=== PATIENT | female | born 1955 | race Caucasian/White ===

== ENCOUNTER → 2018-04-27 15:45 | Outpatient (CLI) | payer MEDICAID, SELFPAY ==
--- NOTE | 2018-04-27 15:47 | MM_ITS ---
MM Dig screening mamm BI w/CAD ORDERING PHYSICIAN : Juany Lewis PATIENT AGE: 62 years GENDER: Female HISTORY. Routine screening mammogram. No hormones. No new complaints. No previous surgery.. Family history:. Maternal grandmother with postmenopausal breast cancer. COMPARISON: [facility] mammogram studies dated 10 05/15 and 07/14/2010 TECHNIQUE: Standard CC and MLO images were obtained. R2 CAD reviewed. FINDINGS: Low-density breast bilaterally. Minimal fibroglandular elements with generalized fatty replacement.. No dominant mass nor suspicious calcifications either breast. There is no significant change since previous studies small few scattered noncalcifications bilaterally again noted . Mild asymmetry is again noted. LEFT BREAST:. Stable appearance with fibroglandular elements at the retroareolar region extending superiorly, similar to previous studies. Also noted to small loosely grouped areas of calcification which and not changed significantly since 2016, but warrant annual follow-up IMPRESSION: No significant change since outside studies from 2016 . No significant new areas of concern. . Follow-up in one year recommended incidental encouraged. Specifically Two small loosely grouped overall stable areas of calcification left breast noted but would benefit from follow-up in one year to further confirm ongoing stability BI-RADS Category: 2 Benign Finding(s) RECOMMENDED FOLLOW-UP: 1YR 1 YEAR FOLLOW-UP (A letter has been sent to the patient regarding results of the study.)
== END ==
PROVIDERS: PCP Pediatrics; Visit Provider Pediatrics
DX: Z12.31 Encounter for screening mammogram for malignant neoplasm of breast (principal)
CPT/HCPCS: 77067

== ENCOUNTER → 2019-02-09 12:58 | Outpatient (CLI) | payer MEDICAID, SELFPAY ==
--- NOTE | 2019-02-09 13:00 | CI_ITS ---
Cerebrovascular Exam Indications: 780.4 Dizziness and giddiness. IMPRESSIONS 1. The bilateral vertebral arteries are patent with normal antegrade flow. 2. Study suggests less than 20% stenosis involving the right internal carotid artery. 3. Study suggests 20-49% stenosis involving the left internal carotid artery. History: Coronary artery disease. Risk factors: Current tobacco use. Hypertension. Diabetes mellitus. Hyperlipidemia. Carotid duplex study. Complete study and Doppler flow study including spectral analysis, color and villarreal scale imaging. Height: Height: 160cm. Height: 63in. Weight: Weight: 81.6kg. Weight: 179.6lb. Body mass index: BMI: 31.9kg/m^2. Body surface area: BSA: 1.94m^2. Location: Vascular laboratory. Patient status: Outpatient. Tables: Arterial flow: + +--------+--------+ Location V sys V ed + +--------+--------+ Right CCA - proximal 76.2cm/s 18.1cm/s + +--------+--------+ Right CCA - distal 81.7cm/s 22.8cm/s + +--------+--------+ Right ECA 203cm/s 32.2cm/s + +--------+--------+ Right ICA - proximal 88cm/s 26.7cm/s + +--------+--------+ Right ICA - mid 88.9cm/s 36.1cm/s + +--------+--------+ Right ICA - distal 62.2cm/s 26.7cm/s + +--------+--------+ Right vertebral 40.8cm/s 11.7cm/s + +--------+--------+ Left CCA - proximal 84cm/s 24.9cm/s + +--------+--------+ Left CCA - distal 82.2cm/s 29.2cm/s + +--------+--------+ Left ECA 90cm/s 10.6cm/s + +--------+--------+ Left ICA - proximal 64.9cm/s 26.9cm/s + +--------+--------+ Left ICA - mid 88.4cm/s 36.9cm/s + +--------+--------+ Left ICA - distal 86.1cm/s 33.3cm/s + +--------+--------+ Left vertebral 40.3cm/s 11.9cm/s + +--------+--------+ Velocity ratios: + + + + + + Right, V sys Right, V ed Left, V sys Left, V ed + + + + + + Max ICA/dist CCA 1.09 1.58 1.08 1.26 + + + + + + (Report amended ) Electronically signed by: Bowen Tristan [id number]
--- NOTE | 2019-02-09 13:00 | CA_ITS ---
PROCEDURE: Technically difficult and limited study INDICATIONS FOR THE TEST: Chest pain COPDX Heart Murmur Tobacco SmokingX Palpitations Fatigue Syncope Edema Hypertension Diabetes Mellitus Rheumatic Fever SOBXDOEXObesity HyperlipidemiaX Family History HD Additional History LIMITED EXAM PLAX/PSAX POOR WINDOWS PATIENT INFORMATION HEIGHT: 62 WEIGHT:180 GENDER: Female B/P:122/88 2-D/M-MODE INTERPRETATION: 2-D MEASUREMENTS OBSERVED VALUES IN CMS Right Ventricular Dimension (RVDd) Interventricular Septum (Thickness)(IVsd) Left Ventricular Internal Dimensions(LVIDd) Left Ventricular Posterior Wall (Thickness)(LVPWd) Aortic Root Aortic Cusp Separation Left Atrial Dimensions (LAD) 2D 1. Left atrium is mildly enlarged, left ventricle is normal size, mild concentric left ventricular hypertrophy, visually estimated ejection fraction 55% with no regional wall motion abnormality. 2. The right atrium and right ventricle are mildly enlarged with normal contractility. 3. The aortic valve is minimally thickened and calcified. 4. The mitral and tricuspid valve leaflets are minimally thickened. 5. The pulmonic valve is poorly visualized. 6. No significant pericardial effusion noted. DOPPLER INTERROGATION: Doppler interrogation of the aortic, mitral and tricuspid valvular presence of mild mitral and tricuspid regurgitation, tricuspid regurgitation jet velocity is inadequate for calculation of the right ventricular systolic pressure, grade 1 diastolic dysfunction seen without tissue Doppler evidence of raised left atrial pressure. CONCLUSION: 1. Mildly enlarged left atrium, normal left ventricular size, mild concentric left ventricular hypertrophy, visually estimated ejection fraction 55% with no regional wall motion abnormality, grade 1 diastolic dysfunction seen without tissue Doppler evidence of raised left atrial pressure. 2. Mildly enlarged right ventricle with normal contractility. 3. Mild mitral and tricuspid regurgitation 4. No significant pericardial effusion noted.
--- NOTE | 2019-02-09 13:43 | XR_ITS ---
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 Coronary artery stent is also noted. There is normal heart size. No evidence of CHF. Lungs are clear bilaterally. Degenerative changes are present in the thoracic spine. IMPRESSION As above, no acute finding with no significant change.
== END ==
PROVIDERS: PCP Pediatrics; Visit Provider Internal Medicine Cardiovascular Disease
DX: R06.02 Shortness of breath (principal); I25.10 Atherosclerotic heart disease of native coronary artery without angina pectoris; E78.5 Hyperlipidemia, unspecified; I11.9 Hypertensive heart disease without heart failure; I73.9 Peripheral vascular disease, unspecified; R00.0 Tachycardia, unspecified
CPT/HCPCS: 71046; 93306; 93880

== ENCOUNTER 2019-08-27 14:30 | Outpatient (RCR) | payer OTHER, SELFPAY | END 2019-08-27 14:35 | disposition home or self-care (01) | LOC: PT 14:30 | PROVIDERS: Visit Provider Pediatrics | DX: M54.9 Dorsalgia, unspecified (principal); M62.838 Other muscle spasm | CPT/HCPCS: 97010; 97014; 97035; 97110; 97140; 97163; G0283 ==

== ENCOUNTER 2020-04-25 16:05 | Emergency (ER) | payer MEDICAID, SELFPAY ==
[2020-04-25 16:54] VITALS: BP 124/81; PULSE 93; RESP 18; TEMP 36.8; O2SAT 98; BMI 30.6
--- NOTE | 2020-04-25 17:11 | HMH.EDUTC ---
[facility] [place] Clinical Impression: Vaginal yeast infection Disposition: Home, Self-Care Condition on Discharge: Good Instructions: DI for Vaginal Yeast Infection, Vaginal Yeast Infection, Fluconazole Additional Instructions: Take medication as prescribed *Avoid soaking in soapy bath water as this can cause vaginal yeast infection and watch soaps that you use to clean area *Follow up with Family doctor if symptoms continued Return if needed Straight to ER if any life threatening symptoms Prescriptions: Fluconazole [Diflucan 150mg tab] 150 mg PO DIRECTED #2 tab Transmission Status: Pending to [facility] #[id number] Referrals: Juany Lewis [Primary Care Provider] - As needed Time of Disposition: 17:19 Medical Decision Making - Donnie Inquiry Pt receiving controlled substance: No Donnie was queried for this patient: No Vital Signs: 04/25/20 16:54 Temperature 98.2 F Temperature Source Oral Pulse Rate [Right Brachial] 93 H Respiratory Rate 18 Blood Pressure [Right Arm] 124/81 Blood Pressure Mean [Right Arm] 95 Blood Pressure Source [Right Arm] Automatic Cuff Blood Pressure Position [Right Arm] Sitting 02 Sat by Pulse Oximetry 98 Oxygen Delivery Method Room Air [facility] [place] - General Stated complaint: yeast infection Time Seen by Provider: 04/25/20 17:11 Mode of Arrival: Ambulatory Source of Information: Patient Limitations: No Limitations Description of Symptoms (Recalled from Triage Doc. by RN): PATIENT C/O POSSIBLE YEAST INFECTION X 1 WEEK HEENT Symptoms (Recalled from RN notes): No Resp Symptoms (Recalled from RN notes): No Skin Symptoms (Recalled from RN notes): No MS Symptoms (Recalled from RN notes): No Functional Status (Recalled from RN notes): WNL - History of Present Illness Provider Complaint: Patient states that she has been having yeast infections on and off for several months and has been being treated by PCP States that she has had to take Diflucan multiple times for it States that today she noticed she was having itching and burning again with thick cottage cheese like discharge like she had before and wanted to come in and get treated before it got too bad - Related Data Home Medications Medication Instructions Recorded Confirmed clopidogrel 75 mg tablet 75 mg PO ONCE 03/24/18 01/29/19 Aspirin [Aspir 81] 81 mg PO DAILY 03/27/18 01/29/19 Atorvastatin Calcium [Atorvastatin 80 mg PO DAILY 03/27/18 01/29/19 80mg Tab] Fenofibrate,Micronized 200 mg PO DAILY 03/27/18 01/29/19 [Fenofibrate] Pregabalin [Lyrica 100mg Cap] 100 mg PO BID 03/27/18 01/29/19 glipiZIDE [Glipizide] 10 mg PO DAILY 03/27/18 01/29/19 insulin glargine 100 unit/mL (3 38 unit SQ PM ml 01/29/19 01/29/19 mL) subcutaneous pen metformin 1,000 mg tablet,extended 1,000 mg PO DAILY tab 01/29/19 01/29/19 release 24hr oxycodone 10 mg tablet 10 mg PO TID tab 01/29/19 01/29/19 ropinirole 5 mg tablet 5 mg PO QHS 01/29/19 01/29/19 Previous Rx's Medication Instructions Recorded cilostazol 100 mg tablet 100 mg PO BID #120 tab 04/17/18 Albuterol Sulfate [Albuterol HFA 1 - 2 puffs IH Q4-6H PRN #1 inh 02/19/19 Inhaler] guaiFENesin [Mucinex] 600 mg PO BIDP PRN #40 tab.er.12h 02/19/19 Ibuprofen [Ibuprofen 800mg 800 mg PO Q8HP PRN #10 tab 06/29/19 Tablet] lisinopril 20 mg tablet 20 mg PO BID #60 tab 07/13/19 bisoprolol fumarate 10 mg tablet 10 mg PO DAILY #90 tab 12/04/19 Fluconazole [Diflucan 150mg tab] 150 mg PO DIRECTED #2 tab 04/25/20 Allergies Allergy/AdvReac Type Severity Reaction Status Date / Time No Known Allergies Allergy Verified 05/28/19 13:37 - Worker's Comp Is this a Worker's Comp case?: No [facility] History - Hepatitis A Screen Drug use history?: No High risk sexual behaviors?: No History of sexually transmitted infection?: No Currently employed?: No Childcare worker?: No Do you have indoor plumbing?: Yes Do you have electricity?: Yes Attestation [facility]
[2020-04-25 17:25] VITALS: BP 124/81; PULSE 93; RESP 18; TEMP 36.8; O2SAT 98
== END 2020-04-25 17:30 | disposition home or self-care (01) ==
PROVIDERS: Emergency Provider Nurse Practitioner; PCP Pediatrics
DX: B37.3 Candidiasis of vulva and vagina (principal); E11.9 Type 2 diabetes mellitus without complications; Z79.899 Other long term (current) drug therapy; F17.210 Nicotine dependence, cigarettes, uncomplicated
CPT/HCPCS: 99201

== ENCOUNTER 2020-09-23 17:52 | Emergency (ER) | payer MEDICARE, MEDICAID, SELFPAY ==
--- NOTE | 2020-09-23 18:04 | CT_ITS ---
PROCEDURE: CT ABDOMEN PELVIS W CON CLINICAL INDICATION: left flank/ abd pain Left pain abdominal with vomiting COMPARISON: CT ABDPELW/O CT ABD PELVIS W/O CONTRAST from 11/06/2015 TECHNIQUE: IV Contrast: 75ML Isovue 370 Oral Contrast None Axial images obtained with sagittal and coronal reformats. All CT scans at the facility use one or more dose reduction, viz: automated exposure control, ma/kV adjustment per patient size (including targeted exams where dose is matched to indication, i.e. head), or iterative reconstruction technique. FINDINGS: LOWER THORAX: There are some dependent changes noted in the lung bases posteriorly. Coronary artery stent is present. ABDOMEN & PELVIS: Prior cholecystectomy. The liver, spleen, adrenal glands, and pancreas have unremarkable. The right kidney has an unremarkable appearance. There are bilateral renal artery calcifications. There is mild left hydronephrosis and hydroureter secondary to a 4 mm stone in the distal 1/3 of the left ureter. No evidence of appendicitis or diverticulitis. There is a mild amount of retained colonic feces. No intestinal obstruction or free air. Artifact is present from left hip prosthesis. There are degenerative changes in the lumbar spine. Atheromatous changes involve the aorta. IMPRESSION: 1. 4 mm left distal ureteral stone with left-sided obstructive uropathy 2. Other nonacute findings as described above. Dictated by: Bowen Tristan MD 09/24/2020 06:59 Bowen Tristan MD in [place] 09/24/2020 06:59
[2020-09-23 18:06] VITALS: BP 158/87; PULSE 64; RESP 16; TEMP 36.8; O2SAT 97; BMI 29.2
[2020-09-23 18:22] LABS: Basophils # 0.1 K/mm3 (0-0.2); Basophils % 0.8 % (0.1-2.0); Eosinophils # 0.3 K/mm3 (0.0-0.4); Hematocrit 50.6 % (37.0-47.0); Hemoglobin 17.1 g/dL (12.2-16.2); Lymphocytes # 2.1 K/mm3 (0.7-4.5); Lymphocytes % 16.4 % (10-50); Mean Corpuscular HGB Conc 33.9 g/dL (31.8-35.4); Mean Corpuscular Hemoglobin 32.1 pg (27.0-31.2); Mean Corpuscular Volume 94.8 fl (81-99); Mean Platelet Volume 9.5 fl (7.4-10.4); Monocytes # 0.6 K/mm3 (0.1-1.0); Monocytes % 4.6 % (1.7-9.3); Neutrophils # 9.8 K/mm3 (1.8-7.8); Neutrophils % 76.2 % (37.0-80.0); Platelet Count 237 K/mm3 (142-424); Red Blood Count 5.33 M/mm3 (4.20-5.40); Red Cell Distribution Width 15.7 % (11.5-17.5); White Blood Count 12.9 K/mm3 (4.8-10.8)
--- NOTE | 2020-09-23 18:26 | HMH.EDABDPAI ---
ED Disposition Clinical Impression: Kidney stone on left side Disposition: Home, Self-Care Condition on Discharge: Fair Instructions: DI for Kidney Stones Additional Instructions: You have been evaluated for flank pain, diagnosed with a kidney stone. Please take ibuprofen 600 on a schedule. Take flomax. Take Zofran for nausea. Take 10 mg oxycodone as needed. Return to the emergency department if you have any new or worsening symptoms, vomiting, fevers, other concerns. Prescriptions: Tamsulosin HCl [Flomax 0.4mg capsule] 0.4 mg PO HS #7 cap Transmission Status: Pending to [facility] # Ondansetron [Zofran 4mg ODT] 4 mg PO TIDP PRN #12 tab PRN Reason: Nausea Transmission Status: Pending to [facility] # Referrals: Juany Lewis [Primary Care Provider] - Time of Disposition: 19:22 - Critical Care Critical Care Time: No Attestation: On 09/23/20, the high probability of a clinically significant, sudden or life threatening deterioration of the following system(s) required my full and direct attention, intervention and personal management. The time I documented below is in addition to time spent performing reported procedures but includes the following listed in this critical care notation. Medical Decision Making - Medical Records Medical records reviewed: Yes: I reviewed the patient's medical records. - Donnie Inquiry Pt receiving controlled substance: No Vital Signs: 09/23/20 18:06 Temperature 98.3 F Temperature Source Oral Pulse Rate [Right Brachial] 64 Respiratory Rate 16 Blood Pressure [Right Arm] 158/87 H Blood Pressure Mean [Right Arm] 110 Blood Pressure Source [Right Arm] Automatic Cuff Blood Pressure Position [Right Arm] Sitting 02 Sat by Pulse Oximetry 97 Oxygen Delivery Method Room Air - Lab Data Lab Results 09/23/20 18:14: WBC 12.9 H, RBC 5.33, Hgb 17.1 H, Hct 50.6 H, MCV 94.8, MCH 32.1 H, MCHC 33.9, RDW 15.7, Plt Count 237, MPV 9.5, Neut % (Auto) 76.2, Lymph % (Auto) 16.4, [place] % (Auto) 4.6, Eos % (Auto) 2.0, Baso % (Auto) 0.8, Neut # (Auto) 9.8 H, Lymph # (Auto) 2.1, [place] # (Auto) 0.6, Eos # (Auto) 0.3, Baso # (Auto) 0.1 09/23/20 18:14: Sodium 138, Potassium 3.6, Chloride 103, Carbon Dioxide 24, Anion Gap 14.6, BUN 24 H, Creatinine 0.80, Estimated Creat Clear 66, Estimated GFR 72, Est GFR ( Amer) 87, Glucose 295 H, Calcium 9.5, Total Bilirubin 1.5 H, AST 24, ALT 22, Alkaline Phosphatase 149 H, Total Protein 8.0, Albumin 4.7, Globulin 3.3 H, Albumin/Globulin Ratio 1.4 09/23/20 18:20: Urine Color Dk yellow, Urine Appearance Sl cloudy, Urine pH 6.0, Ur Specific [place] >= 1.030, Urine Protein 1+, Urine Glucose (UA) 3+, Urine Ketones Negative, Urine Blood 3+, Urine Nitrate Negative, Urine Bilirubin Negative, Urine Urobilinogen 1.0, Ur Leukocyte Esterase Negative, Urine RBC 20-50, Ur Squamous Epith Cells Occasional Result diagrams: 09/23/20 18:14 09/23/20 18:14 Orders (Tests/Meds): ED MEDICATIONS Discontinued Medications Generic Name Dose Route Start Last Admin Trade Name Kaity PRN Reason Stop Dose Admin Iopamidol 75 ml 09/23/20 19:09 09/23/20 19:13 Iopamidol-370 (76%);100ml Bottle IV 09/23/20 19:10 75 ml ONCE ONE Administration Ketorolac Tromethamine 15 mg 09/23/20 18:05 09/23/20 18:24 Ketorolac 30mg/Ml Vial IV 09/23/20 18:06 15 mg ONCE ONE Administration Ondansetron HCl 4 mg 09/23/20 18:06 09/23/20 18:24 Ondansetron 4mg/2ml Vial IV 09/23/20 18:07 4 mg ONCE ONE Administration Sodium Chloride 10 ml 09/23/20 19:09 09/23/20 19:13 Sodium Chloride 0.9% 10ml Syr (Rad Only) IV 09/23/20 19:10 10 ml ONCE ONE Administration ORDERS Category Date Time Status CT abdomen pelvis w con Stat Cat Scan 09/23/20 18:04 Taken - CT Data CT Scan: Abdomen Time Received: 19:[address] Reviewed: Yes: I have reviewed the patient's CT results, I have viewed the radiologist's interpretation Findings Narr
[2020-09-23 18:27] LABS: Chloride 103 mmol/L (98-107); Potassium 3.6 mmoL/L (3.5-5.1); Sodium 138 mmol/L (136-145)
[2020-09-23 18:29] LABS: Blood Urea Nitrogen 24 mg/dl (7-17); Creatinine Clearance Estimated 66 mL/min (50-200); Estimated Glomerular Filt Rate 72 ml/min (>60); GFR (African American) 87 ML/MIN (>60)
[2020-09-23 18:30] LABS: Alanine Aminotransferase 22 U/L (12-78); Albumin Level 4.7 g/dl (3.5-5.0); Albumin/Globulin Ratio 1.4 (1.1-1.8); Alkaline Phosphatase 149 U/L (38-126); Anion Gap 14.6 mEq/L (5-15); Aspartate Amino Transferase 24 U/L (14-36); Bilirubin,Total 1.5 mg/dl (0.2-1.3); Calcium 9.5 mg/dl (8.4-10.2); Carbon Dioxide 24 mmol/L (22.0-30.0); Globulin 3.3 g/dL (1.3-3.2); Glucose 295 mg/dl (74-100)
[2020-09-23 18:32] LABS: Microscopic, Urine URINE MICROSCOPIC (MICROSCOPIC)
[2020-09-23 18:36] LABS: Appearance,Urine SL CLOUDY (Clear); Blood, Urine 3+ (Negative); Color,Urine DK YELLOW (Yellow); Glucose,Urine (UA) 3+ (Negative); Ketones,Urine Negative (Negative); Leukocyte Esterase,Urine Negative (Negative); Nitrate,Urine Negative (Negative); Protein,Urine 1+ (Negative); Specific Gravity, Urine >= 1.030 (1.005-1.030)
--- NOTE | 2020-09-23 18:45 | PC.NURSE ---
Patient gone to radiology
[2020-09-23 19:01] LABS: Bilirubin,Urine Negative (Negative)
[2020-09-23 19:10] LABS: RBC,Urine 20-50 #/hpf (0-3)
[2020-09-23 19:11] LABS: Squamous Epithelial Cell,Urine Occasional #/hpf (0-5)
[2020-09-23 19:31] VITALS: BP 146/81; PULSE 61; RESP 16; TEMP 36.8; O2SAT 98
== END 2020-09-23 19:35 | disposition home or self-care (01) ==
PROVIDERS: Emergency Provider Emergency Medicine; PCP Pediatrics
DX: N20.0 Calculus of kidney (principal); Z87.442 Personal history of urinary calculi; I10 Essential (primary) hypertension; E11.65 Type 2 diabetes mellitus with hyperglycemia; Z96.642 Presence of left artificial hip joint; F17.210 Nicotine dependence, cigarettes, uncomplicated; Z79.899 Other long term (current) drug therapy
CPT/HCPCS: 74177; 80053; 81001; 85025; 96374; 96375; 99283; J2405; Q9967

== ENCOUNTER 2020-11-02 22:20 | Emergency (ER) | payer MEDICARE, SELFPAY ==
[2020-11-02 22:21] VITALS: BP 134/72; PULSE 76; RESP 16; TEMP 36.8; O2SAT 96; BMI 29.9
[2020-11-02 23:21] VITALS: BP 141/74; PULSE 76; RESP 17; O2SAT 96
--- NOTE | 2020-11-02 23:36 | CT_ITS ---
PROCEDURE: CT ABDOMEN PELVIS WO CON CLINICAL INDICATION: flank pain with blood in urine COMPARISON: CT CT ABDOMEN PELVIS W CON from 09/23/2020 TECHNIQUE: Axial images obtained with sagittal and coronal reformats. All CT scans at the facility use one or more dose reduction, viz: automated exposure control, ma/kV adjustment per patient size (including targeted exams where dose is matched to indication, i.e. head), or iterative reconstruction technique. FINDINGS: LOWER THORAX: Prior CABG with coronary artery calcifications ABDOMEN & PELVIS: Prior cholecystectomy. The liver, spleen, adrenal glands, pancreas, has an unremarkable appearance. There is mild bilateral renal arterial calcification in the renal joselyn. A 4 mm stone is present in the distal left ureter in the mid pelvic region with mild left-sided obstructive uropathy. Multiple unopacified bowel loops in the abdomen or pelvis which could obscure or mimic pathology. If symptoms persist, consider repeat exam with IV and oral contrast.. No evidence of appendicitis. Degenerative changes thoracic and lumbar spine. Artifact is present from left hip prosthesis. 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 Atherosclerotic calcification involves the aortoiliac vessels with minimal dilatation of the lower abdominal aorta at 2.3 cm. IMPRESSION: 1. 4 mm stone distal left ureter with mild left-sided obstructive uropathy. 2. Other nonacute findings as described above. Dictated by: Bowen Tristan MD 11/03/2020 07:09 Bowen Tristan MD in [place] 11/03/2020 07:09
--- NOTE | 2020-11-02 23:49 | PC.NURSE ---
pt to CT
[2020-11-02 23:57] LABS: Microscopic, Urine URINE MICROSCOPIC (MICROSCOPIC)
[2020-11-03] LABS: Basophils # 0.1 K/mm3 (0-0.2); Basophils % 0.9 % (0.1-2.0); Eosinophils # 0.3 K/mm3 (0.0-0.4); Eosinophils % 3.4 % (0.1-12.0); Hemoglobin 16.3 g/dL (12.2-16.2); Lymphocytes # 2.8 K/mm3 (0.7-4.5); Lymphocytes % 33.3 % (10-50); Mean Corpuscular HGB Conc 33.3 g/dL (31.8-35.4); Mean Corpuscular Hemoglobin 31.2 pg (27.0-31.2); Mean Corpuscular Volume 93.6 fl (81-99); Mean Platelet Volume 7.7 fl (7.4-10.4); Monocytes # 0.3 K/mm3 (0.1-1.0); Monocytes % 3.9 % (1.7-9.3); Neutrophils % 58.4 % (37.0-80.0); Platelet Count 246 K/mm3 (142-424); Red Blood Count 5.23 M/mm3 (4.20-5.40); Red Cell Distribution Width 14.4 % (11.5-17.5); White Blood Count 8.5 K/mm3 (4.8-10.8)
--- NOTE | 2020-11-03 | PC.NURSE ---
pt back from RAD
[2020-11-03 00:06] LABS: Appearance,Urine TURBID (Clear); Blood, Urine 3+ (Negative); Color,Urine BROWN (Yellow); Glucose,Urine (UA) 3+ (Negative); Ketones,Urine TRACE (Negative); Leukocyte Esterase,Urine Negative (Negative); Nitrate,Urine Negative (Negative); Protein,Urine 1+ (Negative); Specific Gravity, Urine >= 1.030 (1.005-1.030)
[2020-11-03 00:16] LABS: Chloride 104 mmol/L (98-107); Sodium 139 mmol/L (136-145)
[2020-11-03 00:18] LABS: Blood Urea Nitrogen 18 mg/dl (7-17); Creatinine Clearance Estimated 67 mL/min (50-200); Estimated Glomerular Filt Rate 72 ml/min (>60); GFR (African American) 87 ML/MIN (>60)
[2020-11-03 00:19] LABS: Alanine Aminotransferase 23 U/L (12-78); Albumin Level 4.5 g/dl (3.5-5.0); Albumin/Globulin Ratio 1.4 (1.1-1.8); Alkaline Phosphatase 122 U/L (38-126); Aspartate Amino Transferase 29 U/L (14-36); Bilirubin,Total 0.7 mg/dl (0.2-1.3); Calcium 9.8 mg/dl (8.4-10.2); Carbon Dioxide 25 mmol/L (22.0-30.0); Globulin 3.2 g/dL (1.3-3.2); Glucose 215 mg/dl (74-100); Total Protein,Serum 7.7 g/dl (6.3-8.2)
[2020-11-03 00:21] VITALS: BP 147/68; PULSE 79; RESP 16; O2SAT 98
[2020-11-03 00:25] LABS: Bilirubin,Urine Negative (Negative)
[2020-11-03 00:25] LABS: C-Reactive Protein 2.1 mg/L (0-4)
[2020-11-03 00:26] LABS: RBC,Urine TNTC #/hpf (0-3)
[2020-11-03 00:27] LABS: Calcium Oxalate Crystals,Urine 4+ /lpf; Mucus,Urine 4+ /lpf
--- NOTE | 2020-11-03 00:38 | HMH.EDGENADL ---
ED Disposition Clinical Impression: Renal colic on left side Disposition: Home, Self-Care Condition on Discharge: Good Instructions: DI for Kidney Stones Additional Instructions: fluids and call pcp and urology in am Prescriptions: Tamsulosin HCl [Flomax 0.4mg capsule] 0.4 mg PO HS #10 cap Transmission Status: Pending to [facility] #[id number] Referrals: Juany Lewis [Primary Care Provider] - - Critical Care Critical Care Time: No Attestation: On 11/02/20, the high probability of a clinically significant, sudden or life threatening deterioration of the following system(s) required my full and direct attention, intervention and personal management. The time I documented below is in addition to time spent performing reported procedures but includes the following listed in this critical care notation. Medical Decision Making - Medical Records Medical records reviewed: Yes: I reviewed the patient's medical records. - Donnie Inquiry Pt receiving controlled substance: No Vital Signs: 11/02/20 22:21 Temperature 98.3 F Temperature Source Oral Pulse Rate [Left Radial] 76 Respiratory Rate 16 Blood Pressure [Right Arm] 134/72 Blood Pressure Mean [Right Arm] 92 Blood Pressure Source [Right Arm] Automatic Cuff Blood Pressure Position [Right Arm] Sitting 02 Sat by Pulse Oximetry 96 Oxygen Delivery Method Room Air - Lab Data Lab results reviewed: Yes: I reviewed the patient's lab results. Lab Results 11/02/20 23:00: Urine Color Brown, Urine Appearance Turbid, Urine pH 6.0, Ur Specific [place] >= 1.030, Urine Protein 1+, Urine Glucose (UA) 3+, Urine Ketones Trace, Urine Blood 3+, Urine Nitrate Negative, Urine Bilirubin Negative, Urine Urobilinogen 2.0, Ur Leukocyte Esterase Negative, Urine RBC Tntc, Ur Squamous Epith Cells 10-20, Calcium Oxalate Crystal 4+, Urine Mucus 4+ 11/02/20 23:40: WBC 8.5, RBC 5.23, Hgb 16.3 H, Hct 49.0 H, MCV 93.6, MCH 31.2, MCHC 33.3, RDW 14.4, Plt Count 246, MPV 7.7, Neut % (Auto) 58.4, Lymph % (Auto) 33.3, [place] % (Auto) 3.9, Eos % (Auto) 3.4, Baso % (Auto) 0.9, Neut # (Auto) 5.0, Lymph # (Auto) 2.8, [place] # (Auto) 0.3, Eos # (Auto) 0.3, Baso # (Auto) 0.1 11/02/20 23:40: Sodium 139, Potassium 4.0, Chloride 104, Carbon Dioxide 25, Anion Gap 14.0, BUN 18 H, Creatinine 0.80, Estimated Creat Clear 67, Estimated GFR 72, Est GFR ( Amer) 87, Glucose 215 H, Calcium 9.8, Total Bilirubin 0.7, AST 29, ALT 23, Alkaline Phosphatase 122, C-Reactive Protein 2.1, Total Protein 7.7, Albumin 4.5, Globulin 3.2, Albumin/Globulin Ratio 1.4 Result diagrams: 11/02/20 23:40 11/02/20 23:40 Orders (Tests/Meds): ED MEDICATIONS Generic Name Dose Route Start Last Admin Trade Name Freq PRN Reason Stop Dose Admin Sodium Chloride 1,000 mls @ 999 mls/hr 11/02/20 23:45 11/03/20 00:04 Sod Chlor 0.9% 1000ml Bag IV 11/03/20 00:45 999 mls/hr .Q1H1M HUNTER Administration Discontinued Medications Generic Name Dose Route Start Last Admin Trade Name Freq PRN Reason Stop Dose Admin Ketorolac Tromethamine 30 mg 11/02/20 23:38 11/03/20 00:04 Ketorolac 30mg/Ml Vial IV 11/02/20 23:39 30 mg ONCE ONE Administration Ondansetron HCl 4 mg 11/02/20 23:38 11/03/20 00:04 Ondansetron 4mg/2ml Vial IV 11/02/20 23:39 4 mg ONCE ONE Administration ORDERS Category Date Time Status CT abdomen pelvis wo con Stat Cat Scan 11/02/20 23:36 Taken - CT Data CT Scan: Abdomen, Pelvis Time Received: 00:[address] Reviewed: Yes: I have viewed the radiologist's interpretation Preliminary Findings: Abnormal (4 mm stone ) Medical Decision Narrative: will give copy of xray and add flomax and ask pt to call urology and pcp in am General Adult HPI - General Chief complaint: PAIN Stated complaint: Bleeding when urinating, back pain Time Seen by Provider: 11/03/20 00:00 Mode of Arrival: Ambulatory Source of Information: Patient, Medical Record Limitations: No Limitations Cj
[2020-11-03 01:01] VITALS: BP 158/63; PULSE 81; RESP 16; TEMP 36.6; O2SAT 97
== END 2020-11-03 01:03 | disposition home or self-care (01) ==
PROVIDERS: Emergency Provider Emergency Medicine; PCP Pediatrics
DX: N23 Unspecified renal colic (principal); Z87.442 Personal history of urinary calculi; F17.210 Nicotine dependence, cigarettes, uncomplicated; Z79.899 Other long term (current) drug therapy
CPT/HCPCS: 74176; 80053; 81001; 85025; 86140; 96365; 96375; 99283; J2405

== ENCOUNTER 2021-02-17 15:41 | Emergency (ER) | payer MEDICARE, SELFPAY ==
[2021-02-17 16:03] VITALS: BP 169/91; PULSE 97; RESP 14; TEMP 36.8; O2SAT 99; BMI 31.1
--- NOTE | 2021-02-17 16:08 | HMH.EDUTC ---
[facility] – [place] Disposition Clinical Impression: Exposure to COVID-19 virus Disposition: Home, Self-Care Condition on Discharge: Good Instructions: Preventing the Spread of Coronavirus Discharge Instructions Additional Instructions: Drink plenty of fluids. Take tylenol for pain or fever. Return if you begin to have difficulty breathing. Follow up with your regular doctor. GO TO THE ER FOR ANY WORSENING SYMPTOMS Referrals: Juany Lewis [Primary Care Provider] - Time of Disposition: 16:09 Medical Decision Making - Medical Records Medical records reviewed: No: I reviewed the patient's medical records. - Donnie Inquiry Pt receiving controlled substance: No Vital Signs: 02/17/21 16:03 02/17/21 16:12 Temperature 98.2 F 99.3 F Temperature Source Tympanic Oral Pulse Rate 98 H Pulse Rate [Right Brachial] 97 H Respiratory Rate 14 14 Blood Pressure 140/83 Blood Pressure [Right Arm] 169/91 H Blood Pressure Mean [Right Arm] 117 Blood Pressure Source Automatic Cuff Blood Pressure Source [Right Arm] Automatic Cuff Blood Pressure Position Sitting Blood Pressure Position [Right Arm] Sitting 02 Sat by Pulse Oximetry 99 Oxygen Delivery Method Room Air Room Air Orders (Tests/Meds): ORDERS Category Date Time Status Covid-19 Nasal PCR ([facility]) Routine Lab 02/17/21 15:50 Received [facility] [place] HPI - General Stated complaint: covid Time Seen by Provider: 02/17/21 16:05 Mode of Arrival: Ambulatory Source of Information: Patient Limitations: No Limitations Description of Symptoms (Recalled from Triage Doc. by RN): covid test HEENT Symptoms (Recalled from RN notes): No Resp Symptoms (Recalled from RN notes): No Skin Symptoms (Recalled from RN notes): No MS Symptoms (Recalled from RN notes): No Functional Status (Recalled from RN notes): wnl - History of Present Illness Provider Complaint: She is here to be checked for covid. She has been exposed approx 3 days ago. She denies any symptoms so far. - Related Data Home Medications Medication Instructions Recorded Confirmed clopidogrel 75 mg tablet 75 mg PO ONCE 03/24/18 01/29/19 Aspirin [Aspir 81] 81 mg PO DAILY 03/27/18 01/29/19 Atorvastatin Calcium [Atorvastatin 80 mg PO DAILY 03/27/18 01/29/19 80mg Tab] Fenofibrate,Micronized 200 mg PO DAILY 03/27/18 01/29/19 [Fenofibrate] Pregabalin [Lyrica 100mg Cap] 100 mg PO BID 03/27/18 01/29/19 glipiZIDE [Glipizide] 10 mg PO DAILY 03/27/18 01/29/19 insulin glargine 100 unit/mL (3 38 unit SQ PM ml 01/29/19 01/29/19 mL) subcutaneous pen metformin 1,000 mg tablet,extended 1,000 mg PO DAILY tab 01/29/19 01/29/19 release 24hr oxycodone 10 mg tablet 10 mg PO TID tab 01/29/19 01/29/19 ropinirole 5 mg tablet 5 mg PO QHS 01/29/19 01/29/19 Previous Rx's Medication Instructions Recorded cilostazol 100 mg tablet 100 mg PO BID #120 tab 04/17/18 Albuterol Sulfate [Albuterol HFA 1 - 2 puffs IH Q4-6H PRN #1 inh 02/19/19 Inhaler] guaiFENesin [Mucinex] 600 mg PO BIDP PRN #40 tab.er.12h 02/19/19 Ibuprofen [Ibuprofen 800mg 800 mg PO Q8HP PRN #10 tab 06/29/19 Tablet] lisinopril 20 mg tablet 20 mg PO BID #60 tab 07/13/19 bisoprolol fumarate 10 mg tablet 10 mg PO DAILY #90 tab 12/04/19 Fluconazole [Diflucan 150mg tab] 150 mg PO DIRECTED #2 tab 04/25/20 Ondansetron [Zofran 4mg ODT] 4 mg PO TIDP PRN #12 tab 09/23/20 Tamsulosin HCl [Flomax 0.4mg 0.4 mg PO HS #7 cap 09/23/20 capsule] Tamsulosin HCl [Flomax 0.4mg 0.4 mg PO HS #10 cap 11/03/20 capsule] Allergies Allergy/AdvReac Type Severity Reaction Status Date / Time No Known Allergies Allergy Verified 11/02/20 23:24 - Worker's Comp Is this a Worker's Comp case?: No [facility] History - Hepatitis A Screen Drug use history?: No High risk sexual behaviors?: No History of sexually transmitted infection?: No Currently employed?: No Childcare worker?: No Do you have indoor plumbing?: Yes Do you have electricity?:
[2021-02-17 16:12] VITALS: BP 140/83; PULSE 98; RESP 14; TEMP 37.4; O2SAT 99
== END 2021-02-17 16:13 | disposition home or self-care (01) ==
PROVIDERS: Emergency Provider Nurse Practitioner Family; PCP Pediatrics
DX: Z20.822 Contact with and (suspected) exposure to COVID-19 (principal); E11.9 Type 2 diabetes mellitus without complications; F17.210 Nicotine dependence, cigarettes, uncomplicated; Z79.899 Other long term (current) drug therapy
CPT/HCPCS: G0463; 99202; U0003

== ENCOUNTER 2021-02-27 18:46 | Emergency (ER) | payer MEDICARE, SELFPAY ==
[2021-02-27 19:17] VITALS: BP 155/89; PULSE 93; RESP 16; TEMP 36.4; O2SAT 98; BMI 31.1
--- NOTE | 2021-02-27 19:29 | HMH.EDUTC ---
[facility] [place]ression: Abscess of groin, right Disposition: Home, Self-Care Condition on Discharge: Good Instructions: Boil Additional Instructions: Apply warm wet compresses to the affected sites three or four times per day for 15 minutes as tolerated. You could also sit in a bath tub of warm salt water. Take the antibiotics as directed. Follow up with your regular doctor. GO TO THE ER FOR ANY WORSENING SYMPTOMS OR CONCERNS Prescriptions: Sulfamethoxazole/Trimethoprim [Bactrim DS tablet] 1 each PO BID 10 Days #20 tab Transmission Status: Received by [facility] #[id number] Mupirocin [Bactroban 2% Ointment 22gm tube] 1 applicatio TP TID 7 Days #1 tube Transmission Status: Received by [facility] #[id number] cephALEXin [cephALEXin 500mg capsule] 500 mg PO Q6H 10 Days #40 cap Transmission Status: Received by [facility] #[id number] Referrals: Juany Lewis [Primary Care Provider] - Time of Disposition: 19:47 Medical Decision Making - Medical Records Medical records reviewed: No: I reviewed the patient's medical records. - Donnie Inquiry Pt receiving controlled substance: No Vital Signs: 02/27/21 19:17 02/27/21 19:54 Temperature 97.6 F 97.6 F Temperature Source Tympanic Tympanic Pulse Rate 90 Pulse Rate [Right] 93 H Respiratory Rate 16 16 Blood Pressure 152/89 H Blood Pressure [Right Arm] 155/89 H Blood Pressure Mean [Right Arm] 111 Blood Pressure Source [Right Arm] Automatic Cuff Blood Pressure Position [Right Arm] Sitting 02 Sat by Pulse Oximetry 98 Orders (Tests/Meds): ORDERS Category Date Time Status Wound Culture and Gram Stain Stat Micro 02/27/21 19:46 [place] [facility] [place] - General Stated complaint: bOIL ON LEG Time Seen by Provider: 02/27/21 19:29 - History of Present Illness Provider Complaint: She states that she has had a boil on her upper right leg. It has been present for the past 4 days. She denies any fever or chills. She state that the place started draining yesterday. It feels some better since it started draining, but she still would like to get it checked. - Related Data Home Medications Medication Instructions Recorded Confirmed clopidogrel 75 mg tablet 75 mg PO ONCE 03/24/18 01/29/19 Aspirin [Aspir 81] 81 mg PO DAILY 03/27/18 01/29/19 Atorvastatin Calcium [Atorvastatin 80 mg PO DAILY 03/27/18 01/29/19 80mg Tab] Fenofibrate,Micronized 200 mg PO DAILY 03/27/18 01/29/19 [Fenofibrate] Pregabalin [Lyrica 100mg Cap] 100 mg PO BID 03/27/18 01/29/19 glipiZIDE [Glipizide] 10 mg PO DAILY 03/27/18 01/29/19 insulin glargine 100 unit/mL (3 38 unit SQ PM ml 01/29/19 01/29/19 mL) subcutaneous pen metformin 1,000 mg tablet,extended 1,000 mg PO DAILY tab 01/29/19 01/29/19 release 24hr oxycodone 10 mg tablet 10 mg PO TID tab 01/29/19 01/29/19 ropinirole 5 mg tablet 5 mg PO QHS 01/29/19 01/29/19 Previous Rx's Medication Instructions Recorded cilostazol 100 mg tablet 100 mg PO BID #120 tab 04/17/18 Albuterol Sulfate [Albuterol HFA 1 - 2 puffs IH Q4-6H PRN #1 inh 02/19/19 Inhaler] guaiFENesin [Mucinex] 600 mg PO BIDP PRN #40 tab.er.12h 02/19/19 Ibuprofen [Ibuprofen 800mg 800 mg PO Q8HP PRN #10 tab 06/29/19 Tablet] lisinopril 20 mg tablet 20 mg PO BID #60 tab 07/13/19 bisoprolol fumarate 10 mg tablet 10 mg PO DAILY #90 tab 12/04/19 Fluconazole [Diflucan 150mg tab] 150 mg PO DIRECTED #2 tab 04/25/20 Ondansetron [Zofran 4mg ODT] 4 mg PO TIDP PRN #12 tab 09/23/20 Tamsulosin HCl [Flomax 0.4mg 0.4 mg PO HS #7 cap 09/23/20 capsule] Tamsulosin HCl [Flomax 0.4mg 0.4 mg PO HS #10 cap 11/03/20 capsule] Mupirocin [Bactroban 2% Ointment 1 applicatio TP TID 7 Days #1 tube 02/27/21 22gm tube] Sulfamethoxazole/Trimethoprim 1 each PO BID 10 Days #20 tab 02/27/21 [Bactrim DS tablet] cephALEXin [cephALEXin 500mg 500 mg PO Q6H 10 Days #40 cap 02/27/21 capsule] Aller
[2021-02-27 19:54] VITALS: BP 152/89; PULSE 90; RESP 16; TEMP 36.4
== END 2021-02-27 20:07 | disposition home or self-care (01) ==
PROVIDERS: Emergency Provider Nurse Practitioner Family; PCP Pediatrics
DX: L02.214 Cutaneous abscess of groin (principal); E11.9 Type 2 diabetes mellitus without complications; F17.210 Nicotine dependence, cigarettes, uncomplicated
CPT/HCPCS: G0463; 87070; 87077; 87186; 87205; 99202

== ENCOUNTER 2021-05-24 20:26 | Emergency (ER) | payer MEDICARE, SELFPAY ==
[2021-05-24 20:27] VITALS: BP 194/94; PULSE 76; RESP 18; TEMP 37.1; O2SAT 97; BMI 31.3
--- NOTE | 2021-05-24 20:51 | HMH.EDGENADL ---
ED Disposition Clinical Impression: Peripheral edema Peripheral neuropathy Qualifiers: Peripheral neuropathy type: polyneuropathy, unspecified Qualified Code(s): G62.9 - Polyneuropathy, unspecified Disposition: Home, Self-Care Condition on Discharge: Good Instructions: DI for Diabetic Neuropathy, DI for Peripheral Edema -- Bilateral Additional Instructions: Call your primary care provider tomorrow morning follow-up. Rest and elevate your feet. Referrals: Juany Lewis [Primary Care Provider] - - Critical Care Critical Care Time: No Attestation: On 05/24/21, the high probability of a clinically significant, sudden or life threatening deterioration of the following system(s) required my full and direct attention, intervention and personal management. The time I documented below is in addition to time spent performing reported procedures but includes the following listed in this critical care notation. Medical Decision Making - Donnie Inquiry Pt receiving controlled substance: No Vital Signs: 05/24/21 20:27 05/24/21 21:00 Temperature 98.7 F Temperature Source Oral Pulse Rate 96 H Pulse Rate [Right] 76 Respiratory Rate 18 Blood Pressure 124/66 Blood Pressure [Right Arm] 194/94 H Blood Pressure Mean [Right Arm] 127 Blood Pressure Source Automatic Cuff 02 Sat by Pulse Oximetry 97 93 L - Lab Data Lab Results 05/24/21 20:58: WBC 9.2, RBC 5.01, Hgb 15.5, Hct 47.0, MCV 93.9, MCH 30.9, MCHC 32.9, RDW 14.8, Plt Count 222, MPV 8.0, Neut % (Auto) 66.4, Lymph % (Auto) 24.8, Castro % (Auto) 3.4, Eos % (Auto) 4.2, Baso % (Auto) 1.3, Neut # (Auto) 6.1, Lymph # (Auto) 2.3, Castro # (Auto) 0.3, Eos # (Auto) 0.4, Baso # (Auto) 0.1 05/24/21 20:58: Sodium 141, Potassium 4.0, Chloride 105, Carbon Dioxide 29, Anion Gap 11.0, BUN 17, Creatinine 0.50 L, Estimated Creat Clear 70, Estimated GFR 123, Est GFR ( Amer) 149, Glucose 259 H, Calcium 9.7, Total Bilirubin 0.8, AST 30, ALT 23, Alkaline Phosphatase 104, NT-Pro-B Natriuret Pep 79.9, Total Protein 7.7, Albumin 4.7, Globulin 3.0, Albumin/Globulin Ratio 1.6 Result diagrams: 05/24/21 20:58 05/24/21 20:58 Orders (Tests/Meds): ORDERS Category Date Time Status Chest XR 2 view (NOT portable) [XR chest 2V] Stat Exams 05/24/21 21:02 Taken - Radiology Data #1 Image(s): Chest Image Reviewed: Yes I reviewed the patient's radiology image Chronic elevation of left diaphragm, prior sternotomy. No acute process. No effusions or signs of congestive heart failure. General Adult HPI - General Stated complaint: swelling in feet and legs, burning in feet Time Seen by Provider: 05/24/21 20:51 - History of Present Illness HPI narrative: Says that she got home from vacation on Tuesday and her feet were purple and her legs have been swelling off and on since then and she has a burning sensation in her feet and legs. Today also feels like her whole body is swelling. Says that every shirts she put on today seem too tight. She has prior history of peripheral vascular disease with balloon angioplasty in her right leg. She also has neuropathy for which she takes Lyrica. - Related Data Home Medications Medication Instructions Recorded Confirmed clopidogrel 75 mg tablet 75 mg PO ONCE 03/24/18 01/29/19 Aspirin [Aspir 81] 81 mg PO DAILY 03/27/18 01/29/19 Atorvastatin Calcium [Atorvastatin 80 mg PO DAILY 03/27/18 01/29/19 80mg Tab] Fenofibrate,Micronized 200 mg PO DAILY 03/27/18 01/29/19 [Fenofibrate] Pregabalin [Lyrica 100mg Cap] 100 mg PO BID 03/27/18 01/29/19 glipiZIDE [Glipizide] 10 mg PO DAILY 03/27/18 01/29/19 insulin glargine 100 unit/mL (3 38 unit SQ PM ml 01/29/19 01/29/19 mL) subcutaneous pen metformin 1,000 mg tablet,extended 1,000 mg PO DAILY tab 01/29/19 01/29/19 release 24hr oxycodone 10 mg tablet 10 mg PO TID tab 01/29/19 01/29/19 ropinirole 5 mg tablet 5 mg PO QHS 01/29/19 01/29/19 Previous Rx's Medication Instructio
[2021-05-24 21:00] VITALS: BP 124/66; PULSE 96; O2SAT 93
--- NOTE | 2021-05-24 21:02 | XR_ITS ---
PROCEDURE INFORMATION: Exam: XR Chest Exam date and time: 05/24/2021 9:02 PM Age: 65 years old Clinical indication: Prior surgery; Surgery date: 6+ months; Surgery type: Open heart; Patient HX: Leg swelling TECHNIQUE: Imaging protocol: XR of the chest. Views: 2 views. COMPARISON: CR XR CHEST AP 06/29/2019 6:43 PM FINDINGS: Lungs: Stable elevation of the left hemidiaphragm. No consolidation. Pleural spaces: Unremarkable. No pleural effusion. No pneumothorax. Heart/Mediastinum: Unremarkable. No cardiomegaly. Bones/joints: Median sternotomy wires. IMPRESSION: No acute findings.
[2021-05-24 21:08] LABS: Basophils # 0.1 K/mm3 (0-0.2); Basophils % 1.3 % (0.1-2.0); Eosinophils # 0.4 K/mm3 (0.0-0.4); Eosinophils % 4.2 % (0.1-12.0); Hemoglobin 15.5 g/dL (12.2-16.2); Lymphocytes # 2.3 K/mm3 (0.7-4.5); Lymphocytes % 24.8 % (10-50); Mean Corpuscular HGB Conc 32.9 g/dL (31.8-35.4); Mean Corpuscular Hemoglobin 30.9 pg (27.0-31.2); Mean Corpuscular Volume 93.9 fl (81-99); Monocytes # 0.3 K/mm3 (0.1-1.0); Monocytes % 3.4 % (1.7-9.3); Neutrophils # 6.1 K/mm3 (1.8-7.8); Neutrophils % 66.4 % (37.0-80.0); Platelet Count 222 K/mm3 (142-424); Red Blood Count 5.01 M/mm3 (4.20-5.40); Red Cell Distribution Width 14.8 % (11.5-17.5); White Blood Count 9.2 K/mm3 (4.8-10.8)
[2021-05-24 21:11] LABS: Chloride 105 mmol/L (98-107); Sodium 141 mmol/L (136-145)
[2021-05-24 21:14] LABS: Alanine Aminotransferase 23 U/L (12-78); Albumin Level 4.7 g/dl (3.5-5.0); Albumin/Globulin Ratio 1.6 (1.1-1.8); Alkaline Phosphatase 104 U/L (38-126); Aspartate Amino Transferase 30 U/L (14-36); Bilirubin,Total 0.8 mg/dl (0.2-1.3); Blood Urea Nitrogen 17 mg/dl (7-17); Carbon Dioxide 29 mmol/L (22.0-30.0); Creatinine Clearance Estimated 70 mL/min (50-200); Estimated Glomerular Filt Rate 123 ml/min (>60); GFR (African American) 149 ML/MIN (>60); Total Protein,Serum 7.7 g/dl (6.3-8.2)
[2021-05-24 21:15] LABS: Calcium 9.7 mg/dl (8.4-10.2); Glucose 259 mg/dl (74-100)
[2021-05-24 21:23] LABS: NT Pro Brain Natriuretic Pep. 79.9 pg/mL (0-125)
[2021-05-24 22:01] VITALS: BP 132/68; PULSE 90; RESP 18; TEMP 37.1; O2SAT 97
== END 2021-05-24 22:05 | disposition home or self-care (01) ==
PROVIDERS: Emergency Provider Emergency Medicine; PCP Pediatrics
DX: G62.9 Polyneuropathy, unspecified (principal); E11.65 Type 2 diabetes mellitus with hyperglycemia; Z96.642 Presence of left artificial hip joint; F17.210 Nicotine dependence, cigarettes, uncomplicated; R06.09 Other forms of dyspnea
CPT/HCPCS: 71046; 80053; 83880; 85025; 99282

== ENCOUNTER → 2021-06-01 15:11 | Outpatient (CLI) | payer MEDICARE, SELFPAY ==
[2021-06-01 16:35] LABS: Erythrocyte Sedimentation Rate 4 mm/hr (0-30)
[2021-06-01 16:43] LABS: C-Reactive Protein 0.7 mg/L (0-4)
[2021-06-01 21:32] LABS: Uric Acid 3.3 mg/dl (2.5-6.2)
== END ==
PROVIDERS: Visit Provider Pediatrics
DX: M10.9 Gout, unspecified (principal); M19.90 Unspecified osteoarthritis, unspecified site
CPT/HCPCS: 36415; 84550; 85651; 86140

== ENCOUNTER → 2021-12-31 15:07 | Outpatient (CLI) | payer MEDICARE, SELFPAY ==
--- NOTE | 2021-12-31 15:14 | CT_ITS ---
FINAL REPORT TECHNIQUE: Axial images were obtained from the lung apex to the mid abdomen by computed tomography. Low-dose protocol was utilized. CLINICAL HISTORY: HISTORY OF TOBACCO USE FINDINGS: CHEST CT LOW DOSE CTDI vol (mGy): 2.90 DLP (mGy-cm): 96.38 There is no axillary adenopathy. There is no hilar or mediastinal adenopathy. The heart is normal in size. There is no pericardial or pleural effusion. There is mild emphysema and scarring. There are several small nodules. There is a 5 mm nodule in the posterior right upper lobe well-seen on image #33. There is a 4 mm nodule in the right middle lobe well-seen on image #40. There is a 5 mm cavitary lesion in the posterior right upper lobe well-seen on image #37. The patient is status post cholecystectomy. IMPRESSION: Multiple nodules as detailed above. Lung RADS category 2. Recommend 12 month follow-up low-dose chest CT. Reviewed, Interpreted and Dictated by Leoncio Noriega III, MD Transcribed by Mery Francis Authenticated by Leoncio Noriega III, MD on 01/01/2022 08:00:04 AM [facility]
== END ==
PROVIDERS: PCP Pediatrics; Visit Provider Pediatrics
DX: Z87.891 Personal history of nicotine dependence (principal); Z12.2 Encounter for screening for malignant neoplasm of respiratory organs
CPT/HCPCS: 71271

== ENCOUNTER 2022-01-19 18:04 | Emergency (ER) | payer MEDICARE, SELFPAY ==
[2022-01-19 19:26] VITALS: BP 155/88; PULSE 92; RESP 16; TEMP 37.6; O2SAT 98; BMI 31.3
--- NOTE | 2022-01-19 19:36 | HMH.EDUTC ---
[facility] [place] Impression: Sinusitis Qualifiers: Sinusitis location: unspecified location Chronicity: unspecified Qualified Code(s): J32.9 - Chronic sinusitis, unspecified Disposition: Home, Self-Care Condition on Discharge: Good Instructions: Sinusitis, DI for Sinusitis Additional Instructions: *Monitor Temp, Over the counter Motrin or Tylenol as directed/as needed Tylenol every 4 hours and Motrin every 6 hours (as long as your family doctor has told you that you can take it) for fever or pain. and straight to ER if unable to lower temp less than 101.0 after medication given *Warm salt water gargles may help to soothe the throat *Throat Lozenges *Warm fluids like tea with honey may help to soothe the throat *Sleep elevated *Humidifier/Vaporizer *Flonase 2 sprays in each nostril daily but be aware that it may take 2-3 days before you notice improvement Take medication as prescribed Return if needed Follow up IMMEDIATELY for new or worsening symptoms or no Noticeable improvement over the next 48-72 hours. 911 for difficulty breathing or swallowing Prescriptions: Benzonatate [Benzonatate 100mg cap] 100 mg PO Q8HP PRN #15 cap PRN Reason: Cough Transmission Status: Pending to [facility] # Amoxicillin/Potassium Clav [Amox-Clav 875-125 mg Tablet] 1 tab PO BID #14 tab Transmission Status: Pending to [facility] # Fluticasone Propionate [Flonase 50mcg nasal spray 16gm] 1 spr NS DAILY #1 each Transmission Status: Pending to [facility] # Referrals: Juany Lewis [Primary Care Provider] - As needed Time of Disposition: 19:50 Medical Decision Making - Donnie Inquiry Pt receiving controlled substance: No Donnie was queried for this patient: No Vital Signs: 01/19/22 19:26 Temperature 99.6 F Temperature Source Oral Pulse Rate [Left] 92 H Respiratory Rate 16 Blood Pressure [Right Arm] 155/88 H Blood Pressure Mean [Right Arm] 110 02 Sat by Pulse Oximetry 98 Orders (Tests/Meds): ED MEDICATIONS Discontinued Medications Generic Name Dose Route Start Last Admin Trade Name Freq PRN Reason Stop Dose Admin Amoxicillin/Clavulanate Potassium 1 each 01/19/22 19:47 Amoxicillin/Pot Clavulan 500mg Tablet PO 01/19/22 19:48 ONCE ONE Medical Decision Narrative: Patient states that she has had augmentin in the past without reaction or complication [facility] [place] - General Stated complaint: cough.congestion Time Seen by Provider: 01/19/22 19:37 Mode of Arrival: Ambulatory Source of Information: Patient Limitations: No Limitations Description of Symptoms (Recalled from Triage Doc. by RN): pt c/o congestion and coughing that is worse at night. x4 days. HEENT Symptoms (Recalled from RN notes): No Resp Symptoms (Recalled from RN notes): Yes Skin Symptoms (Recalled from RN notes): No MS Symptoms (Recalled from RN notes): No Functional Status (Recalled from RN notes): wnl - History of Present Illness Provider Complaint: Patient states that she has been having sinus congestion and pressure behind her eyes States that also she has had a cough that is worse at night when she lays down States that tonight her sinus pressure was still bothering her and she was starting to cough again so she came in to get checked to get something for the cough - Related Data Home Medications Medication Instructions Recorded Confirmed clopidogrel 75 mg tablet 75 mg PO ONCE 03/24/18 01/29/19 Aspirin [Aspir 81] 81 mg PO DAILY 03/27/18 01/29/19 Atorvastatin Calcium [Atorvastatin 80 mg PO DAILY 03/27/18 01/29/19 80mg Tab] Fenofibrate,Micronized 200 mg PO DAILY 03/27/18 01/29/19 [Fenofibrate] Pregabalin [Lyrica 100mg Cap] 100 mg PO BID 03/27/18 01/29/19 glipiZIDE [Glipizide] 10 mg PO DAILY 03/27/18 01/29/19 insulin glargine 100 unit/mL (3 38 unit SQ PM ml 01/29/19 01/29/19 mL) subcutaneous pen metformin 1,000 mg tablet,extended 1,000 mg PO DAILY tab
[2022-01-19 20:00] VITALS: BP 155/88; PULSE 92; RESP 16; TEMP 37.6
== END 2022-01-19 20:10 | disposition home or self-care (01) ==
PROVIDERS: Emergency Provider Nurse Practitioner; PCP Pediatrics
DX: J32.9 Chronic sinusitis, unspecified (principal); E11.9 Type 2 diabetes mellitus without complications; F17.210 Nicotine dependence, cigarettes, uncomplicated; Z96.642 Presence of left artificial hip joint; Z79.899 Other long term (current) drug therapy
CPT/HCPCS: 99212; G0463

== ENCOUNTER 2022-04-06 20:19 | Emergency (ER) | payer MEDICARE, SELFPAY ==
[2022-04-06 20:20] VITALS: BP 139/93; PULSE 94; RESP 16; TEMP 36.8; O2SAT 95; BMI 30.9
[2022-04-06 20:31] VITALS: BP 140/98; PULSE 91; O2SAT 92
--- NOTE | 2022-04-06 20:31 | XR_ITS ---
PROCEDURE INFORMATION: Exam: XR Right Hip Exam date and time: 04/06/2022 8:30 PM Age: 66 years old Clinical indication: Injury or trauma; Fall; Blunt trauma (contusions or hematomas); Right; Prior surgery; Surgery type: Left hip TECHNIQUE: Imaging protocol: XR Right hip. Views: 2 or 3 views hip with pelvis when performed. COMPARISON: CT ABDOMEN PELVIS WO CON 11/02/2020 11:48 PM FINDINGS: Bones/joints: Moderate to advanced degenerative changes of the right hip and lumbosacral spine. Stable left hip arthroplasty and physiologic alignment. No acute fracture or dislocation. Soft tissues: Unremarkable. Vasculature: Vascular calcifications. IMPRESSION: Chronic changes without acute process.
--- NOTE | 2022-04-06 20:31 | PC.NURSE ---
Notified rad of orders
--- NOTE | 2022-04-06 20:45 | PC.NURSE ---
Updated pt on POC. No new needs
--- NOTE | 2022-04-06 22:35 | HMH.EDFALL ---
ED Disposition Clinical Impression: Hip pain, acute Qualifiers: Laterality: right Qualified Code(s): M25.551 - Pain in right hip Disposition: Home, Self-Care Condition on Discharge: Good Instructions: DI for Hip Pain Additional Instructions: use meds and see pcp for follow up Prescriptions: predniSONE [Prednisone 20mg Tab] 20 mg PO BID #10 tab Transmission Status: Pending to [facility] #[id number] Referrals: Juany Lewis [Primary Care Provider] - - Critical Care Critical Care Time: No Attestation: On 04/06/22, the high probability of a clinically significant, sudden or life threatening deterioration of the following system(s) required my full and direct attention, intervention and personal management. The time I documented below is in addition to time spent performing reported procedures but includes the following listed in this critical care notation. Medical Decision Making - Medical Records Medical records reviewed: Yes: I reviewed the patient's medical records. - Donnie Inquiry Pt receiving controlled substance: No Vital Signs: 04/06/22 20:20 04/06/22 20:31 Temperature 98.3 F Temperature Source Oral Pulse Rate 91 H Pulse Rate [Right] 94 H Respiratory Rate 16 Blood Pressure 140/98 H Blood Pressure [Right Arm] 139/93 H Blood Pressure Mean [Right Arm] 108 Blood Pressure Source [Right Arm] Automatic Cuff Blood Pressure Position [Right Arm] Sitting 02 Sat by Pulse Oximetry 95 92 L Oxygen Delivery Method Room Air Room Air - Radiology Data #1 Image(s): Hip Image Reviewed: Yes I have reviewed radiologist's interpretation Preliminary Findings: No Fracture Seen - CT Data CT Scan: Other (rt hip) Time Received: 23:[address] Reviewed: Yes: I have viewed the radiologist's interpretation Preliminary Findings: Abnormal, No Fracture Seen Medical Decision Narrative: fall with acute injury to rt hip but no fx seen Fall HPI - General Chief Complaint: Fall Stated Complaint: AO 04/06@1945athome fell on R Hip Time Seen by Provider: 04/06/22 22:00 Mode of Arrival: Wheelchair Source of Information: Patient, Medical Record Limitations: No Limitations Description of Symptoms (Recalled from ER Triage Doc. by RN): Pt advises she was taking her dogs out approx 30 mins [employer] and had her hands full when she stumbled and fell back landing on the concerete, pt c/o pain in her right hip. Denies pain anywhere else and denies any LOC - History of Present Illness HPI Narrative: fell tonight with rt hip pain - trip type fall-has prev hx of rt hip pain and has diabetes - MD complaint: fall Onset (ago): hour(s) Fall from: standing Fall witnessed: no Place fall occurred: home Loss of consciousness: none Prolonged down time: no Context: tripped/slipped Location of injury - extremities: Right: thigh Severity: moderate Associated symptoms (after fall): denies - Related Data Home Medications Medication Instructions Recorded Confirmed clopidogrel 75 mg tablet 75 mg PO ONCE 03/24/18 01/29/19 Aspirin [Aspir 81] 81 mg PO DAILY 03/27/18 01/29/19 Atorvastatin Calcium [Atorvastatin 80 mg PO DAILY 03/27/18 01/29/19 80mg Tab] Fenofibrate,Micronized 200 mg PO DAILY 03/27/18 01/29/19 [Fenofibrate] Pregabalin [Lyrica 100mg Cap] 100 mg PO BID 03/27/18 01/29/19 glipiZIDE [Glipizide] 10 mg PO DAILY 03/27/18 01/29/19 insulin glargine 100 unit/mL (3 38 unit SQ PM ml 01/29/19 01/29/19 mL) subcutaneous pen metformin 1,000 mg tablet,extended 1,000 mg PO DAILY tab 01/29/19 01/29/19 release 24hr oxycodone 10 mg tablet 10 mg PO TID tab 01/29/19 01/29/19 ropinirole 5 mg tablet 5 mg PO QHS 01/29/19 01/29/19 Previous Rx's Medication Instructions Recorded cilostazol 100 mg tablet 100 mg PO BID #120 tab 04/17/18 Albuterol Sulfate [Albuterol HFA 1 - 2 puffs IH Q4-6H PRN #1 inh 02/19/19 Inhaler] guaiFENesin [Mucinex] 600 mg PO BIDP PRN #40 tab.er.12h 02/19/19 Ibuprofen [Ibuprofen 8
--- NOTE | 2022-04-06 22:43 | CT_ITS ---
PROCEDURE INFORMATION: Exam: CT Right Lower Extremity Without Contrast, Hip Exam date and time: 04/06/2022 10:47 PM Age: 66 years old Clinical indication: Injury or trauma; Fall; Blunt trauma; Hip; Right TECHNIQUE: Imaging protocol: CT of the Right lower extremity without contrast was performed. Exam focused on the hip. Radiation optimization: All CT scans at this facility use at least one of these dose optimization techniques: automated exposure control; mA and/or kV adjustment per patient size (includes targeted exams where dose is matched to clinical indication); or iterative reconstruction. COMPARISON: CR XR HIP RT 2-3V W/PELVIS 04/06/2022 8:30 PM FINDINGS: Bones/joints: Moderate to advanced degenerative changes of the right hip. No acute fracture or dislocation. Soft tissues: Normal. Vasculature: Vascular calcifications. IMPRESSION: Chronic changes without acute process.
[2022-04-06 23:46] VITALS: BP 138/70; PULSE 70; RESP 16; TEMP 36.8; O2SAT 98
== END 2022-04-06 23:47 | disposition home or self-care (01) ==
PROVIDERS: Emergency Provider Emergency Medicine; PCP Pediatrics
DX: M25.551 Pain in right hip (principal); W19.XXXA Unspecified fall, initial encounter; Z87.81 Personal history of (healed) traumatic fracture; Z91.81 History of falling; E11.9 Type 2 diabetes mellitus without complications; Z72.0 Tobacco use; E78.5 Hyperlipidemia, unspecified; I25.10 Atherosclerotic heart disease of native coronary artery without angina pectoris; I73.9 Peripheral vascular disease, unspecified
CPT/HCPCS: 73502; 73700; 99284

== ENCOUNTER 2022-08-20 17:16 | Emergency (ER) | payer MEDICARE, MEDICAID, SELFPAY ==
[2022-08-20 17:54] VITALS: BP 132/70; PULSE 76; RESP 20; TEMP 36.9; O2SAT 94; BMI 31.3
--- NOTE | 2022-08-20 18:12 | EXP.UTC ---
Discharge Plan Disposition Patient Disposition: Home, Self-Care Condition: Good Prescriptions Prescriptions: No Action clopidogrel 75 mg tablet 75 mg PO ONCE Caroline Mclaughlin U-100 Insulin 100 unit/mL (3 mL) insulin pen 38 unit SQ PM metformin 1,000 mg tablet extended release 24hr 1,000 mg PO DAILY ropinirole [Requip] 5 mg tablet 5 mg PO QHS oxycodone 10 mg tablet 10 mg PO TID cilostazol 100 mg tablet 100 mg PO BID Qty: 120 1RF Rx Instructions: Needs follow up appt. with cardiology. Thanks lisinopril 20 mg tablet 20 mg PO BID Qty: 60 4RF bisoprolol fumarate 10 mg tablet 10 mg PO DAILY Qty: 90 3RF atorvastatin 80 MG tablet 80 mg PO DAILY glipizide 10 tablet 10 mg PO DAILY fenofibrate micronized 200 MG capsule 200 mg PO DAILY aspirin 81 MG tablet,delayed release (DR/EC) 81 mg PO DAILY pregabalin 100 MG capsule 100 mg PO BID ibuprofen 800 MG tablet 800 mg PO Q8HP PRN (Reason: Moderate Pain) Qty: 10 0RF tamsulosin 0.4 MG capsule 0.4 mg PO HS Qty: 7 0RF ondansetron 4 MG tablet,disintegrating 4 mg PO TIDP PRN (Reason: Nausea) Qty: 12 0RF benzonatate 100 MG capsule 100 mg PO Q8HP PRN (Reason: Cough) Qty: 15 0RF fluticasone propionate 120 SPR/BOT bottle 1 spr NS DAILY Qty: 1 0RF Rx Instructions: one spray in each nostril daily amoxicillin-pot clavulanate 1 EACH tablet 1 tab PO BID Qty: 14 0RF albuterol sulfate 18 GM HFA aerosol inhaler 1 - 2 puffs IH Q4-6H PRN (Reason: Shortness Of Breath Or Wheezing) Qty: 1 0RF guaifenesin 600 MG tablet extended release 12hr 600 mg PO BIDP PRN (Reason: Congestion) Qty: 40 0RF Rx Instructions: take 1 to 2 tablets po bidp fluconazole 150 MG tablet 150 mg PO DIRECTED Qty: 2 0RF Rx Instructions: Take one tablet before bedtime and may repeat in 1 week if still having symptoms tamsulosin 0.4 MG capsule 0.4 mg PO HS Qty: 10 0RF sulfamethoxazole-trimethoprim 1 EACH tablet 1 each PO BID 10 Days Qty: 20 0RF cephalexin 500 MG capsule 500 mg PO Q6H 10 Days Qty: 40 0RF mupirocin 22 GM ointment 1 applicatio TP TID 7 Days Qty: 1 0RF prednisone 20 MG tablet 20 mg PO BID Qty: 10 0RF Referrals Follow up/Referrals: Juany Lewis [Primary Care Provider] - See instructions Activity Restrictions/Add. Instructions Additional Instructions/Restrictions: Follow up if not improving Clinical Impressions Clinical Impression: Corneal abrasion, left Instructions Patient Instructions: DI for Corneal Abrasion Discharge ED Provider: Yaquelin Burgess [facility] HPI General Stated complaint: left eye pain Mode of Arrival: Ambulatory Source of Information: Patient Limitations: No Limitations Time Seen by Provider: 08/20/22 18:10 Description of Symptoms (Recalled from Triage Doc. by RN): pt to [facility] c/o irritation to the left eye since this morning HEENT Symptoms (Recalled from RN notes): Yes Resp Symptoms (Recalled from RN notes): No Skin Symptoms (Recalled from RN notes): No MS Symptoms (Recalled from RN notes): No Functional Status (Recalled from RN notes): na History of Present Illness Provider Complaint: Left eye pain since last night. Feels like she is getting stabbed in the eye each time she blinks. Eye is watering but no discharge. Onset (ago): day(s) (1) Location: eyes Quality: burning Consistency: constant Relieving factors: none Exacerbating factors: none Associated symptoms: denies other symptoms Treatments prior to arrival: none Related Data Home Medications Medication Instructions Recorded Confirmed clopidogrel 75 mg tablet 75 mg PO ONCE Blood thinner 03/24/18 01/29/19 aspirin 81 mg tablet,delayed 81 mg PO DAILY CAD 03/27/18 01/29/19 release atorvastatin 80 mg tablet 80 mg PO DAILY Cholesterol 03/27/18 01/29/19 fenofibrate micronized 200 mg 200 mg PO DAILY Cholesterol 03/27/18 01/29/19
[2022-08-20 18:51] VITALS: BP 132/70; PULSE 76; RESP 20; TEMP 36.9; O2SAT 94
== END 2022-08-20 18:53 | disposition home or self-care (01) ==
PROVIDERS: Emergency Provider Physician Assistant; PCP Pediatrics
DX: S05.02XA Injury of conjunctiva and corneal abrasion without foreign body, left eye, initial encounter (principal)
CPT/HCPCS: 99212; G0463

== ENCOUNTER 2022-10-30 13:46 | Emergency (ER) | payer MEDICARE, SELFPAY ==
--- NOTE | 2022-10-30 15:23 | EXP.UTC ---
Discharge Plan Disposition Patient Disposition: Home, Self-Care Condition: Good Prescriptions Prescriptions: New benzonatate [benzonatate] 100 mg capsule 100 mg PO TIDP PRN (Reason: Cough) Qty: 30 0RF amoxicillin-pot clavulanate 875-125 mg Tablet 1 tab PO Q12H Qty: 20 0RF methylprednisolone 4 mg Tablets,Dose Pack 4 mg PO DIRECTED Qty: 21 0RF No Action clopidogrel 75 mg tablet 75 mg PO ONCE Basaglar KwikPen U-100 Insulin 100 unit/mL (3 mL) insulin pen 38 unit SQ PM metformin 1,000 mg tablet extended release 24hr 1,000 mg PO DAILY ropinirole [Requip] 5 mg tablet 5 mg PO QHS oxycodone 10 mg tablet 10 mg PO TID cilostazol 100 mg tablet 100 mg PO BID Qty: 120 1RF Rx Instructions: Needs follow up appt. with cardiology. Thanks lisinopril 20 mg tablet 20 mg PO BID Qty: 60 4RF bisoprolol fumarate 10 mg tablet 10 mg PO DAILY Qty: 90 3RF atorvastatin 80 MG tablet 80 mg PO DAILY glipizide 10 tablet 10 mg PO DAILY fenofibrate micronized 200 MG capsule 200 mg PO DAILY aspirin 81 MG tablet,delayed release (DR/EC) 81 mg PO DAILY pregabalin 100 MG capsule 100 mg PO BID ibuprofen 800 MG tablet 800 mg PO Q8HP PRN (Reason: Moderate Pain) Qty: 10 0RF tamsulosin 0.4 MG capsule 0.4 mg PO HS Qty: 7 0RF ondansetron 4 MG tablet,disintegrating 4 mg PO TIDP PRN (Reason: Nausea) Qty: 12 0RF benzonatate 100 MG capsule 100 mg PO Q8HP PRN (Reason: Cough) Qty: 15 0RF fluticasone propionate 120 SPR/BOT bottle 1 spr NS DAILY Qty: 1 0RF Rx Instructions: one spray in each nostril daily amoxicillin-pot clavulanate 1 EACH tablet 1 tab PO BID Qty: 14 0RF albuterol sulfate 18 GM HFA aerosol inhaler 1 - 2 puffs IH Q4-6H PRN (Reason: Shortness Of Breath Or Wheezing) Qty: 1 0RF guaifenesin 600 MG tablet extended release 12hr 600 mg PO BIDP PRN (Reason: Congestion) Qty: 40 0RF Rx Instructions: take 1 to 2 tablets po bidp fluconazole 150 MG tablet 150 mg PO DIRECTED Qty: 2 0RF Rx Instructions: Take one tablet before bedtime and may repeat in 1 week if still having symptoms tamsulosin 0.4 MG capsule 0.4 mg PO HS Qty: 10 0RF sulfamethoxazole-trimethoprim 1 EACH tablet 1 each PO BID 10 Days Qty: 20 0RF cephalexin 500 MG capsule 500 mg PO Q6H 10 Days Qty: 40 0RF mupirocin 22 GM ointment 1 applicatio TP TID 7 Days Qty: 1 0RF prednisone 20 MG tablet 20 mg PO BID Qty: 10 0RF Referrals Follow up/Referrals: Juany Lewis [Primary Care Provider] - See instructions Activity Restrictions/Add. Instructions Additional Instructions/Restrictions: Drink plenty of fluids. Take tylenol or ibuprofen for pain or fever. Take the medications as directed. Follow up with your regular doctor. GO TO THE ER FOR ANY WORSENING SYMPTOMS Clinical Impressions Clinical Impression: Acute bronchitis Instructions Patient Instructions: Acute Bronchitis Discharge ED Provider: Ishaan Cagle [facility] General Stated complaint: Chills,Cough Time Seen by Provider: 10/30/22 15:23 History of Present Illness Provider Complaint: She states that for the past 1 week she has had chest and sinus congestion. Related Data Home Medications Medication Instructions Recorded Confirmed clopidogrel 75 mg tablet 75 mg PO ONCE Blood thinner 03/24/18 01/29/19 aspirin 81 mg tablet,delayed 81 mg PO DAILY CAD 03/27/18 01/29/19 release atorvastatin 80 mg tablet 80 mg PO DAILY Cholesterol 03/27/18 01/29/19 fenofibrate micronized 200 mg 200 mg PO DAILY Cholesterol 03/27/18 01/29/19 capsule glipizide 10 mg tablet 10 mg PO DAILY DM 03/27/18 01/29/19 pregabalin 100 mg capsule 100 mg PO BID FIBROMYALGIA 03/27/18 01/29/19 insulin glargine 100 unit/mL (3 38 unit SQ PM dm 01/29/19 01/29/19 mL) subcutaneous pen (Basaglar KwikPen U-100 Insulin) metformin 1,000 mg tab
--- NOTE | 2022-10-30 15:26 | XR_ITS ---
PROCEDURE INFORMATION: Exam: XR Chest Exam date and time: 10/30/2022 3:23 PM Age: 67 years old Clinical indication: Cough TECHNIQUE: Imaging protocol: Radiologic exam of the chest. Views: 2 views. COMPARISON: CT LUNG SCREENING 12/31/2021 3:18 PM FINDINGS: Lungs: Unremarkable. No consolidation. Pleural spaces: Unremarkable. No pleural effusion. No pneumothorax. Heart/Mediastinum: Post cardiac surgery changes. Sternotomy wires appear intact. Bones/joints: No acute fracture. IMPRESSION: No acute cardiopulmonary abnormality.
[2022-10-30 15:27] VITALS: BP 153/62; PULSE 79; RESP 16; TEMP 36.6; O2SAT 95; BMI 31.8
[2022-10-30 16:26] VITALS: BP 153/62; PULSE 79; RESP 16; TEMP 36.6
[2022-10-30 16:55] LABS: Adenovirus,PCR Not Detected (NotDetected); Bordetella Pertussis Not Detected (NotDetected); Chlamydophila Pneumoniae, PCR Not Detected (NotDetected); Coronavirus 19, PCR Not Detected (NotDetected); Coronavirus 229E Not Detected (NotDetected); Coronavirus NL63 Not Detected (NotDetected); Coronavirus OC43 Not Detected (NotDetected); Coronovirus HKU1,PCR Not Detected (NotDetected); Human Metapneumovirus Not Detected (NotDetected); Influenza A, PCR Not Detected (NotDetected); Influenza AH1, 2009 Not Detected (NotDetected); Influenza AH1, PCR Not Detected (NotDetected); Influenza AH3,PCR Not Detected (NotDetected); Influenza B, PCR Not Detected (NotDetected); Mycoplasma Pneumoniae, PCR Not Detected (NotDetected); Parainfluenza 1, PCR Not Detected (NotDetected); Parainfluenza 2, PCR Not Detected (NotDetected); Parainfluenza 3, PCR Not Detected (NotDetected); Parainfluenza 4, PCR Not Detected (NotDetected); Respiratory Syncytial Virus Not Detected (NotDetected); Rhinovirus/Enterovirus Not Detected (NotDetected)
== END 2022-10-30 16:27 | disposition home or self-care (01) ==
PROVIDERS: Emergency Provider Nurse Practitioner Family; PCP Pediatrics
DX: J20.9 Acute bronchitis, unspecified (principal)
CPT/HCPCS: 71046; 87581; 87632; 87798; 99212; C9803; G0463; U0003; U0005

== ENCOUNTER 2023-02-07 15:52 | Emergency (ER) | payer MEDICARE, MEDICAID, SELFPAY ==
[2023-02-07 16:20] VITALS: BP 134/68; PULSE 82; RESP 19; TEMP 37; O2SAT 96; BMI 31.6
--- NOTE | 2023-02-07 16:39 | EXP.UTC ---
Discharge Plan Disposition Patient Disposition: Home, Self-Care Condition: Good Prescriptions Prescriptions: New amoxicillin-pot clavulanate 875-125 mg Tablet 1 tab PO Q12H Qty: 14 0RF bacitracin 500 unit/gram ointment 1 applic topical TID 10 Days Qty: 30 0RF Rx Instructions: apply around fingernail on right thumb No Action clopidogrel 75 mg tablet 75 mg PO ONCE Basaglar KwikPen U-100 Insulin 100 unit/mL (3 mL) insulin pen 38 unit SQ PM metformin 1,000 mg tablet extended release 24hr 1,000 mg PO DAILY ropinirole [Requip] 5 mg tablet 5 mg PO QHS oxycodone 10 mg tablet 10 mg PO TID cilostazol 100 mg tablet 100 mg PO BID Qty: 120 1RF Rx Instructions: Needs follow up appt. with cardiology. Thanks lisinopril 20 mg tablet 20 mg PO BID Qty: 60 4RF bisoprolol fumarate 10 mg tablet 10 mg PO DAILY Qty: 90 3RF atorvastatin 80 MG tablet 80 mg PO DAILY glipizide 10 tablet 10 mg PO DAILY fenofibrate micronized 200 MG capsule 200 mg PO DAILY aspirin 81 MG tablet,delayed release (DR/EC) 81 mg PO DAILY pregabalin 100 MG capsule 100 mg PO BID ibuprofen 800 MG tablet 800 mg PO Q8HP PRN (Reason: Moderate Pain) Qty: 10 0RF tamsulosin 0.4 MG capsule 0.4 mg PO HS Qty: 7 0RF ondansetron 4 MG tablet,disintegrating 4 mg PO TIDP PRN (Reason: Nausea) Qty: 12 0RF benzonatate 100 MG capsule 100 mg PO Q8HP PRN (Reason: Cough) Qty: 15 0RF fluticasone propionate 120 SPR/BOT bottle 1 spr NS DAILY Qty: 1 0RF Rx Instructions: one spray in each nostril daily amoxicillin-pot clavulanate 1 EACH tablet 1 tab PO BID Qty: 14 0RF benzonatate [benzonatate] 100 mg capsule 100 mg PO TIDP PRN (Reason: Cough) Qty: 30 0RF amoxicillin-pot clavulanate 875-125 mg Tablet 1 tab PO Q12H Qty: 20 0RF methylprednisolone 4 mg Tablets,Dose Pack 4 mg PO DIRECTED Qty: 21 0RF albuterol sulfate 18 GM HFA aerosol inhaler 1 - 2 puffs IH Q4-6H PRN (Reason: Shortness Of Breath Or Wheezing) Qty: 1 0RF guaifenesin 600 MG tablet extended release 12hr 600 mg PO BIDP PRN (Reason: Congestion) Qty: 40 0RF Rx Instructions: take 1 to 2 tablets po bidp fluconazole 150 MG tablet 150 mg PO DIRECTED Qty: 2 0RF Rx Instructions: Take one tablet before bedtime and may repeat in 1 week if still having symptoms tamsulosin 0.4 MG capsule 0.4 mg PO HS Qty: 10 0RF sulfamethoxazole-trimethoprim 1 EACH tablet 1 each PO BID 10 Days Qty: 20 0RF cephalexin 500 MG capsule 500 mg PO Q6H 10 Days Qty: 40 0RF mupirocin 22 GM ointment 1 applicatio TP TID 7 Days Qty: 1 0RF prednisone 20 MG tablet 20 mg PO BID Qty: 10 0RF Referrals Follow up/Referrals: Bridger Funez MD [Primary Care Provider] - See instructions Activity Restrictions/Add. Instructions Additional Instructions/Restrictions: Soak finger in warm water and epson salt 3- times daily Apply topical antibiotic around finger nail concerntrating on dry area on thumb Take oral antibiotic as prescribed Follow up with your Family Doctor if no improvement or any worsening of symptoms Clinical Impressions Clinical Impression: Paronychia Instructions Patient Instructions: DI for Paronychia, Amoxicillin and Clavulanic Acid, Bacitracin Topical Discharge ED Provider: Izabella Mcmillan [facility] General Stated complaint: possible right thumb ingrown nail Mode of Arrival: Ambulatory Source of Information: Patient Limitations: No Limitations Time Seen by Provider: 02/07/23 16:39 Description of Symptoms (Recalled from Triage Doc. by RN): PATIENT C/O POSSIBLE INFECTION TO RIGHT THUMB X 4 DAYS HEENT Symptoms (Recalled from RN notes): No Resp Symptoms (Recalled from RN notes): No Skin Symptoms (Recalled from RN notes): No MS Symptoms (Recalled from RN notes): No Functional Status (Recalled from RN notes): WNL Hist
[2023-02-07 17:07] VITALS: BP 134/68; PULSE 82; RESP 19; TEMP 37; O2SAT 96
== END 2023-02-07 17:10 | disposition home or self-care (01) ==
PROVIDERS: Emergency Provider Nurse Practitioner; PCP Pediatrics
DX: L03.011 Cellulitis of right finger (principal); E11.9 Type 2 diabetes mellitus without complications; F17.210 Nicotine dependence, cigarettes, uncomplicated; I11.9 Hypertensive heart disease without heart failure; E78.5 Hyperlipidemia, unspecified; Z79.4 Long term (current) use of insulin
CPT/HCPCS: 99212; 99214; G0463

== ENCOUNTER 2023-03-12 14:09 | Emergency (ER) | payer MEDICARE, SELFPAY ==
[2023-03-12 14:19] VITALS: BP 142/81; PULSE 92; O2SAT 94
--- NOTE | 2023-03-12 14:19 | PC.NURSE ---
EMELY ESTEBAN at for pt topher[facility]
--- NOTE | 2023-03-12 14:21 | CT_ITS ---
PROCEDURE INFORMATION: Exam: CT Abdomen And Pelvis Without Contrast Exam date and time: 03/12/2023 2:41 PM Age: 67 years old Clinical indication: Other: Flank pain; Additional info: Flank pain. Blood in urine. HX of stones TECHNIQUE: Imaging protocol: Computed tomography of the abdomen and pelvis without contrast. Radiation optimization: All CT scans at this facility use at least one of these dose optimization techniques: automated exposure control; mA and/or kV adjustment per patient size (includes targeted exams where dose is matched to clinical indication); or iterative reconstruction. REPORTING DATA: Count of CT and Cardiac NM exams in prior 12 months: This patient has received [address] and 0 known cardiac nuclear medicine studies in the 12 months prior to the current study. COMPARISON: CT ABDOMEN PELVIS WO CON 11/02/2020 11:48 PM FINDINGS: Limitations: The absence of intravenous contrast limits the assessment of vascular structures, lesions and lymphadenopathy. Lungs: Bibasilar subsegmental atelectasis noted. Liver: No focal hepatic lesions within the limits of noncontrast examination. Gallbladder and bile ducts: There has been a cholecystectomy. No biliary ductal dilation. Pancreas: No peripancreatic fluid stranding. No main pancreatic ductal dilation. Spleen: Normal. No splenomegaly. Adrenal glands: The adrenal glands are normal. Kidneys and ureters: No perinephric stranding. Bilateral punctate caliceal calculi. No hydroureteronephrosis on either side. Stomach and bowel: No bowel wall thickening or distention. Appendix: A normal appendix is identified. Intraperitoneal space: There is no evidence of free intraperitoneal or pelvic fluid. Vasculature: Hyperattenuating material in the coronary tree likely a combination of vascular stents and atherosclerosis. The aorta demonstrates moderate atherosclerotic calcification. Lymph nodes: No evidence of retroperitoneal or mesenteric lymphadenopathy. Urinary bladder: Urinary bladder is unremarkable. Reproductive: Unremarkable as visualized. Bones/joints: Status post left hip arthroplasty. Multilevel degenerative changes of the included spine. No acute osseous abnormality. Soft tissues: Unremarkable. IMPRESSION: Bilateral nonobstructive nephrolithiasis. Otherwise, no acute abnormality in the abdomen or pelvis
[2023-03-12 14:25] LABS: Microscopic, Urine URINE MICROSCOPIC (MICROSCOPIC)
[2023-03-12 14:30] VITALS: BP 124/60; PULSE 66; O2SAT 95
[2023-03-12 14:37] VITALS: BMI 30.9
--- NOTE | 2023-03-12 14:39 | PC.NURSE ---
pt transported to radiology via wheelchair.
[2023-03-12 14:43] LABS: Appearance,Urine CLEAR (Clear); Bilirubin,Urine Negative (Negative); Blood, Urine Negative (Negative); Color,Urine YELLOW (Yellow); Glucose,Urine (UA) TRACE (Negative); Ketones,Urine TRACE (Negative); Leukocyte Esterase,Urine 1+ (Negative); Nitrate,Urine Negative (Negative); Protein,Urine Negative (Negative); Specific Gravity, Urine 1.025 (1.005-1.030)
[2023-03-12 14:44] LABS: Basophils % 0.4 % (0.1-2.0); Eosinophils # 0.2 K/mm3 (0.0-0.4); Eosinophils % 2.4 % (0.1-12.0); Hematocrit 47.1 % (37.0-47.0); Hemoglobin 15.7 g/dL (12.2-16.2); Lymphocytes # 2.3 K/mm3 (0.7-4.5); Lymphocytes % 24.6 % (10-50); Mean Corpuscular HGB Conc 33.4 g/dL (31.8-35.4); Mean Corpuscular Hemoglobin 31.6 pg (27.0-31.2); Mean Corpuscular Volume 94.7 fl (81-99); Mean Platelet Volume 8.8 fl (7.4-10.4); Monocytes # 0.4 K/mm3 (0.1-1.0); Monocytes % 3.9 % (1.7-9.3); Neutrophils # 6.3 K/mm3 (1.8-7.8); Neutrophils % 68.8 % (37.0-80.0); Platelet Count 190 K/mm3 (142-424); Red Blood Count 4.97 M/mm3 (4.20-5.40); Red Cell Distribution Width 15.7 % (11.5-17.5); White Blood Count 9.2 K/mm3 (4.8-10.8)
[2023-03-12 14:45] VITALS: BP 142/81; PULSE 84; RESP 16; TEMP 36.5; O2SAT 95; BMI 30.9
[2023-03-12 14:56] LABS: Chloride 100 mmol/L (98-107); Potassium 3.9 mmoL/L (3.5-5.1); Sodium 141 mmol/L (136-145)
[2023-03-12 14:59] LABS: Bacteria,Urine Trace /lpf; RBC,Urine Occasional #/hpf (0-3)
[2023-03-12 14:59] LABS: Alanine Aminotransferase 44 U/L (12-78); Albumin Level 4.4 g/dl (3.5-5.0); Albumin/Globulin Ratio 1.5 (1.1-1.8); Alkaline Phosphatase 94 U/L (38-126); Anion Gap 15.9 mEq/L (5-15); Aspartate Amino Transferase 44 U/L (14-36); Bilirubin,Total 0.8 mg/dl (0.2-1.3); Blood Urea Nitrogen 28 mg/dl (7-17); Calcium 9.5 mg/dl (8.4-10.2); Carbon Dioxide 29 mmol/L (22.0-30.0); Creatinine Clearance Estimated 67 mL/min (50-200); Estimated Glomerular Filt Rate 99 ml/min (>60); GFR (African American) 120 ML/MIN (>60); Globulin 2.9 g/dL (1.3-3.2); Glucose 158 mg/dl (74-100); Total Protein,Serum 7.3 g/dl (6.3-8.2)
[2023-03-12 15:01] VITALS: BP 149/77; PULSE 60; O2SAT 93
[2023-03-12 15:30] VITALS: BP 146/71; PULSE 72; O2SAT 93
[2023-03-12 15:54] VITALS: BP 146/71; PULSE 65; RESP 16; TEMP 36.6
--- NOTE | 2023-03-12 20:09 | HMH.EDGENADL ---
Discharge Plan Disposition Patient Disposition: Home, Self-Care Condition: Good Prescriptions Prescriptions: New cefdinir 300 mg capsule 300 mg PO BID 10 Days Qty: 20 0RF No Action clopidogrel 75 mg tablet 75 mg PO ONCE Caroline Mclaughlin U-100 Insulin 100 unit/mL (3 mL) insulin pen 38 unit SQ PM metformin 1,000 mg tablet extended release 24hr 1,000 mg PO DAILY ropinirole [Requip] 5 mg tablet 5 mg PO QHS oxycodone 10 mg tablet 10 mg PO TID cilostazol 100 mg tablet 100 mg PO BID Qty: 120 1RF Rx Instructions: Needs follow up appt. with cardiology. Thanks lisinopril 20 mg tablet 20 mg PO BID Qty: 60 4RF bisoprolol fumarate 10 mg tablet 10 mg PO DAILY Qty: 90 3RF atorvastatin 80 MG tablet 80 mg PO DAILY glipizide 10 tablet 10 mg PO DAILY fenofibrate micronized 200 MG capsule 200 mg PO DAILY aspirin 81 MG tablet,delayed release (DR/EC) 81 mg PO DAILY pregabalin 100 MG capsule 100 mg PO BID ibuprofen 800 MG tablet 800 mg PO Q8HP PRN (Reason: Moderate Pain) Qty: 10 0RF tamsulosin 0.4 MG capsule 0.4 mg PO HS Qty: 7 0RF ondansetron 4 MG tablet,disintegrating 4 mg PO TIDP PRN (Reason: Nausea) Qty: 12 0RF benzonatate 100 MG capsule 100 mg PO Q8HP PRN (Reason: Cough) Qty: 15 0RF fluticasone propionate 120 SPR/BOT bottle 1 spr NS DAILY Qty: 1 0RF Rx Instructions: one spray in each nostril daily amoxicillin-pot clavulanate 1 EACH tablet 1 tab PO BID Qty: 14 0RF benzonatate [benzonatate] 100 mg capsule 100 mg PO TIDP PRN (Reason: Cough) Qty: 30 0RF amoxicillin-pot clavulanate 875-125 mg Tablet 1 tab PO Q12H Qty: 20 0RF methylprednisolone 4 mg Tablets,Dose Pack 4 mg PO DIRECTED Qty: 21 0RF albuterol sulfate 18 GM HFA aerosol inhaler 1 - 2 puffs IH Q4-6H PRN (Reason: Shortness Of Breath Or Wheezing) Qty: 1 0RF guaifenesin 600 MG tablet extended release 12hr 600 mg PO BIDP PRN (Reason: Congestion) Qty: 40 0RF Rx Instructions: take 1 to 2 tablets po bidp fluconazole 150 MG tablet 150 mg PO DIRECTED Qty: 2 0RF Rx Instructions: Take one tablet before bedtime and may repeat in 1 week if still having symptoms tamsulosin 0.4 MG capsule 0.4 mg PO HS Qty: 10 0RF sulfamethoxazole-trimethoprim 1 EACH tablet 1 each PO BID 10 Days Qty: 20 0RF cephalexin 500 MG capsule 500 mg PO Q6H 10 Days Qty: 40 0RF mupirocin 22 GM ointment 1 applicatio TP TID 7 Days Qty: 1 0RF prednisone 20 MG tablet 20 mg PO BID Qty: 10 0RF amoxicillin-pot clavulanate 875-125 mg Tablet 1 tab PO Q12H Qty: 14 0RF bacitracin 500 unit/gram ointment 1 applic topical TID 10 Days Qty: 30 0RF Rx Instructions: apply around fingernail on right thumb Referrals Follow up/Referrals: Bridger Funez MD [Primary Care Provider] - See instructions Clinical Impressions Clinical Impression: Acute UTI Instructions Patient Instructions: DI for Low Back Pain, DI for Acute Abdominal Pain Discharge ED Provider: Michael Padgett Adult HPI General Chief complaint: Abdominal Pain Stated complaint: Blood in urine, lower back pain Time Seen by Provider: 03/12/23 14:20 Mode of Arrival: Ambulatory Source of Information: Patient Limitations: No Limitations Description of Symptoms (Recalled from ER Triage Doc. by RN): 67 F presents with blood in urine and lower back pain. symptoms ongoing for 3 days. pt does have hx of kidney stone History of Present Illness HPI narrative: 67-year-old lady complains of discolored urine as well as bilateral low back pain. States has had kidney stones in the past. Denies any vaginal bleeding or discharge. Denies any midline back pain. No trauma. No numbness weakness or paresthesias. No urinary retention, urinary incontinence, stool incontinence, saddle paresthesias. No nausea vomiting fevers or chil
== END 2023-03-12 15:55 | disposition home or self-care (01) ==
PROVIDERS: Emergency Provider Emergency Medicine; PCP Pediatrics
DX: N39.0 Urinary tract infection, site not specified (principal); R31.9 Hematuria, unspecified; F17.210 Nicotine dependence, cigarettes, uncomplicated
CPT/HCPCS: 74176; 80053; 81001; 85025; 87086; 96365; 96374; 96375; 99285; J0696; J2405

== ENCOUNTER 2023-05-11 15:35 | Emergency (ER) | payer MEDICARE, MEDICAID, SELFPAY ==
--- NOTE | 2023-05-11 15:51 | XR_ITS ---
PROCEDURE INFORMATION: Exam: XR Left Tibia and Fibula Exam date and time: 05/11/2023 4:33 PM Age: 67 years old Clinical indication: Patient HX: Left lower leg pain after watering sahu last night. TECHNIQUE: Imaging protocol: Radiologic exam of the left tibia and fibula. Views: 2 views. COMPARISON: CR FTL3 FOOT-LT-3 VIEWS 05/09/2017 11:14 AM FINDINGS: Bones/joints: No fractures, dislocations, or bone lesions. No significant joint space narrowing or widening. Soft tissues: No soft tissue gas, radiopaque foreign bodies, or masses. Atherosclerotic calcifications. IMPRESSION: No radiographic abnormalities in the left tibia and fibula.
[2023-05-11 15:55] VITALS: BP 126/77; PULSE 91; RESP 18; TEMP 36.6; O2SAT 98; BMI 29.7
--- NOTE | 2023-05-11 16:04 | CA_ITS ---
FINAL REPORT TECHNIQUE: Color Doppler, duplex Doppler and compression sonography of the left lower extremity deep venous systems was performed. CLINICAL HISTORY: swelling/pain in calf FINDINGS: There is no evidence of deep venous thrombosis from the level of the groin to the calf. The veins are patent and compressible. IMPRESSION: No evidence of deep venous thrombosis left lower extremity. Reviewed, Interpreted and Dictated by Leoncio Noriega III, MD Transcribed by Mery Francis Authenticated and [facility]
--- NOTE | 2023-05-11 16:12 | EXP.UTC ---
Discharge Plan Disposition Patient Disposition: Home, Self-Care Condition: Good Prescriptions Prescriptions: No Action clopidogrel 75 mg tablet 75 mg PO ONCE Caroline Mclaughlin U-100 Insulin 100 unit/mL (3 mL) insulin pen 38 unit SQ PM metformin 1,000 mg tablet extended release 24hr 1,000 mg PO DAILY ropinirole [Requip] 5 mg tablet 5 mg PO QHS oxycodone 10 mg tablet 10 mg PO TID cilostazol 100 mg tablet 100 mg PO BID Qty: 120 1RF Rx Instructions: Needs follow up appt. with cardiology. Thanks lisinopril 20 mg tablet 20 mg PO BID Qty: 60 4RF bisoprolol fumarate 10 mg tablet 10 mg PO DAILY Qty: 90 3RF atorvastatin 80 MG tablet 80 mg PO DAILY glipizide 10 tablet 10 mg PO DAILY fenofibrate micronized 200 MG capsule 200 mg PO DAILY aspirin 81 MG tablet,delayed release (DR/EC) 81 mg PO DAILY pregabalin 100 MG capsule 100 mg PO BID ibuprofen 800 MG tablet 800 mg PO Q8HP PRN (Reason: Moderate Pain) Qty: 10 0RF tamsulosin 0.4 MG capsule 0.4 mg PO HS Qty: 7 0RF ondansetron 4 MG tablet,disintegrating 4 mg PO TIDP PRN (Reason: Nausea) Qty: 12 0RF benzonatate 100 MG capsule 100 mg PO Q8HP PRN (Reason: Cough) Qty: 15 0RF fluticasone propionate 120 SPR/BOT bottle 1 spr NS DAILY Qty: 1 0RF Rx Instructions: one spray in each nostril daily amoxicillin-pot clavulanate 1 EACH tablet 1 tab PO BID Qty: 14 0RF benzonatate [benzonatate] 100 mg capsule 100 mg PO TIDP PRN (Reason: Cough) Qty: 30 0RF amoxicillin-pot clavulanate 875-125 mg Tablet 1 tab PO Q12H Qty: 20 0RF methylprednisolone 4 mg Tablets,Dose Pack 4 mg PO DIRECTED Qty: 21 0RF cefdinir 300 mg capsule 300 mg PO BID 10 Days Qty: 20 0RF albuterol sulfate 18 GM HFA aerosol inhaler 1 - 2 puffs IH Q4-6H PRN (Reason: Shortness Of Breath Or Wheezing) Qty: 1 0RF guaifenesin 600 MG tablet extended release 12hr 600 mg PO BIDP PRN (Reason: Congestion) Qty: 40 0RF Rx Instructions: take 1 to 2 tablets po bidp fluconazole 150 MG tablet 150 mg PO DIRECTED Qty: 2 0RF Rx Instructions: Take one tablet before bedtime and may repeat in 1 week if still having symptoms tamsulosin 0.4 MG capsule 0.4 mg PO HS Qty: 10 0RF sulfamethoxazole-trimethoprim 1 EACH tablet 1 each PO BID 10 Days Qty: 20 0RF cephalexin 500 MG capsule 500 mg PO Q6H 10 Days Qty: 40 0RF mupirocin 22 GM ointment 1 applicatio TP TID 7 Days Qty: 1 0RF prednisone 20 MG tablet 20 mg PO BID Qty: 10 0RF amoxicillin-pot clavulanate 875-125 mg Tablet 1 tab PO Q12H Qty: 14 0RF bacitracin 500 unit/gram ointment 1 applic topical TID 10 Days Qty: 30 0RF Rx Instructions: apply around fingernail on right thumb Referrals Follow up/Referrals: Bridger Funez MD [Primary Care Provider] - See instructions Activity Restrictions/Add. Instructions Additional Instructions/Restrictions: *weight bearing as tolerated *RICE, Rest the extremity, Ice 15-20 minutes 3-4 times daily, Compress- wear the dwayne wrap as discussed as much as possible to help reduce swelling and pain, Elevate the extremity when at rest *Dwayne wrap is for support and help control swelling, use it except in the shower. Be sure that is not to tight but not to loose either *Elevate when resting? *Ibuprofen as directed on package every 6-8 hours as needed for pain an inflammation. If need something more can take Tylenol in between doses of Ibuprofen to help Immediately follow up with your family doctor for new or worsening of symptoms, or no noticeable improvement over the next 3-5 days Clinical Impressions Clinical Impression: Calf pain Qualifiers: Laterality: left Qualified Code(s): M79.662 - Pain in left lower leg Instructions Patient Instructions: How To Perform RICE (Rest, Ice, Compress, Elevate), How to Apply an Dwayne Wrap
[2023-05-11 17:12] VITALS: BP 126/77; PULSE 91; RESP 18; TEMP 36.6; O2SAT 98
== END 2023-05-11 17:15 | disposition home or self-care (01) ==
PROVIDERS: Emergency Provider Nurse Practitioner; PCP Pediatrics
DX: M79.662 Pain in left lower leg (principal); F17.210 Nicotine dependence, cigarettes, uncomplicated; I25.10 Atherosclerotic heart disease of native coronary artery without angina pectoris; I11.9 Hypertensive heart disease without heart failure; I73.89 Other specified peripheral vascular diseases; E78.5 Hyperlipidemia, unspecified; X50.1XXA Overexertion from prolonged static or awkward postures, initial encounter
CPT/HCPCS: 73590; 93971; 99212; 99214; G0463

== ENCOUNTER 2023-05-16 20:35 | Emergency (ER) | payer MEDICARE, SELFPAY ==
[2023-05-16 20:36] VITALS: BP 143/78; PULSE 168; RESP 16; TEMP 36.7; O2SAT 96; BMI 29.7
--- NOTE | 2023-05-16 20:46 | HMH.EDGENADL ---
Discharge Plan Disposition Patient Disposition: Home, Self-Care Prescriptions Prescriptions: No Action clopidogrel 75 mg tablet 75 mg PO ONCE Caroline Mclaughlin U-100 Insulin 100 unit/mL (3 mL) insulin pen 38 unit SQ PM metformin 1,000 mg tablet extended release 24hr 1,000 mg PO DAILY ropinirole [Requip] 5 mg tablet 5 mg PO QHS oxycodone 10 mg tablet 10 mg PO TID cilostazol 100 mg tablet 100 mg PO BID Qty: 120 1RF Rx Instructions: Needs follow up appt. with cardiology. Thanks lisinopril 20 mg tablet 20 mg PO BID Qty: 60 4RF bisoprolol fumarate 10 mg tablet 10 mg PO DAILY Qty: 90 3RF atorvastatin 80 MG tablet 80 mg PO DAILY glipizide 10 tablet 10 mg PO DAILY fenofibrate micronized 200 MG capsule 200 mg PO DAILY aspirin 81 MG tablet,delayed release (DR/EC) 81 mg PO DAILY pregabalin 100 MG capsule 100 mg PO BID ibuprofen 800 MG tablet 800 mg PO Q8HP PRN (Reason: Moderate Pain) Qty: 10 0RF tamsulosin 0.4 MG capsule 0.4 mg PO HS Qty: 7 0RF ondansetron 4 MG tablet,disintegrating 4 mg PO TIDP PRN (Reason: Nausea) Qty: 12 0RF fluticasone propionate 120 SPR/BOT bottle 1 spr NS DAILY Qty: 1 0RF Rx Instructions: one spray in each nostril daily methylprednisolone 4 mg Tablets,Dose Pack 4 mg PO DIRECTED Qty: 21 0RF albuterol sulfate 18 GM HFA aerosol inhaler 1 - 2 puffs IH Q4-6H PRN (Reason: Shortness Of Breath Or Wheezing) Qty: 1 0RF guaifenesin 600 MG tablet extended release 12hr 600 mg PO BIDP PRN (Reason: Congestion) Qty: 40 0RF Rx Instructions: take 1 to 2 tablets po bidp fluconazole 150 MG tablet 150 mg PO DIRECTED Qty: 2 0RF Rx Instructions: Take one tablet before bedtime and may repeat in 1 week if still having symptoms tamsulosin 0.4 MG capsule 0.4 mg PO HS Qty: 10 0RF prednisone 20 MG tablet 20 mg PO BID Qty: 10 0RF Referrals Follow up/Referrals: Bridger Funez MD [Primary Care Provider] - See instructions Activity Restrictions/Add. Instructions Additional Instructions/Restrictions: Your findings are consistent with a lower leg and ankle sprain with dependent ecchymosis and edema. He recently had a negative DVT ultrasound and x-ray which did not demonstrate a DVT fracture or dislocation. No further evaluation is needed from the emergency standpoint your findings are consistent with a soft tissue sprain. Supportive care discussed. Return with other concerns. Clinical Impressions Clinical Impression: Leg sprain, Traumatic ecchymosis of foot Discharge ED Provider: Mildred Chen General Adult HPI General Chief complaint: Extremity Injury, Lower Stated complaint: LT leg bruising and swollen Time Seen by Provider: 05/16/23 20:46 History of Present Illness HPI narrative: 67-year-old female here with a wound reassessment. She was here a few days ago after she had a slip and fall which subsequently had some pain in her lower leg ankle with some dependent ecchymosis and swelling. She had a negative tib-fib x-ray and DVT ultrasound. She had increasing ecchymosis on the soles of her feet particularly around the region of her heel on both sides. No increasing in pain in fact her symptoms are improving. She states with her history of diabetes and her concern about lower extremity problems she wanted to come in just to make sure that everything was okay. Related Data Home Medications Medication Instructions Recorded Confirmed clopidogrel 75 mg tablet 75 mg PO ONCE Blood thinner 03/24/18 01/29/19 aspirin 81 mg tablet,delayed 81 mg PO DAILY CAD 03/27/18 01/29/19 release atorvastatin 80 mg tablet 80 mg PO DAILY Cholesterol 03/27/18 01/29/19 fenofibrate micronized 200 mg 200 mg PO DAILY Cholesterol 03/27/18 01/29/19 capsule glipizide 10 mg tablet 10 mg PO DAILY DM 03/27/18 01/29/19 pregabalin 100 mg capsule 100 mg PO BID FIBROMYALGIA
[2023-05-16 21:00] VITALS: BP 141/79; PULSE 77; RESP 18; TEMP 36.7; O2SAT 98
== END 2023-05-16 21:22 | disposition home or self-care (01) ==
PROVIDERS: Emergency Provider Student in an Organized Health Care Education/Training Program; PCP Pediatrics
DX: S80.12XA Contusion of left lower leg, initial encounter (principal); W01.0XXA Fall on same level from slipping, tripping and stumbling without subsequent striking against object, initial encounter; I25.10 Atherosclerotic heart disease of native coronary artery without angina pectoris; I11.9 Hypertensive heart disease without heart failure; E78.5 Hyperlipidemia, unspecified; I73.9 Peripheral vascular disease, unspecified; F17.210 Nicotine dependence, cigarettes, uncomplicated
CPT/HCPCS: 99282

== ENCOUNTER 2023-05-27 17:02 | Emergency (ER) | payer MEDICARE, SELFPAY ==
[2023-05-27 17:04] VITALS: BP 150/80; PULSE 92; RESP 18; TEMP 36.7; O2SAT 94; BMI 30.1
--- NOTE | 2023-05-27 17:16 | XR_ITS ---
PROCEDURE INFORMATION: Exam: XR Left Foot Exam date and time: 05/27/2023 5:23 PM Age: 67 years old Clinical indication: Injury or trauma; Fall; Swelling (edema); Foot; Left TECHNIQUE: Imaging protocol: Radiologic exam of the left foot. Views: 3 or more views. COMPARISON: CR FTL3 FOOT-LT-3 VIEWS images (no report) 05/09/2017 11:14 AM FINDINGS: Bones/joints: No acute fracture or dislocation. Degenerative change of the 1st metatarsal phalangeal joint. Soft tissues: Dorsal soft tissue swelling. Calcifications in the plantar fascia region. Vasculature: Vascular calcifications. IMPRESSION: 1. Dorsal soft tissue swelling. 2. No acute fracture or dislocation.
--- NOTE | 2023-05-27 17:42 | EXP.UTC ---
Discharge Plan Disposition Patient Disposition: Home, Self-Care Condition: Good Prescriptions Prescriptions: No Action clopidogrel 75 mg tablet 75 mg PO ONCE Caroline Mclaughlin U-100 Insulin 100 unit/mL (3 mL) insulin pen 38 unit SQ PM metformin 1,000 mg tablet extended release 24hr 1,000 mg PO DAILY ropinirole [Requip] 5 mg tablet 5 mg PO QHS oxycodone 10 mg tablet 10 mg PO TID cilostazol 100 mg tablet 100 mg PO BID Qty: 120 1RF Rx Instructions: Needs follow up appt. with cardiology. Thanks lisinopril 20 mg tablet 20 mg PO BID Qty: 60 4RF bisoprolol fumarate 10 mg tablet 10 mg PO DAILY Qty: 90 3RF atorvastatin 80 MG tablet 80 mg PO DAILY glipizide 10 tablet 10 mg PO DAILY fenofibrate micronized 200 MG capsule 200 mg PO DAILY aspirin 81 MG tablet,delayed release (DR/EC) 81 mg PO DAILY pregabalin 100 MG capsule 100 mg PO BID ibuprofen 800 MG tablet 800 mg PO Q8HP PRN (Reason: Moderate Pain) Qty: 10 0RF tamsulosin 0.4 MG capsule 0.4 mg PO HS Qty: 7 0RF ondansetron 4 MG tablet,disintegrating 4 mg PO TIDP PRN (Reason: Nausea) Qty: 12 0RF fluticasone propionate 120 SPR/BOT bottle 1 spr NS DAILY Qty: 1 0RF Rx Instructions: one spray in each nostril daily methylprednisolone 4 mg Tablets,Dose Pack 4 mg PO DIRECTED Qty: 21 0RF albuterol sulfate 18 GM HFA aerosol inhaler 1 - 2 puffs IH Q4-6H PRN (Reason: Shortness Of Breath Or Wheezing) Qty: 1 0RF guaifenesin 600 MG tablet extended release 12hr 600 mg PO BIDP PRN (Reason: Congestion) Qty: 40 0RF Rx Instructions: take 1 to 2 tablets po bidp fluconazole 150 MG tablet 150 mg PO DIRECTED Qty: 2 0RF Rx Instructions: Take one tablet before bedtime and may repeat in 1 week if still having symptoms tamsulosin 0.4 MG capsule 0.4 mg PO HS Qty: 10 0RF prednisone 20 MG tablet 20 mg PO BID Qty: 10 0RF Referrals Follow up/Referrals: Bridger Funez MD [Primary Care Provider] - See instructions Activity Restrictions/Add. Instructions Additional Instructions/Restrictions: Wear walking boot when ambulating, bearing weight Keep foot elevated when possible Have the CT your other doctor already ordered to rule out ligament injury Clinical Impressions Clinical Impression: Left ankle sprain Qualifiers: Encounter type: initial encounter Involved ligament of ankle: anterior talofibular ligament Qualified Code(s): S93.492A - Sprain of other ligament of left ankle, initial encounter Instructions Patient Instructions: DI for Ankle Sprain Discharge ED Provider: Yaquelin Burgess [facility] HPI General Stated complaint: AO07/14 LT foot inj Mode of Arrival: Ambulatory Source of Information: Patient Limitations: No Limitations Time Seen by Provider: 05/27/23 17:47 Description of Symptoms (Recalled from Triage Doc. by RN): Approx 2 weeks ago the patient injured her left foot. States she had a xray and ultrasound done and both stated it was not broken. Presents today requesting another xray of her left foot. HEENT Symptoms (Recalled from RN notes): No Resp Symptoms (Recalled from RN notes): No Skin Symptoms (Recalled from RN notes): No MS Symptoms (Recalled from RN notes): Yes Functional Status (Recalled from RN notes): wnl History of Present Illness Provider Complaint: Patient was watering sahu on 05/11/23 when she lost her balance. Did not fall but stumbled to the side. Had pain in her left foot and ankle. Had Xray at [facility] that was negative for fracture. Had venous doppler due to pain in calf, but it was negative for DVT. Continued to have pain, was seen in ER. Went to pain clinic today, was supposed to have injection in left knee. States doctor would not do knee injection and told her she needed to be re-evaluated. She is bearing weight, but still having significant pain across the top of her left foot and her
[2023-05-27 18:38] VITALS: BP 150/80; PULSE 92; RESP 18; TEMP 36.7; O2SAT 94
== END 2023-05-27 18:40 | disposition home or self-care (01) ==
PROVIDERS: Emergency Provider Physician Assistant; PCP Pediatrics
DX: F17.210 Nicotine dependence, cigarettes, uncomplicated; I11.9 Hypertensive heart disease without heart failure; I25.10 Atherosclerotic heart disease of native coronary artery without angina pectoris; I73.89 Other specified peripheral vascular diseases; X50.1XXA Overexertion from prolonged static or awkward postures, initial encounter; S93.402A Sprain of unspecified ligament of left ankle, initial encounter
CPT/HCPCS: 73630; 99212; 99214; G0463

== ENCOUNTER → 2023-08-04 15:02 | Outpatient (CLI) | payer MEDICARE, SELFPAY ==
--- NOTE | 2023-08-04 | XR_ITS ---
FINAL REPORT CLINICAL HISTORY: ANKLE AND FOOT PAIN COMPARISON: None FINDINGS: LEFT FOOT: Three views of the left foot were obtained. There is no acute fracture or dislocation. Calcification is present in the posterior plantar aponeurosis, and calcaneal spurs are present as well. There is moderate to severe degenerative change of the first metatarsal phalangeal joint, and mild degenerative changes elsewhere in the foot. IMPRESSION: No acute bony abnormality. Moderate to severe degenerative change of the first MTP joint. Calcification present in the posterior plantar aponeurosis. Reviewed, Interpreted and Dictated by Leoncio Noriega III, MD Transcribed by Una Bianchi Authenticated and . [facility]
--- NOTE | 2023-08-04 | XR_ITS ---
FINAL REPORT CLINICAL HISTORY: LEFT ANKLE PAIN COMPARISON: None FINDINGS: LEFT ANKLE: Three views of the left ankle were obtained. There is no acute fracture or dislocation. The joint spaces and mortise are intact. There is a focal calcification present in the posterior plantar aponeurosis. Mild degenerative changes present. There are calcaneal spurs present. IMPRESSION: No acute bony abnormality. Focal calcification present in the posterior plantar aponeurosis and calcaneal spurs. Reviewed, Interpreted and Dictated by Leoncio Noriega III, MD Transcribed by Una Bianchi Authenticated and [facility]
== END ==
PROVIDERS: PCP Pediatrics; Visit Provider Anesthesiology
DX: M79.672 Pain in left foot (principal)
CPT/HCPCS: 73610; 73630

== ENCOUNTER 2023-11-21 13:02 | Outpatient (CLI) | payer MEDICARE, MEDICAID, SELFPAY ==
--- NOTE | 2023-11-21 13:10 | CA_ITS ---
FINAL REPORT TECHNIQUE: Color Doppler, duplex Doppler and villarreal scale sonography of the bilateral neck vasculature was performed. Velocities were measured in the carotid arteries. Stenosis evaluation based on velocity criteria. CLINICAL HISTORY: Dizziness, ROMULO, previous carotid (01/2019 DAVID < 20% stenosis, LICA 20-49% stenosis), HTN, DM, smoker, CAD, hx of TIA. COMPARISON: None FINDINGS: The peak systolic velocity of the right common carotid artery is 73 cm/sec and internal carotid artery 85 cm/sec. The diastolic velocity in the internal carotid artery is 27 cm/sec. The ICA/CCA ratio is 1.17. Visually, a small to moderate amount of plaque is seen. These findings are consistent with less than 50% stenosis. The external carotid artery is patent. The right vertebral artery is patent with antegrade flow. The peak systolic velocity of the left common carotid artery is 88 cm/sec and internal carotid artery 92 cm/sec. The diastolic velocity in the internal carotid artery is 33 cm/sec. The ICA/CCA ratio is 1.04. Visually, a small to moderate amount of plaque is seen. These findings are consistent with less than 50% stenosis. The external carotid artery is patent. The left vertebral artery is patent with antegrade flow. IMPRESSION: No evidence of significant carotid stenosis. Bilateral patent vertebral arteries. If indicated, CTA or MRA could further evaluate. Reviewed, Interpreted and Dictated by Parker Briones MD Transcribed by Una Bianchi Authenticated and [facility]
== END 2023-11-21 23:59 ==
LOC: RT 13:02
PROVIDERS: PCP Pediatrics; Visit Provider Physician Assistant
DX: R42 Dizziness and giddiness (principal); I65.29 Occlusion and stenosis of unspecified carotid artery; E11.9 Type 2 diabetes mellitus without complications; Z79.4 Long term (current) use of insulin; Z79.84 Long term (current) use of oral hypoglycemic drugs; Z72.0 Tobacco use
CPT/HCPCS: 93880

== ENCOUNTER 2023-11-25 14:22 | Outpatient (CLI) | payer MEDICARE, MEDICAID, SELFPAY ==
--- NOTE | 2023-11-25 14:27 | XR_ITS ---
FINAL REPORT CLINICAL HISTORY: Right foot pain COMPARISON: None FINDINGS: RIGHT FOOT 3 views of the right foot were obtained. There is no acute fracture or dislocation. There are mild hypertrophic changes at the right first MTP. Visualized joint spaces are normally aligned. There is a moderate plantar spur. Soft tissues are unremarkable. IMPRESSION: Mild hypertrophic changes without acute bony abnormality. Moderate plantar spur. Reviewed, Interpreted and Dictated by Parker Briones MD Transcribed by Betzy Mcdonald Authenticated and [facility]
--- NOTE | 2023-11-25 14:27 | XR_ITS ---
FINAL REPORT CLINICAL HISTORY: Foot Pain LT LATERAL FOOT PAIN-5TH MTP JOINT COMPARISON: None FINDINGS: LEFT FOOT Three views of the left foot demonstrate no acute fracture or dislocation. There are advanced hypertrophic changes of osteoarthritis at the left first MTP. The visualized joint spaces are normally aligned. There is a moderate plantar spur. The soft tissues are unremarkable. IMPRESSION: Advanced changes of osteoarthritis without acute bony abnormality. Moderate plantar spur. Reviewed, Interpreted and Dictated by Parker Briones MD Transcribed by Betzy Mcdonald Authenticated and . [facility]
== END 2023-11-25 23:59 ==
LOC: RAD 14:24
PROVIDERS: PCP Pediatrics; Visit Provider Physician Assistant
DX: M79.672 Pain in left foot (principal); M79.671 Pain in right foot
CPT/HCPCS: 73630

== ENCOUNTER 2023-12-14 15:50 | Emergency (ER) | payer MEDICARE, MEDICAID, SELFPAY ==
[2023-12-14 16:30] VITALS: BP 133/73; PULSE 88; RESP 19; TEMP 36.8; O2SAT 98; BMI 28.5
--- NOTE | 2023-12-14 16:30 | ED_ITS ---
Discharge Plan Disposition Patient Disposition: Home, Self-Care Condition: Good Prescriptions Prescriptions: New phenazopyridine [Pyridium] 200 mg tablet 200 mg PO Q8H 2 Days Qty: 6 0RF ciprofloxacin HCl [Cipro] 500 mg tablet 500 mg PO BID 7 Days Qty: 14 0RF ondansetron 4 mg Tablet,Disintegrating 4 mg PO Q8H PRN (Reason: Nausea) Qty: 8 0RF No Action clopidogrel 75 mg tablet 75 mg PO ONCE Basaglar ValikPen U-100 Insulin 100 unit/mL (3 mL) insulin pen 38 unit SQ PM metformin 1,000 mg tablet extended release 24hr 1,000 mg PO DAILY ropinirole [Requip] 5 mg tablet 5 mg PO QHS oxycodone 10 mg tablet 10 mg PO TID cilostazol 100 mg tablet 100 mg PO BID Qty: 120 1RF Rx Instructions: Needs follow up appt. with cardiology. Thanks lisinopril 20 mg tablet 20 mg PO BID Qty: 60 4RF bisoprolol fumarate 10 mg tablet 10 mg PO DAILY Qty: 90 3RF atorvastatin 80 MG tablet 80 mg PO DAILY glipizide 10 tablet 10 mg PO DAILY fenofibrate micronized 200 MG capsule 200 mg PO DAILY aspirin 81 MG tablet,delayed release (DR/EC) 81 mg PO DAILY pregabalin 100 MG capsule 100 mg PO BID ibuprofen 800 MG tablet 800 mg PO Q8HP PRN (Reason: Moderate Pain) Qty: 10 0RF fluticasone propionate 120 SPR/BOT bottle 1 spr intranasal DAILY Qty: 1 0RF Rx Instructions: one spray in each nostril daily albuterol sulfate 18 GM HFA aerosol inhaler 1 - 2 puffs inhalation Q4-6H PRN (Reason: Shortness Of Breath Or Wheezing) Qty: 1 0RF guaifenesin 600 MG tablet extended release 12hr 600 mg PO BIDP PRN (Reason: Congestion) Qty: 40 0RF Rx Instructions: take 1 to 2 tablets po bidp tamsulosin 0.4 MG capsule 0.4 mg PO HS Qty: 10 0RF prednisone 20 MG tablet 20 mg PO BID Qty: 10 0RF Referrals Follow up/Referrals: Bridger Funez MD [Primary Care Provider] - See instructions Activity Restrictions/Add. Instructions Additional Instructions/Restrictions: Drink plenty of fluids. Take tylenol or ibuprofen for pain or fever. Take the medications as directed. Follow up with your regular doctor. GO TO THE ER FOR ANY WORSENING SYMPTOMS The pyridium will make your urine turn orange, this is an expected side effect. It will stain your clothes if it comes into contact with them. We will culture the urine. That will tell what bacteria is causing your infection and which antibiotics will treat it best. Sometimes the first antibiotic we prescribe turns out to not work against different bacteria. So, make sure you follow up within 3 days if you are not getting better. Clinical Impressions Clinical Impression: UTI (urinary tract infection) Instructions Patient Instructions: Urinary Tract Infection, Urine Culture, DI for Urinary Tract Infection (UTI), Phenazopyridine Discharge ED Provider: Ishaan Cagle [facility] General Stated complaint: blood in urine Time Seen by Provider: 12/14/23 16:30 History of Present Illness Provider Complaint: She states that for the past 2 days she has had low back pain, dysuria, urinary frequency, and she has noted blood in her urine at times. She gets uti's occasionally and that is what she thinks is happening now. She denies any fever/chills. Related Data Home Medications Medication Instructions Recorded Confirmed clopidogrel 75 mg tablet 75 mg PO ONCE Blood thinner 03/24/18 12/12/23 aspirin 81 mg tablet,delayed 81 mg PO DAILY CAD 03/27/18 12/12/23 release atorvastatin 80 mg tablet 80 mg PO DAILY Cholesterol 03/27/18 12/12/23 fenofibrate micronized 200 mg 200 mg PO DAILY Cholesterol 03/27/18 12/12/23 capsule glipizide 10 mg tablet 10 mg PO DAILY DM 03/27/18 12/12/23 pregabalin 100 mg capsule 100 mg PO BID FIBROMYALGIA 03/27/18 12/12/23 insulin glargine 100 unit/mL (3 38 unit SQ PM dm 01/29/19 12/12/23 mL) subcutaneous pen (Basaglar KwikPen U-100 Insulin) metformin 1,000 mg tablet,extended 1,000 mg PO DAILY DM 01/29/19 12/12/23 release 24hr (osmotic) oxycodone 10 mg tablet 10 mg PO TID 01/29/19 12/12/23 ropinirole 5 mg tablet (Requip) 5 mg PO QHS 01/29/19 12/12/23 Previous Rx's Medication Instructions Recorded cilostazol 100 mg tablet 100 mg PO BID PAD #120 tabs 04/17/18 albuterol sulfate 90 mcg/actuation 1 - 2 puffs inhalation Q4-6H PRN 02/19/19 aerosol inhaler Shortness Of Breath Or Wheezing #1 inh guaifenesin 600 mg tablet, 600 mg PO BIDP PRN Congestion ##40 02/19/19 extended release 12 hr ibuprofen 800 mg tablet 800 mg PO Q8HP PRN Moderate Pain 06/29/19 #10 tabs lisinopril 20 mg tablet 20 mg PO BID HTN #60 tabs 07/13/19 bisoprolol fumarate 10 mg tablet 10 mg PO DAILY #90 tabs 12/04/19 tamsulosin 0.4 mg capsule 0.4 mg PO HS #10 caps 11/03/20 fluticasone propionate 50 1 spr intranasal DAILY #1 ea 01/19/22 mcg/actuation nasal spray,suspension prednisone 20 mg tablet 20 mg PO BID #10 tabs 04/06/22 ciprofloxacin HCl 500 mg tablet 500 mg PO BID 7 days #14 tabs 12/14/23 (Cipro) ondansetron 4 mg disintegrating 4 mg PO Q8H PRN Nausea #8 tabs 12/14/23 tablet phenazopyridine 200 mg tablet 200 mg PO Q8H 2 days #6 tabs 12/14/23 (Pyridium) Allergies Allergy/AdvReac Type Severity Reaction Status Date / Time No Known Allergies Allergy Verified 12/14/23 16:46 [facility] Disclaimer: The information contained in this section may have been updated after the patient was seen, as this information can be updated by other users. Medical History CAD (coronary artery disease) Diabetes HHD (hypertensive heart disease) HLD (hyperlipidemia) Left foot pain PAD (peripheral artery disease) Smoking SOB (shortness of breath) Tachycardia Social History Smoking Status: Current every day smoker tobacco type: cigarettes packs per day: 1 alcohol intake: never substance use type: marijuana current occupational status: disabled Travel in the last 8 weeks: None household members: children housing: apartment current occupational exposures/hazards: No caffeine: Yes ROS Obtained: Yes All systems reviewed & no additional complaints except as documented Constitutional Constitutional: Reports system reviewed and no additional complaints, except as documented, Denies chills and Denies fever(s) Eyes Eyes: Denies eye discharge ENT Ears, Nose, Mouth, and Throat: Denies dysphagia, Denies sore throat and Denies throat swelling Cardiovascular Cardiovascular: Denies chest pain and Denies dyspnea Respiratory Respiratory: Denies chest congestion, Denies cough and Denies dyspnea Gastrointestinal Gastrointestingal: Denies abdominal pain, constipation, diarrhea, dysphagia, nausea or vomiting Genitourinary Female Genitourinary: Reports as per HPI, Reports dysuria, Reports urinary frequency, Denies urinary incontinence, Reports urinary hesitancy and Reports urinary urgency Musculoskeletal Musculoskeletal: Denies arthralgias and Reports back pain Integumentary/Breasts Skin/Breast: Denies rash Neurologic Neurologic: Denies paresthesias Allergic/Immunologic Allergic/Immunologic: Denies throat swelling Physical Exam General General appearance: alert and in no apparent distress Head Head exam: atraumatic and normocephalic Eye Eye exam: Present normal appearance, PERRL and EOMI ENT ENT exam: Present normal exam, mucous membranes moist, TM's normal bilaterally and normal external ear exam Neck Neck exam: Present normal inspection, full ROM and trachea midline; Absent tenderness, meningismus or lymphadenopathy Chest Chest inspection: Present normal inspection and symmetric chest wall rise; Absent tenderness Respiratory Respiratory exam: Present normal lung sounds bilaterally; Absent respiratory distress, wheezes or stridor Cardiovascular Cardiovascular exam: Present regular rate, normal rhythm and normal heart sounds Abdominal Exam Abdominal exam: Present soft and normal bowel sounds; Absent distention, tenderness, guarding, rebound, rigidity, incision, psoas sign, obturator sign, heel tap sign, Mcarthur's sign, Rovsing's sign or tenderness at McBurney's Point Extremities Exam Extremities exam: Present normal inspection, full ROM and normal capillary refill; Absent tenderness, edema, joint swelling, calf tenderness or cyanosis Back Exam Back exam: Present normal inspection and full ROM; Absent tenderness, CVA tenderness (R) or CVA tenderness (L) Neurological Exam Neurological exam: Present alert, oriented X3 and normal gait Psychiatric Psychiatric exam: Present normal affect and normal mood Skin Skin exam: Present warm, dry, intact and normal color Lymphatic Lymphatic Findings: no adenopathy Medical Decision Making Medical Records Medical records reviewed: No I reviewed the patient's medical records. Donnie Inquiry Pt receiving controlled substance: No Lab Data Lab results reviewed: Yes I reviewed the patient's lab results.
[2023-12-14 16:45] LABS: Apearance,Urine Cloudy (Clear); Bilirubin,Urine Negative (Negative); Blood, Urine 3+ (Negative); Color,Urine Dark Yellow (Yellow); Glucose,Urine (UA) Negative (Negative); Ketones,Urine Negative (Negative); Protein,Urine Negative (Negative); UTC Leukocyte Esterase,Urine Negative (Negative); UTC Nitrate,Urine Negative (Negative); Urobilinogen,Urine 0.2 EU/dl (0.2)
[2023-12-14 17:12] VITALS: BP 133/73; PULSE 88; RESP 19; TEMP 36.8; O2SAT 98
== END 2023-12-14 17:12 | disposition home or self-care (01) ==
PROVIDERS: Emergency Provider Nurse Practitioner Family; PCP Pediatrics
DX: N39.0 Urinary tract infection, site not specified (principal); B95.2 Enterococcus as the cause of diseases classified elsewhere; M54.59 Other low back pain; F17.210 Nicotine dependence, cigarettes, uncomplicated; I11.9 Hypertensive heart disease without heart failure; E11.9 Type 2 diabetes mellitus without complications; I25.10 Atherosclerotic heart disease of native coronary artery without angina pectoris; E78.5 Hyperlipidemia, unspecified; I73.9 Peripheral vascular disease, unspecified
CPT/HCPCS: 81003; 87086; 99212; 99214; G0463

== ENCOUNTER 2024-01-16 14:20 | Emergency (ER) | payer MEDICARE, MEDICAID, SELFPAY ==
[2024-01-16 14:40] VITALS: BP 182/90; PULSE 88; RESP 19; TEMP 36.4; O2SAT 95; BMI 29.4
--- NOTE | 2024-01-16 14:46 | ED_ITS ---
Discharge Plan Disposition Patient Disposition: Home, Self-Care Condition: Good Prescriptions Prescriptions: New fluconazole 100 mg tablet 100 mg PO DAILY 3 Days Qty: 3 0RF methylprednisolone 4 mg Tablets,Dose Pack 4 mg PO DIRECTED 6 Days Qty: 21 0RF Rx Instructions: Take 1 pack as directed for 6 days No Action clopidogrel 75 mg tablet 75 mg PO ONCE Basaglar KwikPen U-100 Insulin 100 unit/mL (3 mL) insulin pen 38 unit SQ PM metformin 1,000 mg tablet extended release 24hr 1,000 mg PO DAILY ropinirole [Requip] 5 mg tablet 5 mg PO QHS oxycodone 10 mg tablet 10 mg PO TID cilostazol 100 mg tablet 100 mg PO BID Qty: 120 1RF Rx Instructions: Needs follow up appt. with cardiology. Thanks lisinopril 20 mg tablet 20 mg PO BID Qty: 60 4RF bisoprolol fumarate 10 mg tablet 10 mg PO DAILY Qty: 90 3RF atorvastatin 80 MG tablet 80 mg PO DAILY glipizide 10 tablet 10 mg PO DAILY fenofibrate micronized 200 MG capsule 200 mg PO DAILY aspirin 81 MG tablet,delayed release (DR/EC) 81 mg PO DAILY pregabalin 100 MG capsule 100 mg PO BID ibuprofen 800 MG tablet 800 mg PO Q8HP PRN (Reason: Moderate Pain) Qty: 10 0RF fluticasone propionate 120 SPR/BOT bottle 1 spr intranasal DAILY Qty: 1 0RF Rx Instructions: one spray in each nostril daily albuterol sulfate 18 GM HFA aerosol inhaler 1 - 2 puffs inhalation Q4-6H PRN (Reason: Shortness Of Breath Or Wheezing) Qty: 1 0RF tamsulosin 0.4 MG capsule 0.4 mg PO HS Qty: 10 0RF Referrals Follow up/Referrals: Bridger Funez MD [Primary Care Provider] - See instructions Activity Restrictions/Add. Instructions Additional Instructions/Restrictions: Try to identify and avoid contact with the offending substance (poison uri). Take the fluconozole (diflucan) as directed. Follow up with your regular doctor. GO TO THE ER FOR ANY WORSENING SYMPTOMS OR CONCERNS Clinical Impressions Clinical Impression: Allergic reaction, Skin yeast infection Instructions Patient Instructions: Methylprednisolone, Fluconazole, DI for Yeast Infection- Skin Discharge ED Provider: Ishaan Cagle [facility] HPI General Stated complaint: rash on chest and abd Time Seen by Provider: 01/16/24 14:46 History of Present Illness Provider Complaint: She states that for the past 3 days she has had an itchy rash on her chest. For the past few weeks she has had issues with yeast beneath her right breast. She has been using nystatin cream and powder for this. She states that it does not seem to be getting it completely better. Related Data Home Medications Medication Instructions Recorded Confirmed clopidogrel 75 mg tablet 75 mg PO ONCE Blood thinner 03/24/18 01/16/24 aspirin 81 mg tablet,delayed 81 mg PO DAILY CAD 03/27/18 01/16/24 release atorvastatin 80 mg tablet 80 mg PO DAILY Cholesterol 03/27/18 01/16/24 fenofibrate micronized 200 mg 200 mg PO DAILY Cholesterol 03/27/18 01/16/24 capsule glipizide 10 mg tablet 10 mg PO DAILY DM 03/27/18 01/16/24 pregabalin 100 mg capsule 100 mg PO BID FIBROMYALGIA 03/27/18 01/16/24 insulin glargine 100 unit/mL (3 38 unit SQ PM dm 01/29/19 01/16/24 mL) subcutaneous pen (Basaglar KwikPen U-100 Insulin) metformin 1,000 mg tablet,extended 1,000 mg PO DAILY DM 01/29/19 01/16/24 release 24hr (osmotic) oxycodone 10 mg tablet 10 mg PO TID 01/29/19 01/16/24 ropinirole 5 mg tablet (Requip) 5 mg PO QHS 01/29/19 01/16/24 Previous Rx's Medication Instructions Recorded cilostazol 100 mg tablet 100 mg PO BID PAD #120 tabs 04/17/18 albuterol sulfate 90 mcg/actuation 1 - 2 puffs inhalation Q4-6H PRN 02/19/19 aerosol inhaler Shortness Of Breath Or Wheezing #1 inh ibuprofen 800 mg tablet 800 mg PO Q8HP PRN Moderate Pain 06/29/19 #10 tabs lisinopril 20 mg tablet 20 mg PO BID HTN #60 tabs 07/13/19 bisoprolol fumarate 10 mg tablet 10 mg PO DAILY #90 tabs 12/04/19 tamsulosin 0.4 mg capsule 0.4 mg PO HS #10 caps 11/03/20 fluticasone propionate 50 1 spr intranasal DAILY #1 ea 01/19/22 mcg/actuation nasal spray,suspension fluconazole 100 mg tablet 100 mg PO DAILY 3 days #3 tabs 01/16/24 methylprednisolone 4 mg tablets in 4 mg PO DIRECTED 6 days #21 tabs 01/16/24 a dose pack Allergies Allergy/AdvReac Type Severity Reaction Status Date / Time No Known Allergies Allergy Verified 01/16/24 14:50 [facility] Disclaimer: The information contained in this section may have been updated after the patient was seen, as this information can be updated by other users. Medical History CAD (coronary artery disease) Diabetes HHD (hypertensive heart disease) HLD (hyperlipidemia) Left foot pain PAD (peripheral artery disease) Smoking SOB (shortness of breath) Tachycardia Social History Smoking Status: Current every day smoker tobacco type: cigarettes packs per day: 1 alcohol intake: never substance use type: marijuana current occupational status: disabled Travel in the last 8 weeks: None household members: children housing: apartment current occupational exposures/hazards: No caffeine: Yes ROS Obtained: Yes All systems reviewed & no additional complaints except as documented Constitutional Constitutional: Denies chills and Denies fever(s) Eyes Eyes: Denies eye discharge ENT Ears, Nose, Mouth, and Throat: Denies dizziness, Denies otalgia and Denies sore throat Cardiovascular Cardiovascular: Denies chest pain Respiratory Respiratory: Denies shortness of breath, Denies chest congestion, Denies cough, Denies stridor and Denies wheezing Gastrointestinal Gastrointestingal: Denies nausea or vomiting Musculoskeletal Musculoskeletal: Reports system reviewed and no additional complaints, except as documented and Denies arthralgias Integumentary/Breasts Skin/Breast: Reports as per HPI and Reports rash Neurologic Neurologic: Denies dizziness and Denies paresthesias Allergic/Immunologic Allergic/Immunologic: Denies wheezing Physical Exam General General appearance: alert and in no apparent distress Head Head exam: atraumatic, normocephalic and normal inspection Eye Eye exam: Present normal appearance, PERRL and EOMI ENT ENT exam: Present normal exam, normal oropharynx, mucous membranes moist, TM's normal bilaterally and normal external ear exam Neck Neck exam: Present normal inspection, full ROM and trachea midline; Absent meningismus or lymphadenopathy Chest Chest inspection: Present normal inspection and symmetric chest wall rise; Absent tenderness Respiratory Respiratory exam: Present normal lung sounds bilaterally; Absent respiratory distress Cardiovascular Cardiovascular exam: Present regular rate and normal rhythm; Absent JVD Abdominal Exam Abdominal exam: Present soft and normal bowel sounds; Absent distention, tenderness or guarding Extremities Exam Extremities exam: Present normal inspection, full ROM and normal capillary refill; Absent calf tenderness Back Exam Back exam: Present normal inspection; Absent tenderness Neurological Exam Neurological exam: Present alert and oriented X3 Psychiatric Psychiatric exam: Present normal affect and normal mood Skin Skin exam: Present other (there are maculopapular lesions on her anterior check near her neck. Beneath her right breast there is erythema with satellite lesions.) Lymphatic Lymphatic Findings: no adenopathy Medical Decision Making Medical Records Medical records reviewed: No I reviewed the patient's medical records. Donnie Inquiry Pt receiving controlled substance: No
[2024-01-16 15:55] VITALS: BP 182/90; PULSE 88; RESP 18; TEMP 36.4; O2SAT 95
== END 2024-01-16 15:55 | disposition home or self-care (01) ==
PROVIDERS: Emergency Provider Nurse Practitioner Family; PCP Pediatrics
DX: B37.2 Candidiasis of skin and nail (principal); I25.10 Atherosclerotic heart disease of native coronary artery without angina pectoris; E11.51 Type 2 diabetes mellitus with diabetic peripheral angiopathy without gangrene; I11.9 Hypertensive heart disease without heart failure; E78.5 Hyperlipidemia, unspecified; F17.210 Nicotine dependence, cigarettes, uncomplicated
CPT/HCPCS: 99212; 99214; G0463

== ENCOUNTER 2024-07-15 13:18 | Emergency (ER) | payer MEDICARE, MEDICAID, SELFPAY ==
[2024-07-15 14:10] VITALS: BP 112/74; PULSE 100; RESP 20; TEMP 36.9; O2SAT 95; BMI 27.3
[2024-07-15 14:25] LABS: Apearance,Urine Clear (Clear); Bilirubin,Urine Negative (Negative); Blood, Urine Negative (Negative); Color,Urine Yellow (Yellow); Glucose,Urine (UA) >=1000 (Negative); Ketones,Urine Negative (Negative); Protein,Urine Negative (Negative); Specific Gravity, Urine 1.015 (1.005-1.030); UTC Leukocyte Esterase,Urine Negative (Negative); UTC Nitrate,Urine Negative (Negative); Urobilinogen,Urine 0.2 EU/dl (0.2)
--- NOTE | 2024-07-15 14:27 | EXP.UTC ---
Discharge Plan Disposition Patient Disposition: Home, Self-Care Condition: Good Prescriptions Prescriptions: New miconazole nitrate [Monistat 3] 4 % (200 mg)- 2 % (9 gram) comb pack,prefill appl, cream See Rx Instructions .ROUTE .COMPLEX Qty: 24 0RF Rx Instructions: put 1 application in vagina at bedtime x 3 nites;use cream on area outside vagina 2X/day for up to 7days No Action clopidogrel 75 mg tablet 75 mg PO ONCE Basaglar KwikPen U-100 Insulin 100 unit/mL (3 mL) insulin pen 38 unit SQ PM metformin 1,000 mg tablet extended release 24hr 1,000 mg PO DAILY ropinirole [Requip] 5 mg tablet 5 mg PO QHS oxycodone 10 mg tablet 10 mg PO TID cilostazol 100 mg tablet 100 mg PO BID Qty: 120 1RF Rx Instructions: Needs follow up appt. with cardiology. Thanks lisinopril 20 mg tablet 20 mg PO BID Qty: 60 4RF bisoprolol fumarate 10 mg tablet 10 mg PO DAILY Qty: 90 3RF atorvastatin 80 MG tablet 80 mg PO DAILY glipizide 10 tablet 10 mg PO DAILY fenofibrate micronized 200 MG capsule 200 mg PO DAILY aspirin 81 MG tablet,delayed release (DR/EC) 81 mg PO DAILY pregabalin 100 MG capsule 100 mg PO BID ibuprofen 800 MG tablet 800 mg PO Q8HP PRN (Reason: Moderate Pain) Qty: 10 0RF fluticasone propionate 120 SPR/BOT bottle 1 spr intranasal DAILY Qty: 1 0RF Rx Instructions: one spray in each nostril daily albuterol sulfate 18 GM HFA aerosol inhaler 1 - 2 puffs inhalation Q4-6H PRN (Reason: Shortness Of Breath Or Wheezing) Qty: 1 0RF tamsulosin 0.4 MG capsule 0.4 mg PO HS Qty: 10 0RF fluconazole 100 mg tablet 100 mg PO DAILY 3 Days Qty: 3 0RF methylprednisolone 4 mg Tablets,Dose Pack 4 mg PO DIRECTED 6 Days Qty: 21 0RF Rx Instructions: Take 1 pack as directed for 6 days Referrals Follow up/Referrals: Bridger White [Primary Care Provider] - See instructions Activity Restrictions/Add. Instructions Additional Instructions/Restrictions: Use Monistat as prescribed collect diarrhea sample and bring back to lab Follow up with your Family Doctor or OBGYN if vaginal itching/burning continues Straight to ER if any life threatening symptoms Clinical Impressions Clinical Impression: Vaginal yeast infection Instructions Patient Instructions: Diarrhea, DI for Vaginal Yeast Infection Print Language Print Language: [place] Citizen Discharge ED Provider: Izabella Mcmillan [facility] General Stated complaint: vaginal irritation, diarrhea Mode of Arrival: Ambulatory Source of Information: Patient Limitations: No Limitations Time Seen by Provider: 07/15/24 14:27 Description of Symptoms (Recalled from Triage Doc. by RN): PATIENT C/O ITCHING AND IRRITATION TO GENITAL AREA AND DIARRHEA X 2 DAYS HEENT Symptoms (Recalled from RN notes): No Resp Symptoms (Recalled from RN notes): No Skin Symptoms (Recalled from RN notes): No MS Symptoms (Recalled from RN notes): No Functional Status (Recalled from RN notes): WNL History of Present Illness Provider Complaint: Patient states that she has been having diarrhea for the last couple of days and feeling itchy and burning in her vagina area not sure if she may have a UTI or yeast infection so she came in to get it checked Related Data Home Medications ?Medication ?Instructions ?Recorded ?Confirmed clopidogrel 75 mg tablet 75 mg PO ONCE Blood thinner 03/24/18 04/02/24 aspirin 81 mg tablet,delayed 81 mg PO DAILY CAD 03/27/18 04/02/24 release atorvastatin 80 mg tablet 80 mg PO DAILY Cholesterol 03/27/18 04/02/24 fenofibrate micronized 200 mg 200 mg PO DAILY Cholesterol 03/27/18 04/02/24 capsule glipizide 10 mg tablet 10 mg PO DAILY DM 03/27/18 04/02/24 pregabalin 100 mg capsule 100 mg PO BID FIBROMYALGIA 03/27/18 04/02/24 insulin glargine 100 unit/mL (3 38 unit SQ PM dm 01/29/19 04/02/24 mL) subcutaneous pen (Basaglar KwikPen U-100 Insulin) metformin 1,000 mg tablet,extended 1,000 mg PO DAILY DM 01/29/19 04/02/24 release 24hr (osmotic) oxycodone 10 mg tablet 10 mg PO TID 01/29/19 04/02/24 ropinirole 5 mg tablet (Requip) 5 mg PO QHS 01/29/19 04/02/24 Previous Rx's ?Medication ?Instructions ?Recorded cilostazol 100 mg tablet 100 mg PO BID PAD #120 tabs 04/17/18 albuterol sulfate 90 mcg/actuation 1 - 2 puffs inhalation Q4-6H PRN 02/19/19 aerosol inhaler Shortness Of Breath Or Wheezing #1 inh ibuprofen 800 mg tablet 800 mg PO Q8HP PRN Moderate Pain 06/29/19 #10 tabs lisinopril 20 mg tablet 20 mg PO BID HTN #60 tabs 07/13/19 bisoprolol fumarate 10 mg tablet 10 mg PO DAILY #90 tabs 12/04/19 tamsulosin 0.4 mg capsule 0.4 mg PO HS #10 caps 11/03/20 fluticasone propionate 50 1 spr intranasal DAILY #1 ea 01/19/22 mcg/actuation nasal spray,suspension fluconazole 100 mg tablet 100 mg PO DAILY 3 days #3 tabs 01/16/24 methylprednisolone 4 mg tablets in 4 mg PO DIRECTED 6 days #21 tabs 01/16/24 a dose pack miconazole nitrate 4 % (200 mg)-2 See Rx Instructions vaginal 07/15/24 % (9 gram)vaginal,prefill .COMPLEX #24 grams appl,cream (Monistat 3) Allergies Allergy/AdvReac Type Severity Reaction Status Date / Time No Known Allergies Allergy Verified 04/02/24 10:07 Worker's Comp Is this a Worker's Comp case?: No [facility] Disclaimer: The information contained in this section may have been updated after the patient was seen, as this information can be updated by other users. Medical History Diabetes Left foot pain Tachycardia Smoking SOB (shortness of breath) PAD (peripheral artery disease) HLD (hyperlipidemia) HHD (hypertensive heart disease) CAD (coronary artery disease) Social History Smoking Status: Current every day smoker tobacco type: cigarettes packs per day: 1 alcohol intake: never substance use type: marijuana current occupational status: disabled Travel in the last 8 weeks: None household members: children housing: apartment current occupational exposures/hazards: No caffeine: Yes ROS Obtained: Yes All systems reviewed & no additional complaints except as documented and Yes Systems reviewed as appropriate & no additional complaints except as documented Constitutional Constitutional: Reports system reviewed and no additional complaints, except as documented, Reports as per HPI, Denies body ache, Denies chills and Denies fever(s) Cardiovascular Cardiovascular: Reports system reviewed and no additional complaints, except as documented and Reports as per HPI Respiratory Respiratory: Reports system reviewed and no additional complaints, except as documented and Reports as per HPI Gastrointestinal Gastrointestingal: Reports system reviewed and no additional complaints, except as documented, as per HPI and diarrhea; Denies abdominal pain, cramping, nausea or vomiting Genitourinary Female Genitourinary: Reports system reviewed and no additional complaints, except as documented, Reports as per HPI and Reports vaginal pruritus (burning) Physical Exam General General appearance: alert and in no apparent distress ENT ENT exam: Present mucous membranes moist Respiratory Respiratory exam: Present normal lung sounds bilaterally; Absent respiratory distress or wheezes Cardiovascular Cardiovascular exam: Present regular rate, normal rhythm and normal heart sounds Abdominal Exam Abdominal exam: Present soft and normal bowel sounds; Absent distention or tenderness External exam: Present other (patient declined, reports burning and itching to vaginal area) Neurological Exam Neurological exam: Present alert, oriented X3 and normal gait Medical Decision Making Donnie Inquiry Pt receiving controlled substance: No Donnie was queried for this patient: No Vital Signs: 07/15/24 14:10 Temperature 98.4 F Temperature Source Oral Pulse Rate [Left Brachial] 100 H Respiratory Rate 20 Blood Pressure [Left Arm] 112/74 Blood Pressure Mean [Left Arm] 86 Blood Pressure Source [Left Arm] Automatic Cuff Blood Pressure Position [Left Arm] Sitting 02 Sat by Pulse Oximetry 95 Oxygen Delivery Method Room Air Lab Data Lab results reviewed: Yes I reviewed the patient's lab results. Lab Results 07/15/24 14:24: Urine Color Yellow, Urine Appearance Clear, Urine pH 5.0, Ur Specific [place] 1.015, Urine Protein Negative, Urine Glucose (UA) >=1000, Urine Ketones Negative, Urine Blood Negative, Urine Nitrate Negative, Urine Bilirubin Negative, Urine Urobilinogen 0.2, Ur Leukocyte Esterase Negative
[2024-07-15 14:38] VITALS: BP 112/74; PULSE 100; RESP 20; TEMP 36.9; O2SAT 95
== END 2024-07-15 14:47 | disposition home or self-care (01) ==
PROVIDERS: Emergency Provider Nurse Practitioner; PCP Pediatrics
DX: B37.31 Acute candidiasis of vulva and vagina (principal); R19.7 Diarrhea, unspecified
CPT/HCPCS: 81003; 99212; 99214; G0463

== ENCOUNTER 2024-07-16 13:06 | Outpatient (CLI) | payer MEDICARE, MEDICAID, SELFPAY ==
[2024-07-16 13:15] LABS: Adenovirus F 40/41, stool Not Detected (NotDetected); Astrovirus Not Detected (NotDetected); Campylobacter Not Detected (NotDetected); Clostridium Difficile A/B, PCR Not Detected (NotDetected); Cryptosporidium Not Detected (NotDetected); Cyclospora Cayetanesis Not Detected (NotDetected); Entamoeba histolytica Not Detected (NotDetected); Enteroaggregative E coli Not Detected (NotDetected); Enteropathogenic E coli Not Detected (NotDetected); Enterotoxigenic E coli Not Detected (NotDetected); Giardia lamblia Not Detected (NotDetected); Norovirus Not Detected (NotDetected); Plesimonas Shigalloides, PCR Not Detected (NotDetected); Rotavirus A Not Detected (NotDetected); Salmonella, PCR Not Detected (NotDetected); Sapovirus Not Detected (NotDetected); Shiga-like toxin E coli Not Detected (NotDetected); Shigella Enterovasive E coli Not Detected (NotDetected); Vibrio Cholerae Not Detected (NotDetected); Vibrio, PCR Not Detected (NotDetected); Yersinia Entercolitica, PCR Not Detected (NotDetected)
== END 2024-07-16 23:59 | disposition home or self-care (01) ==
LOC: LAB 13:08
PROVIDERS: PCP Nurse Practitioner; Visit Provider Nurse Practitioner
DX: R19.7 Diarrhea, unspecified (principal)
CPT/HCPCS: 87506

== ENCOUNTER 2024-08-04 13:25 | Observation (INO) | payer MEDICARE, MEDICAID, SELFPAY ==
[2024-08-04] VITALS (7 sets, daily range): BP systolic 131–157; BP diastolic 67–81; PULSE 73–87; RESP 18–20; TEMP 36.6–37.1; O2SAT 93–97; BMI 28.1; BMI 30.9; BMI 27.8
--- NOTE | 2024-08-04 15:12 | EXP.UTC ---
Discharge Plan Prescriptions Prescriptions: No Action clopidogrel 75 mg tablet 75 mg PO ONCE Jose Angelaglar Lissette U-100 Insulin 100 unit/mL (3 mL) insulin pen 38 unit SQ PM metformin 1,000 mg tablet extended release 24hr 1,000 mg PO DAILY ropinirole [Requip] 5 mg tablet 5 mg PO QHS oxycodone 10 mg tablet 10 mg PO TID cilostazol 100 mg tablet 100 mg PO BID Qty: 120 1RF Rx Instructions: Needs follow up appt. with cardiology. Thanks lisinopril 20 mg tablet 20 mg PO BID Qty: 60 4RF bisoprolol fumarate 10 mg tablet 10 mg PO DAILY Qty: 90 3RF atorvastatin 80 MG tablet 80 mg PO DAILY glipizide 10 tablet 10 mg PO DAILY fenofibrate micronized 200 MG capsule 200 mg PO DAILY aspirin 81 MG tablet,delayed release (DR/EC) 81 mg PO DAILY pregabalin 100 MG capsule 100 mg PO BID ibuprofen 800 MG tablet 800 mg PO Q8HP PRN (Reason: Moderate Pain) Qty: 10 0RF fluticasone propionate 120 SPR/BOT bottle 1 spr intranasal DAILY Qty: 1 0RF Rx Instructions: one spray in each nostril daily miconazole nitrate [Monistat 3] 4 % (200 mg)- 2 % (9 gram) comb pack,prefill appl, cream See Rx Instructions .ROUTE .COMPLEX Qty: 24 0RF Rx Instructions: put 1 application in vagina at bedtime x 3 nites;use cream on area outside vagina 2X/day for up to 7days albuterol sulfate 18 GM HFA aerosol inhaler 1 - 2 puffs inhalation Q4-6H PRN (Reason: Shortness Of Breath Or Wheezing) Qty: 1 0RF tamsulosin 0.4 MG capsule 0.4 mg PO HS Qty: 10 0RF fluconazole 100 mg tablet 100 mg PO DAILY 3 Days Qty: 3 0RF methylprednisolone 4 mg Tablets,Dose Pack 4 mg PO DIRECTED 6 Days Qty: 21 0RF Rx Instructions: Take 1 pack as directed for 6 days Referrals Follow up/Referrals: Bridger Funez MD [Primary Care Provider] - See instructions Print Language Print Language: [place] Discharge ED Provider: Mildred Chen [facility] [place] General Stated complaint: boil Mode of Arrival: Ambulatory Source of Information: Patient Time Seen by Provider: 08/04/24 15:07 Description of Symptoms (Recalled from Triage Doc. by RN): BOIL FOR 2 WEEKS UNDER BUTT HEENT Symptoms (Recalled from RN notes): No Resp Symptoms (Recalled from RN notes): No Skin Symptoms (Recalled from RN notes): Yes MS Symptoms (Recalled from RN notes): No Functional Status (Recalled from RN notes): WNL History of Present Illness Provider Complaint: Pt reports that she has had an abscess at the base of her right buttock. She states that at times she has had a fever and felt poorly. She states that the site is oozing and she has tried to keep covered with a bandaid but it is often on her clothes. Site was cleaned with Hibeclens and culture obtained. Large amount of pus from site. Concern for tunneling. Discussed with Dr. Chen and pt to be transferred to the ER. Related Data Home Medications ?Medication ?Instructions ?Recorded ?Confirmed clopidogrel 75 mg tablet 75 mg PO ONCE Blood thinner 03/24/18 08/04/24 aspirin 81 mg tablet,delayed 81 mg PO DAILY CAD 03/27/18 08/04/24 release atorvastatin 80 mg tablet 80 mg PO DAILY Cholesterol 03/27/18 08/04/24 fenofibrate micronized 200 mg 200 mg PO DAILY Cholesterol 03/27/18 04/02/24 capsule glipizide 10 mg tablet 10 mg PO DAILY DM 03/27/18 08/04/24 pregabalin 100 mg capsule 100 mg PO BID FIBROMYALGIA 03/27/18 08/04/24 insulin glargine 100 unit/mL (3 38 unit SQ PM dm 01/29/19 04/02/24 mL) subcutaneous pen (Basaglar KwikPen U-100 Insulin) metformin 1,000 mg tablet,extended 1,000 mg PO DAILY DM 01/29/19 04/02/24 release 24hr (osmotic) oxycodone 10 mg tablet 10 mg PO TID 01/29/19 08/04/24 ropinirole 5 mg tablet (Requip) 5 mg PO QHS 01/29/19 04/02/24 Previous Rx's ?Medication ?Instructions ?Recorded cilostazol 100 mg tablet 100 mg PO BID PAD #120 tabs 04/17/18 albuterol sulfate 90 mcg/actuation 1 - 2 puffs inhalation Q4-6H PRN 02/19/19 aerosol inhaler Shortness Of Breath Or Wheezing #1 inh ibuprofen 800 mg tablet 800 mg PO Q8HP PRN Moderate Pain 06/29/19 #10 tabs lisinopril 20 mg tablet 20 mg PO BID HTN #60 tabs 07/13/19 bisoprolol fumarate 10 mg tablet 10 mg PO DAILY #90 tabs 12/04/19 tamsulosin 0.4 mg capsule 0.4 mg PO HS #10 caps 11/03/20 fluticasone propionate 50 1 spr intranasal DAILY #1 ea 01/19/22 mcg/actuation nasal spray,suspension fluconazole 100 mg tablet 100 mg PO DAILY 3 days #3 tabs 01/16/24 methylprednisolone 4 mg tablets in 4 mg PO DIRECTED 6 days #21 tabs 01/16/24 a dose pack miconazole nitrate 4 % (200 mg)-2 See Rx Instructions vaginal 07/15/24 % (9 gram)vaginal,prefill .COMPLEX #24 grams appl,cream (Monistat 3) Allergies Allergy/AdvReac Type Severity Reaction Status Date / Time No Known Allergies Allergy Verified 04/02/24 10:07 Worker's Comp Is this a Worker's Comp case?: No [facility] Disclaimer: The information contained in this section may have been updated after the patient was seen, as this information can be updated by other users. Medical History Diabetes Left foot pain Tachycardia Smoking SOB (shortness of breath) PAD (peripheral artery disease) HLD (hyperlipidemia) HHD (hypertensive heart disease) CAD (coronary artery disease) Social History Smoking Status: Current every day smoker tobacco type: cigarettes packs per day: 1 alcohol intake: never substance use type: marijuana current occupational status: disabled Travel in the last 8 weeks: None household members: children housing: apartment current occupational exposures/hazards: No caffeine: Yes Medical Decision Making Medical Records Screening: Per USPSTF and CDC recommendations, given the prevalence of disease in our region, it is our hospital?s policy to screen for HIV and viral Hepatitis for all patients aged 18 and over and those with ongoing risk factors. Vital Signs: 08/04/24 14:27 Temperature 97.9 F Temperature Source Oral Pulse Rate [Left Radial] 87 Respiratory Rate 20 Blood Pressure [Left Arm] 154/74 H Blood Pressure Mean [Left Arm] 100 02 Sat by Pulse Oximetry 93 L
--- NOTE | 2024-08-04 16:44 | PC.NURSE ---
Dr. Chen at bedside with POCUS
--- NOTE | 2024-08-04 16:45 | CT_ITS ---
PROCEDURE INFORMATION: Exam: CT Abdomen And Pelvis With Contrast Exam date and time: 08/04/2024 5:51 PM Age: 68 years old Clinical indication: Pain; Other: Right edgar-rectal abscess; Additional info: Right edgar-rectal abscess and cellulitis TECHNIQUE: Imaging protocol: Computed tomography of the abdomen and pelvis with contrast. Radiation optimization: All CT scans at this facility use at least one of these dose optimization techniques: automated exposure control; mA and/or kV adjustment per patient size (includes targeted exams where dose is matched to clinical indication); or iterative reconstruction. Contrast material: ISOVUE; Contrast volume: 75 ml; Contrast route: IV; COMPARISON: 1. CT ABDOMEN PELVIS WO CON 03/12/2023 2:[address] ABDOMEN PELVIS WO CON 11/02/2020 11:[address] ABDOMEN PELVIS W CON 09/23/2020 6:47 PM FINDINGS: Lungs: Scattered areas of bronchial wall thickening which are likely chronic inflammatory. A few areas of subpleural reticulation are noted, nonspecific. Coronary arteries: There is moderate coronary atherosclerotic disease/calcification although evaluation is limited secondary to the non gated nature of the study. Liver: Normal. Gallbladder and biliary ducts: The patient is status post cholecystectomy. Pancreas: Normal. Spleen: Normal. Adrenal glands: The adrenal glands are thickened, a nonspecific finding. Kidneys and ureters: There are no soft tissue renal masses or hydronephrosis. Stomach and bowel: The stomach, small bowel, and colon are well-distended and show no evidence of wall thickening, masses, or obstruction. Appendix: No evidence of appendicitis. Intraperitoneal space: Unremarkable. Vasculature: There is atherosclerotic disease of the visualized aorta and its major branch vessels. Lymph nodes: No lymphadenopathy. Urinary bladder: Unremarkable as visualized. Reproductive: No acute process. Bones/joints: There is a left hip arthroplasty with associated streak artifact mildly limits evaluation of the pelvis. There is diffuse degenerative disease of the visualized osseous structures. Soft tissues: There is a small umbilical hernia containing fluid. Moderate inflammatory change in the right medial gluteal fold with subcutaneous gas but no fluid collection. IMPRESSION: Moderate inflammatory change in the right medial gluteal fold with subcutaneous gas but no fluid collection.
--- NOTE | 2024-08-04 16:54 | HMH.EDGENADL ---
Discharge Plan Disposition Patient Disposition: Home, Self-Care Clinical Impressions Clinical Impression: Corrine-rectal abscess, Diabetes, Perirectal cellulitis Discharge ED Provider: Mildred Chen General Adult HPI General Chief complaint: Skin/Abscess/Foreign Body Stated complaint: boil Time Seen by Provider: 08/04/24 15:07 Mode of Arrival: Ambulatory Source of Information: Patient Limitations: No Limitations Description of Symptoms (Recalled from ER Triage Doc. by RN): abcess to r buttock. draining,fever History of Present Illness HPI narrative: Patient is a 68-year-old female with a history of poorly controlled diabetes presenting today with an abscess and cellulitis of her right buttock. She was seen in the [facility] prior to being sent to the emergency department. She states this is been ongoing for the last 2 weeks Reason she came to the hospital today is because a family member flew in from out of town and prompted her to come today. She does state she has been having a fever at home and not feeling well and she is unsure as to what her blood sugar has been running. Related Data Home Medications ?Medication ?Instructions ?Recorded ?Confirmed clopidogrel 75 mg tablet 75 mg PO ONCE Blood thinner 03/24/18 08/04/24 aspirin 81 mg tablet,delayed 81 mg PO DAILY CAD 03/27/18 08/04/24 release atorvastatin 80 mg tablet 80 mg PO DAILY Cholesterol 03/27/18 08/04/24 fenofibrate micronized 200 mg 200 mg PO DAILY Cholesterol 03/27/18 04/02/24 capsule glipizide 10 mg tablet 10 mg PO DAILY DM 03/27/18 08/04/24 pregabalin 100 mg capsule 100 mg PO BID FIBROMYALGIA 03/27/18 08/04/24 insulin glargine 100 unit/mL (3 38 unit SQ PM dm 01/29/19 04/02/24 mL) subcutaneous pen (Basaglar KwikPen U-100 Insulin) metformin 1,000 mg tablet,extended 1,000 mg PO DAILY DM 01/29/19 04/02/24 release 24hr (osmotic) oxycodone 10 mg tablet 10 mg PO TID 01/29/19 08/04/24 ropinirole 5 mg tablet (Requip) 5 mg PO QHS 01/29/19 04/02/24 Previous Rx's ?Medication ?Instructions ?Recorded cilostazol 100 mg tablet 100 mg PO BID PAD #120 tabs 04/17/18 albuterol sulfate 90 mcg/actuation 1 - 2 puffs inhalation Q4-6H PRN 02/19/19 aerosol inhaler Shortness Of Breath Or Wheezing #1 inh ibuprofen 800 mg tablet 800 mg PO Q8HP PRN Moderate Pain 06/29/19 #10 tabs lisinopril 20 mg tablet 20 mg PO BID HTN #60 tabs 07/13/19 bisoprolol fumarate 10 mg tablet 10 mg PO DAILY #90 tabs 12/04/19 tamsulosin 0.4 mg capsule 0.4 mg PO HS #10 caps 11/03/20 fluticasone propionate 50 1 spr intranasal DAILY #1 ea 01/19/22 mcg/actuation nasal spray,suspension fluconazole 100 mg tablet 100 mg PO DAILY 3 days #3 tabs 01/16/24 methylprednisolone 4 mg tablets in 4 mg PO DIRECTED 6 days #21 tabs 01/16/24 a dose pack miconazole nitrate 4 % (200 mg)-2 See Rx Instructions vaginal 07/15/24 % (9 gram)vaginal,prefill .COMPLEX #24 grams appl,cream (Monistat 3) Allergies Allergy/AdvReac Type Severity Reaction Status Date / Time No Known Allergies Allergy Verified 04/02/24 10:07 [facility] Disclaimer: The information contained in this section may have been updated after the patient was seen, as this information can be updated by other users. Medical History Diabetes Left foot pain Tachycardia Smoking SOB (shortness of breath) PAD (peripheral artery disease) HLD (hyperlipidemia) HHD (hypertensive heart disease) CAD (coronary artery disease) Social History Smoking Status: Current every day smoker tobacco type: cigarettes packs per day: 1 alcohol intake: never substance use type: marijuana current occupational status: disabled Travel in the last 8 weeks: None household members: children housing: apartment current occupational exposures/hazards: No caffeine: Yes Other Medical History Have you received the Flu Vaccine for this season: Yes Have you received the Pneumonia Vaccine: No ROS Obtained: Yes All systems reviewed & no additional complaints except as documented Physical Exam General General appearance: alert and in no apparent distress Respiratory Respiratory exam: Present normal lung sounds bilaterally Cardiovascular Cardiovascular exam: Present regular rate Back Exam Back 1 view image: 1. On the medial aspect of the right buttock near the rectum there is a 5 x 5 cm area of induration with foul-smelling discharge and significant surrounding cellulitis extending very near to the rectum and laterally approximately an additional 5 cm there is no significant skin breakdown outside of the actively draining abscess. Neurological Exam Neurological exam: Present alert and oriented X3 Medical Decision Making Medical Records Screening: Per USPSTF and CDC recommendations, given the prevalence of disease in our region, it is our hospital?s policy to screen for HIV and viral Hepatitis for all patients aged 18 and over and those with ongoing risk factors. Donnie Inquiry Pt receiving controlled substance: No Vital Signs: 08/04/24 14:27 08/04/24 16:44 08/04/24 17:30 Temperature 97.9 F 98.8 F Temperature Source Oral Oral Pulse Rate 87 Pulse Rate [Left Radial] 87 85 Respiratory Rate 20 18 Blood Pressure 131/67 Blood Pressure [Left Arm] 154/74 H 153/78 H Blood Pressure Mean 88 Blood Pressure Mean [Left Arm] 100 103 02 Sat by Pulse Oximetry 93 L 97 93 L Oxygen Delivery Method Room Air Room Air 08/04/24 18:01 08/04/24 18:31 Temperature 98.0 F Temperature Source Pulse Rate 76 76 Pulse Rate [Left Radial] Respiratory Rate 18 20 Blood Pressure 157/67 H 139/75 Blood Pressure [Left Arm] Blood Pressure Mean 95 Blood Pressure Mean [Left Arm] 02 Sat by Pulse Oximetry 95 Oxygen Delivery Method Room Air Lab Data Lab results reviewed: Yes I reviewed the patient's lab results. Lab Results 08/04/24 17:05: WBC 10.4, RBC 4.88, Hgb 15.7, Hct 45.7, MCV 93.6, MCH 32.1 H, MCHC 34.3, RDW 14.4, Plt Count 234, MPV 8.4, Neut % (Auto) 79.1, Lymph % (Auto) 11.8, [place] % (Auto) 4.9, Eos % (Auto) 3.5, Baso % (Auto) 0.7, Neut # (Auto) 8.3 H, Lymph # (Auto) 1.2, [place] # (Auto) 0.5, Eos # (Auto) 0.4, Baso # (Auto) 0.1, Sodium 138, Potassium 3.0 L, Chloride 99, Carbon Dioxide 31 H, Anion Gap 11.0, BUN 15, Creatinine 0.40 L, Estimated Creat Clear 68, Estimated GFR 158, Est GFR ( Amer) 191, Glucose 297 H, Calcium 9.5, Total Bilirubin 0.9, AST 25, ALT 24, Alkaline Phosphatase 141 H, C-Reactive Protein 80.0 H, Total Protein 7.3, Albumin 4.1, Globulin 3.2, Albumin/Globulin Ratio 1.3, HIV 1&2 Antibody Rapid Nonreactive 08/04/24 18:07: Lactate 1.6 08/04/24 17:05 08/04/24 17:05 Orders (Tests/Meds): ED MEDICATIONS Generic Name Dose Route Start Last Admin Trade Name Freq PRN Reason Stop Dose Admin Acetaminophen 650 mg 08/04/24 18:13 Acetaminophen 325mg Tab PO 09/03/24 18:12 Q4HP PRN Fever or Mild Pain (1-3) Enoxaparin Sodium 40 mg 08/05/24 09:00 Enoxaparin 40mg/0.4ml Syringe SQ 09/04/24 08:59 DAILY [facility] Vancomycin HCl 2,000 mg/ 250 mls @ 125 mls/hr 08/04/24 17:00 08/04/24 17:55 Sodium Chloride IV 08/04/24 18:59 125 mls/hr ONCE ONE Administration Potassium Chloride/Water 100 mls @ 100 mls/hr 08/04/24 18:08 Potassium Chloride 10meq/100ml Ivpb IV 08/04/24 20:07 Q1H [facility] Lactated Ringer's 1,000 mls @ 75 mls/hr 08/04/24 18:15 Lactated Ringer's 1000 Ml Bag IV 09/03/24 18:14 .[id number] [facility] Piperacillin Sod/Tazobactam 50 mls @ 100 mls/hr 08/04/24 18:15 Sod 3.375 gm/ Sodium Chloride IV 08/14/24 18:14 Q8H [facility] Insulin Human Lispro 0 unit 08/04/24 21:00 Humalog 100 Units/Ml 10ml Vial (Ssi) SQ 09/03/24 20:59 ACHS [facility] Protocol Miscellaneous 1 each 08/04/24 17:00 08/04/24 17:32 Vancomycin Consult Request NOTAPPLIC 09/03/24 16:59 1 each CONSULT PHARMACY [facility] Administration Miscellaneous 1 each 08/04/24 18:15 Vancomycin Consult Request NOTAPPLIC 09/03/24 18:14 CONSULT PHARMACY [facility] Ondansetron HCl 4 mg 08/04/24 18:13 Ondansetron 4mg/2ml Vial IV 09/03/24 18:12 Q8HP PRN Nausea Discontinued Medications Generic Name Dose Route Start Last Admin Trade Name Freq PRN Reason Stop Dose Admin Lactated Ringer's 1,000 mls @ 999 mls/hr 08/04/24 16:45 08/04/24 17:32 Lactated Ringer's 1000 Ml Bag IV 08/04/24 17:45 999 mls/hr .Q1H1M [facility] Administration Piperacillin Sod/Tazobactam 50 mls @ 100 mls/hr 08/04/24 16:50 08/04/24 17:32 Sod 3.375 gm/ Sodium Chloride IV 08/04/24 17:19 100 mls/hr ONCE ONE Administration Iopamidol 75 ml 08/04/24 17:49 08/04/24 17:50 Iopamidol-370 (76%);100ml Bottle IV 08/04/24 17:50 75 ml ONCE ONE Administration Potassium Chloride 40 meq 08/04/24 18:08 Potassium Chloride 20meq Tab PO 08/04/24 18:09 ONCE ONE Sodium Chloride 10 ml 08/04/24 17:49 08/04/24 17:50 Sodium Chloride 0.9% 10ml Syr (Rad Only) IV 08/04/24 17:50 10 ml ONCE ONE Administration ORDERS Category Date Time Status CT abdomen pelvis w con Stat Cat Scan 08/04/24 16:45 Taken POCUS Point of Care (ER Only) Stat Exams 08/04/24 16:38 Completed Basic Metabolic Panel [facility] Lab 08/05/24 06:00 Ordered Basic Metabolic Panel [facility] Lab 08/06/24 06:00 Ordered Basic Metabolic Panel [facility] Lab 08/07/24 06:00 Ordered Basic Metabolic Panel [facility] Lab 08/08/24 06:00 Ordered Basic Metabolic Panel [facility] Lab 08/09/24 06:00 Ordered CBC w/Auto Diff [Complete Blood Count Auto Diff] Stat Lab 08/04/24 17:05 Completed CMP [Comprehensive Metabolic Panel] Stat Lab 08/04/24 17:05 Completed CRP [C-Reactive Protein] Stat Lab 08/04/24 17:05 Completed Complete Blood Count Auto Diff [facility] Lab 08/05/24 06:00 Ordered Complete Blood Count Auto Diff [facility] Lab 08/06/24 06:00 Ordered Complete Blood Count Auto Diff [facility] Lab 08/07/24 06:00 Ordered Complete Blood Count Auto Diff [facility] Lab 08/08/24 06:00 Ordered Complete Blood Count Auto Diff [facility] Lab 08/09/24 06:00 Ordered HIV (1&2) Antibody Rapid Stat Lab 08/04/24 17:05 Received Hep C Ab with Reflex to RNA Stat Lab 08/04/24 17:05 Received Lactic Acid Stat Lab 08/04/24 18:07 Completed Blood Culture Stat Micro 08/04/24 17:25 Received Medical Decision Narrative: 68-year-old female with above history and physical. She has poorly controlled diabetic states she has been feeling poor and having a fever at home present today with a perirectal abscess and cellulitis that is near her rectum itself. Differential includes necrotizing soft tissue infection, rectal abscess and cellulitis, poorly controlled diabetes and DKA etc. Will check basic blood work and get a CT scan with contrast to evaluate the depth and the significance of the soft tissue infection itself and make sure there is not any evidence of subcutaneous gas etc. At the moment IV vancomycin and Zosyn have been initiated. Bedside ultrasound could not demonstrate the depth of the fluid collection prompting a CT scan. She appears hemodynamically stable at this point. I do believe with 2 weeks of symptoms that a necrotizing infection is unlikely however with her poorly controlled diabetes and certainly on the differential we will treat this aggressively. Wound Cultures have been apparently sent from the [facility] we did call to confirm this. Reassessment 6:[address] scan performed to person interpreted which shows cellulitis and no large rim-enhancing fluid collection on the right buttock area near the rectum. This is actively draining and on my ultrasound there was fluid tracking and some fluid collection but at this point because it is actively draining I do not believe she needs to go to the operating room at the moment that IV antibiotics will suffice as she is not septic no evidence of any subcutaneous gas or endorgan damage etc. I discussed the case with Dr. Mcarthur will admit the patient to hospital medicine for IV antibiotics she will be n.p.o. after midnight and Dr. Mcarthur will see the patient tomorrow and she may potentially need to go to the operating room at that point. Procedures Miscellaneous Procedure Procedure Performed: Limited soft tissue ultrasound Indication: Swelling and redness around the right buttock Identified structures: Location: Right medial buttock Findings: Extensive fluid tracking in the soft tissues with localized fluid collection, I cannot see the depths of where the fluid is tracking beyond the location near the rectum Impression: Right perirectal abscess with surrounding cellulitis extending to the rectum Images were saved to permanent archive The study was technically adequate Soft Tissue CPT Codes: CPT Neck: 90325-84 CPT Upper extremity: 09200-68 CPT Axilla: 15937-89 CPT Chest wall: 75102-49 CPT Breast: 90709-37-WL/LT (complete), 02042-78-UU/LT (limited), CPT Upper Back: 39987-82 CPT Lower Back: 79327-98 CPT Abdominal Wall: 14013-93 CPT Pelvic Wall: 05230-25 CPT Lower Extremity: 13895-94 CPT Other Soft Tissue: 85418-58 This study was performed by me, and I personally interpreted all images/videos. Based on my clinical judgement, these images were adequate and did not necessitate further imaging. Critical Care Critical Care Time Critical Care Time: Yes Attestation: On 08/04/24, the high probability of a clinically significant, sudden or life threatening deterioration of the following system(s) required my full and direct attention, intervention and personal management. The time I documented below is in addition to time spent performing reported procedures but includes the following listed in this critical care notation. Total Time Total Critical Care Time: 35
[2024-08-04 17:23] LABS: Albumin Level 4.1 g/dl (3.5-5.0); Chloride 99 mmol/L (98-107); Sodium 138 mmol/L (136-145)
[2024-08-04 17:25] LABS: Blood Urea Nitrogen 15 mg/dl (7-17); Creatinine Clearance Estimated 68 mL/min (50-200); Estimated Glomerular Filt Rate 158 ml/min (>60); GFR (African American) 191 ML/MIN (>60)
[2024-08-04 17:26] LABS: Alanine Aminotransferase 24 U/L (12-78); Albumin/Globulin Ratio 1.3 (1.1-1.8); Alkaline Phosphatase 141 U/L (38-126); Aspartate Amino Transferase 25 U/L (14-36); Bilirubin,Total 0.9 mg/dl (0.2-1.3); Calcium 9.5 mg/dl (8.4-10.2); Carbon Dioxide 31 mmol/L (22.0-30.0); Globulin 3.2 g/dL (1.3-3.2); Glucose 297 mg/dl (74-100); Total Protein,Serum 7.3 g/dl (6.3-8.2)
[2024-08-04 17:28] LABS: Basophils # 0.1 K/mm3 (0-0.2); Basophils % 0.7 % (0.1-2.0); Eosinophils # 0.4 K/mm3 (0.0-0.4); Eosinophils % 3.5 % (0.1-12.0); Hematocrit 45.7 % (37.0-47.0); Hemoglobin 15.7 g/dL (12.2-16.2); Lymphocytes # 1.2 K/mm3 (0.7-4.5); Lymphocytes % 11.8 % (10-50); Mean Corpuscular HGB Conc 34.3 g/dL (31.8-35.4); Mean Corpuscular Hemoglobin 32.1 pg (27.0-31.2); Mean Corpuscular Volume 93.6 fl (81-99); Mean Platelet Volume 8.4 fl (7.4-10.4); Monocytes # 0.5 K/mm3 (0.1-1.0); Monocytes % 4.9 % (1.7-9.3); Neutrophils # 8.3 K/mm3 (1.8-7.8); Neutrophils % 79.1 % (37.0-80.0); Platelet Count 234 K/mm3 (142-424); Red Blood Count 4.88 M/mm3 (4.20-5.40); Red Cell Distribution Width 14.4 % (11.5-17.5); White Blood Count 10.4 K/mm3 (4.8-10.8)
[2024-08-04] MEDS: VANCOMYCIN CONSULT REQUEST 1 EACH NOTAPPLIC ×2 (17:32→18:37)
[2024-08-04] MEDS: LACTATED RINGERS 1000ML 1,000 ML 999 ML IV (17:32)
[2024-08-04] MEDS: PIPERCILLIN/TAZO 3.375 GM in 0.9 % SODIUM CHLORIDE 50 ML IV (17:32)
[2024-08-04] MEDS: IOPAMIDOL-370 (76%);100ML BOTTLE 75 ML IV (17:50)
[2024-08-04] MEDS: SODIUM CHLORIDE 0.9% 10ML SYR (RAD ONLY) 10 ML IV (17:50)
[2024-08-04] MEDS: VANCOMYCIN HCL 2,000 MG in 0.9 % SODIUM CHLORIDE 250 ML 125 MG IV (17:55)
[2024-08-04 18:12] LABS: HIV (1&2) Antibody Rapid NONREACTIVE (NONREACTIVE)
[2024-08-04 18:24] LABS: Lactic Acid 1.6 mmol/L (0.7-2.1)
--- NOTE | 2024-08-04 18:30 | PC.NURSE ---
called report to chacha goodrich on and answered all questions
--- NOTE | 2024-08-04 19:09 | PC.NURSE ---
Patient still waiting in ER for transport. Notified 2nd again
--- NOTE | 2024-08-04 19:37 | PC.NURSE ---
pt arrived to floor at this time
--- NOTE | 2024-08-04 19:43 | P.HP_ITS ---
History of Present Illness *Admission Date: 08/04/24 *Reason for visit:: Right buttock pain, drainage *History of present illness: Marisol Strange is a 68-year-old female with a medical history significant for recurrent skin infections, uncontrolled insulin-dependent diabetes who presented with 2-week onset of worsening right buttock soreness. She states it initially started as a boil and thought it would go away, but has grown in size. She was prompted by her friend today to come to the ED for further evaluation. On my evaluation, patient had significant erythema and induration in the right gluteal fold with an opening draining purulent discharge. No significant tenderness to palpation or crepitus. Workup in the ED significant for WBC 10.4, glucose 297, CRP 80. LRINEC score was calculated to be 5, and given the 2 weeks of symptoms and no significant tenderness or crepitus Case was discussed with ED attending and decision was made to admit patient for right buttock cellulitis with abscess. General surgery was consulted by the ED provider who agreed to take her to the OR tomorrow for I&D and debridement. [facility] Disclaimer: The information contained in this section may have been updated after the patient was seen, as this information can be updated by other users. Medical History Diabetes Left foot pain Tachycardia Smoking SOB (shortness of breath) PAD (peripheral artery disease) HLD (hyperlipidemia) HHD (hypertensive heart disease) CAD (coronary artery disease) Social History Smoking Status: Current every day smoker tobacco type: cigarettes packs per day: 1 alcohol intake: never substance use type: marijuana current occupational status: disabled Travel in the last 8 weeks: None household members: children housing: apartment current occupational exposures/hazards: No caffeine: Yes Other Medical History Have you received the Flu Vaccine for this season: Yes Have you received the Pneumonia Vaccine: No Meds Home Medications and Allergies Home Medications ?Medication ?Instructions ?Recorded ?Confirmed ?Type clopidogrel 75 mg tablet 75 mg PO ONCE Blood thinner 03/24/18 08/04/24 History aspirin 81 mg tablet,delayed 81 mg PO DAILY CAD 03/27/18 08/04/24 History release atorvastatin 80 mg tablet 80 mg PO DAILY Cholesterol 03/27/18 08/04/24 History fenofibrate micronized 200 mg 200 mg PO DAILY Cholesterol 03/27/18 04/02/24 History capsule glipizide 10 mg tablet 10 mg PO DAILY DM 03/27/18 08/04/24 History pregabalin 100 mg capsule 100 mg PO BID FIBROMYALGIA 03/27/18 08/04/24 History cilostazol 100 mg tablet 100 mg PO BID PAD #120 tabs 04/17/18 08/04/24 Rx insulin glargine 100 unit/mL (3 38 unit SQ PM dm 01/29/19 04/02/24 History mL) subcutaneous pen (Basaglar KwikPen U-100 Insulin) metformin 1,000 mg tablet,extended 1,000 mg PO DAILY DM 01/29/19 04/02/24 History release 24hr (osmotic) oxycodone 10 mg tablet 10 mg PO TID 01/29/19 08/04/24 History ropinirole 5 mg tablet (Requip) 5 mg PO QHS 01/29/19 04/02/24 History albuterol sulfate 90 mcg/actuation 1 - 2 puffs inhalation Q4-6H PRN 02/19/19 04/02/24 Rx aerosol inhaler Shortness Of Breath Or Wheezing #1 inh ibuprofen 800 mg tablet 800 mg PO Q8HP PRN Moderate Pain 06/29/19 04/02/24 Rx #10 tabs lisinopril 20 mg tablet 20 mg PO BID HTN #60 tabs 07/13/19 04/02/24 Rx bisoprolol fumarate 10 mg tablet 10 mg PO DAILY #90 tabs 12/04/19 04/02/24 Rx tamsulosin 0.4 mg capsule 0.4 mg PO HS #10 caps 11/03/20 04/02/24 Rx fluticasone propionate 50 1 spr intranasal DAILY #1 ea 01/19/22 04/02/24 Rx mcg/actuation nasal spray,suspension fluconazole 100 mg tablet 100 mg PO DAILY 3 days #3 tabs 01/16/24 08/04/24 Rx methylprednisolone 4 mg tablets in 4 mg PO DIRECTED 6 days #21 tabs 01/16/24 04/02/24 Rx a dose pack miconazole nitrate 4 % (200 mg)-2 See Rx Instructions vaginal 07/15/24 Rx % (9 gram)vaginal,prefill .COMPLEX #24 grams appl,cream (Monistat 3) New Prescriptions to Start Prescriptions: Allergies Allergy/AdvReac Type Severity Reaction Status Date / Time No Known Allergies Allergy Verified 04/02/24 10:07 Exam Data for Last 24 hours Vital signs and Labs for Last 24 Hours: Temp Pulse Resp BP Pulse Ox O2 Del Method 98.0 F 76 20 139/75 94 L Room Air 08/04/24 18:31 08/04/24 18:31 08/04/24 18:31 08/04/24 18:31 08/04/24 18:30 08/04/24 18:31 Laboratory Results - last 24 hr 08/04/24 17:05: WBC 10.4, RBC 4.88, Hgb 15.7, Hct 45.7, MCV 93.6, MCH 32.1 H, MCHC 34.3, RDW 14.4, Plt Count 234, MPV 8.4, Neut % (Auto) 79.1, Lymph % (Auto) 11.8, [place] % (Auto) 4.9, Eos % (Auto) 3.5, Baso % (Auto) 0.7, Neut # (Auto) 8.3 H, Lymph # (Auto) 1.2, [place] # (Auto) 0.5, Eos # (Auto) 0.4, Baso # (Auto) 0.1, Sodium 138, Potassium 3.0 L, Chloride 99, Carbon Dioxide 31 H, Anion Gap 11.0, BUN 15, Creatinine 0.40 L, Estimated Creat Clear 68, Estimated GFR 158, Est GFR ( Amer) 191, Glucose 297 H, Calcium 9.5, Total Bilirubin 0.9, AST 25, ALT 24, Alkaline Phosphatase 141 H, C-Reactive Protein 80.0 H, Total Protein 7.3, Albumin 4.1, Globulin 3.2, Albumin/Globulin Ratio 1.3, HIV 1&2 Antibody Rapid Nonreactive 08/04/24 18:07: Lactate 1.6 I & O for Last 24 hours: Intake & Output 08/01/24 08/02/24 08/03/24 08/04/24 23:59 23:59 23:59 23:59 Weight 81.647 kg Constitutional Constitutional: no acute distress *Routine HEENT Exam Head: Present normocephalic Eye: Present EOMI and PERRL ENT: Present mucous membranes moist *Routine Neck Exam Neck: Present supple; Absent lymphadenopathy *Routine Respiratory Exam Respiratory: Present CTA bilaterally *Routine Cardiovascular Exam Cardiovascular: Present RRR *Routine Abdominal Exam Abdominal: Present soft and normoactive bowel sounds; Absent tenderness *Routine Rectal Exam Rectal:: deferred *Routine Genitalia Exam Genitalia:: deferred *Routine Extremities Exam Extremities: Absent cyanosis, clubbing or edema *Routine Skin Exam Skin: Present erythema and warm; Absent rash Comments: Right gluteal fold erythema without significant tenderness, with opening draining purulent discharge. No appreciable crepitus.. *Routine Neurological Exam Neurological: Present alert and oriented X3 Assessment and Plan *Assessment and plan (1) Perirectal cellulitis: Status: Acute Category: Medical Code(s): K61.1 - Rectal abscess (2) Diabetes: Status: Acute Category: Medical Code(s): E11.9 - Type 2 diabetes mellitus without complications Plan Marisol Strange is a 68-year-old female with a medical history significant for recurrent skin infections, uncontrolled insulin-dependent diabetes who presented with 2-week onset of worsening right buttock soreness. She states it initially started as a boil and thought it would go away, but has grown in size. She was prompted by her friend today to come to the ED for further evaluation. On my evaluation, patient had significant erythema and induration in the right gluteal fold with an opening draining purulent discharge. No significant tenderness to palpation or crepitus. Workup in the ED significant for WBC 10.4, glucose 297, CRP 80. CT abdomen/pelvis revealed moderate inflammatory change in the right medial fold with subcutaneous gas but no fluid collection. However, LRINEC score was calculated to be 5, and given the 2 weeks of symptoms and no significant tenderness or crepitus there is currently low concern for necrotizing fasciitis. Case was discussed with ED attending and decision was made to admit patient for right buttock cellulitis. General surgery was consulted by the ED provider who agreed to evaluate patient. #Right gluteal fold cellulitis #Gluteal abscess - CT abdomen/pelvis revealed moderate inflammatory change in the right medial fold with subcutaneous gas but no fluid collection. ? Given LRINEC score 5, and given the 2 weeks of symptoms and no significant tenderness or crepitus there is currently low concern for necrotizing fasciitis at this time. ? Patient only complains of mild soreness but otherwise is quite comfortable. ? No leukocytosis, tachycardia, fevers at this time. CRP however elevated to 80. ? Continue IV vancomycin, Zosyn. ? Follow blood, wound cultures. ? General surgery consulted, pending recommendations. #Insulin-dependent diabetes ? Patient states her blood sugars have been running high recently as her Dexcom has not been working. ? She states she has been using her insulin, however she is hyperglycemic to 297 today though she has an infection. ? LDSSI, ACHS glucose checks. ? Lantus 10 units nightly. Uptitrate based on SSI needs. ? Resumed home pregabalin. ? Of note, reviewing patient's notes looks like she is on both insulin and sulfonylurea. It would be saha to discontinue the latter upon discharge #CAD ? Aspirin 81 mg, atorvastatin 80 mg. Lovenox 40 mg Full code
[2024-08-04] MEDS: POTASSIUM CHLORIDE 20MEQ TAB 40 MEQ PO (19:51)
[2024-08-04] MEDS: LACTATED RINGERS 1000ML 1,000 ML 75 ML IV (19:54)
[2024-08-04] MEDS: humaLOG 100 UNITS/ML 10ML VIAL (SSI) SQ (20:43)
[2024-08-04] MEDS: KCl 10mEq/100ml 100 ML 100 MEQ IV ×2 (20:44→22:14)
[2024-08-04 21:50] LABS: Procalcitonin 0.062 ng/mL (0.0-2.0)
[2024-08-04 22:17] LABS: POC Glucose,Bedside 310 (70-110)
[2024-08-04] MEDS: PREGABALIN 100MG CAPSULE 100 MG PO (22:20)
[2024-08-04] MEDS: INSULIN GLARGINE 100 UNITS/ML 10ML VIAL 30 UNIT SQ (22:22)
[2024-08-05] VITALS (22 sets, daily range): BP systolic 113–156; BP diastolic 58–88; PULSE 62–89; RESP 16–24; TEMP 36.4–37.4; O2SAT 91–97; BMI 27.8
[2024-08-05] MEDS: PIPERCILLIN/TAZO 3.375 GM in 0.9 % SODIUM CHLORIDE 50 ML IV ×3 (00:48→21:28)
[2024-08-05 06:45] LABS: POC Glucose,Bedside 212 (70-110)
[2024-08-05] MEDS: humaLOG 100 UNITS/ML 10ML VIAL (SSI) SQ ×3 (06:48→21:29)
[2024-08-05 07:16] LABS: Chloride 107 mmol/L (98-107); Sodium 137 mmol/L (136-145)
[2024-08-05 07:17] LABS: Potassium 3.7 mmoL/L (3.5-5.1)
[2024-08-05 07:19] LABS: Blood Urea Nitrogen 16 mg/dl (7-17); Creatinine Clearance Estimated 62 mL/min (50-200); Estimated Glomerular Filt Rate 158 ml/min (>60); GFR (African American) 191 ML/MIN (>60)
[2024-08-05 07:20] LABS: Anion Gap 8.7 mEq/L (5-15); Calcium 8.5 mg/dl (8.4-10.2); Carbon Dioxide 25 mmol/L (22.0-30.0); Glucose 221 mg/dl (74-100)
--- NOTE | 2024-08-05 07:28 | PC.NURSE ---
Pt is A&Ox4. Pt wound had pink/brown colored drainage and is dressed with gauze and large band-aid. Pt denies pain and declines medication.
[2024-08-05 07:30] LABS: Basophils % 0.4 % (0.1-2.0); Eosinophils # 0.3 K/mm3 (0.0-0.4); Eosinophils % 3.4 % (0.1-12.0); Hematocrit 41.3 % (37.0-47.0); Lymphocytes # 1.3 K/mm3 (0.7-4.5); Lymphocytes % 13.5 % (10-50); Mean Corpuscular HGB Conc 32.9 g/dL (31.8-35.4); Mean Corpuscular Hemoglobin 31.1 pg (27.0-31.2); Mean Corpuscular Volume 94.6 fl (81-99); Monocytes # 0.5 K/mm3 (0.1-1.0); Monocytes % 5.1 % (1.7-9.3); Neutrophils # 7.2 K/mm3 (1.8-7.8); Neutrophils % 77.5 % (37.0-80.0); Platelet Count 201 K/mm3 (142-424); Red Blood Count 4.36 M/mm3 (4.20-5.40); Red Cell Distribution Width 14.4 % (11.5-17.5); White Blood Count 9.3 K/mm3 (4.8-10.8)
[2024-08-05 07:37] LABS: Hemoglobin 13.7 g/dL (12.2-16.2)
[2024-08-05 07:49] LABS: Erythrocyte Sedimentation Rate 55 mm/hr (0-30)
--- NOTE | 2024-08-05 07:52 | EXP.SURG.CON ---
History of Present Illness *Admission Date: 08/04/24 *Reason for visit:: Right buttock abscess *History of present illness: This is a 68-year-old female seen in consultation from the primary service for evaluation regarding right buttock abscess. Please see HPI forwarded from admission H&P below. Forwarded from admission H&P: Marisol Strange is a 68-year-old female with a medical history significant for recurrent skin infections, uncontrolled insulin-dependent diabetes who presented with 2-week onset of worsening right buttock soreness. She states it initially started as a boil and thought it would go away, but has grown in size. She was prompted by her friend today to come to the ED for further evaluation. On my evaluation, patient had significant erythema and induration in the right gluteal fold with an opening draining purulent discharge. No significant tenderness to palpation or crepitus. Workup in the ED significant for WBC 10.4, glucose 297, CRP 80. LRINEC score was calculated to be 5, and given the 2 weeks of symptoms and no significant tenderness or crepitus Case was discussed with ED attending and decision was made to admit patient for right buttock cellulitis with abscess. General surgery was consulted by the ED provider who agreed to take her to the OR tomorrow for I&D and debridement. [facility] Disclaimer: The information contained in this section may have been updated after the patient was seen, as this information can be updated by other users. Medical History Diabetes Left foot pain Tachycardia Smoking SOB (shortness of breath) PAD (peripheral artery disease) HLD (hyperlipidemia) HHD (hypertensive heart disease) CAD (coronary artery disease) Social History Smoking Status: Current every day smoker tobacco type: cigarettes packs per day: 1 alcohol intake: never substance use type: marijuana current occupational status: disabled Travel in the last 8 weeks: None household members: children housing: apartment current occupational exposures/hazards: No caffeine: Yes Meds Home Medications and Allergies Home Medications ?Medication ?Instructions ?Recorded ?Confirmed ?Type clopidogrel 75 mg tablet 75 mg PO ONCE Blood thinner 03/24/18 08/04/24 History aspirin 81 mg tablet,delayed 81 mg PO DAILY CAD 03/27/18 08/04/24 History release atorvastatin 80 mg tablet 80 mg PO DAILY Cholesterol 03/27/18 08/04/24 History glipizide 10 mg tablet 10 mg PO DAILY DM 03/27/18 08/04/24 History pregabalin 100 mg capsule 100 mg PO BID FIBROMYALGIA 03/27/18 08/04/24 History cilostazol 100 mg tablet 100 mg PO BID PAD #120 tabs 04/17/18 08/04/24 Rx oxycodone 10 mg tablet 10 mg PO TID 01/29/19 08/04/24 History albuterol sulfate 90 mcg/actuation 1 - 2 puffs inhalation Q4-6H PRN 02/19/19 08/04/24 Rx aerosol inhaler Shortness Of Breath Or Wheezing #1 inh ibuprofen 800 mg tablet 800 mg PO Q8HP PRN Moderate Pain 06/29/19 08/04/24 Rx #10 tabs fluticasone propionate 50 1 spr intranasal DAILY #1 ea 01/19/22 08/04/24 Rx mcg/actuation nasal spray,suspension aspirin 81 mg capsule 81 mg PO DAILY 08/04/24 08/04/24 History insulin glargine 100 unit/mL (3 65 unit SQ HS 08/04/24 08/04/24 History mL) subcutaneous pen (Basaglar KwikPen U-100 Insulin) simvastatin 80 mg tablet 80 mg PO DAILY 08/04/24 08/04/24 History New Prescriptions to Start Prescriptions: Allergies Allergy/AdvReac Type Severity Reaction Status Date / Time No Known Allergies Allergy Verified 04/02/24 10:07 Exam (Inpt) Vital signs and Labs for Last 24 Hours: Temp Pulse Resp BP Pulse Ox O2 Del Method 99.4 F 80 16 142/69 H 94 L Room Air 08/05/24 04:00 08/05/24 04:00 08/05/24 04:00 08/05/24 04:00 08/05/24 04:00 08/05/24 07:00 Laboratory Results - last 24 hr 08/04/24 17:05: WBC 10.4, RBC 4.88, Hgb 15.7, Hct 45.7, MCV 93.6, MCH 32.1 H, MCHC 34.3, RDW 14.4, Plt Count 234, MPV 8.4, Neut % (Auto) 79.1, Lymph % (Auto) 11.8, [place] % (Auto) 4.9, Eos % (Auto) 3.5, Baso % (Auto) 0.7, Neut # (Auto) 8.3 H, Lymph # (Auto) 1.2, [place] # (Auto) 0.5, Eos # (Auto) 0.4, Baso # (Auto) 0.1, Sodium 138, Potassium 3.0 L, Chloride 99, Carbon Dioxide 31 H, Anion Gap 11.0, BUN 15, Creatinine 0.40 L, Estimated Creat Clear 68, Estimated GFR 158, Est GFR ( Amer) 191, Glucose 297 H, Calcium 9.5, Total Bilirubin 0.9, AST 25, ALT 24, Alkaline Phosphatase 141 H, C-Reactive Protein 80.0 H, Total Protein 7.3, Albumin 4.1, Globulin 3.2, Albumin/Globulin Ratio 1.3, Procalcitonin 0.062, HIV 1&2 Antibody Rapid Nonreactive 08/04/24 18:07: Lactate 1.6 08/04/24 20:39: POC Glucose 310 H* 08/05/24 06:13: WBC 9.3, RBC 4.36, Hgb 13.7 D, Hct 41.3, MCV 94.6, MCH 31.1, MCHC 32.9, RDW 14.4, Plt Count 201, MPV 8.0, Neut % (Auto) 77.5, Lymph % (Auto) 13.5, [place] % (Auto) 5.1, Eos % (Auto) 3.4, Baso % (Auto) 0.4, Neut # (Auto) 7.2, Lymph # (Auto) 1.3, [place] # (Auto) 0.5, Eos # (Auto) 0.3, Baso # (Auto) 0.0, ESR 55 H, Sodium 137, Potassium 3.7 D, Chloride 107, Carbon Dioxide 25, Anion Gap 8.7, BUN 16, Creatinine 0.40 L, Estimated Creat Clear 62, Estimated GFR 158, Est GFR ( Amer) 191, Glucose 221 H D, Calcium 8.5, C-Reactive Protein 61.0 H 08/05/24 06:21: POC Glucose 212 H I & O for Labs for Last 24 Hours: Intake & Output 10/03/24 08/03/24 08/04/24 08/05/24 11:59 11:59 11:59 11:59 Intake Total 645 / 645 Output Total 0 / 0 Balance 645 / 645 Weight 163 lb 1.603 oz Constitutional: no acute distress Respiratory: Absent respiratory distress Cardiac: Absent Tachycardia Comment:: Complex right medial buttock abscess with induration and overlying erythema. Focal drainage points noted. Results Labs 08/05/24 06:13 08/05/24 06:13 Labs: Laboratory Results - last 24 hr 08/04/24 17:05: WBC 10.4, RBC 4.88, Hgb 15.7, Hct 45.7, MCV 93.6, MCH 32.1 H, MCHC 34.3, RDW 14.4, Plt Count 234, MPV 8.4, Neut % (Auto) 79.1, Lymph % (Auto) 11.8, [place] % (Auto) 4.9, Eos % (Auto) 3.5, Baso % (Auto) 0.7, Neut # (Auto) 8.3 H, Lymph # (Auto) 1.2, [place] # (Auto) 0.5, Eos # (Auto) 0.4, Baso # (Auto) 0.1, Sodium 138, Potassium 3.0 L, Chloride 99, Carbon Dioxide 31 H, Anion Gap 11.0, BUN 15, Creatinine 0.40 L, Estimated Creat Clear 68, Estimated GFR 158, Est GFR ( Amer) 191, Glucose 297 H, Calcium 9.5, Total Bilirubin 0.9, AST 25, ALT 24, Alkaline Phosphatase 141 H, C-Reactive Protein 80.0 H, Total Protein 7.3, Albumin 4.1, Globulin 3.2, Albumin/Globulin Ratio 1.3, Procalcitonin 0.062, HIV 1&2 Antibody Rapid Nonreactive 08/04/24 18:07: Lactate 1.6 08/04/24 20:39: POC Glucose 310 H* 08/05/24 06:13: WBC 9.3, RBC 4.36, Hgb 13.7 D, Hct 41.3, MCV 94.6, MCH 31.1, MCHC 32.9, RDW 14.4, Plt Count 201, MPV 8.0, Neut % (Auto) 77.5, Lymph % (Auto) 13.5, [place] % (Auto) 5.1, Eos % (Auto) 3.4, Baso % (Auto) 0.4, Neut # (Auto) 7.2, Lymph # (Auto) 1.3, [place] # (Auto) 0.5, Eos # (Auto) 0.3, Baso # (Auto) 0.0, ESR 55 H, Sodium 137, Potassium 3.7 D, Chloride 107, Carbon Dioxide 25, Anion Gap 8.7, BUN 16, Creatinine 0.40 L, Estimated Creat Clear 62, Estimated GFR 158, Est GFR ( Amer) 191, Glucose 221 H D, Calcium 8.5, C-Reactive Protein 61.0 H 08/05/24 06:21: POC Glucose 212 H Assessment and Plan *Assessment and plan (1) Abscess of right buttock: Problem Comment: Medial buttock/perianal abscess Status: Acute Category: Medical Code(s): L02.31 - Cutaneous abscess of buttock Plan: Incision and drainage of right medial buttock/perianal abscess I have discussed the risks and benefits including, but not limited to: Bleeding Infection Damage to surrounding tissue Inherent risks of sedation The patient agrees to proceed.
--- NOTE | 2024-08-05 07:57 | EXP.PHA.CONS ---
Pharmacy Consult Date: 08/05/24 Time: 07:57 Referring provider: DR. GOULD Reason for Consult:: VANCOMYCIN DOSING Allergies Allergy/AdvReac Type Severity Reaction Status Date / Time No Known Allergies Allergy Verified 04/02/24 10:07 Home Medications ?Medication ?Instructions ?Recorded ?Confirmed ?Type clopidogrel 75 mg tablet 75 mg PO ONCE Blood thinner 03/24/18 08/04/24 History aspirin 81 mg tablet,delayed 81 mg PO DAILY CAD 03/27/18 08/04/24 History release atorvastatin 80 mg tablet 80 mg PO DAILY Cholesterol 03/27/18 08/04/24 History glipizide 10 mg tablet 10 mg PO DAILY DM 03/27/18 08/04/24 History pregabalin 100 mg capsule 100 mg PO BID FIBROMYALGIA 03/27/18 08/04/24 History cilostazol 100 mg tablet 100 mg PO BID PAD #120 tabs 04/17/18 08/04/24 Rx oxycodone 10 mg tablet 10 mg PO TID 01/29/19 08/04/24 History albuterol sulfate 90 mcg/actuation 1 - 2 puffs inhalation Q4-6H PRN 02/19/19 08/04/24 Rx aerosol inhaler Shortness Of Breath Or Wheezing #1 inh ibuprofen 800 mg tablet 800 mg PO Q8HP PRN Moderate Pain 06/29/19 08/04/24 Rx #10 tabs fluticasone propionate 50 1 spr intranasal DAILY #1 ea 01/19/22 08/04/24 Rx mcg/actuation nasal spray,suspension aspirin 81 mg capsule 81 mg PO DAILY 08/04/24 08/04/24 History insulin glargine 100 unit/mL (3 65 unit SQ HS 08/04/24 08/04/24 History mL) subcutaneous pen (Basaglar KwikPen U-100 Insulin) simvastatin 80 mg tablet 80 mg PO DAILY 08/04/24 08/04/24 History New Prescriptions to Start Prescriptions: Height: 1.63 m Weight: 73.981 kg Laboratory Results:: Laboratory Results - last 24 hr 08/04/24 17:05: WBC 10.4, RBC 4.88, Hgb 15.7, Hct 45.7, MCV 93.6, MCH 32.1 H, MCHC 34.3, RDW 14.4, Plt Count 234, MPV 8.4, Neut % (Auto) 79.1, Lymph % (Auto) 11.8, [place] % (Auto) 4.9, Eos % (Auto) 3.5, Baso % (Auto) 0.7, Neut # (Auto) 8.3 H, Lymph # (Auto) 1.2, [place] # (Auto) 0.5, Eos # (Auto) 0.4, Baso # (Auto) 0.1, Sodium 138, Potassium 3.0 L, Chloride 99, Carbon Dioxide 31 H, Anion Gap 11.0, BUN 15, Creatinine 0.40 L, Estimated Creat Clear 68, Estimated GFR 158, Est GFR ( Amer) 191, Glucose 297 H, Calcium 9.5, Total Bilirubin 0.9, AST 25, ALT 24, Alkaline Phosphatase 141 H, C-Reactive Protein 80.0 H, Total Protein 7.3, Albumin 4.1, Globulin 3.2, Albumin/Globulin Ratio 1.3, Procalcitonin 0.062, HIV 1&2 Antibody Rapid Nonreactive 08/04/24 18:07: Lactate 1.6 08/04/24 20:39: POC Glucose 310 H* 08/05/24 06:13: WBC 9.3, RBC 4.36, Hgb 13.7 D, Hct 41.3, MCV 94.6, MCH 31.1, MCHC 32.9, RDW 14.4, Plt Count 201, MPV 8.0, Neut % (Auto) 77.5, Lymph % (Auto) 13.5, [place] % (Auto) 5.1, Eos % (Auto) 3.4, Baso % (Auto) 0.4, Neut # (Auto) 7.2, Lymph # (Auto) 1.3, [place] # (Auto) 0.5, Eos # (Auto) 0.3, Baso # (Auto) 0.0, ESR 55 H, Sodium 137, Potassium 3.7 D, Chloride 107, Carbon Dioxide 25, Anion Gap 8.7, BUN 16, Creatinine 0.40 L, Estimated Creat Clear 62, Estimated GFR 158, Est GFR ( Amer) 191, Glucose 221 H D, Calcium 8.5, C-Reactive Protein 61.0 H 08/05/24 06:21: POC Glucose 212 H Medical History: Medical History (Updated 10/06/24 @ 07:55 by Quinn Mendez MD) Uses marijuana Diabetes Left foot pain Tachycardia Smoking SOB (shortness of breath) PAD (peripheral artery disease) HLD (hyperlipidemia) HHD (hypertensive heart disease) CAD (coronary artery disease) Assessment and Plan Assessment and plan all Dx Assessment and Plan for all problems:: Pharmacokinetic dosing service Objective: Patient: Floor: Age: 68 yo Serum creatinine: 1 mg/dL Height: 64.2 Inches Weight (kg): 74 Assessment: IBW (kg): 55.16 Dosing wt(kg): 74 Estimated Creatinine clearance (ml/min): 46.2 CRCL method: Cockcroft and Gault using ibw(default). Drug selected: Vancomycin Loading dose (mg): 0 Vd (liters): 59.2 (factor used: 0.8 L/kg) Buddy (hr-1): 0.043 Half life (hrs): 16.12 Recommended dose: 1500 mg Interval: 24 hrs Infusion time (hrs): 2.0 Predicted peak (mcg/mL): 37.7 Predicted trough (mcg/mL): 14.64 Total body weight is being used for vancomycin dosing. Recommendations: Give Vancomycin 1500 mg q 24 hrs with an expected Cpeak of 37.7 mcg/ml and an expected Ctrough of 14.64 mcg/ml ----Vanco only - ignore for aminoglycosides----- CLvanco= 2.55 L/hr AUC 0-24 /STAR Data: STAR 0.5 mcg/mL: AUC/STAR: 1176.5 STAR 1.0 mcg/mL: AUC/STAR: 588.2 --------- STAR 1.5 mcg/mL: AUC/STAR: 392.2 STAR 2.0 mcg/mL: AUC/STAR: 294.1
[2024-08-05 08:40] LABS: Hemoglobin A1C 11.5 % (4.0-6.0)
[2024-08-05] MEDS: CEFAZOLIN SODIUM 1 GM in 0.9 % SODIUM CHLORIDE 50 ML IV (08:56)
[2024-08-05] MEDS: LIDOCAINE 1% 20ML MDV 20 ML (09:07)
[2024-08-05] MEDS: METRONIDAZ/SOD CHL 500 MG/100 ML PIGGYBACK 100 MG IV (09:07)
--- NOTE | 2024-08-05 09:15 | EXP.ANES.CKL ---
[facility] Disclaimer: The information contained in this section may have been updated after the patient was seen, as this information can be updated by other users. Medical History Diabetes Left foot pain Tachycardia Smoking SOB (shortness of breath) PAD (peripheral artery disease) HLD (hyperlipidemia) HHD (hypertensive heart disease) CAD (coronary artery disease) Social History Smoking Status: Current every day smoker tobacco type: cigarettes packs per day: 1 alcohol intake: never substance use type: marijuana current occupational status: disabled Travel in the last 8 weeks: None household members: children housing: apartment current occupational exposures/hazards: No caffeine: Yes [facility] Anesthesia Checklist Patient Identification Patient Identification: Verbal (Name & ) Structural Data Admitted From: Inpatient Planned Operative Procedure/s: i/d r buttock NPO Status Verified Time NPO: 00:00 Airway Assessment Mallampati Score:: Class II TMJ Mobility Assessed: Yes Dentition: Poor Dentition Neurological Assessment Level of Consciousness: Awake, Alert and Appropriate Anesthesia Plan Anesthesia Risk discussed: Yes Anesthesia Plan: Verified ASA Class: II Anesthesia Type: General
--- NOTE | 2024-08-05 09:32 | P.OP_ITS ---
Date of procedure: 08/05/24 Pre-op Diagnosis:: Right medial buttock abscess Post-op Diagnosis:: Same Procedure performed:: Incision or drainage/debridement of right medial buttock abscess Surgeon:: Quinn Mendez MD KILN OPERATOR HELPER:: José Antonio Avitia Anesthesia: local and LMA Estimated blood loss (mL): 15 Operative findings:: Necrotic debris/slough Multiple small pockets of purulence Operative note:: After informed consent was obtained the patient was taken to the operating room and placed in the right lateral decubitus position. General anesthesia with laryngeal mask airway was achieved. Her buttock region was prepped and draped in a sterile fashion. An elliptical incision was made over the central portion of the medial buttock abscess (to include the region of partial spontaneous drainage). Necrotic debris/slough was excised. Multiple small pockets of purulence were noted. A combination of blunt dissection and electrocautery was utilized to dissect through the deeper subcutaneous tissue and break up the smaller pockets. Electrocautery was utilized to achieve hemostasis. The wound was packed with moistened Kerlix. The entire region was then infiltrated with 1% lidocaine. Dressings were applied and the patient was transferred to recovery in stable condition. Condition: stable Disposition: PACU Specimens:: None Complications:: No immediate
--- NOTE | 2024-08-05 09:36 | EXP.ANES.I ---
[facility] Anesthesia Record Part I Anesthesia Record I Intake, IV Amount: 500 Hydration: Adequate Estimated blood loss (mL): 15 Urine output (mL): 0 Blood Pressure: 156/83 SaO2: 94 Pulse Rate: 85 Airway Patency: Patent Respiratory Rate: 16 Temperature: 97.5 F Patient is:: Awake and Stable Stable to PACU at:: 09:30
[2024-08-05] MEDS: MEPERIDINE 25MG/ML 1ML SYRINGE 25 MG IV (09:55)
[2024-08-05] MEDS: ENOXAPARIN 40MG/0.4ML SYRINGE 40 MG SQ (10:38)
[2024-08-05] MEDS: ASPIRIN EC 81MG TABLET 81 MG PO (10:38)
[2024-08-05] MEDS: PREGABALIN 100MG CAPSULE 100 MG PO ×2 (12:53→21:28)
[2024-08-05] MEDS: LACTATED RINGERS 1000ML 1,000 ML 75 ML IV (12:54)
--- NOTE | 2024-08-05 14:05 | HMH.PHAINT1 ---
Pharmacy Intervention Comments: MED LIST COMPARED TO PHARMACY FILL HISTORY.
--- NOTE | 2024-08-05 15:26 | P.PN_ITS ---
Subjective *Date: 08/05/24 *Time: 15:26 Interval history: Patient was sitting in bed with only mild discomfort in her right buttock after I&D with surgery today. No chest pain, shortness of breath, abdominal pain. Making urine, started MiraLAX for bowel regimen. Exam Data for Last 24 hours Vital signs and Labs for Last 24 Hours: Temp Pulse Resp BP Pulse Ox O2 Del Method 98.2 F 80 18 143/78 H 94 L Room Air 08/05/24 10:00 08/05/24 12:00 08/05/24 10:00 08/05/24 10:00 08/05/24 10:00 08/05/24 10:00 Laboratory Results - last 24 hr 08/04/24 17:05: WBC 10.4, RBC 4.88, Hgb 15.7, Hct 45.7, MCV 93.6, MCH 32.1 H, MCHC 34.3, RDW 14.4, Plt Count 234, MPV 8.4, Neut % (Auto) 79.1, Lymph % (Auto) 11.8, [place] % (Auto) 4.9, Eos % (Auto) 3.5, Baso % (Auto) 0.7, Neut # (Auto) 8.3 H, Lymph # (Auto) 1.2, [place] # (Auto) 0.5, Eos # (Auto) 0.4, Baso # (Auto) 0.1, Sodium 138, Potassium 3.0 L, Chloride 99, Carbon Dioxide 31 H, Anion Gap 11.0, BUN 15, Creatinine 0.40 L, Estimated Creat Clear 68, Estimated GFR 158, Est GFR ( Amer) 191, Glucose 297 H, Calcium 9.5, Total Bilirubin 0.9, AST 25, ALT 24, Alkaline Phosphatase 141 H, C-Reactive Protein 80.0 H, Total Protein 7.3, Albumin 4.1, Globulin 3.2, Albumin/Globulin Ratio 1.3, Procalcitonin 0.062, HIV 1&2 Antibody Rapid Nonreactive 08/04/24 18:07: Lactate 1.6 08/04/24 20:39: POC Glucose 310 H* 08/05/24 06:13: WBC 9.3, RBC 4.36, Hgb 13.7 D, Hct 41.3, MCV 94.6, MCH 31.1, MCHC 32.9, RDW 14.4, Plt Count 201, MPV 8.0, Neut % (Auto) 77.5, Lymph % (Auto) 13.5, [place] % (Auto) 5.1, Eos % (Auto) 3.4, Baso % (Auto) 0.4, Neut # (Auto) 7.2, Lymph # (Auto) 1.3, [place] # (Auto) 0.5, Eos # (Auto) 0.3, Baso # (Auto) 0.0, ESR 55 H, Sodium 137, Potassium 3.7 D, Chloride 107, Carbon Dioxide 25, Anion Gap 8.7, BUN 16, Creatinine 0.40 L, Estimated Creat Clear 62, Estimated GFR 158, Est GFR ( Amer) 191, Glucose 221 H D, Hemoglobin A1c 11.5 H, Calcium 8.5, C- Reactive Protein 61.0 H 08/05/24 06:21: POC Glucose 212 H I & O for Last 24 hours: Intake & Output 08/02/24 08/03/24 08/04/24 08/05/24 23:59 23:59 23:59 23:59 Intake Total 1145 / 1145 Output Total 0 / 0 Balance 1145 / 1145 Weight 73.981 kg 73.981 kg Microbiology Reports for the Last 24 Hours: Microbiology 08/04/24 15:32 Buttock Gram Stain - Final Constitutional Constitutional: no acute distress *Routine HEENT Exam Head: Present normocephalic Eye: Present EOMI and PERRL ENT: Present mucous membranes moist *Routine Neck Exam Neck: Present supple; Absent lymphadenopathy *Routine Respiratory Exam Respiratory: Present CTA bilaterally *Routine Cardiovascular Exam Cardiovascular: Present RRR *Routine Abdominal Exam Abdominal: Present soft and normoactive bowel sounds; Absent tenderness *Routine Rectal Exam Comments: Right gluteal erythema and induration, s/p I&D with packing. No obvious drainage at this time. *Routine Extremities Exam Extremities: Absent cyanosis, clubbing or edema *Routine Skin Exam Skin: Present warm; Absent rash *Routine Neurological Exam Neurological: Present alert and oriented X3 Assessment and Plan *Assessment and plan (1) Perirectal cellulitis: Status: Deleted Category: Medical Code(s): K61.1 - Rectal abscess (2) Diabetes: Status: Acute Category: Medical Code(s): E11.9 - Type 2 diabetes mellitus without complications Plan Marisol Strange is a 68-year-old female with a medical history significant for recurrent skin infections, uncontrolled insulin-dependent diabetes who presented with 2-week onset of worsening right buttock soreness. She states it initially started as a boil and thought it would go away, but has grown in size. She was prompted by her friend today to come to the ED for further evaluation. On my evaluation, patient had significant erythema and induration in the right gluteal fold with an opening draining purulent discharge. No significant tenderness to palpation or crepitus. Workup in the ED significant for WBC 10.4, glucose 297, CRP 80. CT abdomen/pelvis revealed moderate inflammatory change in the right medial fold with subcutaneous gas but no fluid collection. However, LRINEC score was calculated to be 5, and given the 2 weeks of symptoms and no significant tenderness or crepitus there is currently low concern for necrotizing fasciitis. Case was discussed with ED attending and decision was made to admit patient for right buttock cellulitis. General surgery was c onsulted by the ED provider who agreed to evaluate patient. #Right gluteal fold cellulitis #Gluteal abscess - CT abdomen/pelvis revealed moderate inflammatory change in the right medial fold with subcutaneous gas but no fluid collection. ? Given LRINEC score 5, and given the 2 weeks of symptoms and no significant tenderness or crepitus there is currently low concern for necrotizing fasciitis at this time. ? S/p incision and drainage, packing on 08/05/2024. ? Patient was sitting in bed with only mild soreness this afternoon after procedure, and otherwise no other concerns ? No leukocytosis, tachycardia, fevers at this time. CRP 80-61 today. ? Continue IV vancomycin, Zosyn pending wound culture. ? Follow blood, wound cultures. Preliminary wound culture shows positive cocci in chains. Awaiting surgical wound cultures. ? Wound care consulted, pending recommendations ? General surgery consulted, appreciate recommendations and efforts. ? Started MiraLAX for bowel regimen. #Insulin-dependent diabetes ? Patient states her blood sugars have been running high recently as her Dexcom has not been working. ? She states she has been using her insulin, however she is hyperglycemic to 297 today though she has an infection. ? LDSSI, ACHS glucose checks. ? Lantus increased to 35 units today. Uptitrate based on SSI needs. ? Resumed home Farxiga 10 mg, pregabalin. ? Of note, reviewing patient's notes looks like she is on both insulin and sulfonylurea. It would be saha to discontinue the latter upon discharge given high risk of hypoglycemia with both agents. #CAD ? Aspirin 81 mg, atorvastatin 80 mg. Lovenox 40 mg Full code
[2024-08-05] MEDS: ATORVASTATIN 40MG TABLET 80 MG PO (21:28)
[2024-08-05] MEDS: LOPERAMIDE 2MG CAPSULE 4 MG PO (21:28)
[2024-08-05] MEDS: CILOSTAZOL 100MG TABLET 100 MG PO (21:28)
[2024-08-05] MEDS: INSULIN GLARGINE 100 UNITS/ML 3ML FLEXPEN 35 UNIT SQ (21:30)
[2024-08-05 22:31] LABS: POC Glucose,Bedside 231 (70-110)
[2024-08-05 22:56] LABS: POC Glucose,Bedside 157 (70-110)
[2024-08-05 22:56] LABS: POC Glucose,Bedside 142 (70-110)
[2024-08-05] MEDS: VANCOMYCIN HCL 1,500 MG in 0.9 % SODIUM CHLORIDE 250 ML 125 MG IV (23:47)
[2024-08-05] MEDS: ACETAMINOPHEN 325MG TAB 650 MG PO (23:48)
[2024-08-06] VITALS (7 sets, daily range): BP systolic 112–165; BP diastolic 52–93; PULSE 52–90; RESP 18–19; TEMP 36.7–37.2; O2SAT 93–99; BMI 28.0
[2024-08-06] MEDS: LACTATED RINGERS 1000ML 1,000 ML 75 ML IV (04:55)
[2024-08-06] MEDS: PIPERCILLIN/TAZO 3.375 GM in 0.9 % SODIUM CHLORIDE 50 ML IV ×3 (05:14→20:35)
--- NOTE | 2024-08-06 06:23 | PC.NURSE ---
Pt is A&O x4. this nurse did repack wound this shift due to being soiled with stool. Pt was given imodium for diarrhea. Pt has not c/o pain and received tylenol once prior to dressing change. Pt denies needs and pain at this time.
[2024-08-06 06:57] LABS: Basophils # 0.1 K/mm3 (0-0.2); Basophils % 0.8 % (0.1-2.0); Eosinophils # 0.4 K/mm3 (0.0-0.4); Eosinophils % 5.1 % (0.1-12.0); Hematocrit 38.8 % (37.0-47.0); Hemoglobin 13.4 g/dL (12.2-16.2); Lymphocytes # 1.3 K/mm3 (0.7-4.5); Lymphocytes % 16.7 % (10-50); Mean Corpuscular HGB Conc 34.6 g/dL (31.8-35.4); Mean Corpuscular Hemoglobin 31.4 pg (27.0-31.2); Mean Platelet Volume 7.7 fl (7.4-10.4); Monocytes # 0.5 K/mm3 (0.1-1.0); Monocytes % 6.2 % (1.7-9.3); Neutrophils # 5.4 K/mm3 (1.8-7.8); Neutrophils % 71.2 % (37.0-80.0); Platelet Count 214 K/mm3 (142-424); Red Blood Count 4.27 M/mm3 (4.20-5.40); Red Cell Distribution Width 14.6 % (11.5-17.5); White Blood Count 7.6 K/mm3 (4.8-10.8)
[2024-08-06 07:00] LABS: POC Glucose,Bedside 145 (70-110)
[2024-08-06 07:30] LABS: Chloride 106 mmol/L (98-107); Potassium 3.2 mmoL/L (3.5-5.1); Sodium 136 mmol/L (136-145)
[2024-08-06 07:33] LABS: Anion Gap 8.2 mEq/L (5-15); Blood Urea Nitrogen 13 mg/dl (7-17); Carbon Dioxide 25 mmol/L (22.0-30.0); Creatinine Clearance Estimated 63 mL/min (50-200); Estimated Glomerular Filt Rate 158 ml/min (>60); GFR (African American) 191 ML/MIN (>60)
[2024-08-06 07:34] LABS: Calcium 8.2 mg/dl (8.4-10.2); Glucose 150 mg/dl (74-100)
--- NOTE | 2024-08-06 07:41 | EXP.SURG.PN ---
Subjective Patient reports: no new complaints Exam Data for Last 24 hours Vital signs and Labs for Last 24 Hours: Temp Pulse Resp BP Pulse Ox O2 Del Method 98.4 F 68 18 112/57 L 93 L Room Air 08/06/24 04:00 08/06/24 04:00 08/06/24 04:00 08/06/24 04:00 08/06/24 04:00 08/06/24 06:34 Laboratory Results - last 24 hr 08/05/24 06:13: ESR 55 H, Hemoglobin A1c 11.5 H 08/05/24 12:15: POC Glucose 157 H 08/05/24 17:23: POC Glucose 142 H 08/05/24 21:27: POC Glucose 231 H 08/06/24 05:53: POC Glucose 145 H 08/06/24 06:31: WBC 7.6, RBC 4.27, Hgb 13.4, Hct 38.8, MCV 91.0, MCH 31.4 H, MCHC 34.6, RDW 14.6, Plt Count 214, MPV 7.7, Neut % (Auto) 71.2, Lymph % (Auto) 16.7, [place] % (Auto) 6.2, Eos % (Auto) 5.1, Baso % (Auto) 0.8, Neut # (Auto) 5.4, Lymph # (Auto) 1.3, [place] # (Auto) 0.5, Eos # (Auto) 0.4, Baso # (Auto) 0.1, Sodium 136, Potassium 3.2 L, Chloride 106, Carbon Dioxide 25, Anion Gap 8.2, BUN 13, Creatinine 0.40 L, Estimated Creat Clear 63, Estimated GFR 158, Est GFR ( Amer) 191, Glucose 150 H, Calcium 8.2 L I & O for Last 24 hours: Intake & Output 08/03/24 08/04/24 08/05/24 08/06/24 11:59 11:59 11:59 11:59 Intake Total 1145 / 1145 1615 / 1615 Output Total 0 / 0 0 / 0 Balance 1145 / 1145 1615 / 1615 Weight 163 lb 1.603 oz 164 lb 11.2 oz Microbiology Reports for the Last 24 Hours: Microbiology 08/04/24 17:25 Blood Blood Culture - Preliminary 08/04/24 17:05 Blood Blood Culture - Preliminary NO GROWTH AFTER 24 HOURS 08/04/24 15:32 Buttock Gram Stain - Final Constitutional Constitutional: no acute distress *Routine Respiratory Exam Respiratory: Absent respiratory distress *Routine Cardiovascular Exam Cardiovascular: Absent tachycardia *Routine Skin Exam Comments: Dressing in place. No spreading cellulitis. Progress Note: A&P Assessment and plan (1) Abscess of right buttock: Problem details: Medial buttock/perianal abscess Status: Acute Assessment and plan: Overall, doing well status post incision and drainage/debridement Continue overall management as per primary service Dressing changes at least daily (2) Perirectal cellulitis: Status: Deleted
--- NOTE | 2024-08-06 07:55 | P.PNANES_ITS ---
[facility] Anesthesia Record Part II Anesthesia Record Part II Discharge Time: 10:00 Destination: Medical Surgical Department PACU nurse assessment reviewed?: Yes Patient Condition:: Good Anesthesia Complications:: None Swallowing reflex intact?: Yes Airway Patency: Patent Cyanosis?: No Blood Pressure: 143/78 SaO2: 94 Respiratory Rate: 18 Pulse Rate: 75 Temperature: 98.2 F Mental Status: Alert & Oriented Pain level:: 0 Nausea and/or vomitting:: None Intake, IV Amount: 0 Hydration: Adequate
[2024-08-06] MEDS: CILOSTAZOL 100MG TABLET 100 MG PO ×2 (08:16→20:36)
[2024-08-06] MEDS: DAPAGLIFLOZIN PROPANEDIOL 10 MG TABLET PO (08:16)
[2024-08-06] MEDS: PREGABALIN 100MG CAPSULE 100 MG PO ×2 (08:16→20:36)
[2024-08-06] MEDS: CLOPIDOGREL 75MG TAB 75 MG PO (08:16)
[2024-08-06] MEDS: ENOXAPARIN 40MG/0.4ML SYRINGE 40 MG SQ (08:16)
[2024-08-06] MEDS: ASPIRIN EC 81MG TABLET 81 MG PO (08:16)
[2024-08-06 12:16] LABS: POC Glucose,Bedside 152 (70-110)
[2024-08-06] MEDS: humaLOG 100 UNITS/ML 10ML VIAL (SSI) SQ ×3 (12:17→20:37)
[2024-08-06] MEDS: ACETAMINOPHEN 325MG TAB 650 MG PO (14:45)
--- NOTE | 2024-08-06 18:34 | PC.NURSE ---
pt has done well this shift. has ambulated multiple times in the room. dressing was changed with 4x4 packed and tape over wound. pt's sister was educated on how to change pt's dressing.
[2024-08-06 18:54] LABS: POC Glucose,Bedside 197 (70-110)
[2024-08-06] MEDS: ATORVASTATIN 40MG TABLET 80 MG PO (20:36)
[2024-08-06] MEDS: INSULIN GLARGINE 100 UNITS/ML 3ML FLEXPEN 35 UNIT SQ (20:36)
[2024-08-06 22:13] LABS: POC Glucose,Bedside 241 (70-110)
[2024-08-06] MEDS: VANCOMYCIN HCL 1,500 MG in 0.9 % SODIUM CHLORIDE 250 ML 125 MG IV (22:35)
--- NOTE | 2024-08-06 23:37 | P.PN_ITS ---
Subjective *Date: 08/06/24 *Time: 23:53 Interval history: Patient sitting in bed comfortably without acute distress.Eagerly waiting cultures so she can go home. Exam Data for Last 24 hours Vital signs and Labs for Last 24 Hours: Temp Pulse Resp BP Pulse Ox O2 Del Method 98.1 F 52 L 18 133/52 L 93 L Room Air 08/06/24 20:00 08/06/24 20:00 08/06/24 20:00 08/06/24 20:00 08/06/24 20:00 08/06/24 20:00 Laboratory Results - last 24 hr 08/06/24 05:53: POC Glucose 145 H 08/06/24 06:31: WBC 7.6, RBC 4.27, Hgb 13.4, Hct 38.8, MCV 91.0, MCH 31.4 H, MCHC 34.6, RDW 14.6, Plt Count 214, MPV 7.7, Neut % (Auto) 71.2, Lymph % (Auto) 16.7, [place] % (Auto) 6.2, Eos % (Auto) 5.1, Baso % (Auto) 0.8, Neut # (Auto) 5.4, Lymph # (Auto) 1.3, [place] # (Auto) 0.5, Eos # (Auto) 0.4, Baso # (Auto) 0.1, Sodium 136, Potassium 3.2 L, Chloride 106, Carbon Dioxide 25, Anion Gap 8.2, BUN 13, Creatinine 0.40 L, Estimated Creat Clear 63, Estimated GFR 158, Est GFR ( Amer) 191, Glucose 150 H, Calcium 8.2 L 08/06/24 12:08: POC Glucose 152 H 08/06/24 17:56: POC Glucose 197 H 08/06/24 20:34: POC Glucose 241 H I & O for Last 24 hours: Intake & Output 08/03/24 08/04/24 08/05/24 08/06/24 23:59 23:59 23:59 23:59 Intake Total 2134 / 0 1794 / 179 Output Total 0 / 0 0 / 0 Balance 2134 / 27595 / 179 Weight 73.981 kg 73.981 kg 74.7 kg Microbiology Reports for the Last 24 Hours: Microbiology 08/04/24 17:05 Blood Blood Culture - Preliminary NO GROWTH AFTER 48 HOURS 08/04/24 15:32 Buttock Gram Stain - Final 08/04/24 15:32 Buttock Wound Culture - Preliminary 08/04/24 17:25 Blood Blood Culture - Preliminary Constitutional Constitutional: no acute distress *Routine HEENT Exam Head: Present normocephalic Eye: Present EOMI and PERRL ENT: Present mucous membranes moist *Routine Neck Exam Neck: Present supple; Absent lymphadenopathy *Routine Respiratory Exam Respiratory: Present CTA bilaterally *Routine Cardiovascular Exam Cardiovascular: Present RRR *Routine Abdominal Exam Abdominal: Present soft and normoactive bowel sounds; Absent tenderness *Routine Rectal Exam Comments: Right gluteal erythema and induration, s/p I&D with packing. No obvious drainage at this time. *Routine Extremities Exam Extremities: Absent cyanosis, clubbing or edema *Routine Skin Exam Skin: Present warm; Absent rash *Routine Neurological Exam Neurological: Present alert and oriented X3 Assessment and Plan *Assessment and plan (1) Perirectal cellulitis: Status: Deleted Category: Medical Code(s): K61.1 - Rectal abscess (2) Diabetes: Status: Acute Category: Medical Code(s): E11.9 - Type 2 diabetes mellitus without complications Plan Marisol Strange is a 68-year-old female with a medical history significant for recurrent skin infections, uncontrolled insulin-dependent diabetes who presented with 2-week onset of worsening right buttock soreness. She states it initially started as a boil and thought it would go away, but has grown in size. She was prompted by her friend today to come to the ED for further evaluation. On my evaluation, patient had significant erythema and induration in the right gluteal fold with an opening draining purulent discharge. No significant tenderness to palpation or crepitus. Workup in the ED significant for WBC 10.4, glucose 297, CRP 80. CT abdomen/pelvis revealed moderate inflammatory change in the right medial fold with subcutaneous gas but no fluid collection. However, LRINEC score was calculated to be 5, and given the 2 weeks of symptoms and no significant tenderness or crepitus there is currently low concern for necrotizing fasciitis. Case was discussed with ED attending and decision was made to admit patient for right buttock cellulitis. General surgery was consul veronica by the ED provider who agreed to evaluate patient. #Right gluteal fold cellulitis #Gluteal abscess - CT abdomen/pelvis revealed moderate inflammatory change in the right medial fold with subcutaneous gas but no fluid collection. ? Given LRINEC score 5, and given the 2 weeks of symptoms and no significant tenderness or crepitus there is currently low concern for necrotizing fasciitis at this time. ? S/p incision and drainage, packing on 08/05/2024. ? Patient was sitting in bed without concerns ? No leukocytosis, tachycardia, fevers at this time. CRP 80-61 today. ? Continue IV vancomycin, Zosyn pending wound culture. ? Follow blood, wound cultures. Preliminary wound culture shows positive cocci in chains. Awaiting surgical wound cultures. ? Wound care consulted, pending recommendations - BC / bottle growing staph cocci in clusters. Possible contimination, follow- up repeat BC. ? General surgery consulted, appreciate recommendations and efforts. ? Started MiraLAX for bowel regimen. #Insulin-dependent diabetes ? Patient states her blood sugars have been running high recently as her Dexcom has not been working. ? She states she has been using her insulin, however she is hyperglycemic to 297 today though she has an infection. - Hemoglobin a1c 11.5 on admission. ? LDSSI, ACHS glucose checks. ? Lantus increased to 35 units. Uptitrate based on SSI needs. ? Resumed home Farxiga 10 mg, pregabalin. ? Of note, reviewing patient's notes looks like she is on both insulin and sulfonylurea. It would be saha to discontinue the latter upon discharge given high risk of hypoglycemia with both agents. #CAD ? Aspirin 81 mg, atorvastatin 80 mg. Lovenox 40 mg Full code
[2024-08-07] VITALS: BP 116/55; PULSE 70; RESP 16; TEMP 37.2; O2SAT 93
[2024-08-07] MEDS: LACTATED RINGERS 1000ML 1,000 ML 75 ML IV (03:51)
[2024-08-07 04:00] VITALS: BP 125/51; PULSE 58; PULSE 70; RESP 18; TEMP 36.9; O2SAT 95; BMI 28.2
[2024-08-07] MEDS: PIPERCILLIN/TAZO 3.375 GM in 0.9 % SODIUM CHLORIDE 50 ML IV ×2 (04:44→12:11)
[2024-08-07 05:15] LABS: HCV Ab Non Reactive (Non Reactive)
[2024-08-07] MEDS: humaLOG 100 UNITS/ML 10ML VIAL (SSI) SQ ×2 (05:19→11:51)
[2024-08-07 06:14] LABS: POC Glucose,Bedside 170 (70-110)
[2024-08-07 06:53] LABS: Basophils # 0.1 K/mm3 (0-0.2); Basophils % 0.9 % (0.1-2.0); Eosinophils # 0.4 K/mm3 (0.0-0.4); Hematocrit 38.2 % (37.0-47.0); Lymphocytes # 1.3 K/mm3 (0.7-4.5); Lymphocytes % 20.9 % (10-50); Mean Corpuscular HGB Conc 33.9 g/dL (31.8-35.4); Mean Corpuscular Hemoglobin 31.2 pg (27.0-31.2); Mean Corpuscular Volume 91.9 fl (81-99); Mean Platelet Volume 7.7 fl (7.4-10.4); Monocytes # 0.3 K/mm3 (0.1-1.0); Monocytes % 4.8 % (1.7-9.3); Neutrophils % 66.3 % (37.0-80.0); Platelet Count 234 K/mm3 (142-424); Red Blood Count 4.16 M/mm3 (4.20-5.40); Red Cell Distribution Width 14.6 % (11.5-17.5)
--- NOTE | 2024-08-07 06:57 | P.PN_ITS ---
Subjective Patient reports: no new complaints and feels better Narrative: Sitting in chair. Exam Data for Last 24 hours Vital signs and Labs for Last 24 Hours: Temp Pulse Resp BP Pulse Ox O2 Del Method 98.5 F 58 L 18 125/51 L 95 Room Air 08/07/24 04:00 08/07/24 04:00 08/07/24 04:00 08/07/24 04:00 08/07/24 04:00 08/07/24 06:32 Laboratory Results - last 24 hr 08/04/24 17:05: Hepatitis C Antibody Non reactive 08/06/24 05:53: POC Glucose 145 H 08/06/24 06:31: WBC 7.6, RBC 4.27, Hgb 13.4, Hct 38.8, MCV 91.0, MCH 31.4 H, MCHC 34.6, RDW 14.6, Plt Count 214, MPV 7.7, Neut % (Auto) 71.2, Lymph % (Auto) 16.7, [place] % (Auto) 6.2, Eos % (Auto) 5.1, Baso % (Auto) 0.8, Neut # (Auto) 5.4, Lymph # (Auto) 1.3, [place] # (Auto) 0.5, Eos # (Auto) 0.4, Baso # (Auto) 0.1, Sodium 136, Potassium 3.2 L, Chloride 106, Carbon Dioxide 25, Anion Gap 8.2, BUN 13, Creatinine 0.40 L, Estimated Creat Clear 63, Estimated GFR 158, Est GFR ( Amer) 191, Glucose 150 H, Calcium 8.2 L 08/06/24 12:08: POC Glucose 152 H 08/06/24 17:56: POC Glucose 197 H 08/06/24 20:34: POC Glucose 241 H 08/07/24 04:46: POC Glucose 170 H I & O for Last 24 hours: Intake & Output 08/04/24 08/05/24 08/06/24 08/07/24 11:59 11:59 11:59 11:59 Intake Total 114 / 1142064 1380 / 1380 Output Total 0 / 0 0 / 0 0 / 0 Balance 1145 / 1145 2064 1380 / 1380 Weight 163 lb 1.603 oz 164 lb 11.2 oz 165 lb 4.8 oz Microbiology Reports for the Last 24 Hours: Microbiology 08/04/24 17:05 Blood Blood Culture - Preliminary NO GROWTH AFTER 48 HOURS 08/04/24 15:32 Buttock Gram Stain - Final 08/04/24 15:32 Buttock Wound Culture - Preliminary 08/04/24 17:25 Blood Blood Culture - Preliminary Constitutional Constitutional: no acute distress *Routine Respiratory Exam Respiratory: Absent respiratory distress *Routine Cardiovascular Exam Cardiovascular: Absent tachycardia *Routine Skin Exam Comments: Dressing in place. No spreading cellulitis. Progress Note: A&P Assessment and plan (1) Abscess of right buttock: Problem details: Medial buttock/perianal abscess Status: Acute Assessment and plan: Overall, doing well status post incision and drainage/debridement Continue overall management as per primary service Dressing changes at least daily Outpatient follow-up
[2024-08-07 06:58] LABS: Chloride 106 mmol/L (98-107); Sodium 139 mmol/L (136-145)
[2024-08-07 06:59] LABS: Potassium 3.2 mmoL/L (3.5-5.1)
[2024-08-07 07:02] LABS: Anion Gap 11.2 mEq/L (5-15); Blood Urea Nitrogen 13 mg/dl (7-17); Calcium 8.2 mg/dl (8.4-10.2); Carbon Dioxide 25 mmol/L (22.0-30.0); Creatinine Clearance Estimated 63 mL/min (50-200); Estimated Glomerular Filt Rate 122 ml/min (>60); GFR (African American) 148 ML/MIN (>60); Glucose 142 mg/dl (74-100)
--- NOTE | 2024-08-07 07:54 | HMH.PTEV ---
Physical Therapy Evaluation Rehab PT IP Evaluation Start: 08/06/24 08:50 Freq: ONCE Status: Active Protocol: Document 08/07/24 07:38 AFIA (Rec: 08/07/24 07:53 AFIA [id number]) Subjective/History History History Per H&P: Marisol Strange is a 68- year-old female with a medical history significant for recurrent skin infections, uncontrolled insulin-dependent diabetes who presented with 2 -week onset of worsening right buttock soreness. She states it initially started as a boil and thought it would go away, but has grown in size. She was prompted by her friend today to come to the ED for further evaluation. On my evaluation, patient had significant erythema and induration in the right gluteal fold with an opening draining purulent discharge. No significant tenderness to palpation or crepitus. Workup in the ED significant for WBC 10.4, glucose 297, CRP 80. LRINEC score was calculated to be 5, and given the 2 weeks of symptoms and no significant tenderness or crepitus Case was discussed with ED attending and decision was made to admit patient for right buttock cellulitis with abscess. General surgery was consulted by the ED provider who agreed to take her to the OR tomorrow for I&D and debridement. Subjective Subjective Pt lives in an apartment alone . Pt has a sister and son who lives in same area/complex. Pt was IND with all mobility prior. Pt's sister helps with cleaning, pet care, and lawn work. Pt has 2 KEN her home from the front and 2-3 KEN from the back (pt reports the back steps aren't safe and wishes to have HRs). Pt still drives. Pt owns 2 RWs that she keeps close only when needed but mostly ambulates household distances without it. New diagnosis of cancer in past 12 No months? Rehab PT IP Eval Objective Appearance Patient Behavior Appropriate,Cooperative Patient Orientation Person,Situation Difficulty following instructions none Speech Pattern Clear Ambulation Patient Able to Ambulate Yes Ambulation Observation IP General Gait Pattern Observation No Deviations/Normal Ambulation Distance (feet) 20 Ambulation Assistive Device None Ambulation Ability Independent Balance Ability to Arise Able, uses arms to help Sitting Balance Steady, safe Standing Balance Steady, wide stance Dynamic Sitting Balance Ability Good Dynamic Standing Balance Ability Good Transfers Chair Transfer Ability Independent Sit to Stand Bed Transfer Ability Independent Rehab PT IP prob,goals,plan Problems Date of Evaluation: 08/07/24 Rehab Potential Rehab Potential Innapropriate for Skilled Therapy Discharge Plan PT Discharge Plan Pt not appropriate for skilled acute care PT at this time d/ t pt?s mobility being at baseline/IND. Pt safe to d/c home when deemed medically necessary d/t current level of mobility, home set-up, and family support. Eval Complexity Eval Charge Codes 45159 - Moderate Complexity PHYSICIAN CERTIFICATION: I certify the specified therapy services for Marisol Strange are required, authorized, and reviewed every 30 days.
--- NOTE | 2024-08-07 07:59 | P.DS_ITS ---
General Admission date:: 08/04/24 Discharge date: 08/07/24 HPI HPI HPI: This is a 68-year-old female seen in consultation from the primary service for evaluation regarding right buttock abscess. Please see HPI forwarded from admission H&P below. Forwarded from admission H&P: Marisol Strange is a 68-year-old female with a medical history significant for recurrent skin infections, uncontrolled insulin-dependent diabetes who presented with 2-week onset of worsening right buttock soreness. She states it initially started as a boil and thought it would go away, but has grown in size. She was prompted by her friend today to come to the ED for further evaluation. On my evaluation, patient had significant erythema and induration in the right gluteal fold with an opening draining purulent discharge. No significant tenderness to palpation or crepitus. Workup in the ED significant for WBC 10.4, glucose 297, CRP 80. LRINEC score was calculated to be 5, and given the 2 weeks of symptoms and no significant tenderness or crepitus Case was discussed with ED attending and decision was made to admit patient for right buttock cellulitis with abscess. General surgery was consulted by the ED provider who agreed to take her to the OR tomorrow for I&D and debridement. Hospital Course Hospital Course Hospital Course: Marisol Strange is a 68-year-old female with a medical history significant for recurrent skin infections, uncontrolled insulin-dependent diabetes who presented with 2-week onset of worsening right buttock soreness. She states it initially started as a boil and thought it would go away, but has grown in size. She was prompted by her friend today to come to the ED for further evaluation. On my evaluation, patient had significant erythema and induration in the right gluteal fold with an opening draining purulent discharge. No significant tenderness to palpation or crepitus. Workup in the ED significant for WBC 10.4, glucose 297, CRP 80. CT abdomen/pelvis revealed moderate inflammatory change in the right medial fold with subcutaneous gas but no fluid collection. However, LRINEC sco re was calculated to be 5, and given the 2 weeks of symptoms and no significant tenderness or crepitus there is currently low concern for necrotizing fasciitis. Case was discussed with ED attending and decision was made to admit patient for right buttock cellulitis. General surgery was consulted by the ED provider who agreed to evaluate patient. Taken for surgery with extensive I&D. No concern for necrotizing fasciitis. Initiated on empiric antibiotics. Transition to oral antibiotics to complete course. Overall doing well. Discharged home in stable condition. Close follow-up with surgery as an outpatient. Problems addressed as follows: #Right gluteal fold cellulitis #Gluteal abscess - CT abdomen/pelvis revealed moderate inflammatory change in the right medial fold with subcutaneous gas but no fluid collection. Given LRINEC score 5, and given the 2 weeks of symptoms and no significant tenderness or crepitus there is currently low concern for necrotizing fasciitis at this time. S/p incision and drainage, packing on 08/05/2024. Patient has been doing well since surgery. Tolerating dressing changes. CRP showing gradual improvement. No further feve r. White count normalized by day of discharge to 6. Initially treated with vancomycin and Zosyn. Transition to Bactrim to complete 10-day course of antibiotics. Had a single blood culture positive, suspicious for contaminant as it was growing a different species of bacteria from wound cultures. #Insulin-dependent diabetes ? Patient states her blood sugars have been running high recently as her Dexcom has not been working. She states she has been using her insulin, glucose doing better with increased treatment during admission. A1c however 11.5 on admission. Resume home regimen with insulin glargine 65 units nightly, glipizide 10 mg daily, Farxiga 10 mg daily. Needs further management as an outpatient with adjustments to her diabetes regimen. Concerned that combo sulfonylurea and insulin puts her at risk for hypoglycemia. #CAD: Continue Aspirin 81 mg, atorvastatin 80 mg. Total time spent on discharge 32 minutes in counseling, documentation, chart review, and direct care with patient. Exam Data for Last 24 hours Vital signs and Labs for Last 24 Hours: Temp Pulse Resp BP Pulse Ox O2 Del Method 98.5 F 58 L 18 125/51 L 95 Room Air 08/07/24 04:00 08/07/24 04:00 08/07/24 04:00 08/07/24 04:00 08/07/24 04:00 08/07/24 06:32 Laboratory Results - last 24 hr 08/04/24 17:05: Hepatitis C Antibody Non reactive 08/06/24 12:08: POC Glucose 152 H 08/06/24 17:56: POC Glucose 197 H 08/06/24 20:34: POC Glucose 241 H 08/07/24 04:46: POC Glucose 170 H 08/07/24 06:08: WBC 6.0, RBC 4.16 L, Hgb 13.0, Hct 38.2, MCV 91.9, MCH 31.2, MCH C 33.9, RDW 14.6, Plt Count 234, MPV 7.7, Neut % (Auto) 66.3, Lymph % (Auto) 20.9, [place] % (Auto) 4.8, Eos % (Auto) 7.0, Baso % (Auto) 0.9, Neut # (Auto) 4.0, Lymph # (Auto) 1.3, [place] # (Auto) 0.3, Eos # (Auto) 0.4, Baso # (Auto) 0.1, Sodium 139, Potassium 3.2 L, Chloride 106, Carbon Dioxide 25, Anion Gap 11.2, BUN 13, Creatinine 0.50 L D, Estimated Creat Clear 63, Estimated GFR 122, Est GFR ( Amer) 148 D, Glucose 142 H, Calcium 8.2 L I & O for Last 24 hours: Intake & Output 08/04/24 08/05/24 08/06/24 08/07/24 23:59 23:59 23:59 23:59 Intake Total 2135 / 2760 1795 / 2455 660 / 660 Output Total 0 / 0 0 / 0 0 / 0 Balance 2135 / 2760 1795 / 2455 660 / 660 Weight 73.981 kg 73.981 kg 74.7 kg 74.979 kg Microbiology Reports for the Last 24 Hours: Microbiology 08/04/24 17:05 Blood Blood Culture - Preliminary NO GROWTH AFTER 48 HOURS 08/04/24 15:32 Buttock Gram Stain - Final 08/04/24 15:32 Buttock Wound Culture - Preliminary Constitutional Constitutional: no acute distress, average body habitus, chronically ill appea ring and cooperative *Routine HEENT Exam Head: Present normocephalic Eye: Present EOMI and PERRL ENT: Present mucous membranes moist *Routine Neck Exam Neck: Present supple; Absent lymphadenopathy *Routine Respiratory Exam Respiratory: Present CTA bilaterally *Routine Cardiovascular Exam Cardiovascular: Present RRR *Routine Abdominal Exam Abdominal: Present soft and normoactive bowel sounds; Absent tenderness *Routine Rectal Exam Patient deferred: visual exam Comments: Right gluteal erythema and induration, s/p I&D with packing. No obvious drainage at this time. *Routine Exam Patient deferred: external exam *Routine Extremities Exam Extremities: Absent cyanosis, clubbing or edema *Routine Skin Exam Skin: Present warm; Absent rash *Routine Neurological Exam Neurological: Present alert, oriented X3 and moving all extremities; Absent altered mental status Results Data Completed and Pending Labs on day of discharge: Labs from last 24 hours 08/07/24 08/07/24 08/06/24 06:08 04:46 20:34 WBC 6.0 RBC 4.16 L Hgb 13.0 Hct 38.2 MCV 91.9 MCH 31.2 MCHC 33.9 RDW 14.6 Plt Count 234 MPV 7.7 Neut % (Auto) 66.3 Lymph % (Auto) 20.9 [place] % (Auto) 4.8 Eos % (Auto) 7.0 Baso % (Auto) 0.9 Neut # (Auto) 4.0 Lymph # (Auto) 1.3 [place] # (Auto) 0.3 Eos # (Auto) 0.4 Baso # (Auto) 0.1 Sodium 139 Potassium 3.2 L Chloride 106 Carbon Dioxide 25 Anion Gap 11.2 BUN 13 Creatinine 0.50 L D Estimated Creat Clear 63 Estimated GFR 122 Est GFR ( Amer) 148 D Glucose 142 H POC Glucose 170 H 241 H Calcium 8.2 L Hepatitis C Antibody 08/06/24 08/06/24 08/04/24 17:56 12:08 17:05 WBC RBC Hgb Hct MCV MCH MCHC RDW Plt Count MPV Neut % (Auto) Lymph % (Auto) [place] % (Auto) Eos % (Auto) Baso % (Auto) Neut # (Auto) Lymph # (Auto) [place] # (Auto) Eos # (Auto) Baso # (Auto) Sodium Potassium Chloride Carbon Dioxide Anion Gap BUN Creatinine Estimated Creat Clear Estimated GFR Est GFR ( Amer) Glucose POC Glucose 197 H 152 H Calcium Hepatitis C Antibody Non reactive Preliminary micro results at discharge 08/04/24 17:05 Blood Culture - Preliminary Blood NO GROWTH AFTER 48 HOURS 08/04/24 15:32 Wound Culture - Preliminary Buttock 08/04/24 17:25 Blood Culture - Preliminary Blood DS: Diagnosis Discharge Diagnosis (1) Abscess of right buttock: Status: Acute Code(s): L02.31 - Cutaneous abscess of buttock Problem details: Medial buttock/perianal abscess Meds Home Medications and Allergies Home Medications ?Medication ?Instructions ?Recorded ?Confirmed ?Type clopidogrel 75 mg tablet 75 mg PO ONCE Blood thinner 03/24/18 08/04/24 History aspirin 81 mg tablet,delayed 81 mg PO DAILY CAD 03/27/18 08/04/24 History release glipizide 10 mg tablet 10 mg PO DAILY DM 03/27/18 08/04/24 History pregabalin 100 mg capsule 100 mg PO BID FIBROMYALGIA 03/27/18 08/04/24 History cilostazol 100 mg tablet 100 mg PO BID PAD #120 tabs 04/17/18 08/04/24 Rx insulin glargine 100 unit/mL (3 65 unit SQ HS 08/04/24 08/04/24 History mL) subcutaneous pen (Basaglar KwikPen U-100 Insulin) simvastatin 80 mg tablet 80 mg PO HS 08/04/24 08/05/24 History dapagliflozin propanediol 10 mg 10 mg PO DAILY 08/05/24 08/05/24 History tablet (Farxiga) diclofenac sodium 1 % topical gel 1 ea topical DAILY 08/05/24 08/05/24 History hydrochlorothiazide 12.5 mg tablet 12.5 mg PO DAILYP PRN Fluid 08/05/24 08/05/24 History oxycodone-acetaminophen 10 mg-325 1 tab PO TID 08/05/24 08/05/24 History mg tablet sulfamethoxazole 800 1 tab PO BID 5 days #10 tabs 08/07/24 Rx mg-trimethoprim 160 mg tablet (Bactrim DS) New Prescriptions to Start Prescriptions: sulfamethoxazole-trimethoprim [Bactrim DS] Ishaan Ricks Allergies Allergy/AdvReac Type Severity Reaction Status Date / Time No Known Allergies Allergy Verified 04/02/24 10:07 Discharge Plan Disposition Patient Disposition: Home, Self-Care Condition: Fair Follow up Plan Follow up with: Bridger Funez MD [Primary Care Provider] - 08/13/24 3:50 pm Quinn Mendez MD [Staff Physician] - 08/22/24 Prescriptions/Medication Reconciliation: New sulfamethoxazole-trimethoprim [Bactrim DS] 800-160 mg tablet 1 tab PO BID 5 Days Qty: 10 0RF Continued clopidogrel 75 mg tablet 75 mg PO ONCE cilostazol 100 mg tablet 100 mg PO BID Qty: 120 1RF Rx Instructions: Needs follow up appt. with cardiology. Thanks glipizide 10 tablet 10 mg PO DAILY aspirin 81 MG tablet,delayed release (DR/EC) 81 mg PO DAILY pregabalin 100 MG capsule 100 mg PO BID simvastatin 80 mg tablet 80 mg PO HS Patient Comments: TAKE 1 TABLET BY MOUTH EVERY DAY IN THE EVENING insulin glargine [Basaglar KwikPen U-100 Insulin] 100 unit/mL (3 mL) insulin pen 65 unit SQ HS Patient Comments: ADMINISTER 65 UNITS UNDER THE SKIN EVERY DAY hydrochlorothiazide 12.5 mg tablet 12.5 mg PO DAILYP PRN (Reason: Fluid) Patient Comments: TAKE 1 TABLET BY MOUTH EVERY DAY NEEDED diclofenac sodium 1 % gel 1 ea TOPICAL DAILY Patient Comments: APPLY A THIN LAYER TO AFFECTED AREA OF SKIN 1 TIME DAILY dapagliflozin propanediol [Farxiga] 10 mg tablet 10 mg PO DAILY Patient Comments: TAKE 1 TABLET BY MOUTH EVERY DAY oxycodone-acetaminophen 10-325 mg tablet 1 tab PO TID Patient Comments: TAKE 1 TABLET BY MOUTH THREE TIMES DAILY Problem Reconciliation Problems Reviewed?: Yes Patient Discharge Instructions ACTIVITY: Continue current activity DIET: continue same diet Patient Instructions: DI for Incision and Drainage of a Skin Abscess, DI for Surgical Site Infection Print Language: Hungarian Providers Primary Care Provider: Bridger Funez Admit Provider: Fausto Wilkes Attending Provider: Fausto Wilkes
[2024-08-07 08:00] VITALS: BP 140/74; PULSE 53; PULSE 70; RESP 18; TEMP 37.1; O2SAT 95
[2024-08-07] MEDS: PREGABALIN 100MG CAPSULE 100 MG PO (08:19)
[2024-08-07] MEDS: ENOXAPARIN 40MG/0.4ML SYRINGE 40 MG SQ (08:19)
[2024-08-07] MEDS: CILOSTAZOL 100MG TABLET 100 MG PO (08:19)
[2024-08-07] MEDS: CLOPIDOGREL 75MG TAB 75 MG PO (08:19)
[2024-08-07] MEDS: ASPIRIN EC 81MG TABLET 81 MG PO (08:19)
[2024-08-07] MEDS: DAPAGLIFLOZIN PROPANEDIOL 10 MG TABLET PO (09:14)
[2024-08-07 10:16] LABS: POC Glucose,Bedside 232 (70-110)
[2024-08-07] MEDS: ACETAMINOPHEN 325MG TAB 650 MG PO (11:51)
[2024-08-07 12:00] VITALS: BP 129/71; PULSE 65; RESP 18; TEMP 37; O2SAT 96
--- NOTE | 2024-08-07 13:35 | PC.NURSE ---
dressing changed to right buttock.
--- NOTE | 2024-08-08 10:57 | CARE MANAGER ---
Addendum entered by Agnieszka Carpio 08/08/24 13:00: Per Kyle w/ [facility] services will start tomorrow 08/09/24. Addendum entered by Agnieszka Carpio 08/08/24 11:16: Patient information/order faxed to [facility]. I will follow up jacklyn/ Kyle once information is reviewed. Original Note: Called and spoke with patient regarding recent discharge. She has started new medication prescribed at discharge and was aware of scheduled f/u appts. Patient requesting HH services at this time. Will discuss with Agnieszka.
== END 2024-08-07 14:02 | disposition home or self-care (01) ==
LOC: UTC 13:27 → ER 16:36 → 2ND 18:24
PROVIDERS: Surgery; Admitting Provider Student in an Organized Health Care Education/Training Program; Emergency Provider Student in an Organized Health Care Education/Training Program; PCP Pediatrics; Visit Provider Student in an Organized Health Care Education/Training Program
PROC: (CPT 10061; principal; 2024-08-05 09:15)
DX: K61.1 Rectal abscess (principal); E11.65 Type 2 diabetes mellitus with hyperglycemia; L02.31 Cutaneous abscess of buttock; F17.210 Nicotine dependence, cigarettes, uncomplicated; I25.10 Atherosclerotic heart disease of native coronary artery without angina pectoris; I11.9 Hypertensive heart disease without heart failure; Z79.4 Long term (current) use of insulin; Z79.899 Other long term (current) drug therapy
CPT/HCPCS: 10061; 36415; 74177; 80048; 80053; 82962; 83036; 83605; 84145; 85025; 85651; 86140; 86803; 87040; 87070; 87077; 87186; 87205; 87389; 97162; 99291; G0378; J0690; J1100; J1650; J2175; J2250; J2405; J2543; J3010; J3370; J3480; J7120; Q9967

== ENCOUNTER 2024-11-11 12:28 | Emergency (ER) | payer MEDICARE, SELFPAY ==
[2024-11-11 12:47] VITALS: BP 138/78; PULSE 81; RESP 18; TEMP 36.7; O2SAT 95; BMI 28.8
--- NOTE | 2024-11-11 12:47 | ED_ITS ---
Discharge Plan Disposition Patient Disposition: Home, Self-Care Condition: Good Prescriptions Prescriptions: New fluconazole 100 mg tablet 100 mg PO DAILY 3 Days Qty: 3 0RF nystatin 100,000 unit/gram cream 1 applic topical BID 7 Days Qty: 15 2RF nystatin 100,000 unit/gram powder 1 applic topical BID 7 Days Qty: 15 2RF methylprednisolone 4 mg Tablets,Dose Pack 4 mg PO DIRECTED 6 Days Qty: 21 0RF Rx Instructions: Take 1 pack as directed for 6 days No Action clopidogrel 75 mg tablet 75 mg PO ONCE cilostazol 100 mg tablet 100 mg PO BID Qty: 120 1RF Rx Instructions: Needs follow up appt. with cardiology. Thanks glipizide 10 tablet 10 mg PO DAILY aspirin 81 MG tablet,delayed release (DR/EC) 81 mg PO DAILY pregabalin 100 MG capsule 100 mg PO BID simvastatin 80 mg tablet 80 mg PO HS Patient Comments: TAKE 1 TABLET BY MOUTH EVERY DAY IN THE EVENING insulin glargine [Basaglar KwikPen U-100 Insulin] 100 unit/mL (3 mL) insulin pen 65 unit SQ HS Patient Comments: ADMINISTER 65 UNITS UNDER THE SKIN EVERY DAY hydrochlorothiazide 12.5 mg tablet 12.5 mg PO DAILYP PRN (Reason: Fluid) Patient Comments: TAKE 1 TABLET BY MOUTH EVERY DAY NEEDED diclofenac sodium 1 % gel 1 ea TOPICAL DAILY Patient Comments: APPLY A THIN LAYER TO AFFECTED AREA OF SKIN 1 TIME DAILY dapagliflozin propanediol [Farxiga] 10 mg tablet 10 mg PO DAILY Patient Comments: TAKE 1 TABLET BY MOUTH EVERY DAY oxycodone-acetaminophen 10-325 mg tablet 1 tab PO TID Patient Comments: TAKE 1 TABLET BY MOUTH THREE TIMES DAILY Referrals Follow up/Referrals: Bridger Funez MD [Primary Care Provider] - See instructions Activity Restrictions/Add. Instructions Additional Instructions/Restrictions: Take and use the medications as directed. Follow up with your regular doctor. GO TO THE ER FOR ANY WORSENING SYMPTOMS Try to keep the area of skin beneath both your breast as dry as you can. Make sure you dry well after showering. Clinical Impressions Clinical Impression: Skin yeast infection Instructions Patient Instructions: Vaginal Yeast Infection, Nystatin, Fluconazole, Yeast Infection-Skin Print Language Print Language: Slovak Discharge ED Provider: Ishaan Cagle [facility] HPI General Stated complaint: rash on chest/under breasts w/itch Time Seen by Provider: 11/11/24 12:47 History of Present Illness Provider Complaint: She states that for the past 4 days she has had an itchy rash beneath both her breast. Related Data Home Medications ?Medication ?Instructions ?Recorded ?Confirmed clopidogrel 75 mg tablet 75 mg PO ONCE Blood thinner 03/24/18 10/03/24 aspirin 81 mg tablet,delayed 81 mg PO DAILY CAD 03/27/18 10/03/24 release glipizide 10 mg tablet 10 mg PO DAILY DM 03/27/18 10/03/24 pregabalin 100 mg capsule 100 mg PO BID FIBROMYALGIA 03/27/18 10/03/24 insulin glargine 100 unit/mL (3 65 unit SQ HS 08/04/24 10/03/24 mL) subcutaneous pen (Basaglar KwikPen U-100 Insulin) simvastatin 80 mg tablet 80 mg PO HS 08/04/24 10/03/24 dapagliflozin propanediol 10 mg 10 mg PO DAILY 08/05/24 10/03/24 tablet (Farxiga) diclofenac sodium 1 % topical gel 1 ea topical DAILY 08/05/24 10/03/24 hydrochlorothiazide 12.5 mg tablet 12.5 mg PO DAILYP PRN Fluid 08/05/24 10/03/24 oxycodone-acetaminophen 10 mg-325 1 tab PO TID 08/05/24 10/03/24 mg tablet Previous Rx's ?Medication ?Instructions ?Recorded cilostazol 100 mg tablet 100 mg PO BID PAD #120 tabs 04/17/18 fluconazole 100 mg tablet 100 mg PO DAILY 3 days #3 tabs 11/11/24 methylprednisolone 4 mg tablets in 4 mg PO DIRECTED 6 days #21 tabs 11/11/24 a dose pack nystatin 100,000 unit/gram topical 1 applic topical BID 7 days #15 11/11/24 cream grams nystatin 100,000 unit/gram topical 1 applic topical BID 7 days #15 11/11/24 powder grams Allergies Allergy/AdvReac Type Severity Reaction Status Date / Time No Known Allergies Allergy Verified 10/03/24 13:15 [facility] Disclaimer: The information contained in this section may have been updated after the patient was seen, as this information can be updated by other users. Medical History Paronychia Acute bronchitis Corneal abrasion, left Exposure to COVID-19 virus Kidney stone on left side Uses marijuana Diabetes Left foot pain Tachycardia Smoking SOB (shortness of breath) PAD (peripheral artery disease) HLD (hyperlipidemia) HHD (hypertensive heart disease) CAD (coronary artery disease) Social History Smoking Status: Current every day smoker tobacco type: cigarettes packs per day: 1 alcohol intake: never substance use type: marijuana current occupational status: disabled Travel in the last 8 weeks: None household members: children housing: apartment current occupational exposures/hazards: No caffeine: Yes Have you lived/traveled outside US in past 30 days?: No Contact w/someone who lives/traveled outside US past 30 days?: No Exposure to someone with infectious disease in past 14 days?: No Do you have a fever (greater than 100.4 F or 38 C)?: No Have you tested positive for COVID-19: No Exposed to someone with COVID-19 in past 14 days?: No Do you have a sore throat?: No Do you have a cough?: No Do you have any weakness?: No Do you have any diarrhea?: No Are you experiencing any unusual bleeding?: No Do you have any muscle aches/pain?: No Do you have any abdominal pain?: No Are you experiencing loss of taste or smell?: No ROS Obtained: Yes All systems reviewed & no additional complaints except as documented Constitutional Constitutional: Denies chills and Denies fever(s) Eyes Eyes: Denies eye discharge ENT Ears, Nose, Mouth, and Throat: Denies dizziness, Denies otalgia and Denies sore throat Cardiovascular Cardiovascular: Denies chest pain Respiratory Respiratory: Denies shortness of breath, Denies chest congestion, Denies cough, Denies stridor and Denies wheezing Gastrointestinal Gastrointestingal: Denies nausea or vomiting Musculoskeletal Musculoskeletal: Reports system reviewed and no additional complaints, except as documented and Denies arthralgias Integumentary/Breasts Skin/Breast: Reports as per HPI and Reports rash Neurologic Neurologic: Denies dizziness and Denies paresthesias Allergic/Immunologic Allergic/Immunologic: Denies wheezing Physical Exam General General appearance: alert and in no apparent distress Head Head exam: atraumatic, normocephalic and normal inspection Eye Eye exam: Present normal appearance, PERRL and EOMI ENT ENT exam: Present normal exam, normal oropharynx, mucous membranes moist, TM's normal bilaterally and normal external ear exam Neck Neck exam: Present normal inspection, full ROM and trachea midline; Absent meningismus or lymphadenopathy Chest Chest inspection: Present normal inspection and symmetric chest wall rise; Absent tenderness Respiratory Respiratory exam: Present normal lung sounds bilaterally; Absent respiratory distress Cardiovascular Cardiovascular exam: Present regular rate and normal rhythm; Absent JVD Abdominal Exam Abdominal exam: Present soft and normal bowel sounds; Absent distention, tenderness or guarding Extremities Exam Extremities exam: Present normal inspection, full ROM and normal capillary refill; Absent calf tenderness Back Exam Back exam: Present normal inspection; Absent tenderness Neurological Exam Neurological exam: Present alert and oriented X3 Psychiatric Psychiatric exam: Present normal affect and normal mood Skin Skin exam: Present rash (there are maculopapular lesions beneath both her breast. satellite lesions are present. ) Lymphatic Lymphatic Findings: no adenopathy Medical Decision Making Medical Records Medical records reviewed: No I reviewed the patient's medical records. Screening: Per USPSTF and CDC recommendations, given the prevalence of disease in our region, it is our hospital?s policy to screen for HIV and viral Hepatitis for all patients aged 18 and over and those with ongoing risk factors. Donnie Inquiry Pt receiving controlled substance: No
[2024-11-11 13:16] VITALS: BP 138/78; PULSE 81; RESP 18; TEMP 36.7
== END 2024-11-11 13:21 | disposition home or self-care (01) ==
PROVIDERS: Emergency Provider Nurse Practitioner Family; PCP Pediatrics
DX: B37.2 Candidiasis of skin and nail (principal)
CPT/HCPCS: 99212; G0381

== ENCOUNTER 2024-11-23 12:58 | Emergency (ER) | payer MEDICARE, SELFPAY ==
[2024-11-23 13:04] VITALS: BMI 29.9
--- NOTE | 2024-11-23 13:13 | XR_ITS ---
FINAL REPORT CLINICAL HISTORY: FALL this morning in snow COMPARISON: None FINDINGS: LEFT HIP: Two views of the left hip demonstrate a total hip arthroplasty of the left hip. The portions of the right hip visualized reveal moderate hypertrophic changes of osteoarthritis and marginal osteophytes. The joint spaces appear normal. The visualized bony structures are well aligned. No soft tissue abnormality is seen. IMPRESSION: Total hip arthroplasty of the left hip, without acute bony abnormality identified. Portions of the right hip visualized reveal moderate hypertrophic changes of osteoarthritis and marginal osteophytes. Reviewed, Interpreted and Dictated by Parker Briones MD Transcribed by Una Bianchi Authenticated and . [facility]
--- NOTE | 2024-11-23 13:13 | XR_ITS ---
FINAL REPORT CLINICAL HISTORY: FALL this morning in snow FINDINGS: Left shoulder Three views were obtained. There is no fracture or dislocation. There are mild hypertrophic changes of the acromioclavicular and glenohumeral joints. There is an osteophyte along the inferior margin of the glenohumeral joint. No soft tissue abnormality is identified. IMPRESSION: Mild changes of osteoarthritis. Reviewed, Interpreted and Dictated by Parker Briones MD Transcribed by Mery Francis Authenticated and [facility]
--- NOTE | 2024-11-23 13:13 | XR_ITS ---
FINAL REPORT TECHNIQUE: Left femur 3 views CLINICAL HISTORY: FALL COMPARISON: None FINDINGS: LEFT FEMUR: 3 images of the left femur were obtained. A total hip arthroplasty is noted on the left side. There is no evidence of fracture or dislocation of the femur. The joint spaces are intact. Dense vascular calcifications are present. IMPRESSION: Prior left total hip arthroplasty, with no acute bony abnormality. Reviewed, Interpreted and Dictated by Parker Briones MD Transcribed by Una Bianchi Authenticated and . [facility]
--- NOTE | 2024-11-23 13:13 | XR_ITS ---
FINAL REPORT CLINICAL HISTORY: FALL this morning in snow FINDINGS: Left clavicle Two views were obtained. There is no fracture or dislocation. The joint spaces appear normal. No soft tissue abnormality is identified. IMPRESSION: No acute process. Reviewed, Interpreted and Dictated by Parker Briones MD Transcribed by Mery Francis Authenticated and [facility]
--- NOTE | 2024-11-23 13:13 | XR_ITS ---
FINAL REPORT CLINICAL HISTORY: FALL this morning in snow FINDINGS: Right knee Three views were obtained. There is no fracture or dislocation. The joint spaces appear normal. There is moderate vascular calcification of the distal SFA and popliteal artery. IMPRESSION: No acute process. Reviewed, Interpreted and Dictated by Parker Briones MD Transcribed by Mery Francis Authenticated and [facility]
--- NOTE | 2024-11-23 14:21 | EXP.UTC ---
Discharge Plan Disposition Patient Disposition: Home, Self-Care Condition: Good Prescriptions Prescriptions: New triamcinolone acetonide 0.1 % cream 1 applic topical BID PRN (Reason: itching) Qty: 30 1RF No Action clopidogrel 75 mg tablet 75 mg PO ONCE cilostazol 100 mg tablet 100 mg PO BID Qty: 120 1RF Rx Instructions: Needs follow up appt. with cardiology. Thanks glipizide 10 tablet 10 mg PO DAILY aspirin 81 MG tablet,delayed release (DR/EC) 81 mg PO DAILY pregabalin 100 MG capsule 100 mg PO BID simvastatin 80 mg tablet 80 mg PO HS Patient Comments: TAKE 1 TABLET BY MOUTH EVERY DAY IN THE EVENING insulin glargine [Basaglar KwikPen U-100 Insulin] 100 unit/mL (3 mL) insulin pen 65 unit SQ HS Patient Comments: ADMINISTER 65 UNITS UNDER THE SKIN EVERY DAY hydrochlorothiazide 12.5 mg tablet 12.5 mg PO DAILYP PRN (Reason: Fluid) Patient Comments: TAKE 1 TABLET BY MOUTH EVERY DAY NEEDED diclofenac sodium 1 % gel 1 ea TOPICAL DAILY Patient Comments: APPLY A THIN LAYER TO AFFECTED AREA OF SKIN 1 TIME DAILY dapagliflozin propanediol [Farxiga] 10 mg tablet 10 mg PO DAILY Patient Comments: TAKE 1 TABLET BY MOUTH EVERY DAY oxycodone-acetaminophen 10-325 mg tablet 1 tab PO TID Patient Comments: TAKE 1 TABLET BY MOUTH THREE TIMES DAILY fluconazole 100 mg tablet 100 mg PO DAILY 3 Days Qty: 3 0RF nystatin 100,000 unit/gram cream 1 applic topical BID 7 Days Qty: 15 2RF nystatin 100,000 unit/gram powder 1 applic topical BID 7 Days Qty: 15 2RF methylprednisolone 4 mg Tablets,Dose Pack 4 mg PO DIRECTED 6 Days Qty: 21 0RF Rx Instructions: Take 1 pack as directed for 6 days Referrals Follow up/Referrals: Bridger Funez MD [Primary Care Provider] - See instructions Activity Restrictions/Add. Instructions Additional Instructions/Restrictions: Go home and rest. It would be best if you rested tomorrow too. No heavy lifting & No twisting for the next few days. Follow up with your regular doctor. Follow up with orthopedics. I put in a referral to Dr. Almaguer. His office phone number will be on this paper work. Please call his office and schedule an appointment to be rechecked there. GO TO THE ER FOR ANY WORSENING SYMPTOMS OR CONCERN, ESPECIALLY BOWEL OR BLADDER ISSUES, SADDLE AREA NUMBNESS, FEVER, ETC Clinical Impressions Clinical Impression: Fall, Hip pain, left, Knee pain, right, Left shoulder pain, Skin rash Instructions Patient Instructions: DI for Shoulder Pain, DI for Knee Pain, DI for Hip Pain Print Language Print Language: Thai Discharge ED Provider: Ishaan Cagle [facility] General Stated complaint: AO 11/23/24 left knee pain, rt shoulder/hip pain Time Seen by Provider: 11/23/24 14:21 History of Present Illness Provider Complaint: She states that she slipped and fell on ice this morning while taking her trash out. She came down on her left hip and left shoulder. She also hit her right knee on the ice when she landed. She is having left hip, left shoulder, and right knee pain. She has a history of having a left hip replacement, so she is worried that this fall might have messed her hip hardware up. She denies any neck pain. She denies hitting her head. She is able to walk and bear weight, but she states that it hurts when she does. Related Data Home Medications ?Medication ?Instructions ?Recorded ?Confirmed clopidogrel 75 mg tablet 75 mg PO ONCE Blood thinner 03/24/18 10/03/24 aspirin 81 mg tablet,delayed 81 mg PO DAILY CAD 03/27/18 10/03/24 release glipizide 10 mg tablet 10 mg PO DAILY DM 03/27/18 10/03/24 pregabalin 100 mg capsule 100 mg PO BID FIBROMYALGIA 03/27/18 10/03/24 insulin glargine 100 unit/mL (3 65 unit SQ HS 08/04/24 10/03/24 mL) subcutaneous pen (Basaglar KwikPen U-100 Insulin) simvastatin 80 mg tablet 80 mg PO HS 08/04/24 10/03/24 dapagliflozin propanediol 10 mg 10 mg PO DAILY 08/05/24 10/03/24 tablet (Farxiga) diclofenac sodium 1 % topical gel 1 ea topical DAILY 08/05/24 10/03/24 hydrochlorothiazide 12.5 mg tablet 12.5 mg PO DAILYP PRN Fluid 08/05/24 10/03/24 oxycodone-acetaminophen 10 mg-325 1 tab PO TID 08/05/24 10/03/24 mg tablet Previous Rx's ?Medication ?Instructions ?Recorded cilostazol 100 mg tablet 100 mg PO BID PAD #120 tabs 04/17/18 fluconazole 100 mg tablet 100 mg PO DAILY 3 days #3 tabs 11/11/24 methylprednisolone 4 mg tablets in 4 mg PO DIRECTED 6 days #21 tabs 11/11/24 a dose pack nystatin 100,000 unit/gram topical 1 applic topical BID 7 days #15 11/11/24 cream grams nystatin 100,000 unit/gram topical 1 applic topical BID 7 days #15 11/11/24 powder grams triamcinolone acetonide 0.1 % 1 applic topical BID PRN itching 11/23/24 topical cream #30 grams Allergies Allergy/AdvReac Type Severity Reaction Status Date / Time No Known Allergies Allergy Verified 10/03/24 13:15 [facility] Disclaimer: The information contained in this section may have been updated after the patient was seen, as this information can be updated by other users. Medical History Paronychia Acute bronchitis Corneal abrasion, left Exposure to COVID-19 virus Kidney stone on left side Uses marijuana Diabetes Left foot pain Tachycardia Smoking SOB (shortness of breath) PAD (peripheral artery disease) HLD (hyperlipidemia) HHD (hypertensive heart disease) CAD (coronary artery disease) Social History Smoking Status: Current every day smoker tobacco type: cigarettes packs per day: 1 alcohol intake: never substance use type: marijuana current occupational status: disabled Travel in the last 8 weeks: None household members: children housing: apartment current occupational exposures/hazards: No caffeine: Yes Have you lived/traveled outside US in past 30 days?: No Contact w/someone who lives/traveled outside US past 30 days?: No Exposure to someone with infectious disease in past 14 days?: No Do you have a fever (greater than 100.4 F or 38 C)?: No Have you tested positive for COVID-19: No Exposed to someone with COVID-19 in past 14 days?: No Do you have a sore throat?: No Do you have a cough?: Yes Do you have any weakness?: No Do you have any diarrhea?: No Are you experiencing any unusual bleeding?: No Do you have any muscle aches/pain?: No Do you have any abdominal pain?: No Are you experiencing loss of taste or smell?: No ROS Obtained: Yes All systems reviewed & no additional complaints except as documented Constitutional Constitutional: Denies chills and Denies fever(s) Eyes Eyes: Denies eye discharge ENT Ears, Nose, Mouth, and Throat: Denies dizziness, Denies otalgia and Denies sore throat Cardiovascular Cardiovascular: Denies chest pain Respiratory Respiratory: Denies shortness of breath, Denies chest congestion, Denies cough, Denies stridor and Denies wheezing Gastrointestinal Gastrointestingal: Denies nausea or vomiting Musculoskeletal Musculoskeletal: Reports system reviewed and no additional complaints, except as documented and Denies arthralgias Integumentary/Breasts Skin/Breast: Denies rash Neurologic Neurologic: Denies dizziness and Denies paresthesias Allergic/Immunologic Allergic/Immunologic: Denies wheezing Physical Exam General General appearance: alert and in no apparent distress Head Head exam: atraumatic, normocephalic and normal inspection Eye Eye exam: Present normal appearance, PERRL and EOMI ENT ENT exam: Present normal exam, normal oropharynx, mucous membranes moist, TM's normal bilaterally and normal external ear exam Neck Neck exam: Present normal inspection, full ROM and trachea midline; Absent meningismus or lymphadenopathy Chest Chest inspection: Present normal inspection and symmetric chest wall rise; Absent tenderness Respiratory Respiratory exam: Present normal lung sounds bilaterally; Absent respiratory distress Cardiovascular Cardiovascular exam: Present regular rate and normal rhythm; Absent JVD Abdominal Exam Abdominal exam: Present soft and normal bowel sounds; Absent distention, tenderness or guarding Extremities Exam Extremities exam: Present normal capillary refill; Absent calf tenderness Expanded Upper Extremity Exam Left: Shoulder exam: Present full ROM and tenderness; Absent swelling, abrasion, laceration, ecchymosis, deformity, crepitus, dislocation, erythema or tenderness over AC joint Arm exam: Present normal inspection and full ROM; Absent tenderness Elbow exam: Present normal inspection and full ROM; Absent tenderness, pain w/ pronation/supination or tenderness over radial head Forearm/Wrist exam: Present normal inspection and full ROM; Absent tenderness, tenderness over anatomical snuff box or pain with axial thumb loading Hand exam: Present normal inspection and full ROM; Absent tenderness Expanded Lower Extremity Exam Left: Hip/Pelvis exam: Present full ROM; Absent tenderness, pelvis stable, swelling, ecchymosis, deformity, dislocation, external rotation, internal rotation, shortening of leg, pain on hip/pelvis palpation, hip pain on leg movement, erythema, crepitus, laceration or abrasion Right: Hip/Pelvis exam: Present normal inspection and full ROM; Absent tenderness Upper leg exam: Present normal inspection and full ROM; Absent tenderness Knee exam: Present full ROM, tenderness and knee extension intact; Absent swelling, abrasion, laceration, ecchymosis, deformity, crepitus, dislocation, erythema, effusion, anterior drawer sign, posterior draw sign, pain with valgus, laxity with valgus, pain with varus or laxity with varus Lower leg exam: Present normal inspection, full ROM and Achilles tendon intact; Absent tenderness or Homans' sign Ankle exam: Present normal inspection and full ROM Foot/toe exam: Present normal inspection and full ROM; Absent tenderness Neurovascular/Tendon exam: Present normal capillary refill, normal 2-point discrimination and normal fine/light touch; Absent pulse deficit, motor deficit, sensory deficit, tendon deficit, extremity cold to touch or pallor Gait: observed and normal Back Exam Back exam: Present normal inspection; Absent tenderness Neurological Exam Neurological exam: Present alert and oriented X3 Psychiatric Psychiatric exam: Present normal affect and normal mood Skin Skin exam: Present warm, dry, intact and normal color Lymphatic Lymphatic Findings: no adenopathy Medical Decision Making Medical Records Medical records reviewed: No I reviewed the patient's medical records. Screening: Per USPSTF and CDC recommendations, given the prevalence of disease in our region, it is our hospital?s policy to screen for HIV and viral Hepatitis for all patients aged 18 and over and those with ongoing risk factors. Donnie Inquiry Pt receiving controlled substance: No Orders (Tests/Meds): ORDERS Category Date Time Status Knee XR right 3 views [XR knee RT 3V] Stat Exams 11/23/24 13:13 Taken XR clavicle LT Stat Exams 11/23/24 13:13 Taken XR femur LT 2V Stat Exams 11/23/24 13:13 Taken XR hip LT 2-3V w/pelvis Stat Exams 11/23/24 13:13 Taken XR shoulder LT min 2V Stat Exams 11/23/24 13:13 Taken
[2024-11-23 14:25] VITALS: BP 133/77; PULSE 85; RESP 16; TEMP 36.8; O2SAT 95; BMI 29.0
[2024-11-23 15:31] VITALS: BP 133/77; PULSE 85; RESP 16; TEMP 36.8; O2SAT 95
== END 2024-11-23 15:41 | disposition home or self-care (01) ==
PROVIDERS: Emergency Provider Nurse Practitioner Family; PCP Pediatrics
DX: R21 Rash and other nonspecific skin eruption (principal); M25.512 Pain in left shoulder; M25.561 Pain in right knee; M25.552 Pain in left hip; W19.XXXA Unspecified fall, initial encounter
CPT/HCPCS: 73000; 73030; 73502; 73552; 73562; 99214; G0381

== ENCOUNTER 2025-03-30 14:44 | Emergency (ER) | payer MEDICARE, SELFPAY ==
[2025-03-30 15:10] VITALS: BP 99/75; PULSE 95; RESP 20; TEMP 36.8; O2SAT 95; BMI 30.1
--- OUTSIDE RECORDS SUMMARY | 2025-03-30 15:26 | XMS_ITS | Data Portability ---
Author Organization [facility] RINA Rosas ADMIN Address [address] [place] [id number] Care Team Providers Care Retort Forker Name Role Phone SALEEM BAPTISTE Primary Care Provider ARIANNA WATSON Filling And Packing Supervisor Unavailable Assessment Encounter Date Assessment Date Assessment LastModified by Organization Details LastModified Time 12/24/2024 12/24/2024 PERSONALIZED HEALTH PLAN (COPY PROVIDED TO PATIENT) 1) Vaccines: (a) Pneumococcal Vaccine - Type: Last Service: Plan: Refused: (b) Influenza vaccine - Last Service: Plan: Refused: (c) Hepatitis B vaccine - Last Service: Plan: (d) Shingrix Vaccine - Last Service: Plan: Refused: (e) COVID - Last Service: 12/01/21 Plan: (f) COVID vaccine booster - Last Service: Plan: (g) Tetanus Vaccine - Last Service: 01/17/19 Plan: 2) Colorectal Cancer Screening for aged 45 75 years: Last service: 02/20 Finding: Negative Cologuard Plan: Cologuard every 3 years 3) Bone Mass Measurements: Last Service: 01/20 - normal Recommendation: Every 2 years Many older people benefit from taking calcium and vitamin D supplements. Talk to your doctor about supplements. 4) Glaucoma screening Last service: Plan: 5) Cardiovascular Disease Screening Tests (Lipid Panel): Last service: Plan: Cholesterol, serum, total: HDL: Triglycerides: LDL: 6) Lung Screening & Counseling w/low dose CT Last service: Recommendation: Aged 50-80 years, who have a 20 pack-year smoking history and currently smoke or have quit within the past 15 years Plan: 7) Pre-diabetes screening: Recommendation: Last service: Finding: Plan: 8) Diabetes self-management training (diagnosed with diabetes) Last service: Recommendation: Plan: FEMALE ONLY 9) Breast cancer screening Last service: 01/20 Recommendation: Aged 50 74, once every two years Plan: FEMALE ONLY 10) Screening Pap Tests Last service: Recommendation: Plan: FEMALE ONLY 11) Screening Pelvic Exam (include clinical breast exam Last service: Recommendation: Plan: 12) Medical Nutritional therapy Diet recommendations may include: -Lots of vegetables and fruits -Fewer simple carbohydrates, fats and cholesterol -A moderate amount of protein and dairy Avoid: Artificial sweeteners, Soda, & Processed food. 13) Exercise counseling You should do 30 minutes of aerobic exercise for at least 5 days per week. Regular exercise can help: -Lower heart disease risk -Delay the onset of diabetes -Improve blood pressure, functional status and performance -Reduce the risk of falls and osteoporosis -Enhance mental health and cognitive function 14) Abdominal Aortic Aneurysm screening: . MALE ONLY 15) Prostate Cancer Screening Last service: Recommendation: Plan: 16) Hepatitis C Screening Last service: Recommendation: Plan: 17) Advance Directive discussed with patient. Patient verbalizes understanding and questions answered Plan: This exam was performed under the supervision of: Further consultation: All recommendations have been discussed thoroughly with the patient. Next Medicare Annual Wellness Visit will be due in 1 year. william Not available 12/30/2024 14:49:41 03/26/2025 03/26/2025 Please note this report was created using voice recognition/text compilation software with [employer] documentation services during the encounter with the patient; Please excuse any errors due to the papier mache molder process. [email or web address] Not available 03/26/2025 20:07:04 Plan of Treatment Reminders Order Date Submit Date Provider Last Modified By Organization Details Last Modified Time Details Appointments OV EST 20 2024 10:20A M Saleem Baptiste MD Not available Not available Not available Lab HbA1c (hemoglob in A1c), blood 2024 025 [facility], [facility], [place], [address], 03/26/2025 14:57:43 urinalysi s, dipstick 2023 024 william [facility] [address], [address], [place], [address], 10/08/2024 15:54:21 culture, urine 2023 024 CHRIS [facility], [address], [address], [place], [address], 2024 09:39:10 microalbu min/creat inine, mass ratio, urine 2023 024 CHRIS [facility], [address], [address], [place], [address], 2024 09:39:09 drug screen, 14 drugs (detectim ed), urine 2023 024 CHRIS [facility], [address], [address], [place], [address], 2024 09:39:08 HbA1c (hemoglob in A1c), blood 2023 024 [facility] [place], [address], [address], [place], [address], 03/21/2024 15:34:34 Referral None recorded. Procedures None recorded. Surgeries None recorded. Imaging MAMMO, screening , bilateral - Okay to obtain additiona l imaging if needed. 2024 025 [facility] (Centralized Scheduling), [address], [place], [address], 02/19/2025 09:06:15 DEXA, axial skeleton 2024 025 [facility] (Centralized Scheduling), [address], [place], [address], 02/19/2025 09:06:13 LDCT, chest, for lung cancer screening 2024 025 [facility] (Centralized Scheduling), [address], [place], [address], 01/24/2025 13:32:13 Medication Orders cilostazo l 100 mg tablet 2024 025 [facility], [address], [place], [id number], 12/24/2024 11:45:34 clopidogr el 75 mg tablet 2024 025 [facility], [address], [place], [id number], 12/24/2024 11:45:34 carvedilo l 6.25 mg tablet 2024 025 [facility] #, [address] [address] [address], [place], [id number], 12/24/2024 11:45:34 Basaglar KwikPen U-100 Insulin 100 unit/mL (3 mL) subcutane ous 2024 025 [facility] #, [address] [address] [address], [place], [id number], 03/26/2025 14:36:38 Farxiga 10 mg tablet 2024 025 [facility], [address] [address] [address], [place], [id number], 12/24/2024 12:18:36 escitalop olayinka 10 mg tablet 2024 025 [facility], [address], [place], [id number], 12/24/2024 12:18:53 ciproflox acin 500 mg tablet 2023 025 [id number], [address] [place], [id number], 12/24/2024 10:04:56 Basaglar KwikPen U-100 Insulin 100 unit/mL (3 mL) subcutane ous 2023 024 [facility] #[id number], [address], [id number], 03/26/2025 14:36:38 Basaglar KwikPen U-100 Insulin 100 unit/mL (3 mL) subcutane ous 2023 024 [facility] #[id number], [address], [id number], 03/26/2025 14:36:38 hydrochlo rothiazid e 12.5 mg tablet 2023 024 [facility][id number], [address], [id number], 03/21/2024 15:39:38 Patient TargetsNo targets recorded. Patient Instructions Encounter Date Encounter Id Patient Instructions Last Modified By Organization Details Last Modified Time 12/24/2024 [id number] advance directives: care instructions [email or web address] Not available 12/24/2024 12:20:23 well visit, over 65: care instructions [email or web address] Not available 12/24/2024 12:20:23 Health Maintenance Recommendations: (5-10 year screening/prevent ion plan) [email or web address] Not available 12/24/2024 09:55:49 Reason for Referral None Reported. Results Created Date Observation Date Name Description Value Unit Range Abnormal Flag Note LastModifiedBy Organization Detail LastModifiedTime 03/21/2003/21/2024 HbA1c (hemo globi n A1c), blood HbA1c 11.3 Not Available [facility] [place] [address], [place], [address], 03/21/2024 15:12:07 10/08/20 24 2024 COMPL IANCE DRUG GISEL SIS, UR summary report (summary) FINAL ===== ===== ===== ===== ===== ===== ===== ===== ===== ===== ===== ===== ===== === TOXAS SURE COMP DRUG GISEL SIS,U R ===== ===== ===== ===== ===== ===== ===== ===== ===== ===== ===== ===== ===== === Test Resul t Flag Units Drug Prese nt Alcoh ol, Ethyl >0.40 0 g/dL Sourc es of ethyl alcoh ol inclu de alcoh olic bever ages or as a ferme ntati on produ ct of gluco se; gluco se is prese nt in this speci men. The high iliana ntrat ion of ethyl alcoh ol and the prese nce of gluco se suppo rts ferme ntati on as the sourc e of ethyl alcoh ol in this speci men. Carbo xy-TH C 98 ng/mg creat Carbo xy-TH C is a metab olite of tetra hydro canna binol (THC) . Sourc e of THC is most commo nly herba l marij uana or marij uana- based produ cts, but THC is also prese nt in a sched uled presc ripti on medic ation . Trace amoun ts of THC can be prese nt in hemp and canna bidio l (CBD) produ cts. This test is not inten ded to disti nguis h betwe en delta -9-te trahy droca nnabi nol, the predo minan t form of THC in most herba l or marij uana- based produ cts, and delta -8-te trahy droca nnabi nol. Prega balin PRESE NT Napro xen PRESE NT ===== ===== ===== ===== ===== ===== ===== ===== ===== ===== ===== ===== ===== === Test Resul t Flag Units Ref Range Creat inine 46 mg/dL >=20 ===== ===== ===== ===== ===== ===== ===== ===== ===== ===== ===== ===== ===== === Decla red Medic ation s: Medic ation list was not provi ded. ===== ===== ===== ===== ===== ===== ===== ===== ===== ===== ===== ===== ===== === For clini leann consu ltati on, pleas e call [phone]. ===== ===== ===== ===== ===== ===== ===== ===== ===== ===== ===== ===== ===== === Not Available [facility] ([facility]) [address] [facility], [place], [address], 2024 09:39:08 10/08/20 24 2024 COMPL IANCE DRUG GISEL SIS, UR pdf . Not Available [facility] ([facility]) [address] [facility], [place], [address], 2024 09:39:08 10/08/20 24 10/09/2024 ALBUM IN/CR EAT RATIO , RANDO M UR creatinine, urine 47.9 mg/dL not estab. normal Not Available [facility] ([facility]) [address] [facility], [place], [address], 2024 09:39:09 10/08/20 24 10/09/2024 ALBUM IN/CR EAT RATIO , RANDO M UR albumin, urine 35.1 ug/mL not estab. Not Available [facility] ([facility]) [address] [facility], [place], [address], 2024 09:39:09 10/08/20 24 10/09/2024 ALBUM IN/CR EAT RATIO , RANDO M UR alb/creat ratio 73 mg/g_ creat 0-29 above high normal Shannan l: 0 - 29 Moder ately incre ased: 30 - 300 Sever liu incre ased: >300 Not Available [facility] ([facility]) [address] [facility], [place], [address], 2024 09:39:09 10/08/20 24 10/10/2024 URINE CULTU RESHARON NE urine culture, routine FINAL REPORT Not Available [facility] ([facility]) [address] [facility], [place], [address], 2024 09:39:10 10/08/20 24 10/10/2024 URINE CULTU RESHARON NE result 1 COMMEN T Mixed uroge nital anselmo 25,00 0-50, 000 colon y formi ng units per mL Not Available [facility] ([facility]) [address] [facility], [place], [address], 2024 09:39:10 10/08/20 24 10/08/2024 urina lysis , dipst ick Leukocytes (reference range) negati ve Not Available [facility] [address], [place], [address], 10/08/2024 15:27:02 12/09/20 24 10/08/2024 urina lysis , dipst ick Nitrite (reference range:) negati ve Not Available [facility] [address], [place], [address], 10/08/2024 15:27:02 10/08/20 24 10/08/2024 urina lysis , dipst ick Urobilinogen (reference range) 1 Not Available [facility] [address], [place], [address], 10/08/2024 15:27:02 10/08/20 24 10/08/2024 urina lysis , dipst ick Protein (reference range) negati ve Not Available [facility] [place], [place], [address], 10/08/2024 15:27:02 10/08/20 24 10/08/2024 urina lysis , dipst ick pH (reference range 5-8.5) 5.5 Not Available [facility] [address], [place], [address], 10/08/2024 15:27:02 10/08/20 24 10/08/2024 urina lysis , dipst ick Blood (reference range:) negati ve Not Available [facility] [address], [place], [address], 10/08/2024 15:27:02 10/08/20 24 10/08/2024 urina lysis , dipst ick Specific [place] (reference range) 1.020 Not Available [facility] [address], [place], [address], 10/08/2024 15:27:02 10/08/20 24 10/08/2024 urina lysis , dipst ick Ketone (reference range) negati ve Not Available [facility] [address], [place], [address], 10/08/2024 15:27:02 10/08/20 24 10/08/2024 urina lysis , dipst ick Bilirubin (reference range) negati ve Not Available [facility] [place], [place], [address], 10/08/2024 15:27:02 10/08/20 24 10/08/2024 urina lysis , dipst ick Glucose (reference range) 500 Not Available [facility] [address] [facility] [address], [place], [address], 10/08/2024 15:27:02 10/08/20 24 10/08/2024 urina lysis , dipst ick Color (reference range: yellow-brown ) Yellow Not Available [facility] [address] [facility] [address], [place], [address], 10/08/2024 15:27:02 03/26/20 25 03/26/2025 HbA1c (hemo globi n A1c), blood HbA1c 12.4 Not Available [facility] [address] [facility] [address], [place], [address], 03/26/2025 14:42:01 08/04/20 24 08/04/2024 CT, abdom en + pelvi s, w/ contr ast No observ ation record ed. [facility] [address], [place], [address], 08/05/2024 11:00:09 11/23/19 25 11/23/2024 XR, hip + pelvi s, unila teral , 2 or 3 view No observ ation record ed. [address], [place], [address], 11/26/2024 11:13:10 11/23/19 25 11/23/2024 XR, femur No observ ation record ed. [address], [place], [address], 11/26/2024 11:13:40 11/23/19 25 11/23/2024 XR, shoul rosalinda No observ ation record ed. [address], [place], [address], 11/26/2024 11:14:12 11/23/19 25 11/23/2024 XR, clavi john No observ ation record ed. [address], [place], [address], 11/26/2024 11:14:32 11/23/19 25 11/23/2024 XR, knee No observ ation record ed. [address], [place], [address], 11/26/2024 11:14:50 Result Notes None recorded. Problems Name Problem SNOMED Code Status Onset Date Resolution Date Notes Provider Name and Address Organization Details Recorded Time Coronary arterioscl erosis 85474959 Active Lucia Meade null, [place] [facility] [place] 16:27:21 Restless legs 65224157 Active Lucia Me[place] [facility] [place] 16:27:21 Arthritis 4543249 Active Lucia Me[place] [facility] [place] 16:27:21 Vertigo 637324141 Active Lucia Meade [place], [place] [facility] [place] 16:27:21 Recurrent major depression in remission 43594355 Active Lucia Vigilwell null, [place] - [facility] - [facility] & [place] 2 16:27:21 Glaucoma 75613769 Active Lucia Vigilwell null, [place] - [facility] - [facility] & [place] 2 16:27:21 Essential hypertensi on 97920783 Active Lucia Vigilwell null, [place] - [facility] - [facility] & [place] 2 16:27:21 Hypertrigl yceridemia 077277290 Active Lucia Vigilwell null, [place] - [facility] - [facility] & [place] 2 16:27:21 Hydronephr osis due to ureteral obstructio n Active Lucia Vigilwell null, [place] - [facility] - [facility] & [place] 2 16:27:21 Diabetes mellitus 11724750 Active Lucia Vigilwell null, [place] - [facility] - [facility] & [place] 2 16:27:21 Kidney stone 35471044 Active Lucia Vigilwell null, [place] - [facility] - [facility] & [place] 2 16:27:21 History of repair of hip joint 139467768 Active Lucia Vigilwell null, [place] - [facility] - [facility] & [place] 2 16:27:21 Gout 18374715 Active Lucia Vigilwell null, [place] - [facility] - [facility] & [place] 2 16:27:21 Tobacco dependence syndrome 54484820 Active Lucia Vigilwell null, [place] - [facility] - [facility] & [place] 2 16:27:21 Bilateral tinnitus 9590990633152 Active Lucia Vigilwell null, [place] - [facility] - [facility] & [place] 2 16:27:21 Insomnia 316280847 Active Lucia Vigilwell null, [place] - [facility] - [facility] & [place] 2 16:27:21 Long-term current use of anticoagul ant 271696480 Active Lucia Halina null, [place] [facility] [place] 16:27:21 Peripheral neuropathy due to type 2 diabetes mellitus 6629685250575 Active Lucia Halina null, [place] - [facility] - [facility] & [place] 2 16:27:21 Ureteric stone 60835186 Active Lucia Meade null, [place] [facility] - [facility] & [place] 2 16:27:21 Osteoarthr itis of hip 709301403 Active Lucia Vigilwell null[place] [facility] - & [place] 2 16:27:21 Hyperlipid emia 12937574 Active Lucia Vigilwell null, [place] [facility] - & [place] 2 16:27:21 Peripheral vascular disease 741459983 Active Lucia Halina null, [place] [facility] - [place] & [place] 2 16:27:21 Hypothyroi dism 78417696 Active Lucia Halina [place] [facility] - & [place] 2 16:27:21 Disorder due to type 2 diabetes mellitus 496695557 Active Lucia Vigilwell null, [place] [facility] - & [place] 2 16:27:21 Depressive disorder 49111240 Active 2022 Saleem Baptiste MD [address] [facility], [place], [address] , [place] - [facility] - [facility] & [place] 3 14:56:39 Osteoarthr itis 813883540 Active 2023 Graciela Son null, [place] - [facility] - [facility] & [place] 4 13:08:10 Problem Notes None recorded. Procedures Surgical History Date Name Laterality Status Provider Name and Address Organization Details Recorded Time 10/31/19 24 Other completed Crissy [place]maguer [place] [facility] [place] 08/16/2024 22:21:39 02/25/20 23 Feces-based colorectal cancer DNA screening completed Xiomara [place]r [place] [facility] [place] 03/07/2024 08:28:02 01/14/20 23 Most Recent Mammogram completed Xiomara [place]r [place] [facility] [place] 03/07/2024 08:27:17 01/14/20 23 bone density scan completed Cristal Herrera [place] [facility] & [place] 11/19/2024 08:35:27 08/12/20 21 completed Maria Del Rosario GONZALEZ [facility] & [place] 09/20/2022 14:41:54 04/05/20 15 Date of Last Pap Smear completed Maria Del Rosario GONZALEZ [facility] & [place] 09/20/2022 14:41:54 total replacement of hip completed Xiomara GONZALEZ [facility] & [place] 09/12/2023 10:43:00 Removal of ovarian cyst(s) completed Xiomara GONZALEZ [facility] & [place] 09/12/2023 10:43:09 extracorporeal shockwave lithotripsy of calculus of kidney completed Xiomara GONZALEZ [facility] & [place] 09/12/2023 10:43:21 open heart surgery completed Fam Orr [facility] & [place] 09/12/2023 10:43:49 coronary artery bypass graft completed Xiomara GONZALEZ [facility] & [place] 03/07/2024 08:31:56 Imaging Results None recorded. Procedure Notes None recorded. Medical Equipment None Reported. Allergies Allergen ID Allergen Name Allergen Category Reaction Reaction Severity Criticality Documentation Date Start Date Code Code System Note Provider Name and Address Organization Details Recorded Time 24458 atorvasta tin medicatio n Not available Not available Not available 07/14/2022 84462 RxNorm Pushpa sanchez, [place] [facility] & [place] 14:05:28 Medications Name Sig Start Date Stop Date Status Note LastModified by Organization Details LastModified Time fluconazole 100 mg tablet TAKE 1 TABLET BY MOUTH ONCE DAILY FOR 3 DAYS 12/24 completed Not Available Not Available Not Available cilostazol 100 mg tablet TAKE 1 TABLET BY MOUTH TWICE DAILY active Not Available Not Available No t Available carvedilol 6.25 mg tablet TAKE 1 TABLET BY MOUTH TWICE DAILY WITH FOOD/MEAL active Not Available Not Available No t Available trazodone 50 mg tablet TAKE 1 TABLET BY MOUTH AT BEDTIME NEEDED 09/24 completed Not Available Not Available Not Available fluconazole 150 mg tablet active Not Available Not Available Not Available valacyclovi r 1 gram tablet Take 1 tablet every day by oral route for 5 days. 12/24 completed Not Available Not Available Not Available phenazopyri dine 200 mg tablet TAKE 1 TABLET BY MOUTH EVERY 8 HOURS FOR 2 DAYS 12/23 completed Not Available Not Available Not Available lisinopril 20 mg tablet 12/23 completed Not Available Not Available Not Available glipizide 10 mg tablet TAKE 1 TABLET BY MOUTH EVERY DAY active Not Available Not Available No t Available prednisone 20 mg tablet TAKE 1 TABLET BY MOUTH TWICE DAILY 09/17 completed Not Available Not Available Not Available clopidogrel 75 mg tablet TAKE 1 TABLET BY MOUTH EVERY DAY active Not Available Not Available No t Available simvastatin 80 mg tablet TAKE 1 TABLET BY MOUTH EVERY DAY IN THE EVENING active Not Available Not Available No t Available ciprofloxac in 500 mg tablet Take 1 tablet twice a day by oral route for 10 days. 12/24 completed Not Available Not Available Not Available sulfamethox azole 800 mg-trimetho prim 160 mg tablet TAKE 1 TABLET BY MOUTH TWICE DAILY FOR 5 DAYS 10/08 completed Not Available Not Available Not Available triamcinolo ne acetonide 0.1 % topical cream APPLY TOPICALLY TO THE AFFECTED AREA TWICE DAILY NEEDED FOR ITCHING 12/24 completed Not Available Not Available Not Available amitriptyli ne 25 mg tablet TAKE 1 TABLET BY MOUTH EVERY DAY AT BEDTIME 12/21 completed Not Available Not Available Not Available oxycodone-a cetaminophe n 10 mg-325 mg tablet TAKE 1 TABLET BY MOUTH THREE TIMES DAILY active Not Available Not Available No t Available trazodone 100 mg tablet TAKE 1 TABLET BY MOUTH AT BEDTIME NEEDED 09/24 completed Not Available Not Available Not Available [employer] Ultra Test strips USE DIRECTED TO TEST BLOOD SUGAR TWICE DAILY 2023 active Not Available Not Available Not Avai lable imiquimod 5 % topical cream packet APPLY SMALL AMOUNT TO EACH INDIVIDUA L WART EACH MORNING 06/20 completed Not Available Not Available Not Available benzonatate 100 mg capsule TAKE 1 CAPSULE BY MOUTH EVERY 8 HOURS NEEDED FOR COUGH 09/17 completed Not Available Not Available Not Available nystatin 100,000 unit/gram topical cream APPLY CREAM TOPICALLY TWICE DAILY FOR 7 DAYS 12/24 completed Not Available Not Available Not Available mupirocin 2 % topical ointment APPLY A SMALL AMOUNT TO THE AFFECTED AREA BY TOPICAL ROUTE THREE TIMES DAILY 03/21 completed Not Available Not Available Not Available nystatin 100,000 unit/gram topical powder APPLY POWDER TOPICALLY TWICE DAILY FOR 7 DAYS 12/24 completed Not Available Not Available Not Available methylpredn isolone 4 mg tablets in a dose pack TAKE BY MOUTH DIRECTED ON INSIDE OF PACKAGE 12/24 completed Not Available Not Available Not Available colchicine 0.6 mg tablet 12/21 completed Not Available Not Available Not Available ondansetron 4 mg disintegrat ing tablet DISSOLVE 1 TABLET ON THE TONGUE EVERY 8 HOURS NEEDED FOR NAUSEA 12/23 completed Not Available Not Available Not Available cefdinir 300 mg capsule TAKE 1 CAPSULE BY MOUTH TWICE DAILY FOR 10 DAYS 03/22 completed Not Available Not Available Not Available fluticasone propionate 50 mcg/actuati on nasal spray,suspe nsion ADMINISTE R 1 SPRAY IN EACH NOSTRIL DAILY 09/17 completed Not Available Not Available Not Available loratadine 10 mg tablet Take 1 tablet every day by oral route as needed for 30 days. 2024 active Not Available Not Available Not Avai lable amoxicillin 875 mg-potassiu m clavulanate 125 mg tablet TAKE 1 TABLET BY MOUTH TWICE DAILY FOR 10 DAYS 03/21 completed Not Available Not Available Not Available escitalopra m 10 mg tablet TAKE 1 TABLET BY MOUTH EVERY DAY active Not Available Not Available No t Available pregabalin 100 mg capsule TAKE 1 CAPSULE BY MOUTH TWICE DAILY active Not Available Not Available No t Available hydrochloro thiazide 12.5 mg tablet TAKE 1 TABLET BY MOUTH EVERY DAY NEEDED 2024 active Not Available Not Available Not Avai lable Lantus Solostar U-100 Insulin 100 unit/mL (3 mL) subcutaneou s pen Inject 75 units every day by subcutane ous route for 30 days. 03/26 completed Not Available Not Available Not Available diclofenac 1 % topical gel active Not Available Not Available Not Available Miconazole- 3 prefilled,c ream,wipes 4 %(200 mg)-2 %(9 gram) vaginal kit USE APPLICATO R AND INSERT SUPPOSITO RY VAGINALLY ONCE DAILY FOR 3 DAYS 10/08 completed Not Available Not Available Not Available Farxiga 10 mg tablet Take 1 tablet every day by oral route for 90 days. 2024 active Not Available Not Available Not Avai lable BD Sherry 2nd Gen Pen Needle 32 gauge x 5/32 USE DIRECTED FOR INSULIN INJECTION S 03/22 completed Not Available Not Available Not Available Semglee (insulin glargine-yf gn) Pen 100 unit/mL (3 mL) subcutaneou s INJECT 75 UNITS UNDER THE SKIN DIRECTED IN THE EVENING FOR 30 DAYS active Not Available Not Available No t Available Vitals Date Recorded Body height Body mass index (BMI) Body weight Body temperature Heart rate Systolic blood pressure Diastolic blood pressure Provider Name and Address Organization Details Last Updated DateTime 5 160.02 cm 30.1 kg/m2 91170.7 g 97 [degF] 81 /min 146 mm[Hg] 84 mm[Hg] Dianna Sauer [facility] [place] 5 09:56:31 Date Recorded Body height Body mass index (BMI) Body weight Body temperature Heart rate Systolic blood pressure Diastolic blood pressure Provider Name and Address Organization Details Last Updated DateTime 4 160.02 cm 29.6 kg/m2 09346.6 3 g 96.9 [degF] 77 /min 124 mm[Hg] 74 mm[Hg] Apurva Alejandra [facility] [place] 4 14:22:56 Date Recorded Body height Body mass index (BMI) Body weight Heart rate Systolic blood pressure Diastolic blood pressure Provider Name and Address Organization Details Last Updated DateTime 5 160.02 cm 30.9 kg/m2 01026.4 7 g 69 /min 147 mm[Hg] 85 mm[Hg] Maria Del Rosario Morrison [facility] [place] 5 14:09:50 Date Recorded Body height Body mass index (BMI) Body weight Heart rate Systolic blood pressure Diastolic blood pressure Provider Name and Address Organization Details Last Updated DateTime 4 160.02 cm 29.1 kg/m2 53215.9 5 g 59 /min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
--- OUTSIDE RECORDS SUMMARY | 2025-03-30 15:27 | XMS_ITS | Continuity of Care Document ---
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 william Not available 03/26/2025 20:07:04 Plan of Treatment Reminders Order Date Submit Date Provider Last Modified By Organization Details Last Modified Time Details Appointments OV EST 20 025 10:20AM Saleem Baptiste MD Not available Not available Not available Lab HbA1c (hemogl obin A1c), blood 025 025 [facility], [address], [address], [place], [address], 03/26/2025 14:57:43 Referral None recorde d. Procedures None recorde d. Surgeries None recorde d. Imaging None recorde d. Medication Orders None recorde d. Patient TargetsNo targets recorded. Patient InstructionsNo instructions recorded. Reason for Referral None Reported. Results Created Date Observation Date Name Description Value Unit Range Abnormal Flag Note LastModifiedBy Organization Detail LastModifiedTime 03/26/20 25 03/26/2025 HbA1c (hemo globi n A1c), blood HbA1c 12.4 Not Available [facility] [address], [place], [address], 03/26/2025 14:42:01 Result Notes None recorded. Problems Name Problem SNOMED Code Status Onset Date Resolution Date Notes Provider Name and Address Organization Details Recorded Time Coronary arterioscl erosis 08167308 Active Lucia Halina null, [place] - [facility] - [facility] & [place] 2 16:27:21 Restless legs 84039829 Active Lucia Halina null, [place] - [facility] & [place] 2 16:27:21 Arthritis 5897917 Active Lucia Halina null, [place] [facility] & [place] 2 16:27:21 Vertigo 677770789 Active Lucia Halina null, [place] - [facility] & [place] 2 16:27:21 Recurrent major depression in remission 38975348 Active Lucia Halina null, [place] - [facility] - [facility] & 2 16:27:21 Glaucoma 37585186 Active Lucia Halina null, [place] - [facility] & 2 16:27:21 Essential hypertensi on 23726390 Active Lucia Halina null, [place] - [facility] - [facility] & 2 16:27:21 Hypertrigl yceridemia 223534131 Active Lucia Halina null, [place] - [facility] - & 2 16:27:21 Hydronephr osis due to ureteral obstructio n Active Lucia Halina null, [place] - [facility] & 2 16:27:21 Diabetes mellitus 66643308 Active Lucia Halina null, [place] - [facility] & 2 16:27:21 Kidney stone 51037512 Active Lucia Halina null, [place] - [facility] & [place] 2 16:27:21 History of repair of hip joint 517479766 Active Lucia Halina null, [place] - [facility] & [place] 2 16:27:21 Gout 48305230 Active Lucia Vigilwell null, [place] - [facility] - [facility] & [place] 2 16:27:21 Tobacco dependence syndrome 45451198 Active Lucia Vigilwell null, [place] - [facility] & [place] 2 16:27:21 Bilateral tinnitus 9093067495004 Active Lucia Vigilwell null, [place] - [facility] - [facility] & [place] 2 16:27:21 Insomnia 694622301 Active Lucia Vigilwell null, [place] - [facility] - [facility] & [place] 2 16:27:21 Long-term current use of anticoagul ant 264089994 Active Lucia Meade null, [place] - [facility] - [facility] & [place] 2 16:27:21 Peripheral neuropathy due to type 2 diabetes mellitus 3722387537236 Active Lucia Vigilwell null, [place] - [facility] - [facility] & [place] 2 16:27:21 Ureteric stone 95389122 Active Lucia Vigilwell null, [place] - [facility] & [place] 2 16:27:21 Osteoarthr itis of hip 766194181 Active Lucia Vigilwell null, [place] - [facility] - [facility] & [place] 2 16:27:21 Hyperlipid emia 82133016 Active Lucia Vigilwell null, [place] - [facility] - [facility] & [place] 2 16:27:21 Peripheral vascular disease 948991105 Active Lucia Vigilwell null, [place] - [facility] - [facility] & [place] 2 16:27:21 Hypothyroi dism 49887340 Active Lucia Vigilwell null, [place] - [facility] & 2 16:27:21 Disorder due to type 2 diabetes mellitus 705260851 Active Lucia Vigilwell null, [place] - [facility] - [facility] & [place] 2 16:27:21 Depressive disorder 30980105 Active 2022 Saleem Baptiste MD [address], [place], [address] , [place] - [facility] [place] & [place] 3 14:56:39 Osteoarthr itis 525467348 Active 2023 Graciela sanchez, [place] - [facility] & [place] 4 13:08:10 Problem Notes None recorded. Procedures Surgical History Date Name Laterality Status Provider Name and Address Organization Details Recorded Time 10/31/19 24 Other completed Crissy GONZALEZ - [facility] & [place] 08/16/2024 22:21:39 02/25/20 23 Feces-based colorectal cancer DNA screening completed Xiomarageovanna Orr [place] - [facility] & [place] 03/07/2024 08:28:02 01/14/20 23 Most Recent Mammogram completed Xiomarageovanna Orr [place] - [facility] & [place] 03/07/2024 08:27:17 01/14/20 23 bone density scan completed Cristal Herrera [place] - [facility] & [place] 11/19/2024 08:35:27 08/12/20 21 completed Maria Del Rosario GONZALEZ - [facility] & [place] 09/20/2022 14:41:54 04/05/20 15 Date of Last Pap Smear completed Maria Del Rosario Morrison [place] - [facility] & [place] 09/20/2022 14:41:54 total replacement of hip completed Xiomarageovanna GONZALEZ - [facility] & [place] 09/12/2023 10:43:00 Removal of ovarian cyst(s) completed Xiomara GONZALEZ - [facility] & [place] 09/12/2023 10:43:09 extracorporeal shockwave lithotripsy of calculus of kidney completed Xiomarageovanna GONZALEZ - [facility] & [place] 09/12/2023 10:43:21 open heart surgery completed Fam GONZALEZ - [facility] & [place] 09/12/2023 10:43:49 coronary artery bypass graft completed Xiomara Orr [place] - [facility] & [place] 03/07/2024 08:31:56 Imaging Results None recorded. Procedure Notes None recorded. Medical Equipment None Reported. Allergies Allergen ID Allergen Name Allergen Category Reaction Reaction Severity Criticality Documentation Date Start Date Code Code System Note Provider Name and Address Organization Details Recorded Time 75056 atorvasta tin medicatio n Not available Not available Not available 07/14/2022 15211 RxNorm Pushpa sanchez, [place] - [facility] - [place] & [place] 3 14:05:28 Medications Name Sig Start Date Stop [...] completed Not Available Not Available Not Available Sens[employer] Ultra Test strips USE DIRECTED TO TEST [...] Updated DateTime 5 160.02 cm 30.9 kg/m2 65448.4 7 g 69 /min 147 mm[Hg] 85 mm[Hg] Maria Del Rosario Cardoso [facility] & [place] 5 14:09:50 Social History Question Answer Notes LastModified by Organizat ion Details LastModified Time Tobacco Smoking Status Current Every Day Smoker Maria Del Rosario Morrison null, [place] [facility] 09/20/2022 14:41:54 Do You Have An Advance [...] Bread, 1 Cup Of Whole-grain Or High-fiber Ggrdx-ez-dht Cereal, 1 2 Cup Of Cooked Cereal Such As Oatmeal, Or 1 2 Cup Of Cooked Brown Rice Or Whole Wheat Pasta.) 1-2 Servings Per Day Information not available 12/21/2022 In The Past 7 Days, How Many Servings Of Fried Or High-fat Foods Did You Typically Eat Each Day? (Examples Include Fried Chicken, Fried Fish, Small, Nepali [place], Potato Chips, [place] Chips, Doughnuts, Creamy Salad Dressings, And Foods [...] Past 7 Days, How Often Have You [place] Sleepy During The Daytime? Always Information not [...] Of Your Most Recent Tobacco Screening? 08/13/2024 [email or web address] Information not available 08/16/2024 What Is Your Current Pack Years? [email or web address] rs [email or web address] Information not available 11/19/2024 Do You Use [...] Functional Status Question Answer Note LastModified by Organizat ion Details LastModified Time Do you use any [...] Mental Status Question Answer Note LastModified by Organizat ion Details LastModified Time Do you feel stressed (tense, restless, nervous, or anxious, or unable to sleep at night)? [id number] Information not available 12/21/2022 Do you have [...] Stroke Y Kidney or Bladder Problems Y Hypothyroidism Y Depression Y High Cholesterol Y Heart Attack (IA) Y Heart Disease Y Hypertension Y Kidney Disease Y Gynecological History Statement/Question Response Date of Last Pap Smear 04/05/2015 Most Recent Mammogram 01/13/2023 08/12/2021 Sexually Active? N Obstetrics History GPAL:G 0 P 0 0 0 0 Immunizations Vaccine Type Date Status Note Provider Amaury vaughn and Address Organization Details Recorded Time COVID-19, mRNA, LNP-S, PF, 30 mcg/0.3 mL dose 01/13/2021 completed CARLOS Andrade - [facility] - [place] & [place] 12/21/2022 14:02:12 COVID-19, mRNA, LNP-S, PF, 30 mcg/0.3 mL dose 03/06/2021 completed Mary Anne Feliciano null, [place] - [facility] [place] & [place] 12/21/2022 14:02:12 COVID-19, mRNA, LNP-S, PF, 30 mcg/0.3 mL dose, tahira-sucrose 12/01/2021 completed Mary Anne Feliciano null, [place] - [facility] [place] & [place] 12/21/2022 14:02:12 Tdap 01/17/2019 completed Mary Anne Schneiderlette null, [place] - [facility] [place] & [place] 12/21/2022 14:02:12 Past Encounters Encounter ID Performer Location Encounter Start Date Encounter Closed Date Diagnosis/Indication Diagnosis SNOMED-CT Code Diagnosis ICD10 Code Diagnosis Note [id number] [facility] [address] [place] [address] 03/26/2025 13:53:55 03/26/2025 15:19:11 Peripheral neuropathy due to type 2 diabetes mellitus 4951361870 107 E11.42 HgbA1c has worsened. Recommend increasing [...] by Organization Details LastModified Time None Recorded Payers Encounter Date Sequence Insurance Name Policy Number Policy Sexton Covered Member ID Sexton Member ID Guarantor Name 03/26/2025 2 [employer] [place] (MEDICAID HMO) Marisol Cristela Alexandr [id number] Marisol Strange 03/26/2025 1 [employer] - DUAL ELIGIBLE (MEDICARE REPLACEMENT/ ADVANTAGE - HMO) Marisol Strange [id number] Marisol Strange Notes Date Note Type Note Provider Name and Address Organization Details Recorded Time 03/26/2025 text/html Marisol Srtange is a 69-year-old female who presents for [...] carbohydrates, particularly at night. Saleem Baptiste MD [address], [place], [address], [facility] - [place] - [place] & [place] 03/26/2025 20:07:58 OBGyn Episode No OBEpisode recorded.
--- NOTE | 2025-03-30 15:29 | HMH.EDGENADL ---
Discharge Plan Disposition Patient Disposition: Home, Self-Care Prescriptions Prescriptions: No Action prednisone 20 mg tablet 20 mg PO DAILY 3 Days Qty: 3 0RF cephalexin 500 mg capsule 500 mg PO BID 7 Days Qty: 14 0RF clopidogrel 75 mg tablet 75 mg PO ONCE cilostazol 100 mg tablet 100 mg PO BID Qty: 120 1RF Rx Instructions: Needs follow up appt. with cardiology. Thanks glipizide 10 tablet 10 mg PO DAILY aspirin 81 MG tablet,delayed release (DR/EC) 81 mg PO DAILY pregabalin 100 MG capsule 100 mg PO BID simvastatin 80 mg tablet 80 mg PO HS Patient Comments: TAKE 1 TABLET BY MOUTH EVERY DAY IN THE EVENING insulin glargine [Basaglar KwikPen U-100 Insulin] 100 unit/mL (3 mL) insulin pen 65 unit SQ HS Patient Comments: ADMINISTER 65 UNITS UNDER THE SKIN EVERY DAY hydrochlorothiazide 12.5 mg tablet 12.5 mg PO DAILYP PRN (Reason: Fluid) Patient Comments: TAKE 1 TABLET BY MOUTH EVERY DAY NEEDED diclofenac sodium 1 % gel 1 ea TOPICAL DAILY Patient Comments: APPLY A THIN LAYER TO AFFECTED AREA OF SKIN 1 TIME DAILY dapagliflozin propanediol [Farxiga] 10 mg tablet 10 mg PO DAILY Patient Comments: TAKE 1 TABLET BY MOUTH EVERY DAY oxycodone-acetaminophen 10-325 mg tablet 1 tab PO TID Patient Comments: TAKE 1 TABLET BY MOUTH THREE TIMES DAILY triamcinolone acetonide 0.1 % cream 1 applic topical BID PRN (Reason: itching) Qty: 30 1RF fluconazole 100 mg tablet 100 mg PO DAILY 3 Days Qty: 3 0RF Referrals Follow up/Referrals: Bridger Funez MD [Primary Care Provider, Medical] - See instructions Ellen Musa MD [Referring, Dermatology] - See instructions Activity Restrictions/Add. Instructions Additional Instructions/Restrictions: Your facial erythema/redness/malar rash is nonspecific. I do agree with antibiotics as this could be cellulitis but it is unlikely. This is not consistent with shingles given that it is bilateral. This could be numerous autoimmune/rheumatologic and other dermatologic conditions. I recommend you follow-up with dermatology. It will take 48 to 72 hours of antibiotic use to see improvement if it is an infection. Clinical Impressions Clinical Impression: Facial erythema, Malar rash Instructions Patient Instructions: DI for Skin Abscess Print Language Print Language: Swedish Discharge ED Provider: Geraldo Hodge General Adult HPI General Chief complaint: Skin/Abscess/Foreign Body Stated complaint: redness and swelling across face Time Seen by Provider: 03/30/25 15:18 Mode of Arrival: Ambulatory Source of Information: Patient Description of Symptoms (Recalled from ER Triage Doc. by RN): pt began getting right facial redness yesterday, pt states its puffy itching and eye is burning History of Present Illness HPI narrative: Patient is a 69-year-old female with a history of bilateral facial redness. Both cheeks and circumferentially around both eyes. No vesicular rashes from historical standpoint. No fevers or chills no other associated symptoms. No muscle weakness no history of any autoimmune disorders that she is aware of. She was recently started on antibiotics she is unsure of antibiotic from historical standpoint per chart review she is on Keflex and has only been on this for 1 day. Related Data Home Medications ?Medication ?Instructions ?Recorded ?Confirmed clopidogrel 75 mg tablet 75 mg PO ONCE Blood thinner 03/24/18 03/29/25 aspirin 81 mg tablet,delayed 81 mg PO DAILY CAD 03/27/18 03/29/25 release glipizide 10 mg tablet 10 mg PO DAILY DM 03/27/18 03/29/25 pregabalin 100 mg capsule 100 mg PO BID FIBROMYALGIA 03/27/18 03/29/25 insulin glargine 100 unit/mL (3 65 unit SQ HS 08/04/24 03/29/25 mL) subcutaneous pen (Basaglar KwikPen U-100 Insulin) simvastatin 80 mg tablet 80 mg PO HS 08/04/24 03/29/25 dapagliflozin propanediol 10 mg 10 mg PO DAILY 08/05/24 03/29/25 tablet (Farxiga) diclofenac sodium 1 % topical gel 1 ea topical DAILY 08/05/24 03/29/25 hydrochlorothiazide 12.5 mg tablet 12.5 mg PO DAILYP PRN Fluid 08/05/24 03/29/25 oxycodone-acetaminophen 10 mg-325 1 tab PO TID 08/05/24 03/29/25 mg tablet Previous Rx's ?Medication ?Instructions ?Recorded cilostazol 100 mg tablet 100 mg PO BID PAD #120 tabs 04/17/18 fluconazole 100 mg tablet 100 mg PO DAILY 3 days #3 tabs 11/11/24 triamcinolone acetonide 0.1 % 1 applic topical BID PRN itching 11/23/24 topical cream #30 grams cephalexin 500 mg capsule 500 mg PO BID 7 days #14 caps 03/29/25 prednisone 20 mg tablet 20 mg PO DAILY 3 days #3 tabs 03/29/25 Allergies Allergy/AdvReac Type Severity Reaction Status Date / Time No Known Allergies Allergy Verified 03/29/25 15:18 [facility] Disclaimer: The information contained in this section may have been updated after the patient was seen, as this information can be updated by other users. Medical History Paronychia Acute bronchitis Corneal abrasion, left Exposure to COVID-19 virus Kidney stone on left side Uses marijuana Diabetes Left foot pain Tachycardia Smoking SOB (shortness of breath) PAD (peripheral artery disease) HLD (hyperlipidemia) HHD (hypertensive heart disease) CAD (coronary artery disease) Social History Smoking Status: Current every day smoker tobacco type: cigarettes packs per day: 1 alcohol intake: never substance use type: marijuana current occupational status: disabled Travel in the last 8 weeks?: None household members: children housing: apartment current occupational exposures/hazards: No caffeine: Yes Have you lived/traveled outside US in past 30 days?: No Contact w/someone who lives/traveled outside US past 30 days?: No Exposure to someone with infectious disease in past 14 days?: No Do you have a fever (greater than 100.4 F or 38 C)?: No Have you tested positive for COVID-19?: No Exposed to someone with COVID-19 in past 14 days?: No Do you have a sore throat?: No Do you have a cough?: No Do you have any weakness?: No Do you have any diarrhea?: No Are you experiencing any unusual bleeding?: No Do you have any muscle aches/pain?: No Do you have any abdominal pain?: No Are you experiencing loss of taste or smell?: No Other Medical History Have you received the Flu Vaccine for this season: No Have you received the Pneumonia Vaccine: No ROS Obtained: Yes All systems reviewed & no additional complaints except as documented Physical Exam General General appearance: alert Expanded Head Exam Head image:  1. Erythematous patch 20-30 vesicular lesions no ocular involvement Respiratory Respiratory exam: Present normal lung sounds bilaterally Cardiovascular Cardiovascular exam: Present regular rate Neurological Exam Neurological exam: Present alert Medical Decision Making Medical Records Screening: Per USPSTF and CDC recommendations, given the prevalence of disease in our region, it is our hospital?s policy to screen for HIV and viral Hepatitis for all patients aged 18 and over and those with ongoing risk factors. Donnie Inquiry Pt receiving controlled substance: No Vital Signs: 03/30/25 15:10 Temperature 98.2 F Temperature Source Oral Pulse Rate [Left Radial] 95 H Respiratory Rate 20 Blood Pressure [Right Arm] 99/75 L Blood Pressure Mean [Right Arm] 83 02 Sat by Pulse Oximetry 95 Oxygen Delivery Method Room Air Medical Decision Narrative: Nontoxic 69-year-old female in today with 2 days of bilateral rash on the malar region of her face. Differential is broad and includes autoimmune conditions etc. She has been started on antibiotics possible cellulitis but unlikely she is only 24 hours which is an long time to see if there is any significant symptomatic improvement. This is not consistent with shingles. She has been given a referral dermatology. Suspicion that she has no further emergent medical intervention needed she is has been advised to follow-up with dermatology. Critical Care Critical Care Time Critical Care Time: No
[2025-03-30 15:37] VITALS: BP 104/61; PULSE 95; RESP 20; TEMP 36.8; O2SAT 93
== END 2025-03-30 15:38 | disposition home or self-care (01) ==
PROVIDERS: Emergency Provider Emergency Medicine; PCP Pediatrics
DX: R21 Rash and other nonspecific skin eruption (principal); L53.9 Erythematous condition, unspecified
CPT/HCPCS: 99282

== ENCOUNTER 2025-06-10 12:21 | Emergency (ER) | payer MEDICARE, SELFPAY ==
[2025-06-10 12:37] VITALS: BP 146/70; PULSE 83; O2SAT 94
--- NOTE | 2025-06-10 12:39 | CT_ITS ---
FINAL REPORT TECHNIQUE: Axial images through the abdomen and pelvis were performed without contrast.This study was performed with techniques to keep radiation doses as low as reasonably achievable, (ALARA). Individualized dose reduction techniques using automated exposure control or adjustment of mA and/or kV according to the patient's size were employed. CLINICAL HISTORY: Left sided flank and LLQ abd pain /hx stones COMPARISON: 08/04/2024 FINDINGS: ABDOMEN: The lung bases are clear. The heart size is normal. Limited images of the liver demonstrate fatty infiltration. Patient is status postcholecystectomy. The spleen is normal. No adrenal mass is identified. The aorta is normal in caliber. There is no significant free fluid or adenopathy. There is no nephrolithiasis. There is no hydronephrosis. There is a nodule in the upper pole of the left kidney likely representing a small, complex cyst measuring up to 8 mm. Bowel is unremarkable. PELVIS: Pelvic bowel loops are unremarkable. There is pelvic floor prolapse. There are no inflammatory changes seen. Uterus is partially obscured by unopacified bowel. Streak artifact is present from the left hip arthroplasty which obscures the lower pelvis. The appendix is not identified. The urinary bladder is unremarkable. There is no significant free fluid or adenopathy. IMPRESSION: No acute findings. Reviewed, Interpreted and Dictated by Macey Galan MD Transcribed by Em Gongora Authenticated and . [facility]
[2025-06-10 12:42] VITALS: BP 146/70; PULSE 79; RESP 15; TEMP 36.4; O2SAT 95; BMI 29.2
--- NOTE | 2025-06-10 12:42 | ED_ITS ---
Discharge Plan Disposition Patient Disposition: Home, Self-Care Prescriptions Prescriptions: No Action prednisone 20 mg tablet 20 mg PO DAILY 3 Days Qty: 3 0RF cephalexin 500 mg capsule 500 mg PO BID 7 Days Qty: 14 0RF clopidogrel 75 mg tablet 75 mg PO ONCE cilostazol 100 mg tablet 100 mg PO BID Qty: 120 1RF Rx Instructions: Needs follow up appt. with cardiology. Thanks glipizide 10 tablet 10 mg PO DAILY aspirin 81 MG tablet,delayed release (DR/EC) 81 mg PO DAILY pregabalin 100 MG capsule 100 mg PO BID simvastatin 80 mg tablet 80 mg PO HS Patient Comments: TAKE 1 TABLET BY MOUTH EVERY DAY IN THE EVENING insulin glargine [Basaglar KwikPen U-100 Insulin] 100 unit/mL (3 mL) insulin pen 65 unit SQ HS Patient Comments: ADMINISTER 65 UNITS UNDER THE SKIN EVERY DAY hydrochlorothiazide 12.5 mg tablet 12.5 mg PO DAILYP PRN (Reason: Fluid) Patient Comments: TAKE 1 TABLET BY MOUTH EVERY DAY NEEDED diclofenac sodium 1 % gel 1 ea TOPICAL DAILY Patient Comments: APPLY A THIN LAYER TO AFFECTED AREA OF SKIN 1 TIME DAILY dapagliflozin propanediol [Farxiga] 10 mg tablet 10 mg PO DAILY Patient Comments: TAKE 1 TABLET BY MOUTH EVERY DAY oxycodone-acetaminophen 10-325 mg tablet 1 tab PO TID Patient Comments: TAKE 1 TABLET BY MOUTH THREE TIMES DAILY triamcinolone acetonide 0.1 % cream 1 applic topical BID PRN (Reason: itching) Qty: 30 1RF fluconazole 100 mg tablet 100 mg PO DAILY 3 Days Qty: 3 0RF Referrals Follow up/Referrals: Bridger Funez MD [Primary Care Provider, Medical] - See instructions Activity Restrictions/Add. Instructions Additional Instructions/Restrictions: Today you were evaluated in the emergency department, your lab work was overall unremarkable other than your glucose was high. Please continue to check this closely and follow-up with your PCP. Take acetaminophen and ibuprofen [id number] as directed for your back pain. Return to the ED for any worsening of your condition. Clinical Impressions Clinical Impression: Back pain Instructions Patient Instructions: Low Back Pain Print Language Print Language: [place] Discharge ED Provider: Antonio Baltazar General Adult HPI <Ирина Day APRN - Last Filed: 06/10/25 15:06> General Chief complaint: Urogenital-Female Stated complaint: Pain from kidney stone Time Seen by Provider: 06/10/25 12:34 History of Present Illness HPI narrative: patient is a 69-year-old female PMHx diabetes, LA, HLD, hypertensive heart disease, CAD, smoking, kidney stones who presents to the ED for complaints of left flank and left lower quadrant abdominal pain that started Tuesday. Patient states this feels like her normal kidney stone pain however pain is not improving. Related Data Home Medications ?Medication ?Instructions ?Recorded ?Confirmed clopidogrel 75 mg tablet 75 mg PO ONCE Blood thinner 03/24/18 03/29/25 aspirin 81 mg tablet,delayed 81 mg PO DAILY CAD 03/29/25 release glipizide 10 mg tablet 10 mg PO DAILY DM 03/27/18 0 03/29/25 pregabalin 100 mg capsule 100 mg PO BID FIBROMYALGIA 0 03/27/18 03/29/25 insulin glargine 100 unit/mL (3 65 unit SQ HS 08/04/24 03/29/25 mL) subcutaneous pen ([employer] KwikPen U-100 Insulin) simvastatin 80 mg tablet 80 mg PO HS 08/04/24 5 dapagliflozin propanediol 10 mg 10 mg PO DAILY 4 03/29/25 tablet (Farxiga) diclofenac sodium 1 % topical gel 1 ea topical DAILY 1 03/29/25 hydrochlorothiazide 12.5 mg tablet 12.5 mg PO DAILYP P RN Fluid 08/05/24 03/29/25 oxycodone-acetaminophen 10 mg-325 1 tab PO TID 4 03/29/25 mg tablet Previous Rx's ?Medication ?Instructions ?Recorded cilostazol 100 mg tablet 100 mg PO BID PAD #120 tabs 04/17/18 fluconazole 100 mg tablet 100 mg PO DAILY 3 days #3 ta bs 11/11/24 triamcinolone acetonide 0.1 % 1 applic topical BID PRN itching 11/23/24 topical cream #30 grams cephalexin 500 mg capsule 500 mg PO BID 7 days #14 cap s 03/29/25 prednisone 20 mg tablet 20 mg PO DAILY 3 days #3 tab s 03/29/25 Allergies Allergy/AdvReac Type Severity Reaction Status Date / Time No Known Allergies Allergy Verified 03/29/25 15:18 PFSH <Ирина Day APRN - Last Filed: 06/10/25 15:06> [facility] Disclaimer: The information contained in this section may have been updated after the patient was seen, as this information can be updated by other users. Medical History Paronychia Acute bronchitis Corneal abrasion, left Exposure to COVID-19 virus Kidney stone on left side Uses marijuana Diabetes Left foot pain Tachycardia Smoking SOB (shortness of breath) PAD (peripheral artery disease) HLD (hyperlipidemia) HHD (hypertensive heart disease) CAD (coronary artery disease) Social History Smoking Status: Current every day smoker tobacco type: cigarettes packs per day: 1 alcohol intake: never substance use type: marijuana current occupational status: disabled Travel in the last 8 weeks?: None household members: children housing: apartment current occupational exposures/hazards: No caffeine: Yes Have you lived/traveled outside [place] in past 30 days?: No Contact w/someone who lives/traveled outside US past 30 days?: No Exposure to someone with infectious disease in past 14 days?: No Do you have a fever (greater than 100.4 F or 38 C)?: No Have you tested positive for COVID-19?: No Exposed to someone with COVID-19 in past 14 days?: No Do you have a sore throat?: No Do you have a cough?: No Do you have any weakness?: No Do you have any diarrhea?: No Are you experiencing any unusual bleeding?: No Do you have any muscle aches/pain?: Yes Do you have any abdominal pain?: Yes Are you experiencing loss of taste or smell?: No Other Medical History Have you received the Flu Vaccine for this season: No Have you received the Pneumonia Vaccine: No <Ирина Day APRN - Last Filed: 06/10/25 15:06> ROS Obtained: Yes Systems reviewed as appropriate & no additional complaints except as documented Physical Exam <Ирина Day APRN - Last Filed: 06/10/25 15:06> General General appearance: alert Head Head exam: atraumatic Neck Neck exam: Present full ROM Respiratory Respiratory exam: Present normal lung sounds bilaterally Cardiovascular Cardiovascular exam: Present regular rate Abdominal Exam Abdominal exam: Present soft and tenderness (llq) Back Exam Back exam: Present CVA tenderness (L) Neurological Exam Neurological exam: Present alert and oriented X3 Skin Skin exam: Present warm and dry Medical Decision Making <Ирина Day APRN - Last Filed: 06/10/25 15:06> Medical Records Screening: Per USPSTF and CDC recommendations, given the prevalence of disease in our region, it is our hospital?s policy to screen for HIV and viral Hepatitis for all patients aged 18 and over and those with ongoing risk factors. Donnie Inquiry Pt receiving controlled substance: No Vital Signs: 06/10/25 12:37 06/10/25 12:42 06/10/25 13:01 Temperature 97.5 F L Temperature Source Oral Pulse Rate 83 71 Pulse Rate [Right Radial] 79 Respiratory Rate 15 Blood Pressure 146/70 H 127/95 H Blood Pressure [Right Arm] 146/70 H Blood Pressure Mean [Right Arm] 95 Blood Pressure Source Blood Pressure Source [Right Arm] Automatic Cuff Blood Pressure Position Blood Pressure Position [Right Arm] Supine 02 Sat by Pulse Oximetry 94 L 95 88 L Oxygen Delivery Method Room Air 06/10/25 13:31 06/10/25 14:00 06/10/25 14:50 Temperature 98.1 F Temperature Source Oral Pulse Rate 85 83 64 Pulse Rate [Right Radial] Respiratory Rate 16 Blood Pressure 112/55 L 101/59 L 108/58 L Blood Pressure [Right Arm] Blood Pressure Mean [Right Arm] Blood Pressure Source Automatic Cuff Blood Pressure Source [Right Arm] Blood Pressure Position Supine Blood Pressure Position [Right Arm] 02 Sat by Pulse Oximetry 88 L 88 L Oxygen Delivery Method Room Air Lab Data Lab Results 06/10/25 12:36: Urine Color Yellow, Urine Appearance Clear, Urine pH 6.0, Ur Specific [place] 1.020, Urine Protein Negative, Urine Glucose (UA) 3+, Urine Ketones Trace, Urine Blood Negative, Urine Nitrate Negative, Urine Bilirubin Negative, Urine Urobilinogen 0.2, Ur Leukocyte Esterase Negative, Urine RBC None, Urine WBC Occasional, Ur Squamous Epith Cells 3-5, Other Crystals Not Reportable, Urine Bacteria Trace, Urine Yeast 1+ 06/10/25 12:45: WBC 7.5, RBC 5.27, Hgb 16.9 H, Hct 49.4 H, MCV 93.7, MCH 32.1 H, MCHC 34.2, RDW 14.8, Plt Count 167, MPV 10.0, Neut % (Auto) 68.0, Lymph % (Auto) 25.0, [place] % (Auto) 3.9, Eos % (Auto) 2.1, Baso % (Auto) 0.7, Neut # (Auto) 5.1, Lymph # (Auto) 1.9, [facility] # (Auto) 0.3, Eos # (Auto) 0.2, Baso # (Auto) 0.1, Sodium 136, Potassium 3.7, Chloride 102, Carbon Dioxide 25, Anion Gap 12.7, BUN 11, Creatinine 0.40 L, Estimated Creat Clear 62, Estimated GFR 158, Est GFR ( Amer) 191, Glucose 415 H*, Calcium 9.0, Total Bilirubin 1.3, AST 31, ALT 24, Alkaline Phosphatase 110, Total Protein 7.0, Albumin 4.4, Globulin 2.6, Albumin/Globulin Ratio 1.7 06/10/25 14:12: VBG pH 7.37, VBG pCO2 43.4, VBG pO2 55.9 H, VBG HCO3 24.5, VBG Total CO2 25.8, VBG O2 Saturation 88.6 H, VBG Base Excess -0.8, VBG Lactic Acid 1.9 06/10/25 12:45 06/10/25 12:45 Orders (Tests/Meds): ED MEDICATIONS Discontinued Medications Generic Name Dose Route Start Last Admin Trade Name Freq PRN Reason Stop Dose Admin Ketorolac Tromethamine 15 mg 06/10/25 12:41 06/10/25 12:54 Ketorolac 30mg/Ml Vial IV 06/10/25 12:42 15 mg ONCE ONE Administration Ondansetron HCl 4 mg 06/10/25 12:41 06/10/25 12:54 Ondansetron 4mg/2ml Vial IV 06/10/25 12:42 4 mg ONCE ONE Administration ORDERS Category Date Time Status CT abdomen pelvis wo con Stat Cat Scan 06/10/25 12:39 Completed CBC w/Auto Diff [Complete Blood Count Auto Diff] Stat Lab 06/10/25 12:45 Completed CMP [Comprehensive Metabolic Panel] Stat Lab 06/10/25 12:45 Completed Urinalysis and Microscopic Stat Lab 06/10/25 12:36 Completed VBG [Venous Blood Gas] Stat RT 06/10/25 14:12 Completed Medical Decision Narrative: In summary, patient is a 69-year-old female PMHx diabetes, [place], HLD, hypertensive heart disease, CAD, smoking, kidney stones who presents to the ED for complaints of left flank and left lower quadrant abdominal pain that started Tuesday. Patient states this feels like her normal kidney stone pain however pain is not improving. Patient states the pain is intermittent. Has not had anything for pain relief recently. Denies fever, chills, body aches, headache, chest pain, shortness of breath, dysuria, hematuria. Upon initial evaluation patient is alert, oriented and cooperative. She is hemodynamically stable. Physical exam remarkable for left-sided CVA tenderness, mild left lower quadrant tenderness upon palpation. Abdomen is soft. Differential diagnosis include UTI, pyelonephritis, renal calculi, obstructive stone, among others. Will proceed with Toradol, Zofran, labs and CT scan. Labs reviewed. CBC unremarkable for any leukocytosis, stable H&H. CMP unremarkable other than glucose 415. VBG obtained. CT of the abdomen pelvis unremarkable for any acute findings, patient noted to have a nodule in the upper pole of the left kidney likely representing a small complex cyst measuring up to 8 mm. I discussed this with patient. Upon reassessment, patient states her condition has improved. She remains hemodynamically stable in the ED. We discussed that her pain may be coming from her SI joint as she seems to be tender over this area. Discussed with her she will need to follow-up with her PCP within 24 hours. We discussed very strict return precautions to the ED. Advised her to take acetaminophen ibuprofen [id number] for symptomatic relief. Patient and family member verbalized understanding. <Antonio Baltazar MD - Last Filed: 06/10/25 19:20> Vital Signs: 06/10/25 12:37 06/10/25 12:42 06/10/25 13:01 Temperature 97.5 F L Temperature Source Oral Pulse Rate 83 71 Pulse Rate [Right Radial] 79 Respiratory Rate 15 Blood Pressure 146/70 H 127/95 H Blood Pressure [Right Arm] 146/70 H Blood Pressure Mean [Right Arm] 95 Blood Pressure Source Blood Pressure Source [Right Arm] Automatic Cuff Blood Pressure Position Blood Pressure Position [Right Arm] Supine 02 Sat by Pulse Oximetry 94 L 95 88 L Oxygen Delivery Method Room Air 06/10/25 13:31 06/10/25 14:00 06/10/25 14:50 Temperature 98.1 F Temperature Source Oral Pulse Rate 85 83 64 Pulse Rate [Right Radial] Respiratory Rate 16 Blood Pressure 112/55 L 101/59 L 108/58 L Blood Pressure [Right Arm] Blood Pressure Mean [Right Arm] Blood Pressure Source Automatic Cuff Blood Pressure Source [Right Arm] Blood Pressure Position Supine Blood Pressure Position [Right Arm] 02 Sat by Pulse Oximetry 88 L 88 L Oxygen Delivery Method Room Air Lab Data Lab Results 06/10/25 12:36: Urine Color Yellow, Urine Appearance Clear, Urine pH 6.0, Ur Specific [place] 1.020, Urine Protein Negative, Urine Glucose (UA) 3+, Urine Ketones Trace, Urine Blood Negative, Urine Nitrate Negative, Urine Bilirubin Negative, Urine Urobilinogen 0.2, Ur Leukocyte Esterase Negative, Urine RBC None, Urine WBC Occasional, Ur Squamous Epith Cells 3-5, Other Crystals Not Reportable, Urine Bacteria Trace, Urine Yeast 1+ 06/10/25 12:45: WBC 7.5, RBC 5.27, Hgb 16.9 H, Hct 49.4 H, MCV 93.7, MCH 32.1 H, MCHC 34.2, RDW 14.8, Plt Count 167, MPV 10.0, Neut % (Auto) 68.0, Lymph % (Auto) 25.0, [facility] % (Auto) 3.9, Eos % (Auto) 2.1, Baso % (Auto) 0.7, Neut # (Auto) 5.1, Lymph # (Auto) 1.9, [facility] # (Auto) 0.3, Eos # (Auto) 0.2, Baso # (Auto) 0.1, Sodium 136, Potassium 3.7, Chloride 102, Carbon Dioxide 25, Anion Gap 12.7, BUN 11, Creatinine 0.40 L, Estimated Creat Clear 62, Estimated GFR 158, Est GFR ( Amer) 191, Glucose 415 H*, Calcium 9.0, Total Bilirubin 1.3, AST 31, ALT 24, Alkaline Phosphatase 110, Total Protein 7.0, Albumin 4.4, Globulin 2.6, Albumin/Globulin Ratio 1.7 06/10/25 14:12: VBG pH 7.37, VBG pCO2 43.4, VBG pO2 55.9 H, VBG HCO3 24.5, VBG Total CO2 25.8, VBG O2 Saturation 88.6 H, VBG Base Excess -0.8, VBG Lactic Acid 1.9 Orders (Tests/Meds): ED MEDICATIONS Discontinued Medications Generic Name Dose Route Start Last Admin Trade Name Jeffq PRN Reason Stop Dose Admin Ketorolac Tromethamine 15 mg 06/10/25 12:41 06/10/25 12:54 Ketorolac 30mg/Ml Vial IV 06/10/25 12:42 15 mg ONCE ONE Administration Ondansetron HCl 4 mg 06/10/25 12:41 06/10/25 12:54 Ondansetron 4mg/2ml Vial IV 06/10/25 12:42 4 mg ONCE ONE Administration ORDERS Category Date Time Status CT abdomen pelvis wo con Stat Cat Scan 06/10/25 12:39 Completed CBC w/Auto Diff [Complete Blood Count Auto Diff] Stat Lab 06/10/25 12:45 Completed CMP [Comprehensive Metabolic Panel] Stat Lab 06/10/25 12:45 Completed Urinalysis and Microscopic Stat Lab 06/10/25 12:36 Completed VBG [Venous Blood Gas] Stat RT 06/10/25 14:12 Completed Medical Decision Narrative: In summary, patient is a 69-year-old female PMHx diabetes, [place], HLD, hypertensive heart disease, CAD, smoking, kidney stones who presents to the ED for complaints of left flank and left lower quadrant abdominal pain that started Tuesday. Patient states this feels like her normal kidney stone pain however pain is not improving. Patient states the pain is intermittent. Has not had anything for pain relief recently. Denies fever, chills, body aches, headache, chest pain, shortness of breath, dysuria, hematuria. Upon initial evaluation patient is alert, oriented and cooperative. She is hemodynamically stable. Physical exam remarkable for left-sided CVA tenderness, mild left lower quadrant tenderness upon palpation. Abdomen is soft. Differential diagnosis include UTI, pyelonephritis, renal calculi, obstructive stone, among others. Will proceed with Toradol, Zofran, labs and CT scan. Labs reviewed. CBC unremarkable for any leukocytosis, stable H&H. CMP unremarkable other than glucose 415. VBG obtained. CT of the abdomen pelvis unremarkable for any acute findings, patient noted to have a nodule in the upper pole of the left kidney likely representing a small complex cyst measuring up to 8 mm. I discussed this with patient. Upon reassessment, patient states her condition has improved. She remains hemodynamically stable in the ED. We discussed that her pain may be coming from her SI joint as she seems to be tender over this area. Discussed with her she will need to follow-up with her PCP within 24 hours. We discussed very strict return precautions to the ED. Advised her to take acetaminophen ibuprofen [id number] for symptomatic relief. Patient and family member verbalized understanding. I was consulted by the PERLA, and we discussed the complexity of the problems being addressed. I approve the treatment and management plan for this patient's care in the emergency department, thus performing a substantive portion of the medical decision making. Patient's workup has been unremarkable for any acute pathology. On assessment, she has pain and tenderness over the left SI joint and states that it mainly hurts her when she ambulates or stands from a sitting position. It is felt that she likely SI joint dysfunction. I encouraged her to follow up with her PCP regarding her elevated blood glucose levels and continued management of her pain if it does not improve with conservative measures. All questions were answered. She demonstrated understanding and was in agreement with this plan. Antonio Baltazar MD Critical Care <Ирина Day APRN - Last Filed: 06/10/25 15:06> Critical Care Time Critical Care Time: No
[2025-06-10 12:46] LABS: Microscopic, Urine URINE MICROSCOPIC (MICROSCOPIC)
[2025-06-10 12:52] LABS: Bilirubin,Urine Negative (Negative); Color,Urine YELLOW (Yellow); Glucose,Urine (UA) 3+ (Negative); Ketones,Urine TRACE (Negative); Leukocyte Esterase,Urine Negative (Negative); PH,Urine 6.0 (5.0-8.5); Protein,Urine Negative (Negative); Specific Gravity, Urine 1.020 (1.005-1.030); Urobilinogen,Urine 0.2 EU/dl (0.2)
[2025-06-10 12:53] LABS: Hematocrit 49.4 % (37.0-47.0); Hemoglobin 16.9 g/dL (12.2-16.2); Immature Granulocytes % 0.3 %; Mean Corpuscular HGB Conc 34.2 g/dL (31.8-35.4); Mean Corpuscular Hemoglobin 32.1 pg (27.0-31.2); Mean Corpuscular Volume 93.7 fl (81-99); Nucleated Red Blood Cells % 0 %; Platelet Count 167 K/mm3 (142-424); Red Blood Count 5.27 M/mm3 (4.20-5.40); Red Cell Distribution Width-SD 51.0 fL; White Blood Count 7.5 K/mm3 (4.8-10.8)
[2025-06-10] MEDS: ONDANSETRON 4MG/2ML VIAL 4 MG IV (12:54)
[2025-06-10] MEDS: KETOROLAC 30MG/ML VIAL 15 MG IV (12:54)
[2025-06-10 12:58] LABS: Albumin Level 4.4 g/dl (3.5-5.0); Chloride 102 mmol/L (98-107); Potassium 3.7 mmoL/L (3.5-5.1); Sodium 136 mmol/L (136-145)
[2025-06-10 13:00] LABS: Blood Urea Nitrogen 11 mg/dl (7-17); Creatinine Clearance Estimated 62 mL/min (50-200); Creatinine,Serum 0.40 mg/dl (0.52-1.04); Estimated Glomerular Filt Rate 158 ml/min (>60); GFR (African American) 191 ML/MIN (>60)
[2025-06-10 13:01] VITALS: BP 127/95; PULSE 71; O2SAT 88
[2025-06-10 13:01] LABS: Alanine Aminotransferase 24 U/L (12-78); Albumin/Globulin Ratio 1.7 (1.1-1.8); Alkaline Phosphatase 110 U/L (38-126); Anion Gap 12.7 mEq/L (5-15); Aspartate Amino Transferase 31 U/L (14-36); Bilirubin,Total 1.3 mg/dl (0.2-1.3); Calcium 9.0 mg/dl (8.4-10.2); Carbon Dioxide 25 mmol/L (22.0-30.0); Globulin 2.6 g/dL (1.3-3.2); Total Protein,Serum 7.0 g/dl (6.3-8.2)
[2025-06-10 13:03] LABS: Glucose 415 mg/dl (74-100)
--- NOTE | 2025-06-10 13:03 | PC.NURSE ---
CRITICAL GLUCOSE 415, PT NAME AND R/V. DR MANDUJANO NOTIFIED
[2025-06-10 13:22] LABS: Bacteria,Urine Trace /lpf; WBC,Urine Occasional #/hpf (0-3)
[2025-06-10 13:31] VITALS: BP 112/55; PULSE 85; O2SAT 88
[2025-06-10 14:00] VITALS: BP 101/59; PULSE 83; O2SAT 88
[2025-06-10 14:21] LABS: Lactate Venous 1.9 mmol/L (0.4-2.0); VBG HCO3 24.5 mmol/L (23-30); VBG PCO2 43.4 mmol/L (35-51); VBG PH 7.37 mmol/L (7.31-7.41); VBG PO2 55.9 mmol/L (28-40)
[2025-06-10 14:50] VITALS: BP 108/58; PULSE 64; RESP 16; TEMP 36.7; O2SAT 96
== END 2025-06-10 14:54 | disposition home or self-care (01) ==
PROVIDERS: Nurse Practitioner; Emergency Provider Student in an Organized Health Care Education/Training Program; PCP Pediatrics
DX: R10.32 Left lower quadrant pain (principal); M54.59 Other low back pain; E11.65 Type 2 diabetes mellitus with hyperglycemia; F17.210 Nicotine dependence, cigarettes, uncomplicated; Z87.442 Personal history of urinary calculi
CPT/HCPCS: 74176; 80053; 81001; 82803; 85025; 96374; 96375; 99285; J1885; J2405

== ENCOUNTER 2025-06-16 17:04 | Emergency (ER) | payer MEDICARE, SELFPAY ==
[2025-06-16 17:13] VITALS: BP 136/77; PULSE 91; RESP 18; TEMP 36.7; O2SAT 95; BMI 29.2
--- NOTE | 2025-06-16 17:27 | ECG_ITS ---
APPROVED REPORT Exam: Resting ECG HR:96 bpm ECG Measurements Heart Rate 96 AXES FL 106 P 37 QRSd 94 QRS 59 QT 368 T 91 QTc 421 Conclusion SINUS RHYTHM WITH SHORT FL INTERVAL BORDERLINE ECG Electronically signed by : ARMAAN ROSEN, 06/29/2025 00:13:34
[2025-06-16 17:35] LABS: Coronavirus 19, PCR Not Detected (NotDetected); Influenza A, PCR Not Detected (NotDetected); Influenza B, PCR Not Detected (NotDetected)
[2025-06-16 17:37] LABS: Hematocrit 49.8 % (37.0-47.0); Hemoglobin 16.9 g/dL (12.2-16.2); Immature Granulocytes % 0.5 %; Mean Corpuscular HGB Conc 33.9 g/dL (31.8-35.4); Mean Corpuscular Hemoglobin 31.4 pg (27.0-31.2); Mean Corpuscular Volume 92.6 fl (81-99); Nucleated Red Blood Cells % 0 %; Platelet Count 180 K/mm3 (142-424); Red Blood Count 5.38 M/mm3 (4.20-5.40); Red Cell Distribution Width-SD 49.6 fL; White Blood Count 8.8 K/mm3 (4.8-10.8)
[2025-06-16 17:47] LABS: Albumin Level 4.6 g/dl (3.5-5.0); Chloride 105 mmol/L (98-107); Potassium 3.6 mmoL/L (3.5-5.1); Sodium 134 mmol/L (136-145)
[2025-06-16 17:50] LABS: Alanine Aminotransferase 25 U/L (12-78); Albumin/Globulin Ratio 1.8 (1.1-1.8); Alkaline Phosphatase 108 U/L (38-126); Anion Gap 10.6 mEq/L (5-15); Aspartate Amino Transferase 31 U/L (14-36); Bilirubin,Total 1.3 mg/dl (0.2-1.3); Blood Urea Nitrogen 13 mg/dl (7-17); Carbon Dioxide 22 mmol/L (22.0-30.0); Creatinine Clearance Estimated 62 mL/min (50-200); Creatinine,Serum 0.40 mg/dl (0.52-1.04); Estimated Glomerular Filt Rate 158 ml/min (>60); GFR (African American) 191 ML/MIN (>60); Globulin 2.6 g/dL (1.3-3.2); Total Protein,Serum 7.2 g/dl (6.3-8.2)
[2025-06-16 17:51] LABS: Calcium 9.2 mg/dl (8.4-10.2)
--- NOTE | 2025-06-16 18:00 | PC.NURSE ---
Patients FSBS is 380.
[2025-06-16 18:03] LABS: Troponin I < 0.01 ng/ml (0.00-0.034)
[2025-06-16 18:04] LABS: Glucose 404 mg/dl (74-100)
--- NOTE | 2025-06-16 18:04 | HMH.EDGENADL ---
Discharge Plan Disposition Patient Disposition: Home, Self-Care Condition: Good Prescriptions Prescriptions: No Action prednisone 20 mg tablet 20 mg PO DAILY 3 Days Qty: 3 0RF cephalexin 500 mg capsule 500 mg PO BID 7 Days Qty: 14 0RF clopidogrel 75 mg tablet 75 mg PO ONCE cilostazol 100 mg tablet 100 mg PO BID Qty: 120 1RF Rx Instructions: Needs follow up appt. with cardiology. Thanks glipizide 10 tablet 10 mg PO DAILY aspirin 81 MG tablet,delayed release (DR/EC) 81 mg PO DAILY pregabalin 100 MG capsule 100 mg PO BID simvastatin 80 mg tablet 80 mg PO HS Patient Comments: TAKE 1 TABLET BY MOUTH EVERY DAY IN THE EVENING insulin glargine [Basaglar KwikPen U-100 Insulin] 100 unit/mL (3 mL) insulin pen 65 unit SQ HS Patient Comments: ADMINISTER 65 UNITS UNDER THE SKIN EVERY DAY hydrochlorothiazide 12.5 mg tablet 12.5 mg PO DAILYP PRN (Reason: Fluid) Patient Comments: TAKE 1 TABLET BY MOUTH EVERY DAY NEEDED diclofenac sodium 1 % gel 1 ea TOPICAL DAILY Patient Comments: APPLY A THIN LAYER TO AFFECTED AREA OF SKIN 1 TIME DAILY dapagliflozin propanediol [Farxiga] 10 mg tablet 10 mg PO DAILY Patient Comments: TAKE 1 TABLET BY MOUTH EVERY DAY oxycodone-acetaminophen 10-325 mg tablet 1 tab PO TID Patient Comments: TAKE 1 TABLET BY MOUTH THREE TIMES DAILY triamcinolone acetonide 0.1 % cream 1 applic topical BID PRN (Reason: itching) Qty: 30 1RF fluconazole 100 mg tablet 100 mg PO DAILY 3 Days Qty: 3 0RF Referrals Follow up/Referrals: Bridger Funez MD [Primary Care Provider, Medical] - See instructions Clinical Impressions Clinical Impression: Hyperglycemia due to diabetes mellitus Instructions Patient Instructions: DI for Diarrhea and Traveler's Diarrhea -- Adult, DI for Diarrhea and Traveler's Diarrhea -- Child, DI for Nausea -- Adult, DI for Nausea -- Child Print Language Print Language: [place] Discharge ED Provider: Frances Madison General Adult HPI <Mariel Ballard - Last Filed: 06/16/25 21:49> General Chief complaint: Nausea/Vomiting/Diarrhea Stated complaint: Hot and cold spells Time Seen by Provider: 06/16/25 18:03 Mode of Arrival: Ambulatory Source of Information: Patient Description of Symptoms (Recalled from ER Triage Doc. by RN): Pt presents with c/o of hot flashes, cold chills, and diarreha that started today History of Present Illness HPI narrative: 69-year-old female with a history of diabetes presents to the emergency department with complaints of hot flashes and cold chills throughout the night last night. She denies fever, nausea, vomiting, diarrhea, chest pain, shortness of breath. She reports that she has been out of her insulin for the past 2 weeks and is trying to work with her insurance company to get them to cover her insulin at this time. Related Data Home Medications ?Medication ?Instructions ?Recorded ?Confirmed clopidogrel 75 mg tablet 75 mg PO ONCE Blood thinner 03/24/18 03/29/25 aspirin 81 mg tablet,delayed 81 mg PO DAILY CAD 03/27/18 03/29/25 release glipizide 10 mg tablet 10 mg PO DAILY DM 03/27/18 03/29/25 pregabalin 100 mg capsule 100 mg PO BID FIBROMYALGIA 03/27/18 03/29/25 insulin glargine 100 unit/mL (3 65 unit SQ HS 08/04/24 03/29/25 mL) subcutaneous pen (Basaglar KwikPen U-100 Insulin) simvastatin 80 mg tablet 80 mg PO HS 08/04/24 03/29/25 dapagliflozin propanediol 10 mg 10 mg PO DAILY 08/05/24 03/29/25 tablet (Farxiga) diclofenac sodium 1 % topical gel 1 ea topical DAILY 08/05/24 03/29/25 hydrochlorothiazide 12.5 mg tablet 12.5 mg PO DAILYP PRN Fluid 08/05/24 03/29/25 oxycodone-acetaminophen 10 mg-325 1 tab PO TID 08/05/24 03/29/25 mg tablet Previous Rx's ?Medication ?Instructions ?Recorded cilostazol 100 mg tablet 100 mg PO BID PAD #120 tabs 04/17/18 fluconazole 100 mg tablet 100 mg PO DAILY 3 days #3 tabs 11/11/24 triamcinolone acetonide 0.1 % 1 applic topical BID PRN itching 11/23/24 topical cream #30 grams cephalexin 500 mg capsule 500 mg PO BID 7 days #14 caps 03/29/25 prednisone 20 mg tablet 20 mg PO DAILY 3 days #3 tabs 03/29/25 Allergies Allergy/AdvReac Type Severity Reaction Status Date / Time No Known Allergies Allergy Verified 03/29/25 15:18 [facility] <Mariel Ballard - Last Filed: 06/16/25 21:49> [facility] Disclaimer: The information contained in this section may have been updated after the patient was seen, as this information can be updated by other users. Medical History Paronychia Acute bronchitis Corneal abrasion, left Exposure to COVID-19 virus Kidney stone on left side Uses marijuana Diabetes Left foot pain Tachycardia Smoking SOB (shortness of breath) PAD (peripheral artery disease) HLD (hyperlipidemia) HHD (hypertensive heart disease) CAD (coronary artery disease) Social History Smoking Status: Current every day smoker tobacco type: cigarettes packs per day: 1 alcohol intake: never substance use type: marijuana current occupational status: disabled Travel in the last 8 weeks?: None household members: children housing: apartment current occupational exposures/hazards: No caffeine: Yes Have you lived/traveled outside [place] in past 30 days?: No Contact w/someone who lives/traveled outside US past 30 days?: No Exposure to someone with infectious disease in past 14 days?: No Do you have a fever (greater than 100.4 F or 38 C)?: No Have you tested positive for COVID-19?: No Exposed to someone with COVID-19 in past 14 days?: No Do you have a sore throat?: No Do you have a cough?: No Do you have any weakness?: No Do you have any diarrhea?: No Are you experiencing any unusual bleeding?: No Do you have any muscle aches/pain?: No Do you have any abdominal pain?: No Are you experiencing loss of taste or smell?: No Other Medical History Have you received the Flu Vaccine for this season: No Have you received the Pneumonia Vaccine: No <Mariel Ballard - Last Filed: 06/16/25 21:49> ROS Obtained: Yes All systems reviewed & no additional complaints except as documented Physical Exam <Mariel Ballard - Last Filed: 06/16/25 21:49> Narrative Physical exam: Physical exam is unremarkable for acute findings. Resting comfortably in bed with no complaints at this time. General General appearance: alert Respiratory Respiratory exam: Present normal lung sounds bilaterally Cardiovascular Cardiovascular exam: Present regular rate Neurological Exam Neurological exam: Present alert Medical Decision Making <Mariel Ballard - Last Filed: 06/16/25 21:49> Medical Records Screening: Per USPSTF and CDC recommendations, given the prevalence of disease in our region, it is our hospital?s policy to screen for HIV and viral Hepatitis for all patients aged 18 and over and those with ongoing risk factors. Donnie Inquiry Pt receiving controlled substance: No Vital Signs: 06/16/25 17:13 06/16/25 18:23 06/16/25 18:30 Temperature 98.1 F Temperature Source Oral Pulse Rate 93 H 92 H Pulse Rate [Right] 91 H Respiratory Rate 18 20 Blood Pressure 127/72 137/71 Blood Pressure [Right Arm] 136/77 Blood Pressure Mean [Right Arm] 96 02 Sat by Pulse Oximetry 95 92 L 88 L Oxygen Delivery Method Room Air 06/16/25 21:13 Temperature 98.3 F Temperature Source Oral Pulse Rate 82 Pulse Rate [Right] Respiratory Rate 16 Blood Pressure 147/75 H Blood Pressure [Right Arm] Blood Pressure Mean [Right Arm] 02 Sat by Pulse Oximetry Oxygen Delivery Method Lab Data Lab Results 06/16/25 17:17: SARS-CoV-2 (PCR) Not detected, Influenza A Untype (PCR) Not detected, Influenza Type B (PCR) Not detected 06/16/25 17:27: WBC 8.8, RBC 5.38, Hgb 16.9 H, Hct 49.8 H, MCV 92.6, MCH 31.4 H, MCHC 33.9, RDW 14.6, Plt Count 180, MPV 10.0, Neut % (Auto) 68.9, Lymph % (Auto) 22.7, Lee % (Auto) 5.0, Eos % (Auto) 2.1, Baso % (Auto) 0.8, Neut # (Auto) 6.1, Lymph # (Auto) 2.0, Lee # (Auto) 0.4, Eos # (Auto) 0.2, Baso # (Auto) 0.1, Sodium 134 L, Potassium 3.6, Chloride 105, Carbon Dioxide 22, Anion Gap 10.6, BUN 13, Creatinine 0.40 L, Estimated Creat Clear 62, Estimated GFR 158, Est GFR ( Amer) 191, Glucose 404 H*, Calcium 9.2, Total Bilirubin 1.3, AST 31, ALT 25, Alkaline Phosphatase 108, Troponin I < 0.01, NT-Pro-B Natriuret Pep 301 H, Total Protein 7.2, Albumin 4.6, Globulin 2.6, Albumin/Globulin Ratio 1.8, TSH 2.16, Thyroxine (T4) 8.9 06/16/25 18:26: VBG pH 7.42 H, VBG pCO2 37.2, VBG pO2 65.1 H, VBG HCO3 23.5, VBG Total CO2 24.6, VBG O2 Saturation 93.7 H, VBG Base Excess -1.0, VBG Lactic Acid 1.8 06/16/25 18:30: Urine Color Yellow, Urine Appearance Clear, Urine pH 6.0, Ur Specific [place] 1.010, Urine Protein Negative, Urine Glucose (UA) 3+, Urine Ketones Negative, Urine Blood Negative, Urine Nitrate Negative, Urine Bilirubin Negative, Urine Urobilinogen 0.2, Ur Leukocyte Esterase Negative, Urine RBC None, Urine WBC 5-10, Ur Squamous Epith Cells 5-10, Other Sediment Not Reportable, Urine Bacteria Trace 06/16/25 17:27 06/16/25 17:27 Orders (Tests/Meds): ED MEDICATIONS Discontinued Medications Generic Name Dose Route Start Last Admin Trade Name Freq PRN Reason Stop Dose Admin Sodium Chloride 1,000 mls @ 999 mls/hr 06/16/25 18:05 06/16/25 18:51 Sod Chlor 0.9% 1000ml Bag IV 06/16/25 19:05 999 mls/hr .Q1H1M ONE Administration Insulin Glargine 65 unit 06/16/25 21:00 06/16/25 20:30 Insulin Glargine 100 Units/Ml 3ml Flexpen SUBCUT 07/16/25 20:59 Not Given [facility] ORDERS Category Date Time Status Chest XR -- portable [XR chest portable] Stat Exams 06/16/25 18:15 Completed BNP [NT Pro Brain Natriuretic Pep.] Stat Lab 06/16/25 17:27 Completed Complete Blood Count Auto Diff Stat Lab 06/16/25 17:27 Completed Comprehensive Metabolic Panel Stat Lab 06/16/25 17:27 Completed Osmolality Stat Lab 06/16/25 17:47 Received Rapid PCR Covid and Flu A/B Stat Lab 06/16/25 17:17 Completed T4 (Thyroxine) Stat Lab 06/16/25 17:27 Completed TSH [Thyroid Stimulating Hormone] Stat Lab 06/16/25 17:27 Completed Troponin I Stat Lab 06/16/25 17:27 Completed Urinalysis and Microscopic Stat Lab 06/16/25 18:30 Completed Venous Blood Gas Stat RT 06/16/25 18:26 Completed Medical Decision Narrative: 69-year-old female with a history of diabetes presents to the emergency department with complaints of hot flashes and cold chills during the night last night. She denies any other symptoms. She does report that she has been out of her insulin for the past 2 weeks as she is working with insurance to figure out which insulin they will cover. Her exam is unremarkable for acute findings. Will check for COVID and flu as well as workup for possible DKA. Patient's initial glucose level was 404. She was given a normal saline bolus as well as 65 units of Lantus. Repeat Leukos was 327. Patient is resting comfortably in bed and tolerating p.o. without difficulty. Her vital signs have been stable during her ER stay. Advised patient to continue using the insulin pen that we gave her at 65 units nightly. Commended that she follow-up with her PCP tomorrow as well as her insurance company to ensure that she is getting her insulin refilled. The rest the patient's laboratory studies were nonactionable. As well as her chest x-ray. EKG shows a normal sinus rhythm with a rate of 96. No evidence of ischemia at this time. Advised patient it is likely she could be coming down with a viral illness that we were unable to test for today. Recommended that she continue with Tylenol and ibuprofen as needed for pain or fever control as well as increase her fluids and rest for the next several days. Ducted her to return to the emergency department with any new or worsening symptoms including uncontrolled fevers, chest pain, shortness of breath, inability to tolerate p.o. otherwise again she should follow-up with her primary care provider for further management of her diabetes. <Frances Madison MD - Last Filed: 06/16/25 23:59> Vital Signs: 06/16/25 17:13 06/16/25 18:23 06/16/25 18:30 Temperature 98.1 F Temperature Source Oral Pulse Rate 93 H 92 H Pulse Rate [Right] 91 H Respiratory Rate 18 20 Blood Pressure 127/72 137/71 Blood Pressure [Right Arm] 136/77 Blood Pressure Mean [Right Arm] 96 02 Sat by Pulse Oximetry 95 92 L 88 L Oxygen Delivery Method Room Air 06/16/25 21:13 Temperature 98.3 F Temperature Source Oral Pulse Rate 82 Pulse Rate [Right] Respiratory Rate 16 Blood Pressure 147/75 H Blood Pressure [Right Arm] Blood Pressure Mean [Right Arm] 02 Sat by Pulse Oximetry Oxygen Delivery Method Lab Data Lab Results 06/16/25 17:17: SARS-CoV-2 (PCR) Not detected, Influenza A Untype (PCR) Not detected, Influenza Type B (PCR) Not detected 06/16/25 17:27: WBC 8.8, RBC 5.38, Hgb 16.9 H, Hct 49.8 H, MCV 92.6, MCH 31.4 H, MCHC 33.9, RDW 14.6, Plt Count 180, MPV 10.0, Neut % (Auto) 68.9, Lymph % (Auto) 22.7, Lee % (Auto) 5.0, Eos % (Auto) 2.1, Baso % (Auto) 0.8, Neut # (Auto) 6.1, Lymph # (Auto) 2.0, Lee # (Auto) 0.4, Eos # (Auto) 0.2, Baso # (Auto) 0.1, Sodium 134 L, Potassium 3.6, Chloride 105, Carbon Dioxide 22, Anion Gap 10.6, BUN 13, Creatinine 0.40 L, Estimated Creat Clear 62, Estimated GFR 158, Est GFR ( Amer) 191, Glucose 404 H*, Calcium 9.2, Total Bilirubin 1.3, AST 31, ALT 25, Alkaline Phosphatase 108, Troponin I < 0.01, NT-Pro-B Natriuret Pep 301 H, Total Protein 7.2, Albumin 4.6, Globulin 2.6, Albumin/Globulin Ratio 1.8, TSH 2.16, Thyroxine (T4) 8.9 06/16/25 18:26: VBG pH 7.42 H, VBG pCO2 37.2, VBG pO2 65.1 H, VBG HCO3 23.5, VBG Total CO2 24.6, VBG O2 Saturation 93.7 H, VBG Base Excess -1.0, VBG Lactic Acid 1.8 06/16/25 18:30: Urine Color Yellow, Urine Appearance Clear, Urine pH 6.0, Ur Specific [place] 1.010, Urine Protein Negative, Urine Glucose (UA) 3+, Urine Ketones Negative, Urine Blood Negative, Urine Nitrate Negative, Urine Bilirubin Negative, Urine Urobilinogen 0.2, Ur Leukocyte Esterase Negative, Urine RBC None, Urine WBC 5-10, Ur Squamous Epith Cells 5-10, Other Sediment Not Reportable, Urine Bacteria Trace Orders (Tests/Meds): ED MEDICATIONS Discontinued Medications Generic Name Dose Route Start Last Admin Trade Name Freq PRN Reason Stop Dose Admin Sodium Chloride 1,000 mls @ 999 mls/hr 06/16/25 18:05 06/16/25 18:51 Sod Chlor 0.9% 1000ml Bag IV 06/16/25 19:05 999 mls/hr .Q1H1M ONE Administration Insulin Glargine 65 unit 06/16/25 21:00 06/16/25 20:30 Insulin Glargine 100 Units/Ml 3ml Flexpen SUBCUT 07/16/25 20:59 Not Given HS [facility] ORDERS Category Date Time Status Chest XR -- portable [XR chest portable] Stat Exams 06/16/25 18:15 Completed BNP [NT Pro Brain Natriuretic Pep.] Stat Lab 06/16/25 17:27 Completed Complete Blood Count Auto Diff Stat Lab 06/16/25 17:27 Completed Comprehensive Metabolic Panel Stat Lab 06/16/25 17:27 Completed Osmolality Stat Lab 06/16/25 17:47 Received Rapid PCR Covid and Flu A/B Stat Lab 06/16/25 17:17 Completed T4 (Thyroxine) Stat Lab 06/16/25 17:27 Completed TSH [Thyroid Stimulating Hormone] Stat Lab 06/16/25 17:27 Completed Troponin I Stat Lab 06/16/25 17:27 Completed Urinalysis and Microscopic Stat Lab 06/16/25 18:30 Completed Venous Blood Gas Stat RT 06/16/25 18:26 Completed Medical Decision Narrative: 69-year-old female with a history of diabetes presents to the emergency department with complaints of hot flashes and cold chills during the night last night. She denies any other symptoms. She does report that she has been out of her insulin for the past 2 weeks as she is working with insurance to figure out which insulin they will cover. Her exam is unremarkable for acute findings. Will check for COVID and flu as well as workup for possible DKA. Patient's initial glucose level was 404. She was given a normal saline bolus as well as 65 units of Lantus. Repeat Leukos was 327. Patient is resting comfortably in bed and tolerating p.o. without difficulty. Her vital signs have been stable during her ER stay. Advised patient to continue using the insulin pen that we gave her at 65 units nightly. Commended that she follow-up with her PCP tomorrow as well as her insurance company to ensure that she is getting her insulin refilled. The rest the patient's laboratory studies were nonactionable. As well as her chest x-ray. EKG shows a normal sinus rhythm with a rate of 96. No evidence of ischemia at this time. Advised patient it is likely she could be coming down with a viral illness that we were unable to test for today. Recommended that she continue with Tylenol and ibuprofen as needed for pain or fever control as well as increase her fluids and rest for the next several days. Ducted her to return to the emergency department with any new or worsening symptoms including uncontrolled fevers, chest pain, shortness of breath, inability to tolerate p.o. otherwise again she should follow-up with her primary care provider for further management of her diabetes. I was consulted by the PERLA, and we discussed the complexity of problems being addressed. I approved the treatment and management plan for this patient's care in the emergency department, thus performing a substantial portion of the medical decision making. Frances Madison MD Critical Care <Mariel Ballard - Last Filed: 06/16/25 21:49> Critical Care Time Critical Care Time: No
--- NOTE | 2025-06-16 18:15 | XR_ITS ---
PROCEDURE INFORMATION: Exam: XR Chest Exam date and time: 06/16/2025 7:02 PM Age: 69 years old Clinical indication: Other: [place] TECHNIQUE: Imaging protocol: Radiologic exam of the chest. Views: 1 view. COMPARISON: CR XR CHEST 2V 10/30/2022 3:23 PM FINDINGS: Lungs: Pleuroparenchymal scarring of the lung bases with subsegmental atelectasis is present without consolidations or pleural effusions that project above the diaphragm. Pleural spaces: Unremarkable. No pleural effusion. No pneumothorax. Heart/Mediastinum: Postsurgical changes compatible with CABG procedure. Diaphragm: Left diaphragmatic eventration unchanged from prior exam. Bones/joints: Unremarkable. IMPRESSION: Pleuroparenchymal scarring of the lung bases with subsegmental atelectasis is present without consolidations or pleural effusions that project above the diaphragm.
[2025-06-16 18:23] VITALS: BP 127/72; PULSE 93; O2SAT 92
[2025-06-16 18:24] LABS: NT Pro Brain Natriuretic Pep. 301 pg/mL (0-125)
[2025-06-16 18:30] VITALS: BP 137/71; PULSE 92; RESP 20; O2SAT 88
[2025-06-16 18:33] LABS: Lactate Venous 1.8 mmol/L (0.4-2.0); VBG HCO3 23.5 mmol/L (23-30); VBG PCO2 37.2 mmol/L (35-51); VBG PH 7.42 mmol/L (7.31-7.41); VBG PO2 65.1 mmol/L (28-40)
[2025-06-16 18:47] LABS: Microscopic, Urine URINE MICROSCOPIC (MICROSCOPIC)
[2025-06-16] MEDS: 0.9 % SODIUM CHLORIDE 1000ML 1,000 ML 999 ML IV (18:51)
[2025-06-16 18:56] LABS: Bilirubin,Urine Negative (Negative); Color,Urine YELLOW (Yellow); Glucose,Urine (UA) 3+ (Negative); Ketones,Urine Negative (Negative); Leukocyte Esterase,Urine Negative (Negative); PH,Urine 6.0 (5.0-8.5); Protein,Urine Negative (Negative); Specific Gravity, Urine 1.010 (1.005-1.030); Urobilinogen,Urine 0.2 EU/dl (0.2)
[2025-06-16 18:57] LABS: T4 (Thyroxine) 8.9 ug/dl (5.53-11.0)
[2025-06-16] MEDS: INSULIN GLARGINE 100 UNITS/ML 3ML FLEXPEN 65 UNIT SUBCUT (19:00)
[2025-06-16 19:10] LABS: Thyroid Stimulating Hormone 2.16 uIU/mL (0.465-4.68)
[2025-06-16 19:16] LABS: Bacteria,Urine Trace /lpf
--- NOTE | 2025-06-16 20:00 | PC.NURSE ---
FS 293
--- NOTE | 2025-06-16 20:43 | PC.NURSE ---
FS 327
[2025-06-16 21:13] VITALS: BP 147/75; PULSE 82; RESP 16; TEMP 36.8; O2SAT 94
== END 2025-06-16 21:16 | disposition home or self-care (01) ==
PROVIDERS: Nurse Practitioner Family; Emergency Provider Student in an Organized Health Care Education/Training Program; PCP Pediatrics
DX: E11.65 Type 2 diabetes mellitus with hyperglycemia (principal); E78.5 Hyperlipidemia, unspecified; I10 Essential (primary) hypertension; F17.210 Nicotine dependence, cigarettes, uncomplicated
CPT/HCPCS: 71045; 80053; 81001; 82803; 83880; 83930; 84436; 84443; 84484; 85025; 87636; 93005; 96360; 99284; 99285; J7030

== ENCOUNTER 2025-09-02 14:10 | Outpatient (CLI) | payer MEDICARE, SELFPAY ==
--- NOTE | 2025-09-02 14:10 | XR_ITS ---
FINAL REPORT CLINICAL HISTORY: right shoulder pain x2-3 weeks nki FINDINGS: 2 views of the right shoulder were obtained. There is no acute fracture of the shoulder. There are questionable nondisplaced fractures of the anterior 3rd and 4th ribs. There is AC joint space narrowing. Soft tissues are unremarkable. IMPRESSION: No acute fracture of the shoulder. Questionable nondisplaced fractures of the anterior 3rd and 4th ribs. Recommend clinical correlation. Reviewed, Interpreted and Dictated by Jennifer Bernard MD Transcribed by JANE Plascencia Authenticated and . [facility]
--- OUTSIDE RECORDS SUMMARY | 2025-09-02 14:14 | XMS_ITS | Data Portability ---
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 [email or web address] Not available 12/30/2024 14:49:41 03/26/2025 03/26/2025 Please note this report was created using voice recognition/text compilation software with [employer]s documentation services during the encounter with the patient; Please excuse any errors due to the blocker polishing process. [email or web address] Not available 03/26/2025 20:07:04 07/19/2025 07/19/2025 Please note this report was created using voice recognition/text compilation software documentation services during the encounter with the patient. [email or web address] Not available 07/21/2025 16:09:34 Plan of Treatment Reminders Order Date Submit Date Provider Last Modified By Organization Details Last Modified Time Details Appointments OV EST 20 2024 03:00P M Saleem Baptiste MD Not available Not available Not available Lab CMP, serum or plasma 2024 025 THERESA [facility], [address], [address], [place], [address], 07/20/2025 16:11:46 HbA1c (hemoglob in A1c), blood 2024 025 CHRIS [facility], [address], [address], [place], [address], 07/20/2025 16:11:47 TSH + free T4, serum 2024 025 CHRIS [facility], [address], [address], [place], [address], 07/20/2025 16:11:44 lipid panel, serum 2024 025 CHRIS [facility], [address], [address], [place], [address], 07/20/2025 16:11:46 CBC w/ auto diff 2024 025 CHRIS [facility], [address], [address], [place], [address], 07/20/2025 16:11:45 HbA1c (hemoglob in A1c), blood 2024 025 [facility], [address], [facility] [address], [place], [address], 03/26/2025 14:57:43 urinalysi s, dipstick 2023 024 [facility] [place], [address] [place] [address] [address], [address], [place], [address], 10/08/2024 15:54:21 culture, urine 2023 024 CHRIS [facility], [address], [address], [place], [address], 2024 09:39:10 microalbu min/creat inine, mass ratio, urine 2023 024 CHRIS [facility], [address], [address], [place], [address], 2024 09:39:09 drug screen, 14 drugs (detectim ed), urine 2023 024 CHRIS [facility], [address], [address], [place], [address], 2024 09:39:08 Referral None recorded. Procedures None recorded. Surgeries None recorded. Imaging MAMMO, screening , bilateral - Okay to obtain additiona l imaging if needed. [address] (Centralized Scheduling), [address] , [place], [address], 02/19/2025 09:06:15 DEXA, axial skeleton [address] (Centralized Scheduling), [address] [facility], [place], [address], 02/19/2025 09:06:13 LDCT, chest, for lung cancer screening [address] (Centralized Scheduling), [address] [facility], [place], [address], 01/24/2025 13:32:13 Medication Orders insulin degludec (U-100) 100 unit/mL (3 mL) subcutane ous pen 2024 025 [facility][id number], [address], [id number], 07/19/2025 10:55:44 diclofena c 1 % topical gel 2024 025 [id number], [address], [id number], 07/19/2025 10:55:50 cilostazo l 100 mg tablet [address] [facility] #, [address] [address] [address], [place], [id number], 12/24/2024 11:45:34 clopidogr el 75 mg tablet [address] [facility] #, [address] [address] [address], [place], [id number], 12/24/2024 11:45:34 carvedilo l 6.[address] [facility] #, [address] [address] [address], [place], [id number], 12/24/2024 11:45:34 Basaglar KwikPen U-100 Insulin 100 unit/mL (3 mL) subcutane ous [address] [place] [address] Drug Store #, [address] [address] [address], [place], [id number], 07/19/2025 10:45:14 Farxiga 10 mg tablet [address] [place] [address] Drug Store #, [address] [address] [address], [place], [id number], 12/24/2024 12:18:36 escitalop olayinka 10 mg tablet [address] [place] [address] Drug Store #, [address] [address] [address], [place], [id number], 12/24/2024 12:18:53 ciproflox acin 500 mg tablet 2023 [facility], [address] [facility] [address] [place] [place], [id number], 12/24/2024 10:04:56 Caroline Mclaughlin U-100 Insulin 100 unit/mL (3 mL) subcutane ous 2023 024 [facility]91, [address] [facility] [address] [place], [phone], 07/19/2025 10:45:14 Patient TargetsNo targets recorded. Patient Instructions Encounter Date Encounter Id Patient Instructions Last Modified By Organization Details Last Modified Time 12/24/2024 [id number] advance directives: care instructions william Not available 12/24/2024 12:20:23 well visit, over 65: care instructions [email or web address] Not available 12/24/2024 12:20:23 Health Maintenance Recommendations: (5-10 year screening/prevent ion plan) [email or web address] Not available 12/24/2024 09:55:49 Reason for Referral None Reported. Results Created Date Observation Date Name Description Value Unit Range Abnormal Flag Note LastModifiedBy Organization Detail LastModifiedTime 10/08/2010/18/2024 COMPL IANCE DRUG GISEL SIS, UR summary [...] leann consu ltati on, pleas e call . ===== ===== ===== ===== ===== ===== ===== ===== ===== ===== ===== ===== ===== === Not Available [facility] ([facility] [address] [place], [address], 2024 09:39:08 10/08/20 24 2024 COMPL IANCE DRUG GISEL SIS, UR pdf . Not Available [facility] ([facility] [place] [facility] [address] [place], [address], 2024 09:39:08 10/08/20 24 10/09/2024 ALBUM IN/CR EAT RATIO , MANNY Sandhu UR creatinine, urine 47.9 mg/dL not estab. normal Not Available [facility] ([facility] [place] [facility] [address] [facility], [place], [address], 2024 09:39:09 10/08/20 24 10/09/2024 ALBUM IN/CR EAT RATIO , MANNY Sandhu UR albumin, urine 35.1 ug/mL not estab. Not Available [facility] ([facility] [place] [facility] [address] [place], [address], 2024 09:39:09 10/08/20 24 10/09/2024 ALBUM IN/CR EAT RATIO , RANDO M UR alb/creat ratio 73 mg/g_ creat 0-29 above high normal Shannan l: 0 - 29 Moder ately incre ased: 30 - 300 Sever liu incre ased: >300 Not Available [facility] ([facility] [place] [facility] [address] [place], [address], 2024 09:39:09 10/08/20 24 10/10/2024 URINE CULTU RESHARON NE urine culture, routine FINAL REPORT Not Available [facility] ([facility] [place] [place] [facility] [address] [facility], [place], [address], 2024 09:39:10 10/08/20 24 10/10/2024 URINE CULTU RE, SHARON NE result 1 COMMEN T Mixed uroge nital anselmo 25,00 0-50, 000 colon y formi ng units per mL Not Available [facility] ([facility] [place] [facility] [address] [facility], [place], [address], 2024 09:39:10 10/08/20 24 10/08/2024 urina lysis , dipst ick Leukocytes (reference range) negati ve Not Available [facility] And [address], [place], [address], 10/08/2024 15:27:02 10/08/20 24 10/08/2024 urina lysis , dipst ick Nitrite (reference range:) negati ve Not Available [facility] [address], [place], [address], 10/08/2024 15:27:02 10/08/20 24 10/08/2024 urina lysis , dipst ick Urobilinogen (reference range) 1 Not Available [facility] And [address], [place], [address], 10/08/2024 15:27:02 10/08/20 24 10/08/2024 urina lysis , dipst ick Protein (reference range) negati ve Not Available [facility] [address], [place], [address], 10/08/2024 15:27:02 10/08/20 24 10/08/2024 urina lysis , dipst ick pH (reference range 5-8.5) 5.5 Not Available [facility] [place] [address] [facility] [address], [place], [address], 10/08/2024 15:27:02 10/08/20 24 10/08/2024 urina lysis , dipst ick Blood (reference range:) negati ve Not Available [facility] [place] [address] [facility] [address], [place], [address], 10/08/2024 15:27:02 10/08/20 24 10/08/2024 urina lysis , dipst ick Specific [place] (reference range) 1.020 Not Available [facility] [place] [address] [facility] [address], [place], [address], 10/08/2024 15:27:02 10/08/20 24 10/08/2024 urina lysis , dipst ick Ketone (reference range) negati ve Not Available [facility] [address] [facility] [address], [place], [address], 10/08/2024 15:27:02 10/08/20 24 10/08/2024 urina lysis , dipst ick Bilirubin (reference range) negati ve Not Available [facility] [address] [facility] [address], [place], [address], 10/08/2024 15:27:02 10/08/20 24 10/08/2024 urina lysis , dipst ick Glucose (reference range) 500 Not Available [facility] [place] [address] [facility] [address], [place], [address], 10/08/2024 15:27:02 10/08/20 24 10/08/2024 urina lysis , dipst ick Color (reference range: yellow-brown ) Yellow Not Available [facility] [place] [address], [place], [address], 10/08/2024 15:27:02 03/26/20 25 03/26/2025 HbA1c (hemo globi n A1c), blood HbA1c 12.4 Not Available [facility] [place] [address], [place], [address], 03/26/2025 14:42:01 07/19/20 25 07/20/2025 TSH+F REE T4 TSH 2.150 uIU/m L 0.450- 4.500 normal Not Available [facility] ([facility] [place] [place] [facility] [address] [place], [address], 07/20/2025 16:11:44 07/19/20 25 07/20/2025 TSH+F REE T4 T4,free(dire ct) 1.06 NG/dL 0.82-1 .77 normal Not Available [facility] ([facility] [place] [facility] [address] [place], [address], 07/20/2025 16:11:44 07/19/20 25 07/20/2025 CBC WITH DIFFE RENTI AL/PL ATELE T WBC 7.8 x10e3 /uL 3.4-10 .8 normal Not Available [facility] ([facility] [place] [facility] [address] [place], [address], 07/20/2025 16:11:45 07/19/20 25 07/20/2025 CBC WITH DIFFE RENTI AL/PL ATELE T RBC 5.40 x10e6 /uL 3.77-5 .28 above high normal Not Available [facility] ([facility] [place] [place] [facility] [address] [place], [address], 07/20/2025 16:11:45 07/19/20 25 07/20/2025 CBC WITH DIFFE RENTI AL/PL ATELE T hemoglobin 17.2 g/dL 11.1-1 5.9 above high normal Not Available [facility] ([facility] [place] [facility] [address] [facility], [place], [address], 07/20/2025 16:11:45 07/19/20 25 07/20/2025 CBC WITH DIFFE RENTI AL/PL ATELE T hematocrit 52.7 % 34.0-4 6.6 above high normal Not Available [facility] ([facility] [place] [place] [facility] [address] [facility], [place], [address], 07/20/2025 16:11:45 07/19/20 25 07/20/2025 CBC WITH DIFFE RENTI AL/PL ATELE T MCV 98 fL 79-97 above high normal Not Available [facility] ([facility] [place] [place] [facility] [address] [facility], [place], [address], 07/20/2025 16:11:45 07/19/20 25 07/20/2025 CBC WITH DIFFE RENTI AL/PL ATELE T MCH 31.9 pg 26.6-3 3.0 normal Not Available [facility] ([facility] [place] [facility]) [address] [place], [address], 07/20/2025 16:11:45 07/19/20 25 07/20/2025 CBC WITH DIFFE RENTI AL/PL ATELE T MCHC 32.6 g/dL 31.5-3 5.7 normal Not Available [facility] ([facility] [place] [place] [facility] [address] [place], [address], 07/20/2025 16:11:45 07/19/20 25 07/20/2025 CBC WITH DIFFE RENTI AL/PL ATELE T RDW 13.6 % 11.7-1 5.4 Not Available [facility] ([facility] [place] [place] [facility] [address] [facility], [place], [address], 07/20/2025 16:11:45 07/19/20 25 07/20/2025 CBC WITH DIFFE RENTI AL/PL ATELE T platelets 166 x10e3 /uL 150-45 0 normal Not Available [facility] ([facility] [place] [facility] [address] [facility], [place], [address], 07/20/2025 16:11:45 07/19/20 25 07/20/2025 CBC WITH DIFFE RENTI AL/PL ATELE T neutrophils 64 % not estab. normal Not Available [facility] ([facility] [place] [place] [facility] [address] [facility], [place], [address], 07/20/2025 16:11:45 07/19/20 25 07/20/2025 CBC WITH DIFFE RENTI AL/PL ATELE T lymphs 25 % not estab. normal Not Available [facility] ([facility] [place] [place] [facility] [address] [facility], [place], [address], 07/20/2025 16:11:45 07/19/20 25 07/20/2025 CBC WITH DIFFE RENTI AL/PL ATELE T monocytes 6 % not estab. normal Not Available [facility] ([facility] [place] [place] [facility] [address] [facility], [place], [address], 07/20/2025 16:11:45 07/19/20 25 07/20/2025 CBC WITH DIFFE RENTI AL/PL ATELE T eos 4 % not estab. normal Not Available [facility] ([facility] [place] [place] [facility] [address] [facility], [place], [address], 07/20/2025 16:11:45 07/19/20 25 07/20/2025 CBC WITH DIFFE RENTI AL/PL ATELE T basos 1 % not estab. normal Not Available [facility] ([facility] [place] [place] [facility] [address] [facility], [place], [address], 07/20/2025 16:11:45 07/19/20 25 07/20/2025 CBC WITH DIFFE RENTI AL/PL ATELE T immature cells SETTER UP Not Available [facility] ([facility] [place] [place] [facility] [address] [place], [address], 07/20/2025 16:11:45 07/19/20 25 07/20/2025 CBC WITH DIFFE RENTI AL/PL ATELE T neutrophils (absolute) 5.0 x10e3 /uL 1.4-7. 0 normal Not Available [facility] ([facility] [place] [place] [facility] [address] [place], [address], 07/20/2025 16:11:45 07/19/20 25 07/20/2025 CBC WITH DIFFE RENTI AL/PL ATELE T lymphs (absolute) 2.0 x10e3 /uL 0.7-3. 1 normal Not Available [facility] ([facility] [place] [place] [facility] [address] [place], [address], 07/20/2025 16:11:45 07/19/20 25 07/20/2025 CBC WITH DIFFE RENTI AL/PL ATELE T monocytes(ab solute) 0.4 x10e3 /uL 0.1-0. 9 normal Not Available [facility] ([facility] [place] [place] [facility] [address] [place], [address], 07/20/2025 16:11:45 07/19/20 25 07/20/2025 CBC WITH DIFFE RENTI AL/PL ATELE T eos (absolute) 0.3 x10e3 /uL 0.0-0. 4 normal Not Available [facility] ([facility] [place] [place] [facility] [address] [place], [address], 07/20/2025 16:11:45 07/19/20 25 07/20/2025 CBC WITH DIFFE RENTI AL/PL ATELE T baso (absolute) 0.1 x10e3 /uL 0.0-0. 2 normal Not Available [facility] ([facility] [place] [place] [facility] [address] [place], [address], 07/20/2025 16:11:45 07/19/20 25 07/20/2025 CBC WITH DIFFE RENTI AL/PL ATELE T immature granulocytes 0 % not estab. Not Available [facility] ([facility] [place] [place] [facility] [address] [facility], [place], [address], 07/20/2025 16:11:45 07/19/20 25 07/20/2025 CBC WITH DIFFE RENTI AL/PL ATELE T immature grans (abs) 0.0 x10e3 /uL 0.0-0. 1 Not Available [facility] ([facility] [place] [facility] [address] [facility], [place], [address], 07/20/2025 16:11:45 07/19/20 25 07/20/2025 CBC WITH DIFFE RENTI AL/PL ATELE T NRBC SETTER UP Not Available [facility] ([facility] [place] [place] [facility] [address] [facility], [place], [address], 07/20/2025 16:11:45 07/19/20 25 07/20/2025 CBC WITH DIFFE RENTI AL/PL ATELE T hematology comments: SETTER UP Not Available [facility] ([facility] [place] [facility] [address] [facility], [place], [address], 07/20/2025 16:11:45 07/19/20 25 07/20/2025 COMP. METAB OLIC PANEL (14) glucose 252 mg/dL 70-99 above high normal Not Available [facility] ([facility] [place] [place] [facility] [address] [place], [address], 07/20/2025 16:11:46 07/19/20 25 07/20/2025 COMP. METAB OLIC PANEL (14) BUN 14 mg/dL 8-27 normal Not Available [facility] ([facility] [place] [facility] [address] [place], [address], 07/20/2025 16:11:46 07/19/20 25 07/20/2025 COMP. METAB OLIC PANEL (14) creatinine 0.59 mg/dL 0.57-1 .00 normal Not Available [facility] ([facility] [place] [place] [facility] [address] [place], [address], 07/20/2025 16:11:46 07/19/20 25 07/20/2025 COMP. METAB OLIC PANEL (14) BUN/creatini ne ratio 24 12-28 normal Not Available [facility] ([facility] [place] [facility] [address], [place], [address], 07/20/2025 16:11:46 07/19/20 25 07/20/2025 COMP. METAB OLIC PANEL (14) sodium 142 mmol/ L 134-14 4 normal Not Available [facility] ([facility] [place] [facility] [address], [place], [address], 07/20/2025 16:11:46 07/19/20 25 07/20/2025 COMP. METAB OLIC PANEL (14) potassium 4.0 mmol/ L 3.5-5. 2 normal Not Available [facility] ([facility] [place] [facility] [address] [facility], [place], [address], 07/20/2025 16:11:46 07/19/20 25 07/20/2025 COMP. METAB OLIC PANEL (14) chloride 102 mmol/ L 96-106 normal Not Available [facility] ([facility] [place] [facility] [address] [facility], [place], [address], 07/20/2025 16:11:46 07/19/20 25 07/20/2025 COMP. METAB OLIC PANEL (14) carbon dioxide, total 21 mmol/ L 20-29 normal Not Available [facility] ([facility] [place] [facility] [address] [facility], [place], [address], 07/20/2025 16:11:46 07/19/20 25 07/20/2025 COMP. METAB OLIC PANEL (14) calcium 9.3 mg/dL 8.7-10 .3 normal Not Available [facility] ([facility] [place] [facility] [address] [facility], [place], [address], 07/20/2025 16:11:46 07/19/20 25 07/20/2025 COMP. METAB OLIC PANEL (14) protein, total 6.3 g/dL 6.0-8. 5 normal Not Available [facility] ([facility] [place] [place] [facility] [address] [place], [address], 07/20/2025 16:11:46 07/19/20 25 07/20/2025 COMP. METAB OLIC PANEL (14) albumin 4.1 g/dL 3.9-4. 9 normal Not Available [facility] ([facility] [place] [facility] [address] [place], [address], 07/20/2025 16:11:46 07/19/20 25 07/20/2025 COMP. METAB OLIC PANEL (14) globulin, total 2.2 g/dL 1.5-4. 5 Not Available [facility] ([facility] [place] [facility] [address] [place], [address], 07/20/2025 16:11:46 07/19/20 25 07/20/2025 COMP. METAB OLIC PANEL (14) bilirubin, total 0.8 mg/dL 0.0-1. 2 normal Not Available [facility] ([facility] [place] [facility] [address] [place] [place], [address], 07/20/2025 16:11:46 07/19/20 25 07/20/2025 COMP. METAB OLIC PANEL (14) alkaline phosphatase 113 IU/L 49-135 normal Ple ase note refer ence inter chari wallace e Not Available [facility] ([facility] [place] [facility] [address] [place], [address], 07/20/2025 16:11:46 07/19/20 25 07/20/2025 COMP. METAB OLIC PANEL (14) AST (SGOT) 19 IU/L 0-40 normal Not Available [facility] ([facility] [place] [facility] [address] [place], [address], 07/20/2025 16:11:46 09/19/20 25 07/20/2025 COMP. METAB OLIC PANEL (14) ALT (SGPT) 21 IU/L 0-32 normal Not Available [facility] ([facility] [place] [facility] [address] [place], [address], 07/20/2025 16:11:46 07/19/20 25 07/20/2025 LIPID PANEL cholesterol, total 143 mg/dL 100-19 9 normal Not Available [facility] ([facility] [place] [facility] [address] [place], [address], 07/20/2025 16:11:46 07/19/20 25 07/20/2025 LIPID PANEL triglyceride s 255 mg/dL 0-149 above high normal Not Available [facility] ([facility] [place] [facility] [address] [place], [address], 07/20/2025 16:11:46 07/19/20 25 07/20/2025 LIPID PANEL HDL cholesterol 36 mg/dL >39 below low normal Not Available [facility] ([facility] [place] [facility] [address] [place], [address], 07/20/2025 16:11:46 07/19/20 25 07/20/2025 LIPID PANEL VLDL cholesterol leann 41 mg/dL 5-40 above high normal Not Available [facility] ([facility] [place] [facility] [address] [place], [address], 07/20/2025 16:11:46 07/19/20 25 07/20/2025 LIPID PANEL LDL chol calc ([facility]) 66 mg/dL 0-99 Not Available [facility] ([facility] [place] [place] [facility] [address] [place], [address], 07/20/2025 16:11:46 07/19/20 25 07/20/2025 LIPID PANEL LDL calc comment: SETTER UP Not Available [facility] ([facility] [place] [facility] [address] [place], [address], 07/20/2025 16:11:46 07/19/20 25 07/20/2025 HEMOG LOBIN A1C hemoglobin A1C 12.1 % 4.8-5. 6 above high normal Predi abete s: 5.7 - 6.4 Diabe antonio: >6.4 Glyce kelechi contr ol for adult s with diabe antonio: <7.0 Not Available [facility] ([facility] [place] [facility] [address] [facility], [place], [address], 07/20/2025 16:11:47 08/04/20 24 08/04/2024 CT, abdom en + pelvi s, w/ contr ast No observ ation record ed. [facility] [address], [place], [place], [address], 08/05/2024 11:00:09 11/23/19 25 11/23/2024 XR, hip + pelvi s, unila teral , 2 or 3 view No observ ation record ed. [address], [place], [place], [address], 11/26/2024 11:13:10 11/23/19 25 11/23/2024 XR, femur No observ ation record ed. [address], [place], [place], [address], 11/26/2024 11:13:40 11/23/19 25 11/23/2024 XR, shoul rosalinda No observ ation record ed. [address], [place], [place], [address], 11/26/2024 11:14:12 11/23/19 25 11/23/2024 XR, clavi john No observ ation record ed. [address], [place], [place], [address], 11/26/2024 11:14:32 11/23/19 25 11/23/2024 XR, knee No observ ation record ed. [facility] [address], [place], [address], 11/26/2024 11:14:50 06/10/20 25 06/10/2025 CT, abdom en + pelvi s, w/o contr ast No observ ation record ed. [facility] [address], [place], [address], 06/10/2025 15:38:44 06/16/20 25 06/16/2025 XR, chest , 2 view No observ ation record ed. [facility] [address], [place], [address], 06/17/2025 13:31:41 06/29/20 25 06/16/2025 elect brittanie silveira am No observ ation record ed. [facility] [address], [place], [address], 06/29/2025 10:20:35 Result Notes None recorded. Problems Name Problem SNOMED Code Status Onset Date Resolution Date Notes Provider Name and Address Organization Details Recorded Time Coronary arterioscl erosis 41405763 Active Lucia Halina null, [place] - [facility] [place] 2 16:27:21 Restless legs syndrome 23850343 Active Lucia Hal[place] null, [place] [facility] [place] 2 16:27:21 Arthritis 9002604 Active Lucia Halina null, [place] [facility] [place] 2 16:27:21 Vertigo 052442321 Active Lucia Halina null, [place] [facility] [place] 2 16:27:21 Recurrent major depression in remission 17080505 Active Lucia Hal[place] null, [place] [facility] [place] 2 16:27:21 Glaucoma 88069160 Active Lucia Halina null, [place] [facility] [place] 2 16:27:21 Essential hypertensi on [id number] Active Lucia Meade null, [place] - [facility] - [facility] & [place] 2 16:27:21 Hypertrigl yceridemia 693363377 Active Lucia Meade null, PRASAN[place] - [facility] - [facility] & [place] 2 16:27:21 Hydronephr osis due to ureteral obstructio n Active Lucia Vigilwell null, PR[place]AN[place] - [facility] - [facility] & [place] 2 16:27:21 Diabetes mellitus 77203112 Active Lucia Vigilwell null, [place] - [facility] - [facility] & [place] 2 16:27:21 Kidney stone 17333796 Active Lucia Meade null, [place] - [facility] - [facility] & 2 16:27:21 History of repair of hip joint 126489873 Active Lucia Meade null, [place] - [facility] - [facility] & 2 16:27:21 Gout 81824639 Active Lucia Meade null, [place] - [facility] - [facility] & [place] 2 16:27:21 Tobacco dependence syndrome 68224993 Active Lucia Meade null, [place] - [facility] - [facility] & 2 16:27:21 Bilateral tinnitus 9137372890708 Active Lucia Meade null, [place] - [facility] - [facility] & 2 16:27:21 Insomnia 870142001 Active Lucia Meade null, [place] - [facility] - [facility] & 2 16:27:21 Long-term current use of anticoagul ant 507715335 Active Lucia Vigilwell null, [place] - [facility] - [facility] & [place] 2 16:27:21 Peripheral neuropathy due to type 2 diabetes mellitus 3085538635369 Active Lucia Vigilwell null, [place] - [facility] - [facility] & 2 16:27:21 Ureteric stone 72598166 Active Lucia Vigilwell null, [place] - [facility] - [facility] & 2 16:27:21 Osteoarthr itis of hip 656182207 Active Lucia Meade null, [place] - [facility] - [place] & [place] 2 16:27:21 Hyperlipid emia 70069309 Active Lucia Meade null, [place] - [facility] - [facility] & [place] 2 16:27:21 Peripheral vascular disease 662522504 Active Lucia Meade null, [place] - [facility] - [facility] & [place] 2 16:27:21 Hypothyroi dism 39666836 Active Lucia Vigilwell null, [place] - [facility] - [facility] & [place] 2 16:27:21 Disorder due to type 2 diabetes mellitus 401699271 Active Lucia Vigilwell null, [place] - [facility] - [facility] & [place] 2 16:27:21 Depressive disorder 63977481 Active 2022 Saleem Baptiste MD [address] [facility], [place], [address] , [place] - [facility] - [place] & [place] 3 14:56:39 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 Procedures Surgical History Date Name Laterality Status Provider Name and Address Organization Details Recorded Time 10/31/19 24 Other completed Crissy Almaguer [place] - [facility] - [place] & [place] 08/16/2024 22:21:39 02/25/20 23 Feces-based colorectal cancer DNA screening completed Xiomara Orr [place] - [facility] - [place] & [place] 03/07/2024 08:28:02 01/14/20 23 Most Recent Mammogram completed Xiomara Orr [place] - [facility] - [place] & [place] 03/07/2024 08:27:17 01/14/20 23 bone density scan completed Cristal Herrera [place] - [facility] - [place] & [place] 11/19/2024 08:35:27 08/12/20 21 completed Maria Del Rosario Morrison [place] - [facility] - [place] & [place] 09/20/2022 14:41:54 04/05/20 15 Date of Last Pap Smear completed Maria Del Rosario GONZALEZ [facility] & [place] 09/20/2022 14:41:54 total replacement of hip completed Xiomara GONZALEZ [facility] & [place] 09/12/2023 10:43:00 Removal of ovarian cyst(s) completed Xiomarageovanna GONZALEZ [facility] & [place] 09/12/2023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
--- OUTSIDE RECORDS SUMMARY | 2025-09-02 14:14 | XMS_ITS | Continuity of Care Document ---
Author Organization [place] - [facility] - [place] & [place], [facility] and [facility] Address [address] [place] [address] Care Team Providers Care Radiation Control Specialist Name Role Phone SALEEM BAPTISTE Primary Care Provider [phone] ARIANNA WATSON Shipmaster Unavailable Assessment Encounter Date Assessment Date Assessment LastModified by Organization Details LastModified Time 07/19/2025 07/19/2025 Please note this report was created using voice recognition/text compilation software documentation services during the encounter with the patient. [email or web address] Not available 07/21/2025 16:09:34 Plan of Treatment Reminders Order Date Submit Date Provider Last Modified By Organization Details Last Modified Time Details Appointments OV EST 20 2024 03:00P Edson Baptiste MD Not available Not available Not available Lab CMP, serum or plasma 2024 025 [facility], [address], [address], [place], [address], 07/20/2025 16:11:46 HbA1c (hemoglob in A1c), blood 2024 025 [facility], [address], [address], [place], [address], 07/20/2025 16:11:47 TSH + free T4, serum 2024 025 [place] [facility], [address], [address], [place], [address], 07/20/2025 16:11:44 lipid panel, serum 2024 025 [place] [facility], [address], [facility] [address], [place], [address], 07/20/2025 16:11:46 CBC w/ auto diff 2024 025 [place] [facility], [address], [facility] [address], [place], [address], 07/20/2025 16:11:45 Referral None recorded. Procedures None recorded. Surgeries None recorded. Imaging None recorded. Medication Orders insulin degludec (U-100) 100 unit/mL (3 mL) subcutane ous pen 2024 025 [place] [id number], [address], [id number], 07/19/2025 10:55:44 diclofena c 1 % topical gel 2024 025 [place] [id number], [address], [id number], 07/19/2025 10:55:50 Patient TargetsNo targets recorded. Patient InstructionsNo instructions recorded. Reason for Referral None Reported. Results Created Date Observation Date Name Description Value Unit Range Abnormal Flag Note LastModifiedBy Organization Detail LastModifiedTime 07/19/2007/20/2025 TSH+F REE T4 TSH 2.150 uIU/m L 0.450- 4.500 normal Not Available [facility] ([facility]) [address] [facility], [place], [address], 07/20/2025 16:11:44 07/19/20 25 07/20/2025 TSH+F REE T4 T4,free(dire ct) 1.06 NG/dL 0.82-1 .77 normal Not Available [facility] ([facility]) [address] [facility], [place], [address], 07/20/2025 16:11:44 07/19/20 25 07/20/2025 CBC WITH DIFFE RENTI AL/PL ATELE T WBC 7.8 x10e3 /uL 3.4-10 .8 normal Not Available [facility] ([facility]) [address] [place], [address], 07/20/2025 16:11:45 07/19/20 25 07/20/2025 CBC WITH DIFFE RENTI AL/PL ATELE T RBC 5.40 x10e6 /uL 3.77-5 .28 above high normal Not Available [facility] ([facility]) [address] [place], [address], 07/20/2025 16:11:45 07/19/20 25 07/20/2025 CBC WITH DIFFE RENTI AL/PL ATELE T hemoglobin 17.2 g/dL 11.1-1 5.9 above high normal Not Available [facility] ([facility]) [address] [place], [address], 07/20/2025 16:11:45 07/19/20 25 07/20/2025 CBC WITH DIFFE RENTI AL/PL ATELE T hematocrit 52.7 % 34.0-4 6.6 above high normal Not Available [facility] ([facility]) [address] [place], [address], 07/20/2025 16:11:45 07/19/20 25 07/20/2025 CBC WITH DIFFE RENTI AL/PL ATELE T MCV 98 fL 79-97 above high normal Not Available [facility] ([facility]) [address] [place], [address], 07/20/2025 16:11:45 07/19/20 25 07/20/2025 CBC WITH DIFFE RENTI AL/PL ATELE T MCH 31.9 pg 26.6-3 3.0 normal Not Available [facility] ([facility]) [address] [facility], [place], [address], 07/20/2025 16:11:45 07/19/20 25 07/20/2025 CBC WITH DIFFE RENTI AL/PL ATELE T MCHC 32.6 g/dL 31.5-3 5.7 normal Not Available [facility] ([facility]) [address] [facility], [place], [address], 07/20/2025 16:11:45 07/19/20 25 07/20/2025 CBC WITH DIFFE RENTI AL/PL ATELE T RDW 13.6 % 11.7-1 5.4 Not Available [facility] ([facility]) [address] [facility], [place], [address], 07/20/2025 16:11:45 07/19/20 25 07/20/2025 CBC WITH DIFFE RENTI AL/PL ATELE T platelets 166 x10e3 /uL 150-45 0 normal Not Available [facility] ([facility]) [address] [facility], [place], [address], 07/20/2025 16:11:45 07/19/20 25 07/20/2025 CBC WITH DIFFE RENTI AL/PL ATELE T neutrophils 64 % not estab. normal Not Available [facility] ([facility]) [address] [facility], [place], [address], 07/20/2025 16:11:45 07/19/20 25 07/20/2025 CBC WITH DIFFE RENTI AL/PL ATELE T lymphs 25 % not estab. normal Not Available [facility] ([facility]) [address] [facility], [place], [address], 07/20/2025 16:11:45 07/19/20 25 07/20/2025 CBC WITH DIFFE RENTI AL/PL ATELE T monocytes 6 % not estab. normal Not Available [facility] ([facility]) [address] [facility], [place], [address], 07/20/2025 16:11:45 07/19/20 25 07/20/2025 CBC WITH DIFFE RENTI AL/PL ATELE T eos 4 % not estab. normal Not Available [facility] ([facility]) [address] [place], [address], 07/20/2025 16:11:45 07/19/20 25 07/20/2025 CBC WITH DIFFE RENTI AL/PL ATELE T basos 1 % not estab. normal Not Available [facility] ([facility]) [address] [place], [address], 07/20/2025 16:11:45 07/19/20 25 07/20/2025 CBC WITH DIFFE RENTI AL/PL ATELE T immature cells FISH TENDER Not Available [facility] ([facility]) [address] [place], [address], 07/20/2025 16:11:45 07/19/20 25 07/20/2025 CBC WITH DIFFE RENTI AL/PL ATELE T neutrophils (absolute) 5.0 x10e3 /uL 1.4-7. 0 normal Not Available [facility] ([facility]) [address] [place], [address], 07/20/2025 16:11:45 07/19/20 25 07/20/2025 CBC WITH DIFFE RENTI AL/PL ATELE T lymphs (absolute) 2.0 x10e3 /uL 0.7-3. 1 normal Not Available [facility] ([facility]) [address] [place], [address], 07/20/2025 16:11:45 07/19/20 25 07/20/2025 CBC WITH DIFFE RENTI AL/PL ATELE T monocytes(ab solute) 0.4 x10e3 /uL 0.1-0. 9 normal Not Available [facility] ([facility]) [address] [place], [address], 07/20/2025 16:11:45 07/19/20 25 07/20/2025 CBC WITH DIFFE RENTI AL/PL ATELE T eos (absolute) 0.3 x10e3 /uL 0.0-0. 4 normal Not Available [facility] ([facility]) [address] [facility], [place], [address], 07/20/2025 16:11:45 07/19/20 25 07/20/2025 CBC WITH DIFFE RENTI AL/PL ATELE T baso (absolute) 0.1 x10e3 /uL 0.0-0. 2 normal Not Available [facility] ([facility]) [address] [facility], [place], [address], 07/20/2025 16:11:45 07/19/20 25 07/20/2025 CBC WITH DIFFE RENTI AL/PL ATELE T immature granulocytes 0 % not estab. Not Available [facility] ([facility]) [address] [facility], [place], [address], 07/20/2025 16:11:45 07/19/20 25 07/20/2025 CBC WITH DIFFE RENTI AL/PL ATELE T immature grans (abs) 0.0 x10e3 /uL 0.0-0. 1 Not Available [facility] ([facility]) [address] [facility], [place], [address], 07/20/2025 16:11:45 07/19/20 25 07/20/2025 CBC WITH DIFFE RENTI AL/PL ATELE T NRBC FISH TENDER Not Available [facility] ([facility]) [address] [facility], [place], [address], 07/20/2025 16:11:45 07/19/20 25 07/20/2025 CBC WITH DIFFE RENTI AL/PL ATELE T hematology comments: FISH TENDER Not Available [facility] ([facility]) [address] [facility], [place], [address], 07/20/2025 16:11:45 07/19/20 25 07/20/2025 COMP. METAB OLIC PANEL (14) glucose 252 mg/dL 70-99 above high normal Not Available [facility] ([facility]) [address] [place], [address], 07/20/2025 16:11:46 07/19/20 25 07/20/2025 COMP. METAB OLIC PANEL (14) BUN 14 mg/dL 8-27 normal Not Available [facility] ([facility]) [address] [place], [address], 07/20/2025 16:11:46 07/19/20 25 07/20/2025 COMP. METAB OLIC PANEL (14) creatinine 0.59 mg/dL 0.57-1 .00 normal Not Available [facility] ([facility]) [address] [place], [address], 07/20/2025 16:11:46 07/19/20 25 07/20/2025 COMP. METAB OLIC PANEL (14) BUN/creatini ne ratio 24 12-28 normal Not Available [facility] ([facility]) [address] [place], [address], 07/20/2025 16:11:46 07/19/20 25 07/20/2025 COMP. METAB OLIC PANEL (14) sodium 142 mmol/ L 134-14 4 normal Not Available [facility] ([facility]) [address] [place], [address], 07/20/2025 16:11:46 07/19/20 25 07/20/2025 COMP. METAB OLIC PANEL (14) potassium 4.0 mmol/ L 3.5-5. 2 normal Not Available [facility] ([facility]) [address] [place], [address], 07/20/2025 16:11:46 07/19/20 25 07/20/2025 COMP. METAB OLIC PANEL (14) chloride 102 mmol/ L 96-106 normal Not Available [facility] ([facility]) [address] [facility] [place], [address], 07/20/2025 16:11:46 07/19/20 25 07/20/2025 COMP. METAB OLIC PANEL (14) carbon dioxide, total 21 mmol/ L 20-29 normal Not Available [facility] ([facility]) [address] [facility] [place], [address], 07/20/2025 16:11:46 07/19/20 25 07/20/2025 COMP. METAB OLIC PANEL (14) calcium 9.3 mg/dL 8.7-10 .3 normal Not Available [facility] ([facility]) [address] [facility] [place], [address], 07/20/2025 16:11:46 07/19/20 25 07/20/2025 COMP. METAB OLIC PANEL (14) protein, total 6.3 g/dL 6.0-8. 5 normal Not Available [facility] ([facility]) [address] [place], [address], 07/20/2025 16:11:46 07/19/20 25 07/20/2025 COMP. METAB OLIC PANEL (14) albumin 4.1 g/dL 3.9-4. 9 normal Not Available [facility] ([facility]) [address] [place], [address], 07/20/2025 16:11:46 07/19/20 25 07/20/2025 COMP. METAB OLIC PANEL (14) globulin, total 2.2 g/dL 1.5-4. 5 Not Available [facility] ([facility]) [address] [place], [address], 07/20/2025 16:11:46 07/19/20 25 07/20/2025 COMP. METAB OLIC PANEL (14) bilirubin, total 0.8 mg/dL 0.0-1. 2 normal Not Available [facility] ([facility]) [address] [place], [address], 07/20/2025 16:11:46 07/19/20 25 07/20/2025 COMP. METAB OLIC PANEL (14) alkaline phosphatase 113 IU/L 49-135 normal Ple ase note refer ence inter chari wallace e Not Available [facility] ([facility]) [address] [place], [address], 07/20/2025 16:11:46 07/19/20 25 07/20/2025 COMP. METAB OLIC PANEL (14) AST (SGOT) 19 IU/L 0-40 normal Not Available [facility] ([facility]) [address] [place], [address], 07/20/2025 16:11:46 07/19/20 25 07/20/2025 COMP. METAB OLIC PANEL (14) ALT (SGPT) 21 IU/L 0-32 normal Not Available [facility] ([facility]) [address] [place], [address], 07/20/2025 16:11:46 07/19/20 25 07/20/2025 LIPID PANEL cholesterol, total 143 mg/dL 100-19 9 normal Not Available [facility] ([facility]) [address] [place], [address], 07/20/2025 16:11:46 07/19/20 25 07/20/2025 LIPID PANEL triglyceride s 255 mg/dL 0-149 above high normal Not Available [facility] ([facility]) [address] [place], [address], 07/20/2025 16:11:46 07/19/20 25 07/20/2025 LIPID PANEL HDL cholesterol 36 mg/dL >39 below low normal Not Available [facility] ([facility]) [address] [facility] [place], [address], 07/20/2025 16:11:46 07/19/20 25 07/20/2025 LIPID PANEL VLDL cholesterol leann 41 mg/dL 5-40 above high normal Not Available [facility] ([facility]) [address] [facility], [place], [address], 07/20/2025 16:11:46 07/19/20 25 07/20/2025 LIPID PANEL LDL chol calc ([facility]) 66 mg/dL 0-99 Not Available [facility] ([facility]) [address] [place], [address], 07/20/2025 16:11:46 07/19/20 25 07/20/2025 LIPID PANEL LDL calc comment: FISH TENDER Not Available [facility] ([facility]) [address] [facility], [place], [address], 07/20/2025 16:11:46 07/19/20 25 07/20/2025 HEMOG LOBIN A1C hemoglobin A1C 12.1 % 4.8-5. 6 above high normal Predi abete s: 5.7 - 6.4 Diabe antonio: >6.4 Glyce kelechi contr ol for adult s with diabe antonio: <7.0 Not Available [facility] ([facility]) [address] [facility], [place], [address], 07/20/2025 16:11:47 06/29/20 25 06/16/2025 elect brittanie trejogr am No observ ation record ed. [facility] [address], [place], [address], 06/29/2025 10:20:35 Result Notes None recorded. Problems Name Problem SNOMED Code Status Onset Date Resolution Date Notes Provider Name and Address Organization Details Recorded Time Coronary arterioscl erosis 48971991 Active Lucia Meade null, [place] - [facility] - [place] & [place] 2 16:27:21 Restless legs syndrome 45330765 Active Lucia Vigilwell null, [place] - [facility] - [facility] & [place] 2 16:27:21 Arthritis 1752410 Active Lucia Vigilwell null, [place] - [facility] - [facility] & [place] 2 16:27:21 Vertigo 951360538 Active Lucia Vigilwell null, [place] - [facility] - [facility] & [place] 2 16:27:21 Recurrent major depression in remission 27560569 Active Lucia Vigilwell null, [place] - [facility] - [facility] & [place] 2 16:27:21 Glaucoma 82167574 Active Lucia Vigilwell null, [place] - [facility] - [facility] & [place] 2 16:27:21 Essential hypertensi on 87232212 Active Lucia Vigilwell null, [place] - [facility] - [facility] & [place] 2 16:27:21 Hypertrigl yceridemia 694821880 Active Lucia Vigilwell null, [place] - [facility] - [facility] & [place] 2 16:27:21 Hydronephr osis due to ureteral obstructio n Active Lucia Vigilwell null, [place] - [facility] - [facility] & [place] 2 16:27:21 Diabetes mellitus 15659572 Active Lucia Vigilwell null, [place] - [facility] - [facility] & [place] 2 16:27:21 Kidney stone 81378181 Active Lucia Vigilwell null, [place] - [facility] - [facility] & [place] 2 16:27:21 History of repair of hip joint 667320547 Active Lucia Halina null, [place] - [facility] - [facility] & [place] 2 16:27:21 Gout 42613882 Active Lucia Vigilwell null, [place] - [facility] - [facility] & 2 16:27:21 Tobacco dependence syndrome 98673317 Active Lucia Vigilwell null, [place] - [facility] - [facility] & [place] 2 16:27:21 Bilateral tinnitus 8931376815288 Active Lucia Halina null, [place] - [facility] - [facility] & [place] 2 16:27:21 Insomnia 197307970 Active Lucia Meade null, [place] - [facility] - [facility] & [place] 2 16:27:21 Long-term current use of anticoagul ant 699764433 Active Lucia Meade null, [place] [facility] & [place] 2 16:27:21 Peripheral neuropathy due to type 2 diabetes mellitus 7779973802977 Active Lucia Meade null, [place] - [facility] - & [place] 2 16:27:21 Ureteric stone 37059045 Active Lucia Meade null, [place] - [facility] - [facility] & [place] 2 16:27:21 Osteoarthr itis of hip 702012442 Active Lucia Meade null, [place] - [facility] - [facility] & [place] 2 16:27:21 Hyperlipid emia 88625763 Active Lucia Meade null, [place] - [facility] - [facility] & [place] 2 16:27:21 Peripheral vascular disease 125352365 Active Lucia Meade null, [place] - [facility] - [facility] & [place] 2 16:27:21 Hypothyroi dism 49799283 Active Lucia Vigilwell null, [place] [facility] & [place] 2 16:27:21 Disorder due to type 2 diabetes mellitus 326009808 Active Lucia Meade null, [place] - [facility] - & [place] 2 16:27:21 Depressive disorder 26595273 Active 2022 Saleem Baptiste MD [facility], [place], [address] , [place] - [facility] - [facility] & [place] 3 14:56:39 Osteoarthr itis 679788311 Active 2023 Graciela Cline null, [place] - [facility] - [place] & [place] 4 13:08:10 Problem Notes None recorded. Procedures Surgical History Date Name Laterality Status Provider Name and Address Organization Details Recorded Time 10/31/19 24 Other completed Crissy Almaguer [place] - [facility] - & [place] 08/16/2024 22:21:39 02/25/20 23 Feces-based colorectal cancer DNA screening completed Xiomara Hitchcockkojo [facility] & [place] 03/07/2024 08:28:02 01/14/20 23 Most Recent Mammogram completed Xiomara Hitchcockkojo [facility] & [place] 03/07/2024 08:27:17 01/14/20 23 bone density scan completed Cristal Sharon [facility] & [place] 11/19/2024 08:35:27 08/12/20 21 completed Maria Del Rosario [facility] & [place] 09/20/2022 14:41:54 04/05/20 15 Date of Last Pap Smear completed Maria Del Rosario Coegesfabiola [facility] & [place] 09/20/2022 14:41:54 total replacement of hip completed Xiomara Dominga [facility] & [place] 09/12/2023 10:43:00 Removal of ovarian cyst(s) completed Xiomara Dominga [facility] & [place] 09/12/2023 10:43:09 extracorporeal shockwave lithotripsy of calculus of kidney completed Xiomara Dominga [facility] & [place] 09/12/2023 10:43:21 open heart surgery completed Fam naik Dominga [facility] & [place] 09/12/2023 10:43:49 coronary artery bypass graft completed Xiomara Hitchcockkojo [facility] & [place] 03/07/2024 08:31:56 Imaging Results None recorded. Procedure Notes None recorded. Medical Equipment None Reported. Allergies Allergen ID Allergen Name Allergen Category Reaction Reaction Severity Criticality Documentation Date Start Date Code Code System Note Provider Name and Address Organization Details Recorded Time 37898 atorvasta tin medicatio n Not available Not available Not available 07/14/2022 94816 RxNorm CARLOS Myles [facility] & [place] 14:05:28 Medications Name Sig Start Date Stop [...] completed Not Available Not Available Not Available OneTouch Ultra Test strips USE DIRECTED TO TEST [...] Updated DateTime 5 160.02 cm 28.5 kg/m2 56345.3 7 g 58 cm 147/76 mm[Hg] Dianna Sauer [facility] & [place] 5 10:18:38 Social History Question Answer Notes LastModified by Organizat ion Details LastModified Time Tobacco Smoking Status Current Every Day Smoker Maria Del Rosario sanchez, [facility] 09/20/2022 14:41:54 Do You Have An Advance [...] Bread, 1 Cup Of Whole-grain Or High-fiber Zvscx-ck-wfh Cereal, 1 2 Cup Of Cooked Cereal Such As Oatmeal, Or 1 2 Cup Of Cooked Brown Rice Or Whole Wheat Pasta.) 1-2 Servings Per Day Information not available 12/21/2022 In The Past 7 Days, How Many Servings Of Fried Or High-fat Foods Did You Typically Eat Each Day? (Examples Include Fried Chicken, Fried Fish, Small, M[place]ese [place], Potato Chips, [place] Chips, Doughnuts, Creamy Salad Dressings, And Foods [...] Past 7 Days, How Often Have You [place] Sleepy During The Daytime? Always Information not [...] Of Your Most Recent Tobacco Screening? 08/13/2024 [email or web address] Information not available 08/16/2024 What Is Your Current Pack Years? [email or web address] Information not available 11/19/2024 Do You Use [...] anxious, or unable to sleep at night)? [id number] Information not available 12/21/2022 Do you have difficulty concentrating, remembering or making decisions? No [email or web address] Information no t available 09/26/2023 Family History [...] Depression Y High Cholesterol Y Heart Attack ([place]) [...] mL dose 01/13/2021 completed CARLOS Andrade - [place] - [place] & [place] 12/21/2022 14:02:12 COVID-19, mRNA, LNP-S, PF, 30 mcg/0.3 mL dose 03/06/2021 completed Mary Anne Briceñoferozjulia null, [place] [facility] & [place] 12/21/2022 14:02:12 COVID-19, mRNA, LNP-S, PF, 30 mcg/0.3 mL dose, tahira-sucrose 12/01/2021 completed Mary Anne Briceñoferozconsueloe null, [place] [facility] - [place] & [place] 12/21/2022 14:02:12 Tdap 01/17/2019 completed Mary Anne Briceñoudlette null, [place] [facility] & [place] 12/21/2022 14:02:12 Past Encounters Encounter ID Performer Location Encounter Start Date Encounter Closed Date Diagnosis/Indication Diagnosis SNOMED-CT Code Diagnosis ICD10 Code Diagnosis IMO Codes Diagnosis Note [id number] [facility] molina [address] [place] [address] 07/19/2025 09:50:36 07/19/2025 11:34:30 Peripheral neuropathy due to type 2 diabetes mellitus 7386565839 107 E11.42 Discussed the importance of avoiding sweets and carbohydra antonio, particular ly at night, to help manage her blood sugar levels.Juan R ding in new insulin today which should be covered on her insurance. Patient gave urine sample but was not enough urine to do any testing. Will try again at next appt. Osteoarthritis of hip 23 3347504 M16.9 Hyperlipidemia 48303242 E78.5 Health Concerns Section Related Observation LastModified by Organization Detai ls LastModified Time None Recorded Concern Status LastModified by Organization Details LastModified Time None Recorded Payers Encounter Date Sequence Insurance Name Policy Number Policy Sexton Covered Member ID Sexton Member ID Guarantor Name 07/19/2025 2 [employer] [place] (MEDICAID HMO) Marisol Strange [id number] Marisol Strange 07/19/2025 1 [employer] - DUAL ELIGIBLE (MEDICARE REPLACEMENT/ ADVANTAGE - HMO) Marisol Strange [id number] Marisol Strange Notes Date Note Type Note Provider Name and Address Organization Details Recorded Time 07/19/2025 text/html Marisol Strange is a 69-year-old [...] for labs today. Saleem Baptiste MD [address], [place], [address], [facility] - [place] - [place] & [place] 07/21/2025 16:10:25 OBGyn Episode No OBEpisode recorded.
== END 2025-09-02 23:59 | disposition home or self-care (01) ==
LOC: RAD 14:10
PROVIDERS: PCP Pediatrics; Visit Provider Physician Assistant Surgical
DX: M25.511 Pain in right shoulder (principal); R93.7 Abnormal findings on diagnostic imaging of other parts of musculoskeletal system
CPT/HCPCS: 73030

== ENCOUNTER 2025-10-26 14:23 | Emergency (ER) | payer MEDICARE, SELFPAY ==
[2025-10-26 14:41] VITALS: BP 109/56; PULSE 70; RESP 16; TEMP 36.6; O2SAT 99; BMI 29.2
--- NOTE | 2025-10-26 14:46 | XR_ITS ---
PROCEDURE INFORMATION: Exam: XR Left Foot Exam date and time: 10/26/2025 2:53 PM Age: 70 years old Clinical indication: Pain; Foot; Left; Additional info: Foot pain/swelling TECHNIQUE: Imaging protocol: Radiologic exam of the left foot. Views: 3 or more views. COMPARISON: CR XR FOOT WT BEARING LT 3V 11/25/2023 2:29 PM FINDINGS: Bones/joints: Degenerative changes in the 1st metatarsal phalangeal joint and IP joint. There is no evidence of acute fracture.There is no evidence of malalignment or dislocation. Degenerative changes in the tarsal bones and tarsometatarsal joints. Soft tissues: Soft tissue swelling of the foot IMPRESSION: 1. Degenerative changes in the 1st metatarsal phalangeal joint and IP joint. 2. There is no evidence of acute fracture.There is no evidence of malalignment or dislocation.
--- NOTE | 2025-10-26 15:36 | [facility].EDGENADL ---
Discharge Plan Disposition Patient Disposition: Home, Self-Care Prescriptions Prescriptions: New clindamycin HCl [Cleocin HCl] 300 mg capsule 300 mg PO Q8H 7 Days Qty: 21 0RF No Action carvedilol 6.25 mg tablet 6.25 mg PO DAILY Patient Comments: TAKE 1 TABLET BY MOUTH TWICE DAILY WITH FOOD AND MEAL escitalopram oxalate 10 mg tablet 10 mg PO DAILY Patient Comments: TAKE 1 TABLET BY MOUTH EVERY DAY insulin degludec 100 unit/mL (3 mL) insulin pen SQ Patient Comments: INJECT 75 UNITS UNDER THE SKIN ONCE DAILY azithromycin [Zithromax Z-Narinder] 250 mg tablet 250 mg PO QDAY Qty: 6 0RF Rx Instructions: Take 2 pills the first day and then one tablet per day benzonatate 200 mg capsule 200 mg PO TID PRN (Reason: cough) Qty: 30 0RF methylprednisolone [Medrol (Narinder)] 4 mg tablets,dose pack See Rx Instructions PO PER PKG DIR Qty: 21 0RF Rx Instructions: PO PER PKG DIR for 6 days clopidogrel 75 mg tablet 75 mg PO ONCE cilostazol 100 mg tablet 100 mg PO BID Qty: 120 1RF Rx Instructions: Needs follow up appt. with cardiology. Thanks glipizide 10 tablet 10 mg PO DAILY aspirin 81 MG tablet,delayed release (DR/EC) 81 mg PO DAILY pregabalin 100 MG capsule 100 mg PO BID simvastatin 80 mg tablet 80 mg PO HS Patient Comments: TAKE 1 TABLET BY MOUTH EVERY DAY IN THE EVENING insulin glargine [Basaglar KwikPen U-100 Insulin] 100 unit/mL (3 mL) insulin pen 65 unit SQ HS Patient Comments: ADMINISTER 65 UNITS UNDER THE SKIN EVERY DAY hydrochlorothiazide 12.5 mg tablet 12.5 mg PO DAILYP PRN (Reason: Fluid) Patient Comments: TAKE 1 TABLET BY MOUTH EVERY DAY NEEDED dapagliflozin propanediol [Farxiga] 10 mg tablet 10 mg PO DAILY Patient Comments: TAKE 1 TABLET BY MOUTH EVERY DAY triamcinolone acetonide 0.1 % cream 1 applic topical BID PRN (Reason: itching) Qty: 30 1RF Referrals Follow up/Referrals: Bridger Funez MD [Primary Care Provider, Medical] - See instructions Activity Restrictions/Add. Instructions Additional Instructions/Restrictions: Elevate foot is much as you can. Take antibiotic as directed. Please follow-up with Dr. Funez this week. Feel free to return to the ED if any worsening problems or concerns. Clinical Impressions Clinical Impression: Cellulitis Instructions Patient Instructions: Cellulitis Print Language Print Language: Bel[place]ian Discharge ED Provider: Antonio Baltazar General Adult HPI <Aiyana Kilanali (ED), MANAGER BAKERY - Last Filed: 10/26/25 15:49> General Chief complaint: Extremity Injury, Lower Stated complaint: Swelling in Left Foot Time Seen by Provider: 10/26/25 15:06 Mode of Arrival: Ambulatory Source of Information: Patient Description of Symptoms (Recalled from ER Triage Doc. by RN): Patient complaining of pain, bruising and swelling to left foot for 4 days. Patient denies any injury to foot. States she is unable to bear weight. History of Present Illness HPI narrative: 70-year-old female presents to the ED today with complaint of left foot pain, bruising on the lateral portion of her foot and swelling of her left foot. She says this started the day before [place]. She denies injury of her foot. She says it hurts to walk on it. She says when she elevates her foot it helps the swelling just a little bit. She says the more she is on it and the more things she has to do the worse it gets. Related Data Home Medications ?Medication ?Instructions ?Recorded ?Confirmed clopidogrel 75 mg tablet 75 mg PO ONCE Blood thinner 03/24/18 09/07/25 aspirin 81 mg tablet,delayed 81 mg PO DAILY CAD 03/27/18 09/07/25 release glipizide 10 mg tablet 10 mg PO DAILY DM 03/27/18 09/07/25 pregabalin 100 mg capsule 100 mg PO BID FIBROMYALGIA 03/27/18 09/07/25 insulin glargine 100 unit/mL (3 65 unit SQ HS 08/04/24 09/07/25 mL) subcutaneous pen (Basaglar KwikPen U-100 Insulin) simvastatin 80 mg tablet 80 mg PO HS 08/04/24 09/07/25 dapagliflozin propanediol 10 mg 10 mg PO DAILY 08/05/24 09/07/25 tablet (Farxiga) hydrochlorothiazide 12.5 mg tablet 12.5 mg PO DAILYP PRN Fluid 08/05/24 09/07/25 carvedilol 6.25 mg tablet 6.25 mg PO DAILY 09/07/25 09/07/25 escitalopram oxalate 10 mg tablet 10 mg PO DAILY 09/07/25 09/07/25 insulin degludec 100 unit/mL (3 unit SQ 09/07/25 09/07/25 mL) subcutaneous pen Previous Rx's ?Medication ?Instructions ?Recorded cilostazol 100 mg tablet 100 mg PO BID PAD #120 tabs 04/17/18 triamcinolone acetonide 0.1 % 1 applic topical BID PRN itching 11/23/24 topical cream #30 grams azithromycin 250 mg tablet 250 mg PO QDAY #6 tabs 09/07/25 (Zithromax Z-Narinder) benzonatate 200 mg capsule 200 mg PO TID PRN cough #30 caps 09/07/25 methylprednisolone 4 mg tablets in See Rx Instructions PO PER PKG DIR 09/07/25 a dose pack (Medrol (Narinder)) #21 tabs clindamycin HCl 300 mg capsule 300 mg PO Q8H 7 days #21 caps 10/26/25 (Cleocin HCl) Allergies Allergy/AdvReac Type Severity Reaction Status Date / Time No Known Allergies Allergy Verified 09/07/25 15:47 PFS <Aiyana Khalil (ED), MANAGER BAKERY - Last Filed: 10/26/25 15:49> PFS Disclaimer: The information contained in this section may have been updated after the patient was seen, as this information can be updated by other users. Medical History Paronychia Acute bronchitis Corneal abrasion, left Exposure to COVID-19 virus Kidney stone on left side Uses marijuana Diabetes Left foot pain Tachycardia Smoking SOB (shortness of breath) PAD (peripheral artery disease) HLD (hyperlipidemia) HHD (hypertensive heart disease) CAD (coronary artery disease) Social History Smoking Status: Current every day smoker tobacco type: cigarettes packs per day: 1 alcohol intake: never substance use type: marijuana current occupational status: disabled Travel in the last 8 weeks?: None household members: children housing: apartment current occupational exposures/hazards: No caffeine: Yes Have you lived/traveled outside [place] in past 30 days?: No Contact w/someone who lives/traveled outside [place] past 30 days?: No Exposure to someone with infectious disease in past 14 days?: No Do you have a fever (greater than 100.4 F or 38 C)?: No Have you tested positive for COVID-19?: No Exposed to someone with COVID-19 in past 14 days?: No Do you have a sore throat?: No Do you have a cough?: No Do you have any weakness?: No Do you have any diarrhea?: No Are you experiencing any unusual bleeding?: No Do you have any muscle aches/pain?: No Do you have any abdominal pain?: No Are you experiencing loss of taste or smell?: No Other Medical History Have you received the Flu Vaccine for this season: No Have you received the Pneumonia Vaccine: No <Aiyana Khalil (ED), MANAGER BAKERY - Last Filed: 10/26/25 15:49> ROS Obtained: Yes Systems reviewed as appropriate & no additional complaints except as documented Constitutional Constitutional: Reports as per HPI Physical Exam <Aiyana Khalil (ED), MANAGER [employer]AKERY - Last Filed: 10/26/25 15:49> General General appearance: alert Head Head exam: normocephalic Eye Eye exam: Present PERRL ENT ENT exam: Present normal oropharynx Neck Neck exam: Present full ROM Respiratory Respiratory exam: Present normal lung sounds bilaterally Cardiovascular Cardiovascular exam: Present regular rate, normal rhythm, +S1 and +S2 Extremities Exam Extremities exam: Present full ROM, tenderness and edema Neurological Exam Neurological exam: Present alert and oriented X3 Skin Skin exam: Present warm, dry and erythema (Left foot) Medical Decision Making <Aiyana Khalil (ED), MANAGER BAKERY - Last Filed: 10/26/25 15:49> Medical Records Screening: Per USPSTF and CDC recommendations, given the prevalence of disease in our region, it is our hospital?s policy to screen for HIV and viral Hepatitis for all patients aged 18 and over and those with ongoing risk factors. Donnie Inquiry Pt receiving controlled substance: No Donnie was queried for this patient: No Vital Signs: 10/26/25 14:41 10/26/25 16:07 Temperature 97.9 F 98.2 F Temperature Source Oral Pulse Rate 79 Pulse Rate [Right Brachial] 70 Respiratory Rate 16 20 Blood Pressure 146/80 H Blood Pressure [Right Arm] 109/56 L Blood Pressure Mean [Right Arm] 73 Blood Pressure Source [Right Arm] Automatic Cuff Blood Pressure Position [Right Arm] Sitting 02 Sat by Pulse Oximetry 99 Oxygen Delivery Method Room Air Room Air Orders (Tests/Meds): ORDERS Category Date Time Status Foot XR left minimum 3 views [XR foot LT min 3V] Stat Exams 10/26/25 14:46 Completed POCUS Point of Care (ER Only) Stat Exams 10/26/25 15:35 Completed Medical Decision Narrative: patient is a 70-year-old female presenting to the emergency department for evaluation of left foot swelling, erythema. Patient is hemodynamically stable and nontoxic-appearing upon arrival, afebrile. Differential diagnosis includes cellulitis, DVT, among others. Workup will be conducted with hematologic labs, specific imaging. Dr Baltazar did a pocus exam to rule out DVT versus cellulitis. POCUS was significant for cellulitis. Patient will be treated with antibiotics and safe for discharge home she will follow-up with her PCP. <Antonio Baltazar MD - Last Filed: 10/27/25 11:25> Vital Signs: 10/26/25 14:41 10/26/25 16:07 Temperature 97.9 F 98.2 F Temperature Source Oral Pulse Rate 79 Pulse Rate [Right Brachial] 70 Respiratory Rate 16 20 Blood Pressure 146/80 H Blood Pressure [Right Arm] 109/56 L Blood Pressure Mean [Right Arm] 73 Blood Pressure Source [Right Arm] Automatic Cuff Blood Pressure Position [Right Arm] Sitting 02 Sat by Pulse Oximetry 99 Oxygen Delivery Method Room Air Room Air Orders (Tests/Meds): ORDERS Category Date Time Status Foot XR left minimum 3 views [XR foot LT min 3V] Stat Exams 10/26/25 14:46 Completed POCUS Point of Care (ER Only) Stat Exams 10/26/25 15:35 Completed Medical Decision Narrative: patient is a 70-year-old female presenting to the emergency department for evaluation of left foot swelling, erythema. Patient is hemodynamically stable and nontoxic-appearing upon arrival, afebrile. Differential diagnosis includes cellulitis, DVT, among others. Workup will be conducted with hematologic labs, specific imaging. Dr Baltazar did a pocus exam to rule out DVT versus cellulitis. POCUS was significant for cellulitis. Patient will be treated with antibiotics and safe for discharge home she will follow-up with her PCP. Antonio Baltazar MD: I was consulted by the PERLA, and we discussed the complexity of the problems being addressed. I approve the treatment and management plan for this patient's care in the emergency department, thus performing a substantive portion of the medical decision making. Procedures <Antonio Baltazar MD - Last Filed: 10/27/25 11:25> Limited Ultrasound Indication:: Limited MSK/soft tissue ultrasound Indication: Soft tissue swelling and redness of the left lateral foot Identified structures: Location: Left lateral foot and distal womack Findings: Cellulitis Impression: Cellulitis of soft tissue Images [were saved] to permanent archive The study [was] technically adequate Soft Tissue CPT Codes: CPT Neck: 96041-50 CPT Upper extremity: 04384-21 CPT Axilla: 76193-07 CPT Chest wall: 55495-91 CPT Breast: 99838-20-UX/LT (complete), 79511-81-NC/LT (limited), CPT Upper Back: 50127-76 CPT Lower Back: 87781-05 CPT Abdominal Wall: 35231-42 CPT Pelvic Wall: 78540-00 CPT Lower Extremity: 69758-56 CPT Other Soft Tissue: 04923-32 This study was performed by Antonio cordero MD, and I personally interpreted all images/videos. Based on my clinical judgement, these images were adequate and did not necessitate further imaging. Indication: Limited compression ultrasonography of the left lower extremity was performed to evaluate for non-compressibility of the deep veins in the patient. The ultrasound was performed with the following indications, as noted in the H&P: Left foot and distal womack redness and swelling Identified structures: Left common femoral vein, femoral vein, popliteal vein were examined. Findings: Lower Extremity: Left CFV: [Good compressibility] Left FV [Good compressibility] Left Popliteal vein: [Good compressibility] Impression: [Normal DVT ultrasound] Images [were saved] to permanent archive The study [was] technically adequate CPT: 38866-82-PM 60624-78-AV 46410-93 (complete bilateral study) This study was performed by Antonio cordero MD, and I personally interpreted all images/videos. Based on my clinical judgement, these images were adequate and did not necessitate further imaging. Critical Care <Aiyana Khalil (OLAF), MANAGER BAKERY - Last Filed: 10/26/25 15:49> Critical Care Time Critical Care Time: No
[2025-10-26 16:07] VITALS: BP 146/80; PULSE 79; RESP 20; TEMP 36.8; O2SAT 98
== END 2025-10-26 16:08 | disposition home or self-care (01) ==
PROVIDERS: Emergency Provider Student in an Organized Health Care Education/Training Program; PCP Pediatrics
DX: L03.116 Cellulitis of left lower limb (principal); R22.42 Localized swelling, mass and lump, left lower limb; F17.210 Nicotine dependence, cigarettes, uncomplicated
CPT/HCPCS: 73630; 99283